=== PATIENT | female | born 1950 | race Caucasian/White ===

== ENCOUNTER 2020-07-14 11:18 | Outpatient (CLI) | payer MEDICARE, SELFPAY ==
--- NOTE | 2020-07-14 11:29 | MM_ITS ---
WS: [id number] BILATERAL DIGITAL SCREENING MAMMOGRAPHY WITH CAD CLINICAL INFORMATION: SCREENING HISTORY: Screening mammogram. No current complaints. COMPARISON: TECHNIQUE: Bilateral CC and MLO views. FINDINGS: Scattered fibroglandular densities bilaterally. No suspicious focal mass, asymmetry, calcifications, or architectural distortion. New punctate clustered calcifications involving the upper outer right br east. Recommend further evaluation with spot compression magnification views. Lucent centered and pun ctate calcifications. Vascular calcification. Stable large dystrophic calcification right breast. Left breast is unremarkable and unchanged. MM/[place] [id number] IMPRESSION: BI-RADS: 0-Incomplete: Need additional imaging evaluation FOLLOW UP: Need Additional Imaging RECOMMEND RIGHT DIAGNOSTIC MAMMOGRAPHY WITH SPOT MAGNIFICATION VIEWS OF THE NEW CALCIFICATIONS
== END 2020-07-14 11:19 | disposition home or self-care (01) ==
LOC: RADSHAW 11:24
PROVIDERS: PCP Internal Medicine; Visit Provider Internal Medicine
DX: Z12.31 Encounter for screening mammogram for malignant neoplasm of breast (principal); R92.8 Other abnormal and inconclusive findings on diagnostic imaging of breast
CPT/HCPCS: 77067

== ENCOUNTER 2020-08-11 11:10 | Outpatient (CLI) | payer MEDICARE, SELFPAY ==
--- NOTE | 2020-08-11 11:15 | MM_ITS ---
WS: [id number] RIGHT DIGITAL MAMMOGRAPHY WITH CAD CLINICAL INFORMATION: INCONCLUSIVE MAMMOGRAM COMPARISON: July 14, 2020 TECHNIQUE: 4 views of the right breast were obtained. FINDINGS: Scattered fibroglandular densities of the right breast. Stable clustered dystrophic calcifications. S table lucent centered calcifications. Again seen are the new punctate clustered calcifications involving the upper outer right breast. Spot magnification views demonstrate punctate and relatively uniform calcifications. These are probably b enign and recommend 6 month follow-up to confirm stability. MM/[place] [id number] IMPRESSION: BI-RADS: 3-Probably Benign FOLLOW UP: 6 Month Follow-up SIX-MONTH FOLLOW-UP RIGHT BREAST DIAGNOSTIC MAMMOGRAPHY WITH MAGNIFICATION VIEW S RIGHT BREAST CALCIFICATIONS TO CONFIRM STABILITY
== END 2020-08-11 11:11 | disposition home or self-care (01) ==
LOC: RADSHAW 11:13
PROVIDERS: PCP Internal Medicine; Visit Provider Internal Medicine
DX: R92.2 Inconclusive mammogram (principal)
CPT/HCPCS: 77065

== ENCOUNTER 2021-07-13 12:49 | Outpatient (CLI) | payer MEDICARE, MEDICAID, SELFPAY ==
--- NOTE | 2021-07-13 13:04 | MM_ITS ---
WS: [id number] RIGHT DIGITAL MAMMOGRAPHY WITH CAD CLINICAL INFORMATION: INCONCLSIVE MAMMOGRAM COMPARISON: July 14, 2020 TECHNIQUE: 4 views of the right breast were obtained. FINDINGS: Scattered fibroglandular densities of the right breast. Dystrophic calcifications subareolar right br east. Stable punctate and clustered calcifications are unchanged compared to the prior examination an d probably benign. Lucent centered calcifications. No other significant changes compared to previous. MM/[place] [id number] IMPRESSION: BI-RADS: 3-Probably Benign FOLLOW UP: 6 Month Follow-up RECOMMEND ADDITIONAL SIX-MONTH RIGHT DIAGNOSTIC MAMMOGRAPHY WITH SPOT MAGNIFICA TION VIEWS OF THE CALCIFICATIONS UNTIL 2 YEAR STABILITY.
== END 2021-07-13 12:50 | disposition home or self-care (01) ==
LOC: RADSHAW 12:55
PROVIDERS: PCP Internal Medicine; Visit Provider Physician Assistant
DX: R92.2 Inconclusive mammogram (principal)
CPT/HCPCS: 77065

== ENCOUNTER 2021-08-05 08:45 | Emergency (ER) | payer MEDICARE, MEDICAID, SELFPAY ==
[2021-08-05] VITALS (7 sets, daily range): BP systolic 100–146; BP diastolic 48–76; PULSE 68–96; RESP 16–20; TEMP 38.6; O2SAT 92–96; BMI 41.5
--- NOTE | 2021-08-05 09:13 | XRR_ITS ---
PROCEDURE INFORMATION: Exam: XR Chest Exam date and time: 08/05/2021 9:13 AM Age: 70 years old Clinical indication: Fever; Patient HX: N/v chills not acting right TECHNIQUE: Imaging protocol: XR of the chest. Views: 1 view. COMPARISON: [facility] Chest 2 views 09/18/2016 9:42 AM FINDINGS: Lungs: Unremarkable. No consolidation. Pleural spaces: Unremarkable. No pleural effusion. No pneumothorax. Heart/Mediastinum: Unremarkable. No cardiomegaly. Bones/joints: Sequela of ORIF within the proximal left humerus. The visualized osseous structures are intact. XR/XR chest 1V portable [id number] IMPRESSION: No acute findings.
--- NOTE | 2021-08-05 09:37 | W.ED.COVID ---
Documented by User: ROBI Robbins 08/05/21 15:57 HPI - COVID General: Chief Complaint: COVID symptoms Stated Complaint: N/V CHILLS NOT ACTING RIGHT Time Seen by Provider: 08/05/21 11:44 Triage information: Has fever, cough or shortness of breath. No known COVID + exposure last 14 days History of Present Illness: HPI Narrative: Patient is an unvaccinated individual who presents here today with generalized weakness for the last couple days. Started with a high fever this morning. Daughter was concerned that she was coming out of it for about a minute this morning when they were up walking around. But patient has since then responded very well. No known COVID exposure. Patient denies any new cough but she does have history of chronic cough. Patient denies any sinus drainage. Patient still has gallbladder. Did vomit this morning. Patient is diabetic. Patient is having slight abdominal discomfort upper abdomen. COVID 19 common symptoms: positive nausea and vomiting; negative fever(s), chills, non-productive cough, productive cough, dyspnea, body aches, headache(s), throat pain or nasal congestion COVID 19 other sytmptoms: negative chest pain COVID Results: SARS-CoV-2 (PCR) Not detected (NOT DETECT) 08/05/21 11:20 08/05/21 Coronavirus Type 229E (PCR) Not detected (NOT DETECT) 08/05/21 11:20 08/05/21 Review of Systems Narrative: Daughter said that earlier today she seemed like she is kind of out of it for a few minutes but has returned back to normal. Const: Denies: fever(s), chills or body aches Eyes: Denies: change in vision or blurry vision ENMT: Denies: throat pain or nasal congestion Card: Denies: chest pain or dyspnea on exertion Resp: Denies: dyspnea, productive cough or non-productive cough GI: Reports: abdominal pain, nausea and vomiting Musc: Denies: extremity pain Skin/Breast: Denies: rash Neuro: Denies: headache(s) Psych: Denies: anxiety or depression José/Lymph: Denies: easy bruising Physical Exam Const: COMMON NORMALS: no acute distress and patient oriented x3 GENERAL APPEARANCE: cooperative and comfortable HENMT: COMMON NORMALS: normocephalic HEAD & SCALP: normal to inspection and normocephalic FACE & SINUS: normal facial exam Eye: COMMON NORMALS: conjunctivae normal GENERAL EYE: appearance normal, both eyes and all related structures CONJUNCTIVA: Yes conjunctivae normal Neck/C-Spine: COMMON NORMALS: no JVD Chest: COMMONS NORMALS: normal inspection of the chest Resp: COMMON NORMALS: normal respiratory effort and clear to auscultation bilaterally AUSCULTATION: clear to auscultation bilaterally Cardio: COMMON NORMALS: no JVD, regular rate and regular rhythm RATE: regular rate RHYTHM: regular rhythm GI: AUSCULTATION: Yes normoactive bowel sounds PALPATION: Yes Tenderness to palpation present (GI) (Generalized) Extremity: COMMON NORMALS: normal to inspection and full ROM Neuro: COMMON NORMALS: patient oriented x3 Course Vital Signs: Vital signs: Vital Signs Temperature 101.5 F H 08/05/21 09:06 Pulse Rate 78 08/05/21 19:51 Respiratory Rate 16 08/05/21 19:51 Blood Pressure 134/68 08/05/21 19:51 Pulse Oximetry 95 08/05/21 19:51 MDM - COVID MDM Narrative: Medical decision making narrative: Brief history and physical exam was performed as part of the triage process. Due to current ED wait time patient will be placed in waiting room until a room becomes available. Explained to patient he/she will be seen in order of severity. Patient is currently safe to wait in the waiting room until we can get them placed. Patient informed that if condition worsens at any time to please let the front end application developer know. Discussed work-up and case with Dr. Briggs- we will proceed with ultrasound I spoke with Dr. Briggs shared results of findings and then I spoke with Dr. Montoya and shared ultrasound findings and labs Dr. Yanez recommended we go ahead and do hepatitis profile admit to the medical floor then he will follow and if need be addressed the gallbladder issues tomorrow. Also recommend antibiotic. Hepatitis profile was negative. CT of the abdomen reveals multiple gallstones with pericholecystic edema consistent with acute cholecystitis and then she has stones in her common bile duct with the largest being 3 mm. Patient in need of ERCP. Spoke with Dr. Cabral will consider transfer to [facility] per family members request if beds available. Lab Data: Labs: Lab Results 08/05/21 08/05/21 08/05/21 10:53 10:53 10:53 WBC 25.5 10^3/uL H 10 ^3/uL (4.0-10.0) RBC 4.54 10^6/uL 10^6 /uL (4.1-5.3) Hgb 13.7 g/dL g/dL (11.5-15.3) Hct 41.4 % % (37.0-47.0) MCV 91.2 fl fl (81-99) MCH 30.2 pg pg (28.0-34.0) MCHC 33.1 g/dL g/dL (30.0-36.0) RDW 12.7 % % (12.1-15.1) Plt Count 430 10^3/cmm H 10 ^3/cmm (130-400) MPV 9.5 fL fL (7.4-10.4) Neut % (Auto) 90.7 % % Lymph % (Auto) 2.1 % % Collier % (Auto) 6.2 % % Eos % (Auto) 0.0 % % Baso % (Auto) 0.3 % % Neut # (Auto) 23.13 10^3/uL H 1 0^3/uL (1.8-7.7) Lymph # (Auto) 0.5 10^3/uL L 10^ 3/uL (0.8-4.8) Collier # (Auto) 1.6 10^3/uL H 10^ 3/uL (0.2-0.9) Eos # (Auto) 0.0 10^3/uL 10^3/ uL (0.0-0.8) Baso # (Auto) 0.1 10^3/uL 10^3/ uL (0.0-0.1) Nucleated RBC % (a uto) 0 % % Nucleated RBCs # 0.0 /100WBC /100W BC Sodium 134 mmol/L L mmol /L (136-145) Potassium 3.7 mmol/L mmol/L (3.5-5.1) Chloride 94 mmol/L L mmol/ L (98-107) Carbon Dioxide 26 mmol/L mmol/L (22-29) Anion Gap 17.7 (5-19) BUN 23 mg/dL mg/dL (8-23) Creatinine 1.3 mg/dL H mg/dL (0.5-0.9) GFR Calculation 40.7 mL/min L mL/ min (90-130) Glucose 273 mg/dL H mg/dL (65-115) Calculated Osmolal ity 291 mOsm/kg mOsm/ kg (285-295) Calcium 9.9 mg/dL mg/dL (8.5-10.5) Total Bilirubin 3.5 mg/dL H mg/dL (0.15-1.2) AST 457 U/L H U/L (0-32) ALT 252 U/L H U/L (0-33) Alkaline Phosphata se 488 IU/L H IU/L (35-105) Total Protein 7.4 g/dL g/dL (6.6-8.7) Albumin 3.3 g/dL L g/dL (3.5-5.2) Globulin 4.1 g/dL g/dL (1.3-4.6) Lipase 36 U/L U/L (13-60) Urine Color Urine Appearance Urine pH Ur Specific Gravit y Urine Protein Urine Glucose (UA) Urine Ketones Urine Blood Urine Nitrate Urine Bilirubin Urine Urobilinogen Ur Leukocyte Shelley ase Urine RBC Urine WBC Ur Squamous Epith Cells Amorphous Sediment Urine Bacteria Fine Granular Cast s Urine Mucus Coronavirus 229E ( PCR) Hepatitis A IgM Ab Hep Bs Antigen Hep B Core IgM Ab Hepatitis C Antibo dy Influenza Type A A g Influenza Type B A g SARS-CoV-2 (PCR) 08/05/21 08/05/21 08/05/21 10:53 11:20 11:20 WBC RBC Hgb Hct MCV MCH MCHC RDW Plt Count MPV Neut % (Auto) Lymph % (Auto) Collier % (Auto) Eos % (Auto) Baso % (Auto) Neut # (Auto) Lymph # (Auto) Collier # (Auto) Eos # (Auto) Baso # (Auto) Nucleated RBC % (a uto) Nucleated RBCs # Sodium Potassium Chloride Carbon Dioxide Anion Gap BUN Creatinine GFR Calculation Glucose Calculated Osmolal ity Calcium Total Bilirubin AST ALT Alkaline Phosphata se Total Protein Albumin Globulin Lipase Urine Color Urine Appearance Urine pH Ur Specific Gravit y Urine Protein Urine Glucose (UA) Urine Ketones Urine Blood Urine Nitrate Urine Bilirubin Urine Urobilinogen Ur Leukocyte Shelley ase Urine RBC Urine WBC Ur Squamous Epith Cells Amorphous Sediment Urine Bacteria Fine Granular Cast s Urine Mucus Coronavirus 229E ( PCR) Not detected (NOT DETECT) Hepatitis A IgM Ab Non-reactive (Nonreactive) Hep Bs Antigen Non-reactive (Nonreactive) Hep B Core IgM Ab Non-reactive (Nonreactive) Hepatitis C Antibo dy Non-reactive (Nonreactive) Influenza Type A A g Negative (Negative) Influenza Type B A g Negative (Negative) SARS-CoV-2 (PCR) Not detected (NOT DETECT) 08/05/21 13:35 WBC RBC Hgb Hct MCV MCH MCHC RDW Plt Count MPV Neut % (Auto) Lymph % (Auto) Collier % (Auto) Eos % (Auto) Baso % (Auto) Neut # (Auto) Lymph # (Auto) Collier # (Auto) Eos # (Auto) Baso # (Auto) Nucleated RBC % (a uto) Nucleated RBCs # Sodium Potassium Chloride Carbon Dioxide Anion Gap BUN Creatinine GFR Calculation Glucose Calculated Osmolal ity Calcium Total Bilirubin AST ALT Alkaline Phosphata se Total Protein Albumin Globulin Lipase Urine Color [place] (Yellow) Urine Appearance Clear (CLEAR) Urine pH 6.5 (5-7) Ur Specific Gravit y 1.015 (1.005-1.030) Urine Protein Trace (Negative) Urine Glucose (UA) Trace H (Normal) Urine Ketones Negative (Negative) Urine Blood Neg (Negative) Urine Nitrate Negative (Negative) Urine Bilirubin 1+ H (Negative) Urine Urobilinogen 8 mg/dL H mg/dL (Negative) Ur Leukocyte Shelley ase Negative (Negative) Urine RBC None /hpf /hpf (0-2) Urine WBC 5-10 /hpf H /hpf (0-5) Ur Squamous Epith Cells 0-4 /hpf H /hpf (0-5) Amorphous Sediment Not Reportable Urine Bacteria 1+ /hpf H /hpf (NONE) Fine Granular Cast s 0-4 /lpf H /lpf Urine Mucus Trace /hpf /hpf Coronavirus 229E ( PCR) Hepatitis A IgM Ab Hep Bs Antigen Hep B Core IgM Ab Hepatitis C Antibo dy Influenza Type A A g Influenza Type B A g SARS-CoV-2 (PCR) COVID Results: SARS-CoV-2 (PCR) Not detected (NOT DETECT) 08/05/21 11:20 08/05/21 Coronavirus Type 229E (PCR) Not detected (NOT DETECT) 08/05/21 11:20 08/05/21 Discharge Plan Discharge Patient Disposition: Xfer Short-Term Hosp Clinical Impression: Cholecystitis, acute with cholelithiasis, Choledocholithiasis with acute cholecystitis Condition: Stable Referrals: Lefty Hodge DO [Primary Care Provider] - Coding Level of Care Code ED Workforce Development Vice President for Chg Fwd Exam Comprehensive Documented by User: Clifford Cabral 08/05/21 21:45 HPI - COVID General: Chief Complaint: COVID symptoms Stated Complaint: N/V CHILLS NOT ACTING RIGHT Time Seen by Provider: 08/05/21 11:44 COVID Results: SARS-CoV-2 (PCR) Not detected (NOT DETECT) 08/05/21 11:20 08/05/21 Coronavirus Type 229E (PCR) Not detected (NOT DETECT) 08/05/21 11:20 08/05/21 Course Vital Signs: Vital signs: Vital Signs Temperature 101.5 F H 08/05/21 09:06 Pulse Rate 78 08/05/21 19:51 Respiratory Rate 16 08/05/21 19:51 Blood Pressure 134/68 08/05/21 19:51 Pulse Oximetry 95 08/05/21 19:51 MDM - COVID MDM Narrative: Medical decision making narrative: this patient was signed out to me Dr. Cabral by [facility] at 1710 currently trying to find placement for individual with common bile duct stone and acute cholecystitis. Patient is a white count of 25.5 no obvious sepsis at this time will need ERCP MRCP and GI which we do not have at her current facility patient remains in guarded condition at this time. Notified by staff patient possible bed at [facility] in [facility] patient was continued on antibiotics I spoke with Beverly the on-call nurse practitioner for medicine service which Dr. Bowman has granted acceptance of the patient patient to go by ground transportation. Lab Data: Labs: Lab Results 08/05/21 08/05/21 08/05/21 10:53 10:53 10:53 WBC 25.5 10^3/uL H 10 ^3/uL (4.0-10.0) RBC 4.54 10^6/uL 10^6 /uL (4.1-5.3) Hgb 13.7 g/dL g/dL (11.5-15.3) Hct 41.4 % % (37.0-47.0) MCV 91.2 fl fl (81-99) MCH 30.2 pg pg (28.0-34.0) MCHC 33.1 g/dL g/dL (30.0-36.0) RDW 12.7 % % (12.1-15.1) Plt Count 430 10^3/cmm H 10 ^3/cmm (130-400) MPV 9.5 fL fL (7.4-10.4) Neut % (Auto) 90.7 % % Lymph % (Auto) 2.1 % % Collier % (Auto) 6.2 % % Eos % (Auto) 0.0 % % Baso % (Auto) 0.3 % % Neut # (Auto) 23.13 10^3/uL H 1 0^3/uL (1.8-7.7) Lymph # (Auto) 0.5 10^3/uL L 10^ 3/uL (0.8-4.8) Collier # (Auto) 1.6 10^3/uL H 10^ 3/uL (0.2-0.9) Eos # (Auto) 0.0 10^3/uL 10^3/ uL (0.0-0.8) Baso # (Auto) 0.1 10^3/uL 10^3/ uL (0.0-0.1) Nucleated RBC % (a uto) 0 % % Nucleated RBCs # 0.0 /100WBC /100W BC Sodium 134 mmol/L L mmol /L (136-145) Potassium 3.7 mmol/L mmol/L (3.5-5.1) Chloride 94 mmol/L L mmol/ L (98-107) Carbon Dioxide 26 mmol/L mmol/L (22-29) Anion Gap 17.7 (5-19) BUN 23 mg/dL mg/dL (8-23) Creatinine 1.3 mg/dL H mg/dL (0.5-0.9) GFR Calculation 40.7 mL/min L mL/ min (90-130) Glucose 273 mg/dL H mg/dL (65-115) Calculated Osmolal ity 291 mOsm/kg mOsm/ kg (285-295) Calcium 9.9 mg/dL mg/dL (8.5-10.5) Total Bilirubin 3.5 mg/dL H mg/dL (0.15-1.2) AST 457 U/L H U/L (0-32) ALT 252 U/L H U/L (0-33) Alkaline Phosphata se 488 IU/L H IU/L (35-105) Total Protein 7.4 g/dL g/dL (6.6-8.7) Albumin 3.3 g/dL L g/dL (3.5-5.2) Globulin 4.1 g/dL g/dL (1.3-4.6) Lipase 36 U/L U/L (13-60) Urine Color Urine Appearance Urine pH Ur Specific Gravit y Urine Protein Urine Glucose (UA) Urine Ketones Urine Blood Urine Nitrate Urine Bilirubin Urine Urobilinogen Ur Leukocyte Shelley ase Urine RBC Urine WBC Ur Squamous Epith Cells Amorphous Sediment Urine Bacteria Fine Granular Cast s Urine Mucus Coronavirus 229E ( PCR) Hepatitis A IgM Ab Hep Bs Antigen Hep B Core IgM Ab Hepatitis C Antibo dy Influenza Type A A g Influenza Type B A g SARS-CoV-2 (PCR) 08/05/21 08/05/21 08/05/21 10:53 11:20 11:20 WBC RBC Hgb Hct MCV MCH MCHC RDW Plt Count MPV Neut % (Auto) Lymph % (Auto) Collier % (Auto) Eos % (Auto) Baso % (Auto) Neut # (Auto) Lymph # (Auto) Collier # (Auto) Eos # (Auto) Baso # (Auto) Nucleated RBC % (a uto) Nucleated RBCs # Sodium Potassium Chloride Carbon Dioxide Anion Gap BUN Creatinine GFR Calculation Glucose Calculated Osmolal ity Calcium Total Bilirubin AST ALT Alkaline Phosphata se Total Protein Albumin Globulin Lipase Urine Color Urine Appearance Urine pH Ur Specific Gravit y Urine Protein Urine Glucose (UA) Urine Ketones Urine Blood Urine Nitrate Urine Bilirubin Urine Urobilinogen Ur Leukocyte Shelley ase Urine RBC Urine WBC Ur Squamous Epith Cells Amorphous Sediment Urine Bacteria Fine Granular Cast s Urine Mucus Coronavirus 229E ( PCR) Not detected (NOT DETECT) Hepatitis A IgM Ab Non-reactive (Nonreactive) Hep Bs Antigen Non-reactive (Nonreactive) Hep B Core IgM Ab Non-reactive (Nonreactive) Hepatitis C Antibo dy Non-reactive (Nonreactive) Influenza Type A A g Negative (Negative) Influenza Type B A g Negative (Negative) SARS-CoV-2 (PCR) Not detected (NOT DETECT) 08/05/21 13:35 WBC RBC Hgb Hct MCV MCH MCHC RDW Plt Count MPV Neut % (Auto) Lymph % (Auto) Collier % (Auto) Eos % (Auto) Baso % (Auto) Neut # (Auto) Lymph # (Auto) Collier # (Auto) Eos # (Auto) Baso # (Auto) Nucleated RBC % (a uto) Nucleated RBCs # Sodium Potassium Chloride Carbon Dioxide Anion Gap BUN Creatinine GFR Calculation Glucose Calculated Osmolal ity Calcium Total Bilirubin AST ALT Alkaline Phosphata se Total Protein Albumin Globulin Lipase Urine Color [place] (Yellow) Urine Appearance Clear (CLEAR) Urine pH 6.5 (5-7) Ur Specific Gravit y 1.015 (1.005-1.030) Urine Protein Trace (Negative) Urine Glucose (UA) Trace H (Normal) Urine Ketones Negative (Negative) Urine Blood Neg (Negative) Urine Nitrate Negative (Negative) Urine Bilirubin 1+ H (Negative) Urine Urobilinogen 8 mg/dL H mg/dL (Negative) Ur Leukocyte Shelley ase Negative (Negative) Urine RBC None /hpf /hpf (0-2) Urine WBC 5-10 /hpf H /hpf (0-5) Ur Squamous Epith Cells 0-4 /hpf H /hpf (0-5) Amorphous Sediment Not Reportable Urine Bacteria 1+ /hpf H /hpf (NONE) Fine Granular Cast s 0-4 /lpf H /lpf Urine Mucus Trace /hpf /hpf Coronavirus 229E ( PCR) Hepatitis A IgM Ab Hep Bs Antigen Hep B Core IgM Ab Hepatitis C Antibo dy Influenza Type A A g Influenza Type B A g SARS-CoV-2 (PCR) COVID Results: SARS-CoV-2 (PCR) Not detected (NOT DETECT) 08/05/21 11:20 08/05/21 Coronavirus Type 229E (PCR) Not detected (NOT DETECT) 08/05/21 11:20 08/05/21 Discharge Plan Discharge Patient Disposition: Xfer Short-Term Hosp Clinical Impression: Cholecystitis, acute with cholelithiasis, Choledocholithiasis with acute cholecystitis Condition: Stable Referrals: Lefty Hodge DO [Primary Care Provider] - Coding Level of Care Code ED Workforce Development Vice President for Chg Fwd Exam Comprehensive
[2021-08-05 11:05] LABS: Basophils # 0.1 10^3/uL (0.0-0.1); Basophils % 0.3 %; Hematocrit 41.4 % (37.0-47.0); Hemoglobin 13.7 g/dL (11.5-15.3); Lymphocytes # 0.5 10^3/uL (0.8-4.8); Lymphocytes % 2.1 %; Mean Corpuscular HGB Conc 33.1 g/dL (30.0-36.0); Mean Corpuscular Hemoglobin 30.2 pg (28.0-34.0); Mean Corpuscular Volume 91.2 fl (81-99); Mean Platelet Volume 9.5 fL (7.4-10.4); Monocytes # 1.6 10^3/uL (0.2-0.9); Monocytes % 6.2 %; Neutrophils # 23.13 10^3/uL (1.8-7.7); Neutrophils % 90.7 %; Nucleated Red Blood Cells % 0 %; Platelet Count 430 10^3/cmm (130-400); Red Blood Count 4.54 10^6/uL (4.1-5.3); Red Cell Distribution Width 12.7 % (12.1-15.1); White Blood Count 25.5 10^3/uL (4.0-10.0)
[2021-08-05 11:28] LABS: Alanine Aminotransferase 252 U/L (0-33); Albumin Level 3.3 g/dL (3.5-5.2); Alkaline Phosphatase 488 IU/L (35-105); Anion Gap 17.7 (5-19); Aspartate Amino Transferase 457 U/L (0-32); Blood Urea Nitrogen 23 mg/dL (8-23); Calcium 9.9 mg/dL (8.5-10.5); Carbon Dioxide 26 mmol/L (22-29); Chloride 94 mmol/L (98-107); Globulin 4.1 g/dL (1.3-4.6); Glomerular Filtration Rate 40.7 mL/min (90-130); Glucose 273 mg/dL (65-115); Osmolality Calculated 291 mOsm/kg (285-295); Potassium 3.7 mmol/L (3.5-5.1); Sodium 134 mmol/L (136-145); Total Bilirubin 3.5 mg/dL (0.15-1.2); Total Protein 7.4 g/dL (6.6-8.7)
--- NOTE | 2021-08-05 11:44 | USR_ITS ---
PROCEDURE INFORMATION: Exam: US Abdomen, Limited; Right Upper Quadrant Exam date and time: 08/05/2021 11:44 AM Age: 70 years old Clinical indication: Abdominal pain; Additional info: Pain, increased transaminases TECHNIQUE: Imaging protocol: US abdomen. Real time ultrasound with image documentation. Limited exam focused on the right upper quadrant. COMPARISON: US Renal Kidney Structu* [id number] 03/08/2015 1:04 PM FINDINGS: Liver: The liver is diffusely increased in echogenicity consistent with fatty infiltration. Gallbladder: Gallbladder wall is mildly thickened measuring 3.2 mm. There is a negative sonographic Vann sign. There are stones and sludge in the gallbladder. Common bile duct: Common bile duct is not well seen. Pancreas: Visualized portions of the pancreas are unremarkable. Right kidney: Lower pole the right kidney is obscured by overlying bowel gas. No evidence for hydronephrosis, calculi, or mass in the upper pole. Other findings: Technically difficult study secondary to a large amount of overlying bowel gas in this patient. US/US gall bladder [id number] IMPRESSION: 1. There are stones and sludge in the gallbladder associated with a mildly thickened gallbladder wall which measures 3.2 mm. Findings raise concern for cholecystitis. 2. The liver is diffusely increased in echogenicity consistent with fatty infiltration.
[2021-08-05 12:15] LABS: Influenza A by IFA Negative (Negative); Influenza B by IFA Negative (Negative)
[2021-08-05] MEDS: cefTRIAXone 1,000 MG in sodium chloride 0.9% (plus) 50 ML 100 MG IV (13:43)
[2021-08-05 13:44] LABS: Adenovirus Not Detected (NOT DETECT); Chlamydia Pneumoniae Not Detected (NOT DETECT); Coronavirus 229E,HKU1,NL63,OC4 Not Detected (NOT DETECT); Human Metapneumovirus Not Detected (NOT DETECT); Human Rhinovirus/Enterovirus Not Detected (NOT DETECT); Influenza A Not Detected (NOT DETECT); Influenza A H1 Not Detected (NOT DETECT); Influenza A H1-2009 Not Detected (NOT DETECT); Influenza A H3 Not Detected (NOT DETECT); Influenza B Not Detected (NOT DETECT); Mycoplasma Pneumoniae Not Detected (NOT DETECT); Parainfluenza Virus Type 1 Not Detected (NOT DETECT); Parainfluenza Virus Type 2 Not Detected (NOT DETECT); Parainfluenza Virus Type 3 Not Detected (NOT DETECT); Parainfluenza Virus Type 4 Not Detected (NOT DETECT); Respiratory Syncytial Virus A Not Detected (NOT DETECT); Respiratory Syncytial Virus B Not Detected (NOT DETECT); SARS-COV-2 Not Detected (NOT DETECT)
[2021-08-05] MEDS: sodium chloride 0.9% 1,000 ML 150 ML IV (13:44)
[2021-08-05 14:07] LABS: Add Urine Microscopic? YES; Bacteria Urine 1+ /hpf; Bilirubin Urine 1+ (Negative); Blood Urine Neg (Negative); Glucose Urine UA Trace (Normal); Ketones Urine Negative (Negative); Leukocyte Esterase Urine Negative (Negative); Nitrate Urine Negative (Negative); Protein Urine Trace (Negative); Specific Gravity, Urine 1.015 (1.005-1.030); Squamous Epithelial Cell Urine 0-4 /hpf (0-5); Urine Appearance Clear (CLEAR); Urine Color Orange (Yellow); Urobilinogen Urine 8 mg/dL (Negative); pH Urine 6.5 (5-7)
[2021-08-05 14:08] LABS: Add Urine Culture? No; Fine Granular Casts Urine 0-4 /lpf; Mucus Urine TRACE /hpf
[2021-08-05] MEDS: metroNIDAZOLE IV 500 MG/100 ML PREMIX 100 MG IV (14:25)
--- NOTE | 2021-08-05 14:25 | CTR_ITS ---
PROCEDURE INFORMATION: Exam: CT Abdomen And Pelvis With Contrast Exam date and time: 08/05/2021 2:25 PM Age: 70 years old Clinical indication: Nausea and vomiting; Prior surgery; Surgery date: 6+ months; Surgery type: Hyst; Patient HX: C/O abd pain n/v and chills TECHNIQUE: Imaging protocol: Computed tomography of the abdomen and pelvis with contrast. Radiation optimization: All CT scans at this facility use at least one of these dose optimization techniques: automated exposure control; mA and/or kV adjustment per patient size (includes targeted exams where dose is matched to clinical indication); or iterative reconstruction. Contrast material: VISI 320; Contrast volume: 95 ml; Contrast route: INTRAVENOUS (IV); COMPARISON: US gall bladder [id number] 08/05/2021 12:32 PM RADIATION DOSE METRICS: Total DLP (mGy-cm): 1725.31 FINDINGS: Heart: Cardiomegaly. Liver: Normal. No mass. Gallbladder and bile ducts: There are multiple stones in the gallbladder as well as a small focus of air. Gallbladder wall is thickened measuring up to 7 mm. There is mild pericholecystic edema. Common bile duct measures 8.6 mm at the level of the pancreatic head. There are small stones in the distal common bile duct near the ampulla of Vater the larger of which measures 3 mm. Pancreas: Normal. No ductal dilation. Spleen: Normal. No splenomegaly. Adrenal glands: Normal. No mass. Kidneys and ureters: Normal. No hydronephrosis. Stomach and bowel: Unremarkable. No obstruction. No mucosal thickening. Appendix: No evidence of appendicitis. Intraperitoneal space: Unremarkable. No free air. No significant fluid collection. Vasculature: Calcified plaque is present within multiple vascular structures. Lymph nodes: Unremarkable. No enlarged lymph nodes. Urinary bladder: Unremarkable as visualized. Reproductive: The uterus is not visualized, consistent with hysterectomy. Bones/joints: Unremarkable. No acute fracture. Soft tissues: Unremarkable. CT/CT abdomen pelvis w con* [id number] IMPRESSION: 1. Gallbladder wall is thickened and there is pericholecystic edema, consistent with acute cholecystitis. 2. Cholelithiasis and choledocholithiasis. There are stones in the distal common bile duct the larger of which measures 3 mm.
[2021-08-05 15:10] LABS: Lipase 36 U/L (13-60)
[2021-08-05] MEDS: iodixanol 320 mg/mL 100mL Btl IV (15:17)
[2021-08-05 15:24] LABS: Hepatitis A Antibody IgM Non-Reactive (Nonreactive); Hepatitis B Core IgM Non-Reactive (Nonreactive); Hepatitis B Surface Antigen Non-Reactive (Nonreactive); Hepatitis C Virus Antibody Non-Reactive (Nonreactive)
--- NOTE | 2021-08-05 22:36 | PC.NURSE ---
Pt consent for transfer signed
--- NOTE | 2021-08-05 23:39 | PC.NURSE ---
Pt resting with daughter at bedside. Pt denies any needs at this time.
== END 2021-08-06 01:45 | disposition short-term general hospital (02) ==
PROVIDERS: Nurse Practitioner Family; Emergency Provider Emergency Medicine; PCP Internal Medicine
DX: K80.62 Calculus of gallbladder and bile duct with acute cholecystitis without obstruction (principal); Z20.822 Contact with and (suspected) exposure to COVID-19
CPT/HCPCS: 36415; 71045; 74177; 76705; 80053; 80074; 81001; 83690; 85025; 87635; 87804; 96365; 96367; 99285; J0696; J7030; Q9967; S0030

== ENCOUNTER 2022-02-01 13:21 | Outpatient (CLI) | payer MEDICARE, MEDICAID, SELFPAY ==
--- NOTE | 2022-02-01 13:38 | CT_ITS ---
WS: [id number] CT HEAD TECHNIQUE: Noncontrast and contrast-enhanced CT of the head. CLINICAL INFORMATION: MEMORY IMPAIRMENT COMPARISON: CT 4 25,10 DLP: 2012.[address] scans at [facility] use at least one of these dose optimization techniques: automated e xposure control; mA and/or kV adjustment per patient size (includes targeted exams where dose is matc hed to clinical indication); or iterative reconstruction. FINDINGS: No evidence of intracranial hemorrhage or mass effect. Ventricular system and basal cisterns are macario nt. Advanced small vessel changes. Moderate parenchymal volume loss. Chronic lacunar infarcts in the basal ganglia bilaterally. Intracranial vascular calcification. Chronic infarct with encephalomalacia involving the LEFT parasagittal occipital and superior LEFT temporal lobe. This was present in 2009. No abnormal intracranial enhancement. Normal visualized dural venous sinuses. Mastoid air cells and paranasal sinuses are well aerated. CT/CT head wo/w con [id number] IMPRESSION: 1. No evidence of intracranial hemorrhage or mass effect. 2. Advanced small vessel changes with moderate parenchymal volume loss progres sed since 2009 3. Multiple chronic lacunar infarcts in bilateral basal ganglia some of which are new since 2009. 4. Intracranial vascular calcification. 5. Chronic infarct in the LEFT parasagittal occipital and superior LEFT tempor al lobe were present in 2009. 6. Chronic wedge shaped infarct involving the RIGHT parietal lobe posteriorly unchanged since 2009. 7. No abnormal intracranial enhancement.
[2022-02-01 14:12] LABS: Blood Urea Nitrogen 25 mg/dL (8-23); Glomerular Filtration Rate 37.3 mL/min (90-130)
[2022-02-01] MEDS: iohexol 350 mg/mL 100 mL Btl IV (14:27)
== END 2022-02-01 13:22 | disposition home or self-care (01) ==
PROVIDERS: PCP Internal Medicine; Visit Provider Internal Medicine
DX: I63.9 Cerebral infarction, unspecified (principal); I63.81 Other cerebral infarction due to occlusion or stenosis of small artery
CPT/HCPCS: 70470; 82565; 84520

== ENCOUNTER 2022-12-17 22:23 | Inpatient (IN) | payer MEDICARE, MEDICAID, SELFPAY ==
--- NOTE | 2022-12-17 22:25 | XRR_ITS ---
PROCEDURE INFORMATION: Exam: XR Chest Exam date and time: 12/17/2022 10:44 PM Age: 72 years old Clinical indication: Cough; Prior surgery; Surgery date: 6+ months; Surgery type: Lt arm TECHNIQUE: Imaging protocol: Radiologic exam of the chest. Views: 1 view. COMPARISON: CR XR chest 1V portable [id number] 08/05/2021 11:01 AM FINDINGS: Lungs: The lungs are somewhat hyperinflated with increased interstitial markings, likely representing COPD. No evidence of focal consolidation to suggest pneumonia. Pleural spaces: Unremarkable. No pleural effusion. No pneumothorax. Heart/Mediastinum: Stable cardiomediastinal silhouette. Bones/joints: Left humerus ORIF hardware re-identified. XR/XR chest 1V portable [id number] IMPRESSION: No evidence of focal consolidation. COPD changes.
[2022-12-17 22:32] VITALS: BP 149/67; PULSE 88; RESP 18; TEMP 36.7; O2SAT 91; BMI 37.8
[2022-12-17] MEDS: benzonatate 100 mg Capsule PO (22:46)
--- NOTE | 2022-12-17 22:46 | W.ED.SOB ---
HPI - SOB/Dyspnea General: Chief Complaint: Shortness of Breath/Dyspnea Stated Complaint: Coughing Time Seen by Provider: 12/17/22 22:29 Source: patient Mode of arrival: ambulatory Limitations: no limitations History of Present Illness: HPI Narrative: 72-year-old female states she had a cough over the last 3 days. She has been dry nonproductive but states cough is severe and when she gets coughing fits she been having some shortness of breath. Denies any fevers denies any sick contacts. She denies any worsening improving factors no vomiting no diarrhea. Associated symptoms: Deny abdominal pain, chest pain, fever(s), nausea or vomiting Review of Systems Const: Denies: fever(s) or chills Eyes: Denies: eye discomfort ENMT: Denies: throat pain or dental pain Card: Denies: chest pain Resp: Reports: dyspnea and non-productive cough GI: Denies: abdominal pain, nausea, vomiting or diarrhea Musc: Denies: neck pain or back pain Skin/Breast: Denies: rash Neuro: Denies: headache(s) PFSH ED PFSH: Medical History (Updated 12/18/22 @ 00:25 by Yaz Taylor MD) Hypertension Social History (Updated 12/17/22 @ 22:47 by Yaz Taylor MD) Substance/Drug Use: never Physical Exam Const: COMMON NORMALS: patient oriented x3 GENERAL APPEARANCE: in distress and ill appearing HENMT: COMMON NORMALS: normocephalic and atraumatic HEAD & SCALP: normocephalic and atraumatic Eye: COMMON NORMALS: conjunctivae normal CONJUNCTIVA: Yes conjunctivae normal Neck/C-Spine: COMMON NORMALS: full ROM and supple Chest: COMMONS NORMALS: normal inspection of the chest and normal palpation of entire chest wall Resp: COMMON NORMALS: No retractions and No use of accessory muscles AUSCULTATION: rhonchi and wheezes Cardio: COMMON NORMALS: regular rate, regular rhythm and No murmurs present (Cardio) RATE: regular rate RHYTHM: regular rhythm GI: INSPECTION: Yes normal to inspection Extremity: COMMON NORMALS: normal to inspection and full ROM Neuro: COMMON NORMALS: patient oriented x3, moves all extremities and no focal motor deficits Psych: COMMON NORMALS: mental status grossly normal, Normal thought process present and cooperative THOUGHT PROCESS: Normal thought process present Skin: COMMON NORMALS: no rashes or lesions noted and no wounds GENERAL SKIN EXAM: no rashes or lesions noted Course Vital Signs: Vital signs: Vital Signs Temperature 98.0 F 12/17/22 22:32 Pulse Rate 88 12/17/22 23:00 Respiratory Rate 18 12/17/22 23:00 Blood Pressure 171/73 12/17/22 23:00 Pulse Oximetry 90 12/17/22 23:00 Oxygen Delivery Me thod Room Air 12/17/22 23:00 MDM - SOB/Dyspnea Medical Decision Making Patient presents with cough along with dyspnea. She has been hypoxic here she is 84% on room air I did give her breathing treatment Decadron trialed her off oxygen again and she desaturated to 84% requiring 3 L she does have wheezing and rales on exam no known history of COPD spoke to hospitalist will get blood cultures and antibiotics and admit her due to her proxy. Medical Records I reviewed the patient's medical records. Lab Data I reviewed the patient's lab results. 12/17/22 22:50 12/17/22 22:50 Labs/Radiology: Radiology Impressions Chest X-Ray 12/17/22 22:25 IMPRESSION: No evidence of focal consolidation. COPD changes. Laboratory Results WBC 8.2 10^3/uL (4.0-10.0) 12/17/22 22:50 RBC 4.62 10^6/uL (4.1-5.3) 12/17/22 22:50 Hgb 14.0 g/dL (11.5-15.3) 12/17/22 22:50 Hct 43.0 % (37.0-47.0) 12/17/22 22:50 MCV 93.1 fl (81-99) 12/17/22 22:50 MCH 30.3 pg (28.0-34.0) 12/17/22 22:50 MCHC 32.6 g/dL (30.0-36.0) 12/17/22 22:50 RDW 13.1 % (12.1-15.1) 12/17/22 22:50 Plt Count 228 10^3/cmm (130-400) 12/17/22 22:50 MPV 9.5 fL (7.4-10.4) 12/17/22 22:50 Neut % (Auto) 63.7 % 12/17/22 22:50 Lymph % (Auto) 17.3 % 12/17/22 22:50 Greer % (Auto) 13.7 % 12/17/22 22:50 Eos % (Auto) 4.3 % 12/17/22 22:50 Baso % (Auto) 0.6 % 12/17/22 22:50 Neut # (Auto) 5.25 10^3/uL (1.8-7.7) 12/17/22 22:50 Lymph # (Auto) 1.4 10^3/uL (0.8-4.8) 12/17/22 22:50 Greer # (Auto) 1.1 10^3/uL (0.2-0.9) H 12/17/22 22:50 Eos # (Auto) 0.4 10^3/uL (0.0-0.8) 12/17/22 22:50 Baso # (Auto) 0.1 10^3/uL (0.0-0.1) 12/17/22 22:50 Nucleated RBC % (auto) 0 % 12/17/22 22:50 Nucleated RBCs # 0.0 /100WBC 12/17/22 22:50 Sodium 130 mmol/L (136-145) L 12/17/22 22:50 Potassium 4.1 mmol/L (3.5-5.1) 12/17/22 22:50 Chloride 93 mmol/L (98-107) L 12/17/22 22:50 Carbon Dioxide 25 mmol/L (22-29) 12/17/22 22:50 Anion Gap 16.1 (5-19) 12/17/22 22:50 BUN 22 mg/dL (8-23) 12/17/22 22:50 Creatinine 1.3 mg/dL (0.5-0.9) H 12/17/22 22:50 GFR Calculation 40.5 mL/min (90-130) L 12/17/22 22:50 Glucose 196 mg/dL (65-115) H 12/17/22 22:50 Calculated Osmolality 279 mOsm/kg (285-295) L 12/17/22 22:50 Calcium 9.3 mg/dL (8.5-10.5) 12/17/22 22:50 Total Bilirubin 1.2 mg/dL (0.15-1.2) 12/17/22 22:50 AST 30 U/L (0-32) 12/17/22 22:50 ALT 23 U/L (0-33) 12/17/22 22:50 Alkaline Phosphatase 97 U/L (35-105) 12/17/22 22:50 NT-Pro-B Natriuret Pep 1016 pg/mL (0-125) H 12/17/22 22:50 Total Protein 7.3 g/dL (6.6-8.7) 12/17/22 22:50 Albumin 3.6 g/dL (3.5-5.2) 12/17/22 22:50 Globulin 3.7 g/dL (1.3-4.6) 12/17/22 22:50 SARS-CoV-2 Ag (Rapid) negative (Negative) 12/17/22 22:50 Discharge Plan Discharge Patient Disposition: Admitted As Inpatient Clinical Impression: Community acquired pneumonia, Acute respiratory failure with hypoxia Prescriptions: No Action atorvastatin 20 mg tablet 20 mg PO QPM amlodipine 10 mg tablet 10 mg PO QAM hydrochlorothiazide 25 mg tablet 25 mg PO DAILY fluoxetine 20 mg capsule 20 mg PO QPM Lantus Solostar U-100 Insulin 100 unit/mL (3 mL) insulin pen 25 unit SUBCUT BID Vitamin C 1,000 mg Tablet 1,000 mg PO DAILY vitamin E 100 unit Capsule 100 unit PO DAILY garlic 1,000 mg Capsule 1,000 mg PO DAILY Centrum 0.4-162-18 mg Tablet 1 tab PO BEDTIME Referrals: Lefty Hodge DO [Primary Care Provider] - Coding Level of Care Code ED Electrical Products Sales Engineer for Minerva Ocampo
[2022-12-17] MEDS: albuterol 2.5 mg/3 mL Neb INHALATION (22:51)
[2022-12-17] MEDS: ipratropium 0.5 mg/2.5 mL Neb INHALATION (22:51)
[2022-12-17 22:53] VITALS: PULSE 84; RESP 18; O2SAT 96
[2022-12-17 22:54] LABS: Basophils # 0.1 10^3/uL (0.0-0.1); Basophils % 0.6 %; Eosinophils # 0.4 10^3/uL (0.0-0.8); Eosinophils % 4.3 %; Lymphocytes # 1.4 10^3/uL (0.8-4.8); Lymphocytes % 17.3 %; Mean Corpuscular HGB Conc 32.6 g/dL (30.0-36.0); Mean Corpuscular Hemoglobin 30.3 pg (28.0-34.0); Mean Corpuscular Volume 93.1 fl (81-99); Mean Platelet Volume 9.5 fL (7.4-10.4); Monocytes # 1.1 10^3/uL (0.2-0.9); Monocytes % 13.7 %; Neutrophils # 5.25 10^3/uL (1.8-7.7); Neutrophils % 63.7 %; Nucleated Red Blood Cells % 0 %; Platelet Count 228 10^3/cmm (130-400); Red Blood Count 4.62 10^6/uL (4.1-5.3); Red Cell Distribution Width 13.1 % (12.1-15.1); White Blood Count 8.2 10^3/uL (4.0-10.0)
[2022-12-17 22:56] VITALS: PULSE 88
[2022-12-17 23:00] VITALS: BP 171/73; PULSE 88; RESP 18; O2SAT 90
[2022-12-17 23:10] LABS: SARS Covid-2 Antigen negative (Negative)
[2022-12-17 23:12] LABS: Alanine Aminotransferase 23 U/L (0-33); Albumin Level 3.6 g/dL (3.5-5.2); Alkaline Phosphatase 97 U/L (35-105); Anion Gap 16.1 (5-19); Aspartate Amino Transferase 30 U/L (0-32); Blood Urea Nitrogen 22 mg/dL (8-23); Calcium 9.3 mg/dL (8.5-10.5); Carbon Dioxide 25 mmol/L (22-29); Chloride 93 mmol/L (98-107); Globulin 3.7 g/dL (1.3-4.6); Glomerular Filtration Rate 40.5 mL/min (90-130); Glucose 196 mg/dL (65-115); Osmolality Calculated 279 mOsm/kg (285-295); Potassium 4.1 mmol/L (3.5-5.1); Sodium 130 mmol/L (136-145); Total Bilirubin 1.2 mg/dL (0.15-1.2); Total Protein 7.3 g/dL (6.6-8.7)
[2022-12-17 23:43] LABS: NT Pro B Type Natriuretic Pept 1016 pg/mL (0-125)
[2022-12-17] MEDS: cefTRIAXone 1,000 MG in sodium chloride 0.9% (plus) 50 ML 100 MG IV (23:57)
[2022-12-18] VITALS (17 sets, daily range): BP systolic 137–175; BP diastolic 57–85; PULSE 77–96; RESP 16–26; TEMP 36.7–37; O2SAT 92–97
[2022-12-18] MEDS: dexamethasone 10 mg/mL INJ IVP (00:13)
[2022-12-18] MEDS: azithromycin 500 MG in sodium chloride 0.9% 250 ML 250 MG IV (01:05)
--- NOTE | 2022-12-18 01:10 | PM.HP ---
Providers/Chief Complaint Primary Care Provider: Lefty Hodge DO Chief Complaint: Coughing History of Present Illness Gianna Mora is a 72 year old female With past medical history of hypertension, diabetes, hyperlipidemia presented to the hospital today with complaint of cough that started about 3 days ago. He states her cough is not bringing up any sputum at this time. She also endorses some shortness of breath. Denies recent ill contacts. Denies fever, nausea, vomiting, diarrhea, constipation, chest pain. Her cough is quite severe. There is no dyspnea on exertion. Denies a known history of COPD. Not on any inhalers at home. On arrival to ER blood pressure 121/73, respiratory 18, pulse 88, temperature 98, saturating 90% on room air. However when rechecked she was 84% on room air. She was given a DuoNeb, Decadron. Oxygen was removed however patient desaturated again to 84%. She was placed on 3 L nasal cannula. In the ER patient did have wheezing on exam which did somewhat improve after a DuoNeb. Blood cultures were obtained and patient was given antibiotics and hospitalist was requested to admit the patient.Labs show sodium 130, potassium 4.1, chloride 93, creatinine 1.3, glucose 196, WBC 8.2. BNP 1016. Chest x-ray reviewed negative. Medications/Allergies Home Medications Medication Instructions Recorded Confirmed Last Taken Type amlodipine 10 mg tablet 10 mg PO QAM 08/05/21 08/05/21 08/04/21 History ascorbic acid (vitamin C) 1,000 mg 1,000 mg PO DAILY 08/05/21 08/05/21 08/04/21 History tablet (Vitamin C) atorvastatin 20 mg tablet 20 mg PO QPM 08/05/21 08/05/21 08/04/21 History fluoxetine 20 mg capsule 20 mg PO QPM 08/05/21 08/05/21 08/04/21 History garlic 1,000 mg capsule 1,000 mg PO DAILY 08/05/21 08/05/21 08/04/21 History hydrochlorothiazide 25 mg tablet 25 mg PO DAILY 08/05/21 08/05/21 08/04/21 History insulin glargine 100 unit/mL (3 25 unit SUBCUT BID see pharmacy 08/05/21 08/05/21 08/04/21 History mL) subcutaneous pen (Lantus comment Solostar U-100 Insulin) [id number] 0.4 mg-calcium 162 1 tab PO BEDTIME 08/05/21 08/05/21 08/04/21 History mg-iron 18 ne-nzxwhcf-muttak tablet vitamin E 100 unit capsule 100 unit PO DAILY 08/05/21 08/05/21 08/04/21 History Allergies Allergy/AdvReac Type Severity Reaction Status Date / Time No Known Allergies Allergy Verified 12/17/22 22:32 PFSH Acute PFSH: Medical History (Updated 12/18/22 @ 03:47 by Ligia Tubbs MD) Hypertension Social History (Updated 12/17/22 @ 22:47 by Yaz Taylor MD) Substance/Drug Use: never Vitals/I&O/Wt Last Vital Signs Temp 98.0 F 12/17/22 22:32 Pulse 88 12/18/22 01:06 Resp 22 H 12/18/22 01:06 BP 170/76 12/18/22 01:06 Pulse Ox 95 12/18/22 01:06 O2 Del Method Nasal Cannula 12/18/22 01:06 O2 Flow Rate 3 12/18/22 01:06 Weight last 48 hrs Weight 90.718 kg Physical Exam Narrative: General: Alert oriented x3, patient seen laying in bed. No acute respiratory distress at this time. Saturating 93% on 3 L nasal cannula. HEENT: Normocephalic, atraumatic, EOMI, Cardio: Regular rate rhythm, normal S1-S2, Respiratory:Rales at left lower lobe, right middle lobe, no wheezing at this time appreciated GI: Abdomen soft, nontender, nondistended, bowel sounds + Behavior: Appropriate and cooperative Extremities: Trace bilateral edema Data 12/17/22 22:50 12/17/22 22:50 Micro: Microbiology 12/17/22 23:54 Blood Culture - Preliminary Blood SPECIMEN COLLECTED 12/17/22 23:54 Blood Culture - Preliminary Blood SPECIMEN COLLECTED A&P Assessment and plan (1) Acute respiratory failure with hypoxia: (2) Hypertension: (3) Diabetes: (4) CKD (chronic kidney disease): (5) Hyponatremia: (6) Oxygen dependent: (7) Hyperlipidemia: Plan #Shortness of breath, cough #Positive for parainfluenza virus #Hypertension #Diabetes mellitus #Hyperlipidemia #Depression #CKD #Hyponatremia #New oxygen dependency ? Med rec needs to be completed. ? Moderate dose intensity sliding scale insulin ? BNP 1000. CXR negative. Pt does not appear fluid overloaded ? Dexamethasone already given in ER. Place on inhaled budesonide. Patient does not have a history of COPD. She is not on any inhalers at home. ? Empirically covered with ceftriaxone azithromycin. I will continue empiric coverage for now. De-escalate as clinical improvement. Check procalcitonin ? Continue amlodipine 10 mg daily ? Check hemoglobin A1c, TSH, lipid profile ? Check cardiac echo ? Creatinine 1.3 seems to be at baseline. -Check serum, urine osmolality, urine sodium. ? NS 75 cc/hr ? Tessalon Perles 100 3 times daily as needed for cough Full code SCDs Heparin SQ 3 times daily for DVT prophylaxis Attestations Medical Necessity Statement*: Inpatient admission for cough, shortness of breath, new oxygen requirement Coding Level of Care Code G0426 (50 min) TH Encounter Time (min): 50 Patient seen via Telehealth in the acute care setting (hospital or ED location) by agreement and consent of patient or patient outbound call center representative. Telehealth technology used during the visit includes video and audio. This patient encounter is appropriate and reasonable under the circumstances given the patient?s particular presentation at this time. The patient has been advised of the potential risks and limitations of this mode of treatment (including but not limited to the absence of in-person examination at this time) and has agreed to be treated by an off-site physician for this visit. If deemed clinically necessary from this telehealth visit, or if condition or consent for telehealth visit changes, an in-person visit will be arranged. For this encounter, total time for the origination of telehealth care on this date is as shown. Diagnoses Acute respiratory failure with hypoxia J96.01 Hypertension I10 Diabetes E11.9 CKD (chronic kidney disease) N18.9 Hyponatremia E87.1 Oxygen dependent Z99.81 Hyperlipidemia E78.5
[2022-12-18] MEDS: ondansetron 2 mg/ML SDV 2 mL 4 MG IVP (01:20)
[2022-12-18 03:04] LABS: Adenovirus Not Detected (NOT DETECT); Chlamydia Pneumoniae Not Detected (NOT DETECT); Coronavirus 229E,HKU1,NL63,OC4 Not Detected (NOT DETECT); Human Metapneumovirus Not Detected (NOT DETECT); Human Rhinovirus/Enterovirus Not Detected (NOT DETECT); Influenza A Not Detected (NOT DETECT); Influenza A H1 Not Detected (NOT DETECT); Influenza A H1-2009 Not Detected (NOT DETECT); Influenza A H3 Not Detected (NOT DETECT); Influenza B Not Detected (NOT DETECT); Mycoplasma Pneumoniae Not Detected (NOT DETECT); Parainfluenza Virus Type 1 Not Detected (NOT DETECT); Parainfluenza Virus Type 2 Not Detected (NOT DETECT); Parainfluenza Virus Type 3 Detected (NOT DETECT); Parainfluenza Virus Type 4 Not Detected (NOT DETECT); Respiratory Syncytial Virus A Not Detected (NOT DETECT); Respiratory Syncytial Virus B Not Detected (NOT DETECT); SARS-COV-2 Not Detected (NOT DETECT)
--- NOTE | 2022-12-18 03:50 | USCV_ITS ---
Gianna Mora Age: 72 Gender: F : 1950 Exam Date: 12/18/2022 09:13 Ordering Phys: Ligia Tubbs MD Technologist: Oliver Lewis [place] [facility] [place]ication: chf BP: 174 / 85 HR: 81 Rhythm: Sinus Technical Quality: Adequate MEASUREMENTS (Male / Female) Normal Values 2D ECHO LV Diastolic Diameter PLAX 3.5 cm 4.2 - 5.9 / 3.9 - 5.3 cm LV Systolic Diameter PLAX 1.9 cm IVS Diastolic Thickness 1.3 cm 0.6 - 1.0 / 0.6 - 0.9 cm IVS Systolic Thickness 1.5 cm LVPW Diastolic Thickness 1.4 cm 0.6 - 1.0 / 0.6 - 0.9 cm LVPW Systolic Thickness 1.6 cm LVOT Diameter 2.0 cm LV Ejection Fraction 2D Teich 77.6 % LV Ejection Fraction MOD 2C 41.4 % LV Ejection Fraction 2C AL 40.2 % LA Diameter 4.2 cm M-MODE Aortic Annulus Diameter 3.2 cm LA Ao Ratio MM 1.3 MV E Point Septal Separation 1.5 cm DOPPLER AV Peak Velocity 178.0 cm/s LVOT Peak Velocity 86.0 cm/s AV Area Cont Eq vti 2.5 cm squared AV Area Cont Eq pk 1.6 cm squared MV Area PHT 5.0 cm squared Mitral E to A Ratio 1.1 MV E' Velocity 69.0 cm/s Mitral E to MV E' Ratio 15.5 Mitral E to LV E' Lateral Ratio 13.9 Mitral E to LV E' Septal Ratio 17.9 TR Peak Velocity 176.7 cm/s TR Peak Gradient 12.5 mmHg TV Peak E Velocity 131.0 cm/s Right Atrial Pressure 3.0 mmHg Pulmonary Artery Systolic Pressu 15.5 mmHg RV Acceleration Time 0.1 s FINDINGS Left Ventricle Left ventricle is normal in size. LV systolic function is mildly dilated with EF of 45-50%. Mild global hypokinesis seen. Right Ventricle Normal in size and function Right Atrium Normal in size Left Atrium Normal in size Mitral Valve Structurally normal mitral valve. Trace mitral regurgitation. Aortic Valve Structurally normal aortic valve. No significant stenosis. Mild to moderate aortic regurgitation. Tricuspid Valve Trace tricuspid regurgitation. Insufficient TR jet to calculate RVSP. Pulmonic Valve Not well visualized Pericardium Normal Aorta Normal in size IVC Appears to be normal CONCLUSIONS LV systolic function is mildly reduced with EF of 45 to 50%. Trace mitral regurgitation Mild to moderate aortic regurgitation Trace tricuspid regurgitation No comparison studies are available Ryley Cuellar MD (Electronically Signed) Final Date: 18 December 2022 20:36 S
[2022-12-18] MEDS: heparin 5,000 unit/mL INJ 1 mL 5000 UNIT SUBCUT ×2 (04:23→18:04)
[2022-12-18 04:32] LABS: Estmated Average Glucose 160; Hemoglobin A1C 7.2 % (4.0-6.0)
[2022-12-18 04:37] LABS: Procalcitonin 0.06 ng/mL (0-0.5); Thyroid Stimulating Hormone 2.81 uIU/mL (0.27-4.20)
[2022-12-18 04:48] LABS: Chol HDL Ratio 2.02 mg/dL (0.0-4.40); Cholesterol 109 mg/dL (0-200); HDL Cholesterol 54 mg/dL (60-100); LDL Cholesterol Calculated 36 mg/dL (50-129); LDL HDL Ratio 0.67 RATIO (0.00-3.22); Triglycerides 94 mg/dL (0-150)
[2022-12-18] MEDS: amlodipine 10 mg Tablet PO (05:35)
[2022-12-18] MEDS: budesonide 0.5 mg/2 mL Neb INHALATION ×2 (07:54→20:23)
[2022-12-18] MEDS: ipratropium-albuterol 3 mL Neb INHALATION ×3 (07:54→20:23)
[2022-12-18] MEDS: sodium chloride 0.9% 1,000 ML 50 ML IV (09:47)
--- NOTE | 2022-12-18 10:48 | ECG_ITS ---
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 Measurements Intervals [place] Rate: 79 P: 47 ND: 162 QRS: -8 QRSD: 111 T: 72 QT: 408 QTc: 468 Interpretive Statements SINUS RHYTHM LOW QRS VOLTAGE IN PRECORDIAL LEADS [QRS DEFLECTION < 1.0 mV IN CHEST LEADS] INFERIOR MYOCARDIAL INFARCTION , OF INDETERMINATE AGE [40+ ms Q WAVE AND/OR ST/T ABNORMALITY IN II/aVF] ANTEROLATERAL MYOCARDIAL INFARCTION , PROBABLY RECENT [40+ ms Q WAVE IN I/aVL/V3-V6] ACUTE MO No previous ECG available for comparison Electronically Signed On 12-18-2022 16:50:44 CDT by Karyna Lozano M.D. [id number]
[2022-12-18 11:37] LABS: Glucose Point of Care 380 mg/dL (70-110)
[2022-12-18] MEDS: insulin lispro 100 unit/1 mL SUBCUT ×2 (11:55→18:05)
[2022-12-18 12:12] LABS: Troponin(5th) Baseline 15 ng/L (0-10)
--- NOTE | 2022-12-18 13:06 | ECG_ITS ---
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 Measurements Intervals [place] Rate: 81 P: 53 ME: 156 QRS: 22 QRSD: 117 T: 84 QT: 403 QTc: 470 Interpretive Statements SINUS RHYTHM PROBABLE ANTERIOR MYOCARDIAL INFARCTION , OF INDETERMINATE AGE [35 ms Q WAVE IN V3/V4] INFERIOR MYOCARDIAL INFARCTION , OF INDETERMINATE AGE [40+ ms Q WAVE AND/OR ST/T ABNORMALITY IN II/aVF] Compared to ECG 12/18/2022 11:37:59 No significant changes Electronically Signed On 12-18-2022 16:52:27 CDT by Karyna Lozano M.D. [email or web address]/[id number]
[2022-12-18 13:51] LABS: Troponin 5 2HR 16.24 ng/L (0-10)
[2022-12-18 13:52] LABS: Troponin 5 2HR Delta 1.24 ABS# (0-10)
--- NOTE | 2022-12-18 14:23 | CT_ITS ---
WS: [id number] CTA OF THE CHEST WITH PULMONARY EMBOLISM PROTOCOL TECHNIQUE: High-resolution contrast enhanced CTA of the chest with coronal and sagittal reformatted i mages with pulmonary embolism protocol. MIP images are also reviewed. CLINICAL INFORMATION: sob COMPARISON: None. DLP: 446.[address] scans at [facility] use at least one of these dose optimization techniques: automated e xposure control; mA and/or kV adjustment per patient size (includes targeted exams where dose is matc hed to clinical indication); or iterative reconstruction. FINDINGS: Cardiomegaly. Proximal main pulmonary arteries are normal. Normal segmental and subsegmental pulmonar y arteries. No evidence of pulmonary embolus. No suspicious filling defects. Lungs are well aerated. Slight hazy groundglass opacities in both lungs can be seen with pulmonary edema. Anterior mediastinal and peribronchial lymphadenopathy. Enlarged AP window lymph nodes. Elongated RIG HT subcarinal lymphadenopathy measuring 2.2 x 2.3 x 4.1 cm. Enlarged lymph nodes are nonspecific and recommend interval follow-up with contrast-enhanced chest CT to assess change. Adrenal glands are normal. Small esophageal hiatal hernia. Upper abdominal aorta normal caliber with mild aortic calcification. Mild thoracic kyphosis. CT/CT angio chest PE protcl [id number] IMPRESSION: 1. Proximal main pulmonary arteries are normal. No evidence of pulmonary embol us. 2. Enlarged anterior mediastinal, AP window, peribronchial, and subcarinal lym ph nodes are nonspecific but may be reactive. Recommend interval follow-up with contrast-enhanced chest CT to assess change. 3. Cardiomegaly. 4. Small esophageal hiatal hernia. 5. Slight hazy groundglass infiltrates in both lungs more prominent in the upp er lobes can be seen with pulmonary edema. Also consider infectious or inflamma tory etiologies. 6. Trace RIGHT pleural fluid.
[2022-12-18] MEDS: iohexol 350 mg/mL 500 mL Btl (per mL) IV (15:30)
--- NOTE | 2022-12-18 16:48 | ECG_ITS ---
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 Measurements Intervals [place] Rate: 76 P: 61 GA: 168 QRS: 39 QRSD: 141 T: 85 QT: 399 QTc: 450 Interpretive Statements SINUS RHYTHM INTRAVENTRICULAR CONDUCTION DELAY [130+ ms QRS DURATION] INFERIOR MYOCARDIAL INFARCTION , OF INDETERMINATE AGE [40+ ms Q WAVE AND/OR ST/T ABNORMALITY IN II/aVF] Compared to ECG 12/18/2022 13:06:17 Intraventricular conduction delay now present Myocardial infarct finding still present Electronically Signed On 12-19-2022 6:23:56 CDT by Karyna Lozano M.D. [id number]
[2022-12-18 16:53] LABS: Glucose Point of Care 273 mg/dL (70-110)
[2022-12-18] MEDS: atorvastatin 40 mg Tablet 20 MG PO (18:05)
[2022-12-18] MEDS: fluoxetine 20 mg Capsule PO (18:05)
--- NOTE | 2022-12-18 18:20 | P.PN_ITS ---
Subjective Subjective: Patient was seen this morning, she continues to complain of a productive cough, shortness of breath, wheezing, denies any fevers, no chills, no nausea, no vomiting, no chest pain Vitals/I&O/Wt Last Vital Signs Temp 98.0 F 12/18/22 12:00 Pulse 82 12/18/22 12:00 Resp 17 12/18/22 12:00 BP 150/65 12/18/22 16:00 Pulse Ox 95 12/18/22 12:00 O2 Del Method Nasal Cannula 12/18/22 11:45 O2 Flow Rate 2 12/18/22 11:45 12/18/22 12/18/22 12/18/22 06:59 14:59 22:59 Intake Total 420 / 420 600 / 600 Balance 420 / 420 600 / 600 Weight last 48 hrs Weight 90.718 kg Physical Exam Const: COMMON NORMALS: no acute distress and patient oriented x3 Resp: COMMON NORMALS: normal respiratory effort, No retractions and No use of accessory muscles AUSCULTATION: wheezes Cardio: COMMON NORMALS: regular rate, regular rhythm, S1 normal heart sound present and S2 normal heart sound present RATE: regular rate RHYTHM: regular rhythm HEART SOUNDS: S1 normal heart sound present and S2 normal heart sound present GI: COMMON NORMALS: Normal to inspection, nondistended, normoactive bowel sounds present and non-tender Extremity: COMMON NORMALS: no pedal edema Neuro: COMMON NORMALS: patient oriented x3 Psych: COMMON NORMALS: mental status grossly normal Data 12/17/22 22:50 12/17/22 22:50 Micro: Microbiology 12/17/22 23:54 Blood Culture - Preliminary Blood SPECIMEN COLLECTED 12/17/22 23:54 Blood Culture - Preliminary Blood SPECIMEN COLLECTED A&P Assessment and plan (1) Acute respiratory failure with hypoxia: (2) Hypertension: (3) Diabetes: (4) CKD (chronic kidney disease): (5) Hyponatremia: (6) Oxygen dependent: (7) Hyperlipidemia: (8) Community acquired pneumonia: Plan #Community-acquired pneumonia #Shortness of breath, cough #Positive for parainfluenza virus #Hypertension #Diabetes mellitus #Hyperlipidemia #Depression #CKD #Hyponatremia #New oxygen dependency ? Med rec needs to be completed. ? Moderate dose intensity sliding scale insulin ? BNP 1000. We will monitor ? Dexamethasone already given in ER. Place on inhaled budesonide. Patient does not have a history of COPD. She is not on any inhalers at home. -Start Decadron 6 mg IV push every 24 hours ? Empirically covered with ceftriaxone azithromycin. ? Continue amlodipine 10 mg daily ? A1c is 7.2 ? Check cardiac echo ? Creatinine 1.3 seems to be at baseline. -Check serum, urine osmolality, urine sodium. ? Slowed on IV hydration ? Tessalon Perles 100 3 times daily as needed for cough Full code SCDs Heparin SQ 3 times daily for DVT prophylaxis Plan for today add Decadron, continue antibiotics, add CT angiogram of the chest, continue Tessalon Perles, follow blood cultures, up out of bed, Attestations Medical Necessity Statement*: Patient requires hospitalization for community-acquired pneumonia, positive parainfluenza virus, shortness of breath, Diagnoses Acute respiratory failure with hypoxia J96.01 Hypertension I10 Diabetes E11.9 CKD (chronic kidney disease) N18.9 Hyponatremia E87.1 Oxygen dependent Z99.81 Hyperlipidemia E78.5 Community acquired pneumonia J18.9
[2022-12-18 18:31] LABS: Troponin 5 6HR 16.69 ng/L (0-10)
[2022-12-18 18:33] LABS: Troponin 5 6HR Delta 1.69 ng/L (0-12)
[2022-12-18 21:09] LABS: Glucose Point of Care 199 mg/dL (70-110)
[2022-12-18] MEDS: cefTRIAXone 1,000 MG in sodium chloride 0.9% (plus) 50 ML 100 MG IV (23:56)
[2022-12-19] VITALS (13 sets, daily range): BP systolic 126–152; BP diastolic 58–79; PULSE 3–78; RESP 15–19; TEMP 36.7–36.9; O2SAT 92–96
[2022-12-19] MEDS: azithromycin 500 MG in sodium chloride 0.9% 250 ML 250 MG IV (00:53)
[2022-12-19] MEDS: heparin 5,000 unit/mL INJ 1 mL 5000 UNIT SUBCUT ×2 (05:03→17:47)
[2022-12-19] MEDS: sodium chloride 0.9% 1,000 ML 50 ML IV (05:03)
[2022-12-19] MEDS: dexamethasone 10 mg/mL INJ 6 MG IVP (05:03)
[2022-12-19] MEDS: amlodipine 10 mg Tablet PO (05:03)
[2022-12-19 05:06] LABS: Basophils % 0.2 %; Eosinophils % 0.1 %; Hematocrit 36.8 % (37.0-47.0); Hemoglobin 11.7 g/dL (11.5-15.3); Lymphocytes # 1.7 10^3/uL (0.8-4.8); Lymphocytes % 19.1 %; Mean Corpuscular HGB Conc 31.8 g/dL (30.0-36.0); Mean Corpuscular Volume 94.4 fl (81-99); Monocytes # 1.2 10^3/uL (0.2-0.9); Neutrophils % 67.3 %; Nucleated Red Blood Cells % 0 %; Platelet Count 201 10^3/cmm (130-400); Red Cell Distribution Width 13.2 % (12.1-15.1); White Blood Count 9.1 10^3/uL (4.0-10.0)
[2022-12-19 05:22] LABS: Anion Gap 12.7 (5-19); Blood Urea Nitrogen 29 mg/dL (8-23); Calcium 8.7 mg/dL (8.5-10.5); Carbon Dioxide 25 mmol/L (22-29); Chloride 103 mmol/L (98-107); Glomerular Filtration Rate 40.5 mL/min (90-130); Glucose 288 mg/dL (65-115); Osmolality Calculated 298 mOsm/kg (285-295); Potassium 4.7 mmol/L (3.5-5.1); Sodium 136 mmol/L (136-145)
[2022-12-19 06:45] LABS: Glucose Point of Care 280 mg/dL (70-110)
[2022-12-19] MEDS: ipratropium-albuterol 3 mL Neb INHALATION ×4 (07:37→20:43)
[2022-12-19] MEDS: budesonide 0.5 mg/2 mL Neb INHALATION ×2 (07:37→20:43)
[2022-12-19] MEDS: insulin lispro 100 unit/1 mL SUBCUT ×4 (09:13→22:23)
[2022-12-19] MEDS: aspirin 81 mg EC Tablet PO (09:14)
[2022-12-19 11:36] LABS: Glucose Point of Care 333 mg/dL (70-110)
--- NOTE | 2022-12-19 14:50 | P.PN_ITS ---
Subjective Subjective: Patient was seen she is ambulating a bit more she tells me, her shortness of breath has improved Vitals/I&O/Wt Last Vital Signs Temp 98.0 F 12/19/22 07:44 Pulse 3 L 12/19/22 12:50 Resp 16 12/19/22 11:24 BP 126/58 12/19/22 12:50 Pulse Ox 93 12/19/22 12:50 O2 Del Method Nasal Cannula 12/19/22 11:24 O2 Flow Rate 1 12/19/22 11:24 12/18/22 12/19/22 12/19/22 22:59 06:59 14:59 Intake Total 1263.333 / 1863.333 240 / 240 Balance 1263.333 / 1863.333 240 / 240 Weight last 48 hrs Weight 90.718 kg Physical Exam Const: COMMON NORMALS: no acute distress and patient oriented x3 Resp: COMMON NORMALS: normal respiratory effort, No retractions and No use of accessory muscles OTHER: Wheezing in all lung lizarraga Cardio: COMMON NORMALS: regular rate, regular rhythm, S1 normal heart sound present and S2 normal heart sound present RATE: regular rate RHYTHM: regular rhythm HEART SOUNDS: S1 normal heart sound present and S2 normal heart sound present GI: COMMON NORMALS: Normal to inspection, nondistended, normoactive bowel sounds present and non-tender Extremity: COMMON NORMALS: no pedal edema Neuro: COMMON NORMALS: patient oriented x3 Psych: COMMON NORMALS: mental status grossly normal Data 12/19/22 04:45 12/19/22 04:45 Micro: Microbiology 12/17/22 23:54 Blood Culture - Preliminary Blood NEGATIVE TO DATE 12/17/22 23:54 Blood Culture - Preliminary Blood NEGATIVE TO DATE A&P Assessment and plan (1) Acute respiratory failure with hypoxia: (2) Hypertension: (3) Diabetes: (4) CKD (chronic kidney disease): (5) Hyponatremia: (6) Oxygen dependent: (7) Hyperlipidemia: (8) Community acquired pneumonia: Plan #Community-acquired pneumonia #Shortness of breath, cough #Positive for parainfluenza virus #Hypertension #Diabetes mellitus #Hyperlipidemia #Depression #CKD #Hyponatremia #New oxygen dependency 1.? Proximal main pulmonary arteries are normal. No evidence of pulmonary embolus. 2.? Enlarged anterior mediastinal, AP window, peribronchial, and subcarinal lymph nodes are nonspecific but may be reactive. Recommend interval follow-up with contrast-enhanced chest CT to assess change. 3.? Cardiomegaly. 4.? Small esophageal hiatal hernia. 5.? Slight hazy groundglass infiltrates in both lungs more prominent in the upper lobes can be seen with pulmonary edema. Also consider infectious or inflammatory etiologies. 6.? Trace RIGHT pleural fluid. ? Moderate dose intensity sliding scale insulin ? BNP 1000. We will monitor Decadron 6 mg IV push every 24 hours ? Empirically covered with ceftriaxone azithromycin. ? Continue amlodipine 10 mg daily ? A1c is 7.2 ? Check cardiac echo LV systolic function is mildly reduced with EF of 45 to 50%. ?Trace mitral regurgitation ?Mild to moderate aortic regurgitation ?Trace tricuspid regurgitation ?No comparison studies are available -We will need to follow-up with cardiology as outpatient ? Creatinine 1.3 seems to be at baseline. -Check serum, urine osmolality, urine sodium. ? Tessalon Perles 100 3 times daily as needed for cough Full code SCDs Heparin SQ 3 times daily for DVT prophylaxis Plan for today add Decadron, continue antibiotics, up out of bed plan on discharging in the next 24 hours Attestations Medical Necessity Statement*: Patient requires hospitalization for community-acquired pneumonia Diagnoses Acute respiratory failure with hypoxia J96.01 Hypertension I10 Diabetes E11.9 CKD (chronic kidney disease) N18.9 Hyponatremia E87.1 Oxygen dependent Z99.81 Hyperlipidemia E78.5 Community acquired pneumonia J18.9
[2022-12-19 16:46] LABS: Glucose Point of Care 359 mg/dL (70-110)
[2022-12-19] MEDS: atorvastatin 40 mg Tablet 20 MG PO (17:47)
[2022-12-19] MEDS: fluoxetine 20 mg Capsule PO (17:47)
--- NOTE | 2022-12-19 21:12 | PC.NURSE ---
Addendum entered by Katja Schilling RN 12/19/22 23:42: Bed time sliding scale ordered. Original Note: Dr. Tubbs notified of blood sugar of 418. Patient does not have a bedtime sliding scale.
[2022-12-19 21:13] LABS: Glucose Point of Care 418 mg/dL (70-110)
--- NOTE | 2022-12-19 23:14 | PC.NURSE ---
Addendum entered by Katja Schilling RN 12/19/22 23:42: Gianna x1 ordered. Original Note: Patient asking for something to help her sleep. Patient states that she does not take anything at home to help her sleep, but that she would like to have a good night sleep. Dr. Tubbs notified.
[2022-12-19] MEDS: cefTRIAXone 1,000 MG in sodium chloride 0.9% (plus) 50 ML 100 MG IV (23:47)
[2022-12-19] MEDS: zolpidem 5 mg Tablet 2.5 MG PO (23:47)
[2022-12-20] VITALS (8 sets, daily range): BP systolic 121–131; BP diastolic 68–79; PULSE 72–83; RESP 16–21; TEMP 36.3–37; O2SAT 93–100
[2022-12-20] MEDS: azithromycin 500 MG in sodium chloride 0.9% 250 ML 250 MG IV (01:16)
[2022-12-20] MEDS: sodium chloride 0.9% 1,000 ML 50 ML IV (01:16)
[2022-12-20 05:15] LABS: Basophils % 0.2 %; Hematocrit 36.1 % (37.0-47.0); Hemoglobin 11.3 g/dL (11.5-15.3); Lymphocytes # 1.9 10^3/uL (0.8-4.8); Lymphocytes % 16.7 %; Mean Corpuscular HGB Conc 31.3 g/dL (30.0-36.0); Mean Corpuscular Hemoglobin 29.9 pg (28.0-34.0); Mean Corpuscular Volume 95.5 fl (81-99); Mean Platelet Volume 10.8 fL (7.4-10.4); Monocytes # 1.2 10^3/uL (0.2-0.9); Monocytes % 10.2 %; Neutrophils # 8.35 10^3/uL (1.8-7.7); Neutrophils % 72.4 %; Nucleated Red Blood Cells % 0 %; Platelet Count 224 10^3/cmm (130-400); Red Blood Count 3.78 10^6/uL (4.1-5.3); Red Cell Distribution Width 13.5 % (12.1-15.1); White Blood Count 11.5 10^3/uL (4.0-10.0)
[2022-12-20 05:31] LABS: Anion Gap 14.5 (5-19); Blood Urea Nitrogen 31 mg/dL (8-23); Calcium 8.8 mg/dL (8.5-10.5); Carbon Dioxide 23 mmol/L (22-29); Chloride 107 mmol/L (98-107); Glomerular Filtration Rate 49.1 mL/min (90-130); Glucose 117 mg/dL (65-115); Magnesium 2.2 mg/dL (1.7-2.3); Osmolality Calculated 298 mOsm/kg (285-295); Phosphorus 2.5 mg/dL (2.5-4.5); Potassium 4.5 mmol/L (3.5-5.1); Sodium 140 mmol/L (136-145)
[2022-12-20] MEDS: dexamethasone 10 mg/mL INJ 6 MG IVP (05:53)
[2022-12-20] MEDS: amlodipine 10 mg Tablet PO (05:53)
[2022-12-20] MEDS: heparin 5,000 unit/mL INJ 1 mL 5000 UNIT SUBCUT (05:54)
[2022-12-20 06:38] LABS: Glucose Point of Care 170 mg/dL (70-110)
[2022-12-20 06:39] LABS: Slide Review Slide Review Perform
[2022-12-20] MEDS: ipratropium-albuterol 3 mL Neb INHALATION ×2 (07:39→11:05)
[2022-12-20] MEDS: budesonide 0.5 mg/2 mL Neb INHALATION (07:39)
[2022-12-20] MEDS: aspirin 81 mg EC Tablet PO (08:56)
[2022-12-20] MEDS: insulin lispro 100 unit/1 mL SUBCUT ×2 (08:56→11:25)
--- NOTE | 2022-12-20 10:30 | P.DS_ITS ---
Discharge Providers Date of Admission: 12/18/22 00:22 Date of Discharge: December 20, 2022 Attending Provider at Admission: Ligia Tubbs MD Attending Provider at Discharge: Dennis Oglesby MD Primary Care Provider: Lefty Hodge DO Diagnoses at Discharge Discharge Diagnosis (1) Acute respiratory failure with hypoxia: Status: Acute (2) Hypertension: Status: Acute (3) Diabetes: Status: Acute (4) CKD (chronic kidney disease): Status: Acute (5) Hyponatremia: Status: Acute (6) Oxygen dependent: Status: Acute (7) Hyperlipidemia: Status: Acute (8) Community acquired pneumonia: Status: Acute Reason for Visit Reason for Visit: Coughing Hospital Course Hospital Course Gianna Mora is a 72 year old female With past medical history of hypertension, diabetes, hyperlipidemia presented to the hospital today with complaint of cough that started about 3 days ago.? He states her cough is not bringing up any sputum at this time.? She also endorses some shortness of breath.? Denies recent ill contacts.? Denies fever, nausea, vomiting, diarrhea, constipation, chest pain.? Her cough is quite severe.? There is no dyspnea on exertion.? Denies a known history of COPD.? Not on any inhalers at home.? On arrival to ER blood pressure 121/73, respiratory 18, pulse 88, temperature 98, saturating 90% on room air.? However when rechecked she was 84% on room air.? She was given a DuoNeb, Decadron.? Oxygen was removed however patient desaturated again to 84%.? She was placed on 3 L nasal cannula.? In the ER patient did have wheezing on exam which did somewhat improve after a DuoNeb.? Blood cultures were obtained and patient was given antibiotics and hospitalist was requested to admit the patient.Labs show sodium 130, potassium 4.1, chloride 93, creatinine 1.3, glucose 196, WBC 8.2.? BNP 1016.? Chest x-ray reviewed negative. Patient was admitted to [facility] for pneumonia, received broad- spectrum antibiotic therapy, steroid therapy, overall clinically improved, discharged on Augmentin, prednisone burst, follow-up with primary care provider as outpatient For type 2 diabetes mellitus, discharged on Lantus 10 units twice daily, with a insulin sliding scale, follow-up with primary care provider as outpatient Echocardiogram did show a mildly reduced ejection fraction 45 to 50%, aspirin, statin, no chest pain complaints, follow-up with cardiology as outpatient, if any chest pain to go to emergency room Physical Exam Const: COMMON NORMALS: no acute distress and patient oriented x3 Resp: COMMON NORMALS: normal respiratory effort, No retractions, No use of accessory muscles and clear to auscultation bilaterally AUSCULTATION: clear to auscultation bilaterally Cardio: COMMON NORMALS: regular rate, regular rhythm, S1 normal heart sound present and S2 normal heart sound present RATE: regular rate RHYTHM: regular rhythm HEART SOUNDS: S1 normal heart sound present and S2 normal heart sound present GI: COMMON NORMALS: Normal to inspection, nondistended, normoactive bowel sounds present and non-tender Extremity: COMMON NORMALS: no pedal edema Neuro: COMMON NORMALS: patient oriented x3 Psych: COMMON NORMALS: mental status grossly normal Discharge Data Studies Completed and Pending Completed Studies During Hospitalization Category Date Time Status CT angio chest PE protcl 32341 Routine Cat Scan 12/18/22 14:23 Completed CXRP [XR chest 1V portable [id number]] Stat Exams 12/17/22 22:25 Completed US echo complete [CV. echo complete* 19706] Routine Ultrasound 12/18/22 03:50 Completed Pending at discharge Category Date Time Status Basic Metabolic Panel AM LABS Lab 12/21/22 04:00 Ordered Basic Metabolic Panel AM LABS Lab 12/22/22 04:00 Ordered Blood Culture Stat Lab 12/17/22 23:54 Results Complete Blood Count w/Auto AM LABS Lab 12/21/22 04:00 Ordered Complete Blood Count w/Auto AM LABS Lab 12/22/22 04:00 Ordered Magnesium AM LABS Lab 12/21/22 04:00 Ordered Magnesium AM LABS Lab 12/22/22 04:00 Ordered Phosphorus AM LABS Lab 12/21/22 04:00 Ordered Phosphorus AM LABS Lab 12/22/22 04:00 Ordered Sputum Culture and Gram Stain Stat Lab 12/19/22 09:18 Received Radiology Impressions Chest X-Ray 12/17/22 22:25 IMPRESSION: No evidence of focal consolidation. COPD changes. Chest CTA 12/18/22 14:23 IMPRESSION: 1. Proximal main pulmonary arteries are normal. No evidence of pulmonary embolus. 2. Enlarged anterior mediastinal, AP window, peribronchial, and subcarinal lymph nodes are nonspecific but may be reactive. Recommend interval follow-up with contrast-enhanced chest CT to assess change. 3. Cardiomegaly. 4. Small esophageal hiatal hernia. 5. Slight hazy groundglass infiltrates in both lungs more prominent in the upper lobes can be seen with pulmonary edema. Also consider infectious or inflammatory etiologies. 6. Trace RIGHT pleural fluid. Laboratory Results WBC 11.5 10^3/uL (4.0-10.0) H 12/20/22 04:20 RBC 3.78 10^6/uL (4.1-5.3) L 12/20/22 04:20 Hgb 11.3 g/dL (11.5-15.3) L 12/20/22 04:20 Hct 36.1 % (37.0-47.0) L 12/20/22 04:20 MCV 95.5 fl (81-99) 12/20/22 04:20 MCH 29.9 pg (28.0-34.0) 12/20/22 04:20 MCHC 31.3 g/dL (30.0-36.0) 12/20/22 04:20 RDW 13.5 % (12.1-15.1) 12/20/22 04:20 Plt Count 224 10^3/cmm (130-400) 12/20/22 04:20 MPV 10.8 fL (7.4-10.4) H 12/20/22 04:20 Neut % (Auto) 72.4 % 12/20/22 04:20 Lymph % (Auto) 16.7 % 12/20/22 04:20 Hendry % (Auto) 10.2 % 12/20/22 04:20 Eos % (Auto) 0.0 % 12/20/22 04:20 Baso % (Auto) 0.2 % 12/20/22 04:20 Neut # (Auto) 8.35 10^3/uL (1.8-7.7) H 12/20/22 04:20 Lymph # (Auto) 1.9 10^3/uL (0.8-4.8) 12/20/22 04:20 Hendry # (Auto) 1.2 10^3/uL (0.2-0.9) H 12/20/22 04:20 Eos # (Auto) 0.0 10^3/uL (0.0-0.8) 12/20/22 04:20 Baso # (Auto) 0.0 10^3/uL (0.0-0.1) 12/20/22 04:20 Nucleated RBC % (auto) 0 % 12/20/22 04:20 Nucleated RBCs # 0.0 /100WBC 12/20/22 04:20 D-Dimer 0.80 ug/mIFEU (0-0.59) H 12/18/22 11:34 Sodium 140 mmol/L (136-145) 12/20/22 04:20 Potassium 4.5 mmol/L (3.5-5.1) 12/20/22 04:20 Chloride 107 mmol/L (98-107) 12/20/22 04:20 Carbon Dioxide 23 mmol/L (22-29) 12/20/22 04:20 Anion Gap 14.5 (5-19) 12/20/22 04:20 BUN 31 mg/dL (8-23) H 12/20/22 04:20 Creatinine 1.1 mg/dL (0.5-0.9) H 12/20/22 04:20 GFR Calculation 49.1 mL/min (90-130) L 12/20/22 04:20 Glucose 117 mg/dL (65-115) H 12/20/22 04:20 POC Glucose 170 mg/dL (70-110) H 12/20/22 06:31 Estimat Average Glucose 160 12/17/22 22:50 Hemoglobin A1c 7.2 % (4.0-6.0) H 12/17/22 22:50 Calculated Osmolality 298 mOsm/kg (285-295) H 12/20/22 04:20 Calcium 8.8 mg/dL (8.5-10.5) 12/20/22 04:20 Phosphorus 2.5 mg/dL (2.5-4.5) 12/20/22 04:20 Magnesium 2.2 mg/dL (1.7-2.3) 12/20/22 04:20 Total Bilirubin 1.2 mg/dL (0.15-1.2) 12/17/22 22:50 AST 30 U/L (0-32) 12/17/22 22:50 ALT 23 U/L (0-33) 12/17/22 22:50 Alkaline Phosphatase 97 U/L (35-105) 12/17/22 22:50 Troponin T Baseline 15 ng/L (0-10) H 12/18/22 11:34 Troponin T 120 Minute 16.24 ng/L (0-10) H 12/18/22 13:27 Delta Troponin T 1.24 ABS# (0-10) 12/18/22 13:27 Troponin T Hi Sens 6Hr 16.69 ng/L (0-10) H 12/18/22 17:52 Troponin T Hi Sens 6Hr Delta 1.69 ng/L (0-12) 12/18/22 17:52 NT-Pro-B Natriuret Pep 1016 pg/mL (0-125) H 12/17/22 22:50 Total Protein 7.3 g/dL (6.6-8.7) 12/17/22 22:50 Albumin 3.6 g/dL (3.5-5.2) 12/17/22 22:50 Globulin 3.7 g/dL (1.3-4.6) 12/17/22 22:50 Triglycerides 94 mg/dL (0-150) 12/17/22 22:50 Cholesterol 109 mg/dL (0-200) 12/17/22 22:50 LDL Cholesterol, Calc 36 mg/dL (50-129) L 12/17/22 22:50 HDL Cholesterol 54 mg/dL (60-100) L 12/17/22 22:50 LDL/HDL Ratio 0.67 RATIO (0.00-3.22) 12/17/22 22:50 Cholesterol/HDL Ratio 2.02 mg/dL (0.0-4.40) 12/17/22 22:50 Procalcitonin 0.06 ng/mL (0-0.5) 12/17/22 22:50 TSH 2.81 uIU/mL (0.27-4.20) 12/17/22 22:50 Nasal Influ A H1 2008 PCR Not detected (NOT DETECT) 12/18/22 01:20 Adenovirus (PCR) Not detected (NOT DETECT) 12/18/22 01:20 C. pneumoniae DNA (PCR) Not detected (NOT DETECT) 12/18/22 01:20 Coronavirus 229E (PCR) Not detected (NOT DETECT) 12/18/22 01:20 Human Metapneumovir PCR Not detected (NOT DETECT) 12/18/22 01:20 Influenza A (H1) PCR Not detected (NOT DETECT) 12/18/22 01:20 Influenza A (H3) PCR Not detected (NOT DETECT) 12/18/22 01:20 Influenza Type A (PCR) Not detected (NOT DETECT) 12/18/22 01:20 Influenza Type B (PCR) Not detected (NOT DETECT) 12/18/22 01:20 M. pneumoniae (PCR) Not detected (NOT DETECT) 12/18/22 01:20 Parainfluenza 1 (PCR) Not detected (NOT DETECT) 12/18/22 01:20 Parainfluenza 2 (PCR) Not detected (NOT DETECT) 12/18/22 01:20 Parainfluenza 3 (PCR) Detected (NOT DETECT) A 12/18/22 01:20 Parainfluenza 4 (PCR) Not detected (NOT DETECT) 12/18/22 01:20 RSV Type A (PCR) Not detected (NOT DETECT) 12/18/22 01:20 RSV Type B (PCR) Not detected (NOT DETECT) 12/18/22 01:20 Entero/Rhino (PCR) Not detected (NOT DETECT) 12/18/22 01:20 SARS-CoV-2 (PCR) Not detected (NOT DETECT) 12/18/22 01:20 SARS-CoV-2 Ag (Rapid) negative (Negative) 12/17/22 22:50 Vitals Last Vital Signs Temp 97.7 F 12/20/22 07:33 Pulse 74 12/20/22 07:41 Resp 16 12/20/22 07:41 BP 129/79 12/20/22 07:33 Pulse Ox 93 12/20/22 07:41 O2 Del Method Room Air 12/20/22 07:41 O2 Flow Rate 1 12/19/22 11:24 Discharge Plan Discharge Patient Disposition: Home Condition: Stable Prescriptions: New amoxicillin-pot clavulanate 875-125 mg tablet 1 tab PO BID 5 Days Qty: 10 0RF prednisone 20 mg tablet 20 mg PO BID 5 Days Qty: 10 0RF insulin aspart U-100 [Novolog FlexPen U-100 Insulin] 100 unit/mL (3 mL) insulin pen See Rx Instructions .ROUTE .COMPLEX Qty: 15 0RF Rx Instructions: Inject, subcut, 3 times daily, after meals, based on sliding scale provided aspirin 81 mg Tablet,Delayed Release (Dr/Ec) 81 mg PO DAILY 30 Days Qty: 30 0RF albuterol sulfate 90 mcg/actuation HFA aerosol inhaler 1 inh inhalation Q6H PRN (Reason: shortness of breath or wheezing) Qty: 8.5 0RF Continued atorvastatin 20 mg tablet 20 mg PO QPM amlodipine 10 mg tablet 10 mg PO QAM hydrochlorothiazide 25 mg tablet 25 mg PO DAILY fluoxetine 20 mg capsule 20 mg PO QPM ascorbic acid (vitamin C) [Vitamin C] 1,000 mg Tablet 1,000 mg PO DAILY vitamin E 100 unit Capsule 100 unit PO DAILY garlic 1,000 mg Capsule 1,000 mg PO DAILY Centrum 0.4-162-18 mg Tablet 1 tab PO BEDTIME Changed insulin glargine [Lantus Solostar U-100 Insulin] 100 unit/mL (3 mL) insulin pen 10 unit SUBCUT BID 30 Days Qty: 6 0RF Discharge Orders: Discharge Order (Routine); Ordered 12/20/22 Ordered By: Dennis Oglesby Referrals: Lefty Hodge DO [Primary Care Provider] - Ryley Cuellar M.D [Physician] - 4-7 days Discharge Diet: Cardiac Discharge Activity: Resume usual activity Patient Instructions: Opioid Safety Activity Restrictions/Additional Instructions: -Please monitor your blood sugars closely -Monitor your blood sugars 3 times daily as after meals -Please record your blood sugars, and a blood sugar log -For your NovoLog -Please inject blood sugar after meals based on sliding scale provided -Do not inject insulin if you do not eat as hypoglycemia kills -This is a NovoLog sliding scale -Insulin sliding ?fingerstick? Insulin ?141-180?0 units/sq 181-220?2 units/sq ?221-260?4 units/sq ?261-300 6 units/sq ?301-350?8 units/sq ?351-400 10 units/sq ?401-450?12 units/sq >450? 14units/sq -If your blood sugar is greater than 500 go to the emergency room -If your blood sugar is less than 60 or at anytime you feel lightheaded or dizzy or diaphoretic or have chest palpitations check your blood sugar, and eat a hard candy or drink orange juice and go immediately to the emergency room -Remember hypoglycemia kills, so if his blood sugar is less than 60 we have to increase it by taking in a sugary meal such as a hard candy or orange juice and go to the emergency room -If you have any questions please call us where here to help -Inject Lantus 10 units twice daily -Monitor blood sugars closely -If any chest pain go to emergency room Discharge Attestations Time Spent in Discharge Care*: greater than 30 min Quality Metrics Clinical Quality Measures [ No reported AMI, CVA or VTE this stay] Coding Level of Care Code 30159 Total time (in minutes) for Discharge: 45 Diagnoses Acute respiratory failure with hypoxia J96.01 Hypertension I10 Diabetes E11.9 CKD (chronic kidney disease) N18.9 Hyponatremia E87.1 Oxygen dependent Z99.81 Hyperlipidemia E78.5 Community acquired pneumonia J18.9
[2022-12-20 11:06] LABS: Glucose Point of Care 491 mg/dL (70-110)
--- NOTE | 2022-12-20 11:13 | PC.CHAP ---
Pastoral Care Encounter/Spiritual Assessment Type of Contact [] Declined pigskin trimmer visit [] Patient/Family/Request visit [] Outpatient visit [] Follow-up visit [] Physician referral [] Code/Alert [x] Routine visit [] Staff referral [] Actively dying [] Patient sleeping [] Family support [] [] Out of room [] Palliative care [] [x] Receiving care in room [] Pre-surgical visit [] Trauma [] Long length of stay [] ICU visit [] Other: Relational/Emotional Strength [] Patient feels connected with others/family/visitors/staff [] Distress [] Loneliness/isolation [] Abandonment Spirituality of Patient [] Person of Haley [] Attends Religious of their Haley [] Believes in Prayer [] Reads Bible or Pentecostalism materials [] There are Spiritual issues to be addressed Manager Flight Operations Interventions [] Prayer [] Active listening [] Non-anxious presence [] Spiritual/emotional support [] Crisis/trauma care [] Spiritual counseling [] Bereavement support [] Provided bereavement packet [] Provided Bible/devotional materials [] Provided toy/stuffed animal, coloring book to patient or family member [] Provided Communion [] Anointing/[place] [] Salvation [] Completed spiritual assessment [] Other: Impact on Illness or Injury [] Angry [] Fearful [] Anxious [] Often cries [] Exhaustion [] Unable to work [] Unable to attend taoist [] Unable to walk/stand [] Unable to read [] Unable to drive [] Unable to eat/drink [] Unable to sleep [] Unable to be with family [] Patient intubated [] Other: Summary waiting doctors report not sure about hela at this point Time spent with patient 10 mins
== END 2022-12-20 12:50 | disposition home or self-care (01) | DRG 193 ==
LOC: ER 12-18 00:25 → MEDSURG 12-18 03:40
PROVIDERS: Admitting Provider Internal Medicine; Emergency Provider Emergency Medicine; PCP Internal Medicine; Visit Provider Family Medicine
DX: J18.9 Pneumonia, unspecified organism (principal); J96.01 Acute respiratory failure with hypoxia; E87.1 Hypo-osmolality and hyponatremia; Z99.81 Dependence on supplemental oxygen; B34.8 Other viral infections of unspecified site; F32.A Depression, unspecified; E78.5 Hyperlipidemia, unspecified; E11.22 Type 2 diabetes mellitus with diabetic chronic kidney disease; N18.9 Chronic kidney disease, unspecified; Z79.4 Long term (current) use of insulin; I12.9 Hypertensive chronic kidney disease with stage 1 through stage 4 chronic kidney disease, or unspecified chronic kidney disease
CPT/HCPCS: 36415; 36416; 71045; 71275; 80048; 80053; 80061; 82962; 83036; 83735; 83880; 84100; 84145; 84443; 84484; 85025; 85378; 87040; 87070; 87205; 87426; 87486; 87581; 87633; 93005; 93306; 94640; 94664; 96365; 96367; 96372; 96375; 99285; J0456; J0696; J1100; J1644; J1815; J2405; J7030; J7050; J7613; J7626; J7644; Q9967

== ENCOUNTER → 2023-04-25 10:38 | Outpatient (BNVA) | payer MEDICARE, MEDICAID, SELFPAY | PROVIDERS: PCP Internal Medicine; Visit Provider Anesthesiology Pain Medicine | DX: M16.12 Unilateral primary osteoarthritis, left hip | CPT/HCPCS: 99204 ==

== ENCOUNTER 2023-06-15 18:26 | Observation (INO) | payer MEDICARE, MEDICAID, SELFPAY ==
[2023-06-15 19:02] VITALS: BP 151/65; PULSE 85; RESP 16; TEMP 36.7; O2SAT 96; BMI 39.6
--- NOTE | 2023-06-15 20:01 | ECG_ITS ---
Test Date: 2023-06-15 Pat Name: Gianna Mora Department: Room: Gender: Female Heating Technician: : 1950 Requested By: William Pérez Order Number: [id number] Cesario MD: Karyna Lozano M.D. Measurements Intervals [place] Rate: 83 P: 42 TX: 161 QRS: 33 QRSD: 114 T: 62 QT: 394 QTc: 464 Interpretive Statements SINUS RHYTHM ANTERIOR MYOCARDIAL INFARCTION , OF INDETERMINATE AGE [40+ ms Q WAVE AND/OR ST/T ABNORMALITY IN V3/V4] INFERIOR MYOCARDIAL INFARCTION , PROBABLY OLD [40+ ms Q WAVE AND/OR ST/T ABNORMALITY IN II/aVF] Compared to ECG 12/18/2022 17:01:31 Intraventricular conduction delay no longer present Myocardial infarct finding still present Electronically Signed On 06-16-2023 21:29:11 CONTROL PANEL BUILDER by Karyna Lozano M.D. [email or web address]
[2023-06-15 20:44] LABS: Basophils # 0.1 10^3/uL (0.0-0.1); Basophils % 0.5 %; Eosinophils % 0.3 %; Hematocrit 46.8 % (36-47); Lymphocytes # 1.5 10^3/uL (0.8-4.8); Lymphocytes % 12.7 %; Mean Corpuscular HGB Conc 32.1 g/dL (30-55); Mean Corpuscular Hemoglobin 30.2 pg (27-33); Mean Corpuscular Volume 94.2 fl (85-98); Monocytes % 8.8 %; Neutrophils # 9.15 10^3/uL (1.8-7.7); Neutrophils % 77.3 %; Nucleated Red Blood Cells % 0 %; Platelet Count 290 10^3/cmm (157-399); Red Blood Count 4.97 10^6/uL (3.85-5.65); Red Cell Distribution Width 13.5 % (12.1-15.1); White Blood Count 11.83 10^3/uL (3.29-11.43)
[2023-06-15 21:08] LABS: Alanine Aminotransferase 17 U/L (0-33); Albumin Level 4.1 g/dL (3.5-5.2); Alkaline Phosphatase 80 U/L (35-105); Anion Gap 15.8 (5-19); Aspartate Amino Transferase 16 U/L (0-32); Blood Urea Nitrogen 25 mg/dL (8-23); Calcium 10.2 mg/dL (8.5-10.5); Carbon Dioxide 27 mmol/L (22-29); Chloride 104 mmol/L (98-107); Globulin 3.7 g/dL (1.3-4.6); Glomerular Filtration Rate 44.4 mL/min (90-130); Glucose 175 mg/dL (65-115); Osmolality Calculated 305 mOsm/kg (285-295); Potassium 3.8 mmol/L (3.5-5.1); Sodium 143 mmol/L (136-145); Total Bilirubin 1.2 mg/dL (0.15-1.2); Total Protein 7.8 g/dL (6.6-8.7)
[2023-06-15 21:09] VITALS: BP 196/74; PULSE 74; RESP 18; O2SAT 91
--- NOTE | 2023-06-15 21:17 | CTR_ITS ---
PROCEDURE INFORMATION: Exam: CT Head Without Contrast Exam date and time: 06/15/2023 9:36 PM Age: 72 years old Clinical indication: Patient HX: C/O dizziness. History of multiple chronic infarcts. TECHNIQUE: Imaging protocol: Computed tomography of the head without contrast. Radiation optimization: All CT scans at this facility use at least one of these dose optimization techniques: automated exposure control; mA and/or kV adjustment per patient size (includes targeted exams where dose is matched to clinical indication); or iterative reconstruction. REPORTING DATA: Count of CT and Cardiac NM exams in prior 12 months: This patient has received [address] and 0 known cardiac nuclear medicine studies in the 12 months prior to the current study. COMPARISON: CT head wo/w con [id number] 02/01/2022 2:15 PM RADIATION DOSE METRICS: Total DLP (mGy-cm): 1078.93 FINDINGS: Brain: Redemonstrated multifocal encephalomalacia/gliosis, including within the right parietal, left occipital, and left temporal lobes, related to remote infarcts as well multiple remote bilateral basal ganglia lacunar infarcts, unchanged from 02/01/2022. New areas of hypoattenuation/haywood-white dedifferentiation in the left posteroinferior cerebellum. No acute intracranial hemorrhage. No extra-axial collection. No mass effect or midline shift. Moderate generalized parenchymal volume loss. Mild burden of nonspecific white matter hypoattenuation, most likely chronic microvascular ischemic change. Cerebral ventricles: No acute hyrocephalus. Paranasal sinuses: Visualized sinuses are well-aearted. No fluid levels. Mastoid air cells: Visualized mastoid air cells are well aerated. Orbital cavities: No acute orbital abnormality. Bones/joints: No acute calvarial fracture. Soft tissues: No acute abnormality. CT/CT head wo con* [id number] IMPRESSION: 1. New areas of hypoattenuation/haywood-white dedifferentiation in the left posteroinferior cerebellum, concerning for recent ischemia, could be acute or subacute. Recommend MRI. 2. Stable chronic findings, as above. THIS REPORT CONTAINS FINDINGS THAT MAY BE CRITICAL TO PATIENT CARE. The findings were verbally communicated via telephone conference with KAROL MARCOS at 10:00 PM CHAIRMAN AND CHIEF EXECUTIVE OFFICER on 06/15/2023. The findings were acknowledged and understood.
--- NOTE | 2023-06-15 21:17 | XRR_ITS ---
PROCEDURE INFORMATION: Exam: XR Chest Exam date and time: 06/15/2023 9:41 PM Age: 72 years old Clinical indication: Prior surgery; Surgery date: 6+ months; Surgery type: Left humeral fixation; Patient HX: C/O dizziness TECHNIQUE: Imaging protocol: Radiologic exam of the chest. Views: 1 view. COMPARISON: CT angio chest PE protcl [id number] 12/18/2022 3:24 PM FINDINGS: Lungs: No consolidation. Pleural spaces: No large pleural effusion. No pneumothorax. Heart/Mediastinum: Unremarkable cardiomediastinal silhouette. Bones/joints: No acute osseous abnormality. Plate and screw fixation of the left humerus. Hardware appears intact. XR/XR chest 1V portable [id number] IMPRESSION: No acute findings.
[2023-06-15 21:52] VITALS: BP 144/58; BP 169/61; BP 177/68; PULSE 70; PULSE 73; PULSE 74
--- NOTE | 2023-06-15 22:14 | W.ED.GENADLT ---
HPI - General Adult General: Chief complaint: General Medical Stated complaint: dizzy Time Seen by Provider: 06/15/23 20:45 History of Present Illness: 72-year-old female with a history of prior stroke, hypertension. She presents with dizziness which started yesterday sometime during the day. She notes that the dizziness is bad enough, that she has gotten very nauseated, and vomited with it. She has blurry vision, but that symptom is not new. She states if she lies down, the dizziness seems to improve quite a bit. Dizziness is much worse with being up and walking. It does not appear to worsen by turning the head. No fever. No headache. No other weakness, language problems, etc. Associated symptoms: Deny chest pain, confusion, dyspnea, headache(s), nausea, rash, palpitations or vomiting Review of Systems Const: Denies: fever(s), chills or body aches Eyes: Denies: change in vision Card: Denies: chest pain or palpitations Resp: Denies: dyspnea, productive cough, non-productive cough or wheezing GI: Denies: abdominal pain, nausea, vomiting, diarrhea or hematochezia : Denies: difficulty voiding Skin/Breast: Denies: rash Neuro: Denies: headache(s), weakness in extremities or confusion PFSH ED PFSH: Medical History (Updated 06/15/23 @ 22:33 by Benedicto Marcos DO) Osteoarthritis of left hip CKD (chronic kidney disease) Diabetes Hypertension Social History Substance/Drug Use: never Physical Exam Const: COMMON NORMALS: no acute distress GENERAL APPEARANCE: cooperative; not ill appearing and not frail appearing HENMT: COMMON NORMALS: normocephalic, atraumatic and Normal external nose present HEAD & SCALP: normocephalic and atraumatic FACE & SINUS: normal facial exam and face symmetric NOSE: Normal external nose present Eye: COMMON NORMALS: Equal, round and reactive pupils present and EOMs intact bilaterally PUPIL: Yes Equal, round and reactive pupils present Neck/C-Spine: GENERAL: Yes trachea midline Chest: CHEST: Yes Symmetrical chest wall rise Resp: COMMON NORMALS: normal respiratory effort, No retractions, No use of accessory muscles and clear to auscultation bilaterally AUSCULTATION: clear to auscultation bilaterally Cardio: COMMON NORMALS: regular rate and regular rhythm RATE: regular rate RHYTHM: regular rhythm GI: COMMON NORMALS: Normal to inspection, nondistended, normoactive bowel sounds present Extremity: COMMON NORMALS: no pedal edema Neuro: FRANCISCO COMA SCALE: document GCS findings [place] coma scale eye opening: Spontaneous [place] coma scale verbal response: Orientated [place] coma scale motor response: Obey commands [place] coma scale total score: 15 SENSORY EXAM: Yes extremities (intact) Psych: COMMON NORMALS: speech normal SPEECH: Yes normal speech Skin: COMMON NORMALS: no rashes or lesions noted GENERAL SKIN EXAM: no rashes or lesions noted Course Vital Signs: Vital signs: Vital Signs Temperature 98.0 F 06/15/23 19:02 Pulse Rate 74 06/15/23 21:52 Respiratory Rate 16 06/15/23 19:02 Blood Pressure 177/68 06/15/23 21:52 Pulse Oximetry 96 06/15/23 19:02 Oxygen Delivery Me thod Room Air 06/15/23 19:02 [facility] - General Adult Medical Decision Making NIH scale is essentially 0 at this point. She does get quite dizzy upon standing. Orthostatics were not positive. Blood pressure was initially 196 systolic, now in the 140s without treatment. Laboratory shows a white blood cell count of 11.8 with a creatinine of 1.2. Other labs were not remarkable. Chest x-ray is nonacute. EKG shows Q waves in the inferior leads without acute ST wave elevation. Head CT shows new areas of hypoattenuation in the left posterior inferior cerebellum concerning for recent ischemia, likely greater than 48 hours old. Spoke with neurology. Suggest close blood pressure control, CTA, and potentially MRI. Spoke with hospitalist who will see the patient in the ER. Lab Data 06/15/23 20:29 06/15/23 20:29 Radiology Impressions Chest X-Ray 06/15/23 21:17 IMPRESSION: No acute findings. Head CT 06/15/23 21:17 IMPRESSION: 1. New areas of hypoattenuation/haywood-white dedifferentiation in the left posteroinferior cerebellum, concerning for recent ischemia, could be acute or subacute. Recommend MRI. 2. Stable chronic findings, as above. THIS REPORT CONTAINS FINDINGS THAT MAY BE CRITICAL TO PATIENT CARE. The findings were verbally communicated via telephone conference with BENEDICTO MARCOS at 10:00 PM ASSISTANT LIBRARIAN on 06/15/2023. The findings were acknowledged and understood. Laboratory Results WBC 11.83 10^3/uL (3.29-11.43) H 06/15/23: RBC 4.97 10^6/uL (3.85-5.65) 06/15/23 20: Hgb 15.00 g/dL (11.27-16.99) 06/15/23: Hct 46.8 % (36-47) 06/15/23: MCV 94.2 fl (85-98) 06/15/23: MCH 30.2 pg (27-33) 06/15/23: MCHC 32.1 g/dL (30-55) 06/15/23: RDW 13.5 % (12.1-15.1) 06/15/23: Plt Count 290 10^3/cmm (157-399) 06/15/23: MPV 10.0 fL (7.4-10.4) 06/15/23: Neut % (Auto) 77.3 % 06/15/23: Lymph % (Auto) 12.7 % 06/15/23: [place] % (Auto) 8.8 % 06/15/23: Eos % (Auto) 0.3 % 06/15/23: Baso % (Auto) 0.5 % 06/15/23: Neut # (Auto) 9.15 10^3/uL (1.8-7.7) H 06/15/23: Lymph # (Auto) 1.5 10^3/uL (0.8-4.8) 06/15/23: [place] # (Auto) 1.0 10^3/uL (0.2-0.9) H 06/15/23: Eos # (Auto) 0.0 10^3/uL (0.0-0.8) 06/15/23: Baso # (Auto) 0.1 10^3/uL (0.0-0.1) 06/15/23: Nucleated RBC % (auto) 0 % 06/15/23:29 Nucleated RBCs # 0.0 /100WBC 06/15/23 20:29 Sodium 143 mmol/L (136-145) 06/15/23 20:29 Potassium 3.8 mmol/L (3.5-5.1) 06/15/23 20:29 Chloride 104 mmol/L (98-107) 06/15/23 20:29 Carbon Dioxide 27 mmol/L (22-29) 06/15/23 20:29 Anion Gap 15.8 (5-19) 06/15/23 20:29 BUN 25 mg/dL (8-23) H 06/15/23 20:29 Creatinine 1.2 mg/dL (0.5-0.9) H 06/15/23 20:29 GFR Calculation 44.4 mL/min (90-130) L 06/15/23 20: Glucose 175 mg/dL (65-115) H 06/15/23 20:29 Calculated Osmolality 305 mOsm/kg (285-295) H 06/15/23 20:29 Calcium 10.2 mg/dL (8.5-10.5) 06/15/23 20:29 Total Bilirubin 1.2 mg/dL (0.15-1.2) 06/15/23 20:29 AST 16 U/L (0-32) 06/15/23 20:29 ALT 17 U/L (0-33) 06/15/23 20:29 Alkaline Phosphatase 80 U/L (35-105) 06/15/23 20:29 Total Protein 7.8 g/dL (6.6-8.7) 06/15/23 20:29 Albumin 4.1 g/dL (3.5-5.2) 06/15/23 20:29 Globulin 3.7 g/dL (1.3-4.6) 06/15/23 20:29 All radiology interpretation(s) finalized by discharge Discharge Plan Discharge Patient Disposition: Admitted As Inpatient Clinical Impression: Cerebellar stroke Condition: Stable Prescriptions: No Action atorvastatin 20 mg tablet 20 mg PO QPM amlodipine 10 mg tablet 10 mg PO QAM hydrochlorothiazide 25 mg tablet 25 mg PO DAILY fluoxetine 20 mg capsule 20 mg PO QPM ascorbic acid (vitamin C) [Vitamin C] 1,000 mg Tablet 1,000 mg PO DAILY vitamin E 100 unit Capsule 100 unit PO DAILY garlic 1,000 mg Capsule 1,000 mg PO DAILY xf-ccn-TJ-Is-Qq-wiwxqpv-lutein 0.4-162-18 mg Tablet 1 tab PO BEDTIME albuterol sulfate 90 mcg/actuation HFA aerosol inhaler 1 inh inhalation Q6H PRN (Reason: shortness of breath or wheezing) Qty: 8.5 0RF Lantus Solostar U-100 Insulin 100 unit/mL (3 mL) insulin pen 10 unit SUBCUT BID 30 Days Qty: 6 0RF Novolog FlexPen U-100 Insulin 100 unit/mL (3 mL) insulin pen See Rx Instructions .ROUTE .COMPLEX Qty: 15 0RF Rx Instructions: Inject, subcut, 3 times daily, after meals, based on sliding scale provided Referrals: Lefty Hodge DO [Primary Care Provider] - Coding Level of Care Code ED French Tutor for Yadielg Terrence NIH stroke score NIHSS Level Of Consciousness - 1a: 0 Level Of Consciousness Questions - 1b: Both Correct Level Of Consciousness Commands - 1c: Both Correct Best Gaze - 2: Normal Visual Baker - 3: No Visual Loss Facial Palsy - 4: Normal Motor Arm Right - 5: No Drift Motor Arm Left - 5: No Drift Motor Leg Right - 6: No Drift Motor Leg Left - 6: No Drift Limb Ataxia - 7: Absent Sensory - 8: Normal Best Language - 9: No Aphasia Dysarthia - 10: Normal Extinction And Inattention - 11: 0 Score Total Score: 0
--- NOTE | 2023-06-15 22:16 | P.HP_ITS ---
Providers/Chief Complaint 2 Primary Care Provider: Lefty Hodge DO Chief Complaint: dizzy History of Present Illness Gianna Mora is a 72 year old female with history of diabetes, hypertension, recurrent stroke, dementia, presented with chief complaint of dizziness and recurrent vomiting. Patient's symptoms started yesterday, time of onset is unknown. Today she was experiencing dizziness, falls and vomiting that prompted her visit to the ER, NIH score is 0 Not a tPA candidate Patient will need MRI CTA head and neck and echo She is hypertensive, systolic blood pressure 177 mmHg at the time of my evaluation She has not received her medications today Patient is full code Discussed with the daughter who is at the bedside Patient lives with her daughter, as per the daughter mother is leading a sedentary lifestyle Review of Systems 2 Const: Denies: fever(s) Eyes: Denies: change in vision ENMT: Denies: throat pain Card: Denies: chest pain Resp: Reports: dyspnea GI: Reports: nausea and vomiting : Denies: flank pain Musc: Denies: neck pain Skin/Breast: Denies: rash Medications/Allergies Home Medications Medication Instructions Recorded Confirmed Last Taken Type amlodipine 10 mg tablet 10 mg PO QAM 08/05/21 04/25/23 08/04/21 History ascorbic acid (vitamin C) 1,000 mg 1,000 mg PO DAILY 08/05/21 04/25/23 08/04/21 History tablet (Vitamin C) atorvastatin 20 mg tablet 20 mg PO QPM 08/05/21 04/25/23 08/04/21 History fluoxetine 20 mg capsule 20 mg PO QPM 08/05/21 04/25/23 08/04/21 History garlic 1,000 mg capsule 1,000 mg PO DAILY 08/05/21 04/25/23 08/04/21 History hydrochlorothiazide 25 mg tablet 25 mg PO DAILY 08/05/21 04/25/23 08/04/21 History cycxhzxn-qyz-FO 0.4 mg-calcium 162 1 tab PO BEDTIME 08/05/21 04/25/23 08/04/21 History mg-iron 18 ch-geheijo-npnywg tablet vitamin E 100 unit capsule 100 unit PO DAILY 08/05/21 04/25/23 08/04/21 History albuterol sulfate 90 mcg/actuation 1 inh inhalation Q6H PRN shortness 12/20/22 04/25/23 Unknown Rx aerosol inhaler of breath or wheezing #8.5 grams insulin aspart U-100 100 unit/mL See Rx Instructions .Route 12/20/22 04/25/23 Unknown Rx (3 mL) subcutaneous pen (Novolog .COMPLEX #15 mL FlexPen U-100 Insulin aspart) insulin glargine 100 unit/mL (3 10 unit (0.1 mL) SUBCUT BID see 12/20/22 04/25/23 08/04/21 Rx mL) subcutaneous pen (Lantus pharmacy comment 30 days #6 mL Solostar U-100 Insulin) Allergies Allergy/AdvReac Type Severity Reaction Status Date / Time No Known Allergies Allergy Verified 06/15/23 19:05 PFSH Acute 2 PFSH: Medical History Osteoarthritis of left hip CKD (chronic kidney disease) Diabetes Hypertension Social History Substance/Drug Use: never Vitals/I&O/Wt Last Vital Signs Temp 98.0 F 06/15/23 19:02 Pulse 74 06/15/23 21:52 Resp 18 06/15/23 21:09 BP 177/68 06/15/23 21:52 Pulse Ox 91 06/15/23 21:09 O2 Del Method Room Air 06/15/23 21:09 Weight last 48 hrs Weight 95.254 kg Physical Exam 2 Narrative: Awake and alert NIH 0 Pleasant cooperative Sinus rhythm Heart rate in 70s Nonfocal neuro exam Gait was not tested No apparent distress No active chest pain S1, S2 Currently on room air Abdomen soft distended nontender Morbidly obese Dysdiadochokinesia absent Cerebellar signs not recognized on physical exam Patient has diminished vision on the right eye which is old Data 06/15/23 20:29 06/15/23 20:29 A&P Assessment and plan (1) Hypertension: (2) Dizzy: (3) CVA (cerebral vascular accident): (4) Cerebellar stroke: Plan Subacute cerebellar stroke PT OT ST Consistent carb diet Sliding scale with insulin Check A1c level, echo with bubble study, 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 We will put patient on telemetry As per the daughter she has a recurrent stroke Etiology was atherosclerotic disease due to hypertension and diabetes Patient is suffering from cognitive impairment as well She seems to have dementia Permissive hypertension however due to systolic blood pressure hovering around 180s I will resume her home medication amlodipine Discontinue hydrochlorothiazide considering history of chronic kidney disease I will add low-dose metoprolol Patient is full code Disposition depending on PT evaluation We will need head MRI likely on Saturday Attestations 2 Medical Necessity Statement*: Less than 2 midnights anticipated for management evaluation of stroke Diagnoses Hypertension I10 Dizzy R42 CVA (cerebral vascular accident) I63.9 Cerebellar stroke I63.9
[2023-06-15 22:52] VITALS: BP 169/74; RESP 18; O2SAT 91
[2023-06-15 23:46] LABS: Thyroid Stimulating Hormone 1.23 uIU/mL (0.27-4.20)
[2023-06-15 23:48] LABS: Estmated Average Glucose 171; Hemoglobin A1C 7.6 % (4.0-6.0)
[2023-06-16] VITALS (7 sets, daily range): BP systolic 152–163; BP diastolic 77–82; PULSE 59–76; RESP 15–17; TEMP 36.4–36.9; O2SAT 92–98
[2023-06-16 02:27] LABS: Basophils # 0.1 10^3/uL (0.0-0.1); Basophils % 0.5 %; Eosinophils % 0.4 %; Hematocrit 44.2 % (36-47); Lymphocytes # 1.8 10^3/uL (0.8-4.8); Lymphocytes % 15.9 %; Mean Corpuscular HGB Conc 32.8 g/dL (30-55); Mean Corpuscular Hemoglobin 30.9 pg (27-33); Mean Platelet Volume 10.3 fL (7.4-10.4); Monocytes # 1.1 10^3/uL (0.2-0.9); Monocytes % 9.9 %; Neutrophils # 7.99 10^3/uL (1.8-7.7); Neutrophils % 72.8 %; Nucleated Red Blood Cells % 0 %; Platelet Count 275 10^3/cmm (157-399); Red Cell Distribution Width 13.4 % (12.1-15.1); White Blood Count 10.98 10^3/uL (3.29-11.43)
[2023-06-16 02:43] LABS: Anion Gap 11.7 (5-19); Blood Urea Nitrogen 26 mg/dL (8-23); Carbon Dioxide 29 mmol/L (22-29); Chloride 106 mmol/L (98-107); Glomerular Filtration Rate 44.4 mL/min (90-130); Glucose 132 mg/dL (65-115); Magnesium 2.1 mg/dL (1.7-2.3); Osmolality Calculated 303 mOsm/kg (285-295); Phosphorus 2.8 mg/dL (2.5-4.5); Potassium 3.7 mmol/L (3.5-5.1); Sodium 143 mmol/L (136-145)
[2023-06-16] MEDS: metoprolol tartrate 25 mg Tablet 12.5 MG PO (03:10)
[2023-06-16 05:13] LABS: Vitamin B12 968 pg/mL (232-1245)
[2023-06-16 06:08] LABS: Add Urine Microscopic? YES; Bilirubin Urine Neg (Negative); Blood Urine Neg (Negative); Glucose Urine UA Norm (Normal); Ketones Urine Negative (Negative); Leukocyte Esterase Urine Negative (Negative); Nitrate Urine Negative (Negative); Protein Urine Trace (Negative); Specific Gravity, Urine 1.015 (1.005-1.030); Urine Appearance Clear (CLEAR); Urine Color Yellow (Yellow); Urobilinogen Urine Neg (Negative); pH Urine 6 (5-7)
[2023-06-16 06:09] LABS: Add Urine Culture? No; RBC Urine 0-4 /hpf (0-2); Squamous Epithelial Cell Urine RARE /hpf (0-5); WBC Urine 0-4 /hpf (0-5)
--- NOTE | 2023-06-16 07:00 | CTR_ITS ---
PROCEDURE INFORMATION: Exam: CTA Head With Contrast, Arteriography Exam date and time: 06/16/2023 8:26 AM Age: 72 years old Clinical indication: Cognitive deficit; Altered mental status; Additional info: CVA TECHNIQUE: Imaging protocol: Computed tomographic angiography of the head with contrast. Exam focused on the arteries. 3D rendering (Not supervised by radiologist): MIP and/or 3D reconstructed images were created by the technologist. Radiation optimization: All CT scans at this facility use at least one of these dose optimization techniques: automated exposure control; mA and/or kV adjustment per patient size (includes targeted exams where dose is matched to clinical indication); or iterative reconstruction. Contrast material: OMNI 350; Contrast volume: 100 ml; Contrast route: INTRAVENOUS (IV); REPORTING DATA: Count of CT and Cardiac NM exams in prior 12 months: This patient has received 2 known CTs and 0 known cardiac nuclear medicine studies in the 12 months prior to the current study. COMPARISON: CT head wo con* [id number] 06/15/2023 9:36 PM RADIATION DOSE METRICS: Total DLP (mGy-cm): 1051.68 FINDINGS: ANTERIOR CIRCULATION: Right internal carotid artery: The clinoid and terminal segments of the right internal carotid artery are diminutive. Right middle cerebral artery: There is absent enhancement of the right middle cerebral artery, a chronic finding which was present on the prior contrast CT of the head. Right anterior cerebral artery: No occlusion or significant stenosis. No aneurysm. Left internal carotid artery: There is focal narrowing of the clinoid segment of the left internal carotid artery. Left middle cerebral artery: There is significant focal stenosis at the origin of the left middle cerebral artery. Left anterior cerebral artery: No occlusion or significant stenosis. No aneurysm. POSTERIOR CIRCULATION: Right vertebral artery: No occlusion or significant stenosis. No aneurysm. Left vertebral artery: No occlusion or significant stenosis. No aneurysm. Basilar artery: No occlusion or significant stenosis. No aneurysm. Right posterior cerebral artery: No occlusion or significant stenosis. No aneurysm. Left posterior cerebral artery: There is relatively poor enhancement of the left posterior cerebral artery beyond the P1 segment, absent enhancement beyond the P2 segment. Brain: Chronic infarct is noted in the left occipital and medial posterior temporal lobe and right posterior temporal lobe as well as chronic lacunar infarcts in the basal ganglia. An 8 x 6 mm calcified extra-axial nodule likely represents a meningioma unchanged from the prior study. There is a new acute infarct in the inferior left cerebellar hemisphere. The left posteroinferior cerebellar artery is patent at its origin however appears to be occluded proximally 3 cm beyond. Cerebral ventricles: No ventriculomegaly. Orbital cavities: The patient is post bilateral cataract surgery. Bones/joints: Unremarkable. No acute fracture. Soft tissues: Unremarkable. Dr. Edwards at 9:26 AM MEMBER OF CONGRESS on 06/16/2023. The findings were acknowledged and understood. PROCEDURE INFORMATION: Exam: CTA Neck With Contrast Exam date and time: 06/16/2023 8:26 AM Age: 72 years old Clinical indication: Cognitive deficit; Altered mental status; Additional info: CVA TECHNIQUE: Imaging protocol: Computed tomographic angiography of the neck with contrast. Exam focused on the cervical segments of the vasculature. 3D rendering (Not supervised by radiologist): MIP and/or 3D reconstructed images were created by the technologist. Radiation optimization: All CT scans at this facility use at least one of these dose optimization techniques: automated exposure control; mA and/or kV adjustment per patient size (includes targeted exams where dose is matched to clinical indication); or iterative reconstruction. Contrast material: OMNI 350; Contrast volume: 100 ml; Contrast route: INTRAVENOUS (IV); REPORTING DATA: Count of CT and Cardiac NM exams in prior 12 months: This patient has received 2 known CTs and 0 known cardiac nuclear medicine studies in the 12 months prior to the current study. COMPARISON: CT angio chest PE protcl [id number] 12/18/2022 3:24 PM RADIATION DOSE METRICS: Total DLP (mGy-cm): 1051.68 FINDINGS: Right common carotid artery: No stenosis. No dissection or occlusion. Right internal carotid artery: No stenosis of the extracranial segment. No dissection or occlusion. Right external carotid artery: No occlusion or stenosis of the origin. Left common carotid artery: No stenosis. No dissection or occlusion. Left internal carotid artery: There is mild to moderate calcific atheromatous plaque noted at the carotid bulbs extending into the internal carotid arteries, left greater than right causing less than 40% stenosis. Left external carotid artery: No occlusion or stenosis of the origin. Right vertebral artery: No stenosis. No dissection or occlusion. Left vertebral artery: No stenosis. No dissection or occlusion. Soft tissues: Normal. No significant soft tissue swelling. Bones/joints: No acute fracture. CT/CT angio headneck* [id number] IMPRESSION: Chronic supratentorial infarcts and stenoses/occlusions involving the right middle cerebral artery, left middle and posterior cerebral arteries. Acute infarct in the left posteroinferior cerebellar artery distribution due to occlusion of its supplying vessel proximally 3 cm beyond its origin. THIS REPORT CONTAINS FINDINGS THAT MAY BE CRITICAL TO PATIENT CARE. The findings were verbally communicated via telephone conference with IMPRESSION: Mild atheromatous plaque without significant stenosis at the carotid bulbs. REFERENCES: NASCET CRITERIA. The degree of stenosis in the cervical segment of the internal carotid artery is based on NASCET criteria. Normal is no stenosis. Mild is less than 50% stenosis. Moderate is 50-69% stenosis. Severe is 70% to 99% stenosis. Total occlusion is no detectable patent lumen.
[2023-06-16 07:48] LABS: Glucose Point of Care 104 mg/dL (70-110)
[2023-06-16] MEDS: clopidogrel 75 mg Tablet PO (08:12)
[2023-06-16] MEDS: aspirin 81 mg EC Tablet PO (08:12)
[2023-06-16] MEDS: metoprolol tartrate 25 mg Tablet PO (08:12)
[2023-06-16] MEDS: insulin glargine 100 units/1 mL 10 UNIT SUBCUT (08:12)
[2023-06-16] MEDS: iohexol 350 mg/mL 500 mL Btl (per mL) IV (08:33)
--- NOTE | 2023-06-16 09:33 | P.CONIM_ITS ---
Providers/Reason For Consult 2 Consulting Physician/Specialty*: Geronimo May MD neurology and epilepsy Reason for Consult*: Acute versus subacute posterior circulation stroke Noncontrast head CT scan performed on 06/15/2023 revealed new areas of hypoattenuation/haywood-white dedifferentiation in the left posteroinferior cerebellum, concerning for recent ischemia, could be acute or subacute. Recommend MRI. Attending Physician: Jacinto Edwards MD Primary Care Provider: Lefty Hodge DO History of Present Illness History of Present Illness Gianna Mora is a 72 year old female who is legally blind for 5 or more years and history of previous strokes in the past. Patient presented to the [facility] emergency room after experiencing continual dizziness with ambulation for 2 days prior to a presenting to the [facility] emergency room. Noncontrast head CT scan was obtained and revealed acute versus subacute left posterior inferior cerebellar stroke. Therefore patient was admitted to [facility] unit room 252 bed #2 and neurology consult was obtained. This morning the patient stated she is doing okay but still complaining of dizziness with ambulation. Patient denied swallowing difficulty or focal weakness. The patient has been scheduled for a head MRI to further assess the findings reported on the noncontrast head CT scan. 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 Acute infarct in the left posteroinferior cerebellar artery distribution due to occlusion of its supplying vessel proximally 3 cm beyond its origin. Past medical history: Legally blind for 5 or more years History of previous strokes Type 2 diabetes mellitus Hypertension Drug allergies: None Current medications: Plavix 75 mg p.o. daily Aspirin 81 mg p.o. daily Metoprolol 25 mg p.o. twice daily Lipitor 20 mg p.o. q. evening Norvasc 10 mg p.o. every morning Albuterol multidose inhaler 1 inhalation every 6 hours as needed Prozac 20 mg p.o. q. evening Hydrochlorothiazide 25 mg p.o. daily Garlic 1000 mg p.o. daily NovoLog insulin Lantus insulin 10 units subcutaneously twice a day Losartan 25 mg p.o. daily Vitamin E 100 units p.o. daily Review of Systems 2 General: Reports: 10 or more systems reviewed and unremarkable except in HPI and below Medications/Allergies Home Medications Medication Instructions Recorded Confirmed Last Taken Type amlodipine 10 mg tablet 10 mg PO QAM 08/05/21 06/15/23 06/14/23 09:30 History ascorbic acid (vitamin C) 1,000 mg 1,000 mg PO DAILY 08/05/21 06/15/23 06/14/23 09:30 History tablet (Vitamin C) atorvastatin 20 mg tablet 20 mg PO QPM 08/05/21 06/15/23 06/14/23 21:30 History fluoxetine 20 mg capsule 20 mg PO QPM 08/05/21 06/15/23 06/14/23 21:30 History garlic 1,000 mg capsule 1,000 mg PO DAILY 08/05/21 06/15/23 06/14/23 21:30 History hydrochlorothiazide 25 mg tablet 25 mg PO DAILY 08/05/21 06/15/23 06/14/23 09:30 History [id number] 0.4 mg-calcium 162 1 tab PO BEDTIME 08/05/21 06/15/23 06/14/23 21:30 History mg-iron 18 bt-[id number]-[id number] tablet vitamin E 100 unit capsule 100 unit PO DAILY 08/05/21 06/15/23 06/14/23 21:30 History albuterol sulfate 90 mcg/actuation 1 inh inhalation Q6H PRN shortness 12/20/22 06/15/23 Unknown Rx aerosol inhaler of breath or wheezing #8.5 grams insulin aspart U-100 100 unit/mL See Rx Instructions .Route 12/20/22 06/15/23 06/15/23 18:00 Rx (3 mL) subcutaneous pen (Novolog .COMPLEX #15 mL FlexPen U-100 Insulin aspart) insulin glargine 100 unit/mL (3 10 unit (0.1 mL) SUBCUT BID see 12/20/22 06/15/23 06/15/23 09:30 Rx mL) subcutaneous pen (Lantus pharmacy comment 30 days #6 mL Solostar U-100 Insulin) aspirin 81 mg capsule 81 mg PO DAILY 06/15/23 06/15/23 06/14/23 09:30 History losartan 25 mg tablet 25 mg PO DAILY 06/15/23 06/15/23 06/14/23 09:30 History Allergies Allergy/AdvReac Type Severity Reaction Status Date / Time No Known Allergies Allergy Verified 06/15/23 19:05 Current Medications Generic Name Dose Route Start Last Admin Trade Name Jourdan PRNeeraj Reason Stop Dose Admin Aspirin 81 mg 06/16/23 09:00 06/16/23 08:12 Aspirin 81 Mg Ec Tablet PO 81 mg DAILY LORENA Administration Clopidogrel Bisulfate 75 mg 06/16/23 09:00 06/16/23 08:12 Clopidogrel 75 Mg Tablet PO 75 mg DAILY LORENA Administration Insulin Glargine 10 unit 06/16/23 09:00 06/16/23 08:12 Insulin Glargine 100 Units/1 Ml SUBCUT 10 unit BID LORENA Administration Insulin Human Lispro 0 unit 06/16/23 08:00 06/16/23 07:32 Insulin Lispro 100 Unit/1 Ml SUBCUT Not Given TIDWM LORENA Protocol Metoprolol Tartrate 25 mg 06/16/23 09:00 06/16/23 08:12 Metoprolol Tartrate 25 Mg Tablet PO 25 mg BID@0900,2100 LORENA Administration PFSH Acute 2 PFSH: Medical History Osteoarthritis of left hip CKD (chronic kidney disease) Diabetes Hypertension Social History Substance/Drug Use: never Vitals/I&O/Wt Last Vital Signs Temp 98.3 F 06/16/23 04:00 Pulse 72 06/16/23 07:49 Resp 15 06/16/23 07:49 BP 158/80 06/16/23 07:49 Pulse Ox 94 06/16/23 07:49 O2 Del Method Nasal Cannula 06/16/23 07:49 O2 Flow Rate 2 06/16/23 04:00 06/15/23 06/16/23 06/16/23 22:59 06:59 14:59 Intake Total 240 / 240 Output Total 250 / 250 Balance -250 / -250 240 / 240 Weight last 48 hrs Weight 210 lb Physical Exam 2 Narrative: The patient is alert and oriented x 3. Speech fluent. Head normocephalic. Neck supple. Cranial nerves II through XII revealed patient legally blind and which is a chronic issue. Pupils 4 mm. Extraocular movements grossly intact motor testing grossly nonfocal throat clear. Lungs clear. Sensory examination intact to touch. Plantar responses flexor bilaterally. Heart regular rhythm and rate extremities were negative for cyanosis Data 06/16/23 02:01 06/16/23 02:01 A&P Assessment and plan (1) Cerebellar stroke: Impression: 1. Left cerebellar stroke acute versus subacute note: Since the patient presented to the [facility] emergency room 1 to 2 days after onset of her symptoms, the patient was not a candidate for thrombolytics and no thrombolytics were administered 2. 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 Acute infarct in the left posteroinferior cerebellar artery distribution due to occlusion of its supplying vessel proximally 3 cm beyond its origin on CT angiogram of the head and neck performed on 06/15/2023 4. Dizziness, most likely secondary to #1 5. Chronic blindness for 5 or more years (patient reported to be legally blind) 6. Hypertension 7. Type 2 diabetes mellitus Plan: 1. Agree with head MRI as scheduled to further assess the posterior circulation region/cerebellar region and abnormality reported on noncontrast head CT performed on 06/15/2023 2. Recommend physical therapy for dizziness/gait training 3. Recommend occupational therapy since patient has history of legal blindness to assess patient ability to perform activities of daily living prior to discharge 4. Continue cholesterol lowering agent, and antiplatelets per NIH stroke protocol and consider increasing Lipitor to 40 mg p.o. daily if no contraindications Consult Attestations 2 Medical Necessity Statement: The patient was evaluated by neurology for acute versus subacute posterior circulation stroke Coding Level of Care Code 40169 Diagnoses Cerebellar stroke I63.9
[2023-06-16 11:55] LABS: Glucose Point of Care 237 mg/dL (70-110)
[2023-06-16] MEDS: insulin lispro 100 unit/1 mL SUBCUT (12:05)
[2023-06-16] MEDS: flu vacc pf 2023-24 (6 mos+) 60 MCG IM (12:06)
--- NOTE | 2023-06-16 12:18 | P.DS_ITS ---
Discharge Providers Date of Admission: 06/15/23 22:34 Date of Discharge: June 16, 2023 Attending Provider at Admission: Damaris Franklin MD Attending Provider at Discharge: Jacinto Edwards MD Consults: Neurology: Dr. May Primary Care Provider: Lefty Hodge DO Diagnoses at Discharge Discharge Diagnosis (1) Cerebellar stroke: Status: Acute Reason for Visit Reason for Visit: dizzy Hospital Course Hospital Course Gianna Mora is a 72 year old female who is legally blind for 5 or more years and history of previous strokes in the past. Patient presented to the [facility] emergency room after experiencing continual dizziness with ambulation for 2 days prior to a presenting to the [facility] emergency room. Noncontrast head CT scan was obtained and revealed acute versus subacute left posterior inferior cerebellar stroke. Neurology was consulted. Patient was found to be not a candidate for thrombolytics. Patient worked well with PT/OT and speech therapy. Diet was advanced as per speech evaluation. Patient is to ambulate going forward with a walker as per PT evaluation. She has been discharged in hemodynamically stable condition on aspirin, Plavix and statin. She is not to take her hydrochlorothiazide anymore and hold off on losartan for next 1 week. She is to check her blood pressures daily at home maintain a blood pressure diary and follow-up with a primary care provider for further adjustment of antihypertensives. She is to follow-up with neurology in 2 weeks. Physical Exam Narrative: General: No acute distress, AO x3 HEENT: PERRLA, pupils bilaterally equal and reactive Chest: Normal vesicular breath sounds, no added sounds, equal good air entry bilaterally CVS: S1-S2 regular, no murmurs, no tachycardia, no gallops, no rubs Abdomen: Soft, nontender, no organomegaly, bowel sounds present Neuro: No focal deficits, no facial deformity, AO x3, power 5/5 in all limbs Discharge Data Studies Completed and Pending Completed Studies During Hospitalization Category Date Time Status CT head wo con* [id number] Stat Cat Scan 06/15/23 21:17 Completed CTA head neck [CT angio headneck* [id number]] Routine Cat Scan 06/16/23 07:00 Completed XR chest 1V portable [id number] Stat Exams 06/15/23 21:17 Completed CV. echo w/w bubble cont [id number] Routine Ultrasound 06/16/23 23:17 Completed Pending at discharge Category Date Time Status INGA Screen w/ Reflex Routine Lab 06/15/23 20:29 Received PROTEIN C, ACTIVITY Routine Lab 06/15/23 20:29 Received PROTEIN S, ACTIVITY Routine Lab 06/15/23 20:29 Received MR head wo con* [id number] Routine MRI 06/17/23 07:00 Ordered Radiology Impressions Chest X-Ray 06/15/23 21:17 IMPRESSION: No acute findings. Head CT 06/15/23 21:17 IMPRESSION: 1. New areas of hypoattenuation/haywood-white dedifferentiation in the left posteroinferior cerebellum, concerning for recent ischemia, could be acute or subacute. Recommend MRI. 2. Stable chronic findings, as above. THIS REPORT CONTAINS FINDINGS THAT MAY BE CRITICAL TO PATIENT CARE. The findings were verbally communicated via telephone conference with KAROL MARCOS at 10:00 PM ORGAN PIPE FINISHER on 06/15/2023. The findings were acknowledged and understood. 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 Acute infarct in the left posteroinferior cerebellar artery distribution due to occlusion of its supplying vessel proximally 3 cm beyond its origin. THIS REPORT CONTAINS FINDINGS THAT MAY BE CRITICAL TO PATIENT CARE. The findings were verbally communicated via telephone conference with IMPRESSION: Mild atheromatous plaque without significant stenosis at the carotid bulbs. REFERENCES: NASCET CRITERIA. The degree of stenosis in the cervical segment of the internal carotid artery is based on NASCET criteria. Normal is no stenosis. Mild is less than 50% stenosis. Moderate is 50-69% stenosis. Severe is 70% to 99% stenosis. Total occlusion is no detectable patent lumen. Echocardiogram: FINDINGS Left Ventricle Study was technically difficult with suboptimal apical views. Overall ejection fraction seems to be preserved with estimated ejection fraction about 55%. Mild LVH seen Right Ventricle The right ventricle is normal in size and function. Right Atrium The right atrium is normal in size. Left Atrium The left atrium is mildly dilated in size. Mitral Valve Structurally normal mitral valve without significant stenosis or prolapse. There is mild mitral regurgitation. Aortic Valve Structurally normal aortic valve without significant sclerosis or stenosis. There is mild aortic regurgitation. Tricuspid Valve Structurally normal tricuspid valve without significant stenosis. There is mild regurgitation. Pulmonary artery systolic pressure is normal. Pulmonic Valve Not well visual. There is mild pulmonic regurgitation. Pericardium Normal pericardium without effusion. Aorta Normal ascending aorta dimension. IVC The inferior vena cava appears normal. CONCLUSIONS Chalino Summers MD (Electronically Signed) Final Date: 16 June 2023 Laboratory Results WBC 10.98 10^3/uL (3.29-11.43) 06/16/23 02:01 RBC 4.70 10^6/uL (3.85-5.65) 06/16/23 02:01 Hgb 14.50 g/dL (11.27-16.99) 06/16/23 02:01 Hct 44.2 % (36-47) 06/16/23 02:01 MCV 94.0 fl (85-98) 06/16/23 02:01 MCH 30.9 pg (27-33) 06/16/23 02:01 MCHC 32.8 g/dL (30-55) 06/16/23 02:01 RDW 13.4 % (12.1-15.1) 06/16/23 02:01 Plt Count 275 10^3/cmm (157-399) 06/16/23 02:01 MPV 10.3 fL (7.4-10.4) 06/16/23 02:01 Neut % (Auto) 72.8 % 06/16/23 02:01 Lymph % (Auto) 15.9 % 06/16/23 02:01 Latimer % (Auto) 9.9 % 06/16/23 02:01 Eos % (Auto) 0.4 % 06/16/23 02:01 Baso % (Auto) 0.5 % 06/16/23 02:01 Neut # (Auto) 7.99 10^3/uL (1.8-7.7) H 06/16/23 02:01 Lymph # (Auto) 1.8 10^3/uL (0.8-4.8) 06/16/23 02:01 Latimer # (Auto) 1.1 10^3/uL (0.2-0.9) H 06/16/23 02:01 Eos # (Auto) 0.0 10^3/uL (0.0-0.8) 06/16/23 02:01 Baso # (Auto) 0.1 10^3/uL (0.0-0.1) 06/16/23 02:01 Nucleated RBC % (auto) 0 % 06/16/23 02:01 Nucleated RBCs # 0.0 /100WBC 06/16/23 02:01 Sodium 143 mmol/L (136-145) 06/16/23 02:01 Potassium 3.7 mmol/L (3.5-5.1) 06/16/23 02:01 Chloride 106 mmol/L (98-107) 06/16/23 02:01 Carbon Dioxide 29 mmol/L (22-29) 06/16/23 02:01 Anion Gap 11.7 (5-19) 06/16/23 02:01 BUN 26 mg/dL (8-23) H 06/16/23 02:01 Creatinine 1.2 mg/dL (0.5-0.9) H 06/16/23 02:01 GFR Calculation 44.4 mL/min (90-130) L 06/16/23 02:01 Glucose 132 mg/dL (65-115) H 06/16/23 02:01 POC Glucose 237 mg/dL (70-110) H 06/16/23 11:33 Estimat Average Glucose 171 06/15/23 20:29 Hemoglobin A1c 7.6 % (4.0-6.0) H 06/15/23 20:29 Calculated Osmolality 303 mOsm/kg (285-295) H 06/16/23 02:01 Calcium 10.0 mg/dL (8.5-10.5) 06/16/23 02:01 Phosphorus 2.8 mg/dL (2.5-4.5) 06/16/23 02:01 Magnesium 2.1 mg/dL (1.7-2.3) 06/16/23 02:01 Total Bilirubin 1.2 mg/dL (0.15-1.2) 06/15/23 20:29 AST 16 U/L (0-32) 06/15/23 20:29 ALT 17 U/L (0-33) 06/15/23 20:29 Alkaline Phosphatase 80 U/L (35-105) 06/15/23 20:29 C-Reactive Protein 3.0 mg/L (0.0-4.9) 06/16/23 02:01 Total Protein 7.8 g/dL (6.6-8.7) 06/15/23 20:29 Albumin 4.1 g/dL (3.5-5.2) 06/15/23 20:29 Globulin 3.7 g/dL (1.3-4.6) 06/15/23 20:29 Vitamin B12 968 pg/mL (232-1245) 06/15/23 20:29 TSH 1.23 uIU/mL (0.27-4.20) 06/15/23 20:29 Urine Color Yellow (Yellow) 06/16/23 05:24 Urine Appearance Clear (CLEAR) 06/16/23 05:24 Urine pH 6 (5-7) 06/16/23 05:24 Ur Specific [place] 1.015 (1.005-1.030) 06/16/23 05:24 Urine Protein Trace (Negative) 06/16/23 05:24 Urine Glucose (UA) Norm (Normal) 06/16/23 05:24 Urine Ketones Negative (Negative) 06/16/23 05:24 Urine Blood Neg (Negative) 06/16/23 05:24 Urine Nitrate Negative (Negative) 06/16/23 05:24 Urine Bilirubin Neg (Negative) 06/16/23 05:24 Urine Urobilinogen Neg mg/dL (Negative) 06/16/23 05:24 Ur Leukocyte Esterase Negative (Negative) 06/16/23 05:24 Urine RBC 0-4 /hpf (0-2) H 06/16/23 05:24 Urine WBC 0-4 /hpf (0-5) H 06/16/23 05:24 Ur Squamous Epith Cells Rare /hpf (0-5) 06/16/23 05:24 Amorphous Sediment Not Reportable 06/16/23 05:24 Urine Bacteria None /hpf (NONE) 06/16/23 05:24 Vitals Last Vital Signs Temp 97.6 F 06/16/23 11:47 Pulse 59 L 06/16/23 11:47 Resp 15 06/16/23 11:47 BP 160/77 06/16/23 11:47 Pulse Ox 92 06/16/23 11:47 O2 Del Method Room Air 06/16/23 11:47 O2 Flow Rate 2 06/16/23 08:00 Discharge Plan Discharge Patient Disposition: Home Condition: Stable Prescriptions: New clopidogrel 75 mg Tablet 75 mg PO DAILY Qty: 14 0RF Continued atorvastatin 20 mg tablet 20 mg PO QPM amlodipine 10 mg tablet 10 mg PO QAM fluoxetine 20 mg capsule 20 mg PO QPM ascorbic acid (vitamin C) [Vitamin C] 1,000 mg Tablet 1,000 mg PO DAILY vitamin E 100 unit Capsule 100 unit PO DAILY garlic 1,000 mg Capsule 1,000 mg PO DAILY ss-mka-IO-Jt-Mj-yngcimw-lutein 0.4-162-18 mg Tablet 1 tab PO BEDTIME albuterol sulfate 90 mcg/actuation HFA aerosol inhaler 1 inh inhalation Q6H PRN (Reason: shortness of breath or wheezing) Qty: 8.5 0RF insulin glargine [Lantus Solostar U-100 Insulin] 100 unit/mL (3 mL) insulin pen 10 unit SUBCUT BID 30 Days Qty: 6 0RF insulin aspart U-100 [Novolog FlexPen U-100 Insulin] 100 unit/mL (3 mL) insulin pen See Rx Instructions .ROUTE .COMPLEX Qty: 15 0RF Rx Instructions: Inject, subcut, 3 times daily, after meals, based on sliding scale provided aspirin 81 mg Capsule 81 mg PO DAILY Held losartan 25 mg Tablet 25 mg PO DAILY Hold Instructions: Resume on 06/23/23. Discontinued hydrochlorothiazide 25 mg tablet 25 mg PO DAILY Discharge Orders: Discharge Order (Routine); Ordered 06/16/23 Ordered By: Jacinto Edwards Other Ambulatory Orders: DME: Bret (Order) Location: None Selected Ordered By: Jacinto Edwards Referrals: Geronimo May MD [Physician] - 2 weeks (We have notified your physician's clinic of the need for a follow-up appointment to be scheduled. If you have not heard from them within the next 2 business days, please call them directly. ) Lefty Hodge DO [Primary Care Provider] - 4-7 days (Please call Saturday to schedule an appointment with Dr. Hodge.) Discharge Diet: As Directed, Cardiac and Diabetic Discharge Activity: Resume usual activity and Increase activity as tolerated Patient Instructions: Clopidogrel (By mouth), Ischemic Stroke (DC), Self Care Measures After a Stroke (DC), Opioid Safety, Stroke Stoplight Activity Restrictions/Additional Instructions: Please check your blood pressures daily at home. Do not take losartan for next 1 week. Please follow-up with a primary care provider within next 1 week for further adjustment of antihypertensives. Do not take hydrochlorothiazide anymore. Continue taking amlodipine as before. Plavix has been added to your medication list. Please follow-up with a neurologist within next 2 weeks Discharge Attestations Time Spent in Discharge Care*: greater than 30 min Specific Discharge Activities: educating patient, discussing with pcp/other providers, discussing with manager of case management/social workers/dc planners, documenting/other paperwork and evaluating patient/reviewing data Quality Metrics Clinical Quality Measures [ Cerebrovascular Accident { Contraindication to Antithrombotic: None; antithrombotic prescribed; Contraindication to Anticoagulation: Overlap treatment not indicated; Contraindication to Statin: None; Statin prescribed; Contraindication to tPA: Treatment not indicated;}] Coding Level of Care Code 70317 Total time (in minutes) for Discharge: 50 Diagnoses Cerebellar stroke I63.9
--- NOTE | 2023-06-16 12:24 | PC.NURSE ---
Discharge pending transportation home. This nurse called patients daughter for her, but was unable to reach her. Message left.
[2023-06-16 13:07] LABS: Chol HDL Ratio 1.78 mg/dL (0.0-4.40); Cholesterol 116 mg/dL (0-200); HDL Cholesterol 65 mg/dL (60-100); LDL Cholesterol Calculated 41 mg/dL (50-129); Triglycerides 51 mg/dL (0-150); VLDL Cholestrol Calculation 10 mg/dL (0-30)
--- NOTE | 2023-06-16 23:17 | USCV_ITS ---
Gianna Mora Age: 72 Gender: F : 1950 Exam Date: 06/16/2023 07:11 Ordering Phys: Damaris Franklin MD Technologist: John Kelly [place] [facility] [facility] [place]: cva BP: 152 / 82 HR: 63 Rhythm: Sinus Technical Quality: Adequate MEASUREMENTS (Male / Female) Normal Values 2D ECHO LVOT Diameter 2.0 cm LV Ejection Fraction MOD 2C 52.2 % LV Ejection Fraction 2C AL 51.1 % LA Diameter 3.8 cm LA Width 2.8 cm LA Height 4.8 cm RA Width 3.4 cm RA Height 4.8 cm Aorta at Sinotubular Diameter 2.3 cm M-MODE Aortic Annulus Diameter 1.9 cm LA Ao Ratio MM 1.9 MV E Point Septal Separation 1.1 cm DOPPLER AV Peak Velocity 125.3 cm/s LVOT Peak Velocity 70.0 cm/s AV Area Cont Eq vti 1.6 cm squared AV Area Cont Eq pk 1.8 cm squared MV Peak Velocity 132.0 cm/s MV Area PHT 3.6 cm squared Mitral E to A Ratio 1.3 MV E' Velocity 51.5 cm/s Mitral E to MV E' Ratio 20.7 Mitral E to LV E' Lateral Ratio 24.2 Mitral E to LV E' Septal Ratio 18.4 TR Peak Velocity 252.5 cm/s TR Peak Gradient 25.5 mmHg TR Mean Velocity 206.0 cm/s TR Mean Gradient 17.9 mmHg TR Velocity Time Integral 77.0 cm Right Atrial Pressure 8.0 mmHg Pulmonary Artery Systolic Pressu 33.5 mmHg PV Peak Velocity 108.0 cm/s RV Acceleration Time 0.1 s RV Ejection Time 0.4 s RV AcT/ET 0.4 FINDINGS Left Ventricle Study was technically difficult with suboptimal apical views. Overall ejection fraction seems to be preserved with estimated ejection fraction about 55%. Mild LVH seen Right Ventricle The right ventricle is normal in size and function. Right Atrium The right atrium is normal in size. Left Atrium The left atrium is mildly dilated in size. Mitral Valve Structurally normal mitral valve without significant stenosis or prolapse. There is mild mitral regurgitation. Aortic Valve Structurally normal aortic valve without significant sclerosis or stenosis. There is mild aortic regurgitation. Tricuspid Valve Structurally normal tricuspid valve without significant stenosis. There is mild regurgitation. Pulmonary artery systolic pressure is normal. Pulmonic Valve Not well visual. There is mild pulmonic regurgitation. Pericardium Normal pericardium without effusion. Aorta Normal ascending aorta dimension. IVC The inferior vena cava appears normal. CONCLUSIONS Normal LVF. MILD valvular regurgitation Chalino Summers MD (Electronically Signed) Final Date: 16 June 2023 10:54 Amended: 01 July 2023 22:26 C
[2023-06-18 10:14] LABS: Anti-Nuclear Antibody Pattern Nuclear, Speckled; Anti-Nuclear Antibody Screen POSITIVE (NEGATIVE); Anti-Nuclear Antibody Titer 1:40 titer
[2023-06-20 20:25] LABS: PROTEIN C, ACTIVITY 152 % normal (70-180)
[2023-06-21 22:25] LABS: PROTEIN S, ACTIVITY 39 % normal (60-140)
== END 2023-06-16 13:30 | disposition home or self-care (01) ==
LOC: ER 22:33 → MEDSURG 22:35
PROVIDERS: Nurse Practitioner Family; Admitting Provider Internal Medicine; Emergency Provider Emergency Medicine; PCP Internal Medicine; Visit Provider Student in an Organized Health Care Education/Training Program
DX: I63.9 Cerebral infarction, unspecified (principal); R29.700 NIHSS score 0; H54.7 Unspecified visual loss; Z86.73 Personal history of transient ischemic attack (TIA), and cerebral infarction without residual deficits; Z79.02 Long term (current) use of antithrombotics/antiplatelets; Z79.82 Long term (current) use of aspirin; Z79.4 Long term (current) use of insulin; E11.22 Type 2 diabetes mellitus with diabetic chronic kidney disease; I12.9 Hypertensive chronic kidney disease with stage 1 through stage 4 chronic kidney disease, or unspecified chronic kidney disease; N18.9 Chronic kidney disease, unspecified
CPT/HCPCS: 36415; 36416; 70450; 70496; 70498; 71045; 80048; 80053; 80061; 81001; 82607; 82962; 83036; 83735; 84100; 84443; 85025; 85303; 85306; 86038; 86140; 90471; 90686; 92523; 92610; 93005; 96372; 97116; 97162; 99285; C8924; C8929; G0378; J1815; Q9967

== ENCOUNTER → 2023-07-04 07:24 | Outpatient (BNVA) | payer MEDICARE, MEDICAID, SELFPAY | PROVIDERS: PCP Internal Medicine; Visit Provider Psychiatry & Neurology Neurology | DX: I63.9 Cerebral infarction, unspecified (principal); I67.2 Cerebral atherosclerosis; R42 Dizziness and giddiness; H54.8 Legal blindness, as defined in USA | CPT/HCPCS: 99212 ==

== ENCOUNTER 2023-08-10 09:11 | Observation (INO) | payer MEDICARE, MEDICAID, SELFPAY ==
[2023-08-10] VITALS (10 sets, daily range): BP systolic 160–172; BP diastolic 53–83; PULSE 75–84; RESP 16–22; TEMP 36.8–37.6; O2SAT 91–95; BMI 38.9; BMI 39.7
--- NOTE | 2023-08-10 09:44 | XRR_ITS ---
PROCEDURE INFORMATION: Exam: XR Chest Exam date and time: 08/10/2023 9:55 AM Age: 72 years old Clinical indication: Dyspnea TECHNIQUE: Imaging protocol: Radiologic exam of the chest. Views: 1 view. COMPARISON: CR XR chest 1V portable [id number] 06/15/2023 9:41 PM FINDINGS: Lungs: There is mild ground-glass and fine reticular opacity in the lower lungs bilaterally. There is interlobular septal thickening in the lower lung periphery bilaterally, more apparent on the left (Mary B-lines). Pleural spaces: There is no visible pleural effusion or pneumothorax. Heart/Mediastinum: There is mild enlargement of the cardiac silhouette. Bones/joints: Internal fixation of the left proximal humerus is partially imaged. No acute osseous findings. XR/XR chest 1V portable [id number] IMPRESSION: Pulmonary interstitial edema.
[2023-08-10 10:19] LABS: Basophils # 0.1 10^3/uL (0.0-0.1); Eosinophils # 0.4 10^3/uL (0.0-0.8); Eosinophils % 3.7 %; Lymphocytes # 1.1 10^3/uL (0.8-4.8); Lymphocytes % 11.6 %; Mean Corpuscular HGB Conc 31.2 g/dL (30-55); Mean Corpuscular Hemoglobin 30.3 pg (27-33); Mean Platelet Volume 9.4 fL (7.4-10.4); Monocytes % 10.2 %; Neutrophils % 72.8 %; Nucleated Red Blood Cells % 0 %; Platelet Count 225 10^3/cmm (157-399); Red Blood Count 4.33 10^6/uL (3.85-5.65); Red Cell Distribution Width 13.2 % (12.1-15.1); White Blood Count 9.76 10^3/uL (3.29-11.43)
--- NOTE | 2023-08-10 10:26 | ECG_ITS ---
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 Measurements Intervals [place] Rate: 79 P: 45 WA: 139 QRS: 27 QRSD: 113 T: 40 QT: 397 QTc: 457 Interpretive Statements SINUS RHYTHM INFERIOR MYOCARDIAL INFARCTION , OF INDETERMINATE AGE [40+ ms Q WAVE AND/OR ST/T ABNORMALITY IN II/aVF] POSSIBLE ANTEROSEPTAL MYOCARDIAL INFARCTION , OF INDETERMINATE AGE [30 ms Q WAVE IN V1-V4] Compared to ECG 06/15/2023 20:48:42 No significant changes Electronically Signed On 08-10-2023 21:56:13 HEALTH CARE LIAISON by Keith Mckeon M.D. [email or web address]
[2023-08-10 10:33] LABS: Troponin(5th) Baseline 18 ng/L (0-10)
[2023-08-10 10:40] LABS: Alanine Aminotransferase 12 U/L (0-33); Albumin Level 3.8 g/dL (3.5-5.2); Alkaline Phosphatase 74 U/L (35-105); Anion Gap 14.3 (5-19); Aspartate Amino Transferase 15 U/L (0-32); Blood Urea Nitrogen 24 mg/dL (8-23); Calcium 9.6 mg/dL (8.5-10.5); Carbon Dioxide 24 mmol/L (22-29); Chloride 107 mmol/L (98-107); Globulin 2.7 g/dL (1.3-4.6); Glomerular Filtration Rate 54.8 mL/min (90-130); Glucose 83 mg/dL (65-115); NT Pro B Type Natriuretic Pept 1640 pg/mL (0-125); Osmolality Calculated 295 mOsm/kg (285-295); Potassium 4.3 mmol/L (3.5-5.1); Sodium 141 mmol/L (136-145); Total Bilirubin 1.1 mg/dL (0.15-1.2); Total Protein 6.5 g/dL (6.6-8.7)
--- NOTE | 2023-08-10 11:01 | CTR_ITS ---
PROCEDURE INFORMATION: Exam: CTA Chest With Contrast Exam date and time: 08/10/2023 12:25 PM Age: 72 years old Clinical indication: Dyspnea TECHNIQUE: Imaging protocol: Computed tomographic angiography of the chest with contrast. Exam focused on the arteries. 3D rendering (Not supervised by radiologist): MIP and/or 3D reconstructed images were created by the technologist. Radiation optimization: All CT scans at this facility use at least one of these dose optimization techniques: automated exposure control; mA and/or kV adjustment per patient size (includes targeted exams where dose is matched to clinical indication); or iterative reconstruction. Contrast material: OMNI 350; Contrast volume: 100 ml; Contrast route: INTRAVENOUS (IV); COMPARISON: CT angio chest PE protcl [id number] 12/18/2022 3:24 PM RADIATION DOSE METRICS: Total DLP (mGy-cm): 488.8 FINDINGS: Pulmonary arteries: The pulmonary arteries are adequately opacified for evaluation to the subsegmental level. There is no filling defect to suggest embolism. Aorta: There is mild aortic atherosclerotic disease. Lungs: There is decreased AP diameter of the distal trachea and central bronchi consistent with tracheobronchomalacia. There is moderate severity bilateral lung disease characterized by a combination of central lower lung predominant ill-defined ground-glass and mild reticular opacity with dependent subsegmental atelectasis in the lung bases. There is diffuse mosaic perfusion of both lungs, most conspicuous in the upper lungs. Pleural spaces: There are small simple dependent bilateral pleural effusions. Heart: There is moderate cardiac enlargement. There is trace pericardial effusion. Lymph nodes: Diffusely enlarged upper mediastinal lymph nodes. An AP window lymph node measures 24 x 15 mm on axial series 7, image 135 (2.0 x 1.1 cm on 12/18/2022). A right lower paratracheal lymph node measures 3.2 x 2.2 cm on axial series 7, image 145 (2.6 x 1.7 cm on 12/18/2022). No axillary or supraclavicular lymphadenopathy is visible. Diaphragm: There is a small sliding-type hiatal hernia. Bones/joints: Bones are unremarkable. Soft tissues: The extrathoracic soft tissues are unremarkable. CT/CT angio chest PE protcl [id number] IMPRESSION: 1. No pulmonary embolism. 2. Acute on chronic pulmonary process. There is persistent mosaic perfusion of the lung parenchyma which is consistent with air trapping related to chronic small airways disease (constrictive bronchiolitis) or hypersensitivity pneumonitis and is similar in distribution compared to 12/18/2022. There is new extensive ground-glass and reticular opacity in both lungs which suggests superimposed interstitial edema or less likely superimposed acute infection (possibly viral). 3. New small bilateral pleural effusions. 4. Stable cardiac enlargement. Trace pericardial effusion. 5. Tracheobronchomalacia. 6. Progressive upper mediastinal lymphadenopathy since 12/18/2022 may be reactive or neoplastic.
[2023-08-10 11:36] LABS: Influenza A by IFA negative (Negative); Influenza B by IFA negative (Negative); SARS Covid-2 Antigen negative (Negative)
--- NOTE | 2023-08-10 11:44 | ECG_ITS ---
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 Measurements Intervals Weed Rate: 78 P: 42 WY: 150 QRS: 38 QRSD: 112 T: 68 QT: 407 QTc: 466 Interpretive Statements SINUS RHYTHM INFERIOR MYOCARDIAL INFARCTION , OF INDETERMINATE AGE [40+ ms Q WAVE AND/OR ST/T ABNORMALITY IN II/aVF] PROBABLE ANTEROSEPTAL MYOCARDIAL INFARCTION , OF INDETERMINATE AGE [35 ms Q WAVE IN V1-V4] Compared to ECG 08/10/2023 10:26:18 No significant changes Electronically Signed On 08-10-2023 21:59:53 VOICE INTERCEPT TECHNICIAN by Keith Mckeon M.D. [id number]
[2023-08-10] MEDS: iohexol 350 mg/mL 500 mL Btl (per mL) IV (12:31)
[2023-08-10 15:50] LABS: Add Urine Culture? No; Add Urine Microscopic? YES; Bacteria Urine TRACE /hpf; Bilirubin Urine Neg (Negative); Blood Urine Neg (Negative); Glucose Urine UA Norm (Normal); Ketones Urine Negative (Negative); Leukocyte Esterase Urine Negative (Negative); Nitrate Urine Negative (Negative); Protein Urine Trace (Negative); RBC Urine 0-4 /hpf (0-2); Specific Gravity, Urine 1.005 (1.005-1.030); Squamous Epithelial Cell Urine 0-4 /hpf (0-5); Urine Appearance Clear (CLEAR); Urine Color Yellow (Yellow); Urobilinogen Urine Norm (Negative); WBC Urine 0-4 /hpf (0-5); pH Urine 6 (5-7)
[2023-08-10] MEDS: FUROsemide 10 mg/mL SDV 4mL 40 MG IVP (15:55)
[2023-08-10] MEDS: predniSONE 20 mg Tablet 40 MG PO (15:56)
[2023-08-10] MEDS: amlodipine 10 mg Tablet PO (15:56)
[2023-08-10] MEDS: heparin 5,000 unit/mL INJ 1 mL 5000 UNIT SUBCUT (15:57)
[2023-08-10 16:25] LABS: Troponin 5 6HR 17.07 ng/L (0-10); Troponin 5 6HR Delta -0.93 ng/L (0-12)
--- NOTE | 2023-08-10 16:25 | P.HP_ITS ---
Providers/Chief Complaint 2 Admitting Physician: Jacinto Edwards MD Primary Care Provider: Lefty Hodge DO Chief Complaint: sob History of Present Illness Gianna Mora is a 72 year old female with past medical history of diabetes hypertension, recurrent strokes, dementia, legally blind was reportedly brought to the hospital because of difficulty in breathing which has been getting worse since today morning. Patient herself is a poor historian due to memory related issues from old strokes and unfortunately we are not able to get in touch with patient's daughter over the phone. Patient was although denies of any nausea, vomiting, chest pain, cough, fever, diarrhea. On presentation to the ER as per ER physician patient was saturating in high 70s on room air and required up to 2 to 3 L of oxygen supplementation to maintain saturation over 92%. On examination patient was lying comfortably in bed on 4 L of oxygen supplementation and mild the interview it was weaned down to 3 L NC saturating over 92% with heart rate in 79 bpm and blood pressure 160 over 60 mmHg. Review of Systems 2 General: Reports: 10 or more systems reviewed and unremarkable except in HPI and below Const: Denies: fever(s), chills, body aches, change in appetite, change in weight, malaise, night sweats, diaphoresis, change in sleep pattern, daytime sleepiness or snoring Eyes: Denies: change in vision, blurry vision, photophobia, eye discomfort or eye discharge ENMT: Denies: throat pain, enlarged tonsils, hoarseness, mouth pain, oral sores, dry mouth, tinnitus, nasal congestion or post nasal drip Card: Denies: chest pain, palpitations, irregular heart rhythm, edema, swelling of feet/ankles, lightheadedness, syncope, pre-syncope, dyspnea on exertion, orthopnea, leg pain with exertion or acrocyanosis Resp: Denies: dyspnea, productive cough, non-productive cough, wheezing, stridor, pain on inspiration, change in phlegm color, hemoptysis or chest congestion GI: Denies: abdominal pain, nausea, vomiting, hematemesis, coffee ground emesis, dysphagia, heartburn, diarrhea, constipation, bloating, GI cramping, change in bowel habits, pain on defecation, hematochezia or melena : Denies: flank pain, dysuria, urinary frequency, urinary urgency, urinary hesitancy, nocturia or hematuria Musc: Denies: neck pain, back pain, extremity pain, joint pain, joint swelling, joint redness, joint stiffness or limited range of motion Neuro: Denies: headache(s), numbness in extremities, weakness in extremities, sensory changes, lack of coordination, difficulty walking, frequent falls, dizziness, vertigo, confusion, Slurred speech present, difficulty communicating thoughts or seizure-like activity Psych: Denies: anxiety, depression, mood swings, panic attacks, hopelessness or irritability Endo: Denies: polyuria, polydipsia, tired all the time, cold intolerance, excessive sweating, flushing or heat intolerance José/Lymph: Denies: easy bruising or easy bleeding All/Imm: Denies: tongue swelling, facial swelling or acute wheezing Medications/Allergies Home Medications Medication Instructions Recorded Confirmed Last Taken Type amlodipine 10 mg tablet 10 mg PO QAM 08/05/21 08/10/23 08/09/23 History ascorbic acid (vitamin C) 1,000 mg 1,000 mg PO DAILY 08/05/21 08/10/23 08/09/23 History tablet (Vitamin C) atorvastatin 20 mg tablet 20 mg PO QPM 08/05/21 08/10/23 08/09/23 History fluoxetine 20 mg capsule 20 mg PO QPM 08/05/21 08/10/23 08/09/23 History garlic 1,000 mg capsule 1,000 mg PO DAILY 08/05/21 08/10/23 08/09/23 History vitamin E 100 unit capsule 100 unit PO DAILY 08/05/21 08/10/23 08/09/23 History albuterol sulfate 90 mcg/actuation 1 inh inhalation Q6H PRN shortness 12/20/22 08/10/23 Unknown Rx aerosol inhaler of breath or wheezing #8.5 grams insulin aspart U-100 100 unit/mL See Rx Instructions .Route 12/20/22 08/10/23 06/15/23 18:00 Rx (3 mL) subcutaneous pen (Novolog .COMPLEX #15 mL FlexPen U-100 Insulin aspart) insulin glargine 100 unit/mL (3 10 unit (0.1 mL) SUBCUT BID see 12/20/22 08/10/23 08/09/23 Rx mL) subcutaneous pen (Lantus pharmacy comment 30 days #6 mL Solostar U-100 Insulin) losartan 25 mg tablet 25 mg PO DAILY 06/15/23 08/10/23 08/09/23 History clopidogrel 75 mg tablet 75 mg PO DAILY #14 tabs 06/16/23 08/10/23 08/09/23 Rx aspirin 81 mg tablet,delayed 81 mg PO DAILY 08/10/23 08/10/23 08/09/23 History release vitamin E (dl, acetate) 45 mg (100 45 mg PO DAILY 08/10/23 08/10/23 08/09/23 History unit) capsule Allergies Allergy/AdvReac Type Severity Reaction Status Date / Time No Known Allergies Allergy Verified 07/04/23 07:29 PFSH Acute 2 PFSH: Medical History (Updated 08/10/23 @ 16:32 by Jacinto Edwards MD) COPD (chronic obstructive pulmonary disease) Tracheobronchomalacia CT chest 08/07 INGA positive Atherosclerotic cerebrovascular disease Cerebellar stroke CKD (chronic kidney disease) Baseline creatinine 1.2-1.4 Osteoarthritis of left hip Diabetes Hypertension Social History (Updated 07/04/23 @ 07:30 by Kary Stein) Smoking and tobacco/nicotine status: never used tobacco/nicotine Alcohol intake: never Substance/Drug Use: never Vitals/I&O/Wt Last Vital Signs Temp 98.3 F 08/10/23 09:27 Pulse 79 08/10/23 15:30 Resp 19 H 08/10/23 15:30 BP 160/59 08/10/23 15:30 Pulse Ox 95 08/10/23 15:30 O2 Del Method Nasal Cannula 08/10/23 15:22 O2 Flow Rate 4 08/10/23 12:13 Weight last 48 hrs Weight 95.481 kg Weight 93.44 kg Physical Exam 2 Narrative: General: No acute distress, AO x 2-3, pleasant HEENT: PERRLA, pupils bilaterally equal and reactive Chest: Normal vesicular breath sounds, diffuse rhonchi all over lung lizarraga, equal good air entry bilaterally CVS: S1-S2 regular, no murmurs, no tachycardia, no gallops, no rubs Abdomen: Soft, nontender, no organomegaly, bowel sounds present Neuro: No focal deficits, no facial deformity, AO x3, power 5/5 in all limbs Urinary Catheter Management: [place]: Cath Placed During This Visit: yes Urinary Catheter Date of Insertion: 08/10/23 Urinary Catheter Time of Insertion: 15:28 Data 08/10/23 10:07 08/10/23 10:07 A&P Assessment and plan (1) Hypoxia: Most likely in setting of COPD and congestive heart failure along with tracheobronchomalacia seen on CT chest today leading to air trapping. Appreciate CTA done on admission which shows no consolidation, no PE and consistent with air trapping, tracheobronchomalacia, mild congestive heart failure. Groundglass opacities seen in the CT mostly in the bilateral upper lobe which is even present in the old CT from last year. INGA positive. Patient would benefit from outpatient CPAP. Will advise patient to get sleep study. Last echocardiogram done in June 2023 showed mild LVH with a preserved ejection fraction with mild mitral regurgitation. Most likely diastolic heart failure. Oxygen supplementation keeping saturation over 90%. Patient would most likely need oxygen on discharge. DuoNebs every 6 hour, Pulmicort twice daily. Prednisone 40 mg oral daily. Strict input charting, daily weights. IV Lasix 40 mg one-time. Will redose Lasix daily as per fluid status. Infectious source unlikely. No consolidation seen on CT chest. Flu swab and COVID-19 PCR negative on admission. Hold off on antibiotics for now. (2) Tracheobronchomalacia: (3) COPD (chronic obstructive pulmonary disease): (4) Congestive heart failure: (5) Pulmonary air trapping: (6) CKD (chronic kidney disease): Baseline creatinine 1.2-1.4. Currently 1. Most likely in setting of mild hypervolemia. Monitor BMP daily. Medical reconciliation done for nephrotoxic drugs. (7) Hypertension: Goal blood pressure less than 140/90 mmHg. Continue with home dose of amlodipine. Holding off on losartan for now as patient got a contrast study and getting Lasix today. Most likely will need to add higher dose of losartan on discharge given high blood pressures. Otherwise can add Coreg along with continuing home dose of losartan. Plan Type 2 diabetes mellitus: Appreciate A1c. Insulin sliding scale at moderate dose protocol. Continue with home dose of Lantus 10 units twice daily. Full code Cardiac carb consistent diet Protonix for PUD prophylaxis Heparin 5000 every 12 hourly for DVT prophylaxis. Attestations 2 Medical Necessity Statement*: Admission for more than 2 midnights for management of hypoxia in setting of congestive heart failure, COPD and tracheobronchomalacia in a patient with uncontrolled hypertension Diagnoses Hypoxia R09.02 Tracheobronchomalacia J39.8 COPD (chronic obstructive pulmonary disease) J44.9 Congestive heart failure I50.9 Pulmonary air trapping R09.89 CKD (chronic kidney disease) N18.9 Hypertension I10
[2023-08-10 16:32] LABS: Procalcitonin 0.04 ng/mL (0-0.5)
[2023-08-10 16:53] LABS: Glucose Point of Care 97 mg/dL (70-110)
[2023-08-10] MEDS: fluoxetine 20 mg Capsule PO (17:41)
[2023-08-10] MEDS: flu vacc pf 2023-24 (6 mos+) 60 MCG IM (17:41)
[2023-08-10] MEDS: atorvastatin 40 mg Tablet 20 MG PO (17:41)
[2023-08-10] MEDS: insulin glargine 100 units/1 mL 10 UNIT SUBCUT (17:47)
[2023-08-10] MEDS: ipratropium-albuterol 3 mL Neb INHALATION (19:04)
[2023-08-10] MEDS: budesonide 0.5 mg/2 mL Neb INHALATION (19:04)
[2023-08-10 21:19] LABS: Glucose Point of Care 268 mg/dL (70-110)
[2023-08-10] MEDS: insulin lispro 100 unit/1 mL SUBCUT (21:36)
[2023-08-10] MEDS: benzonatate 100 mg Capsule PO (23:56)
[2023-08-11] VITALS (10 sets, daily range): BP systolic 138–166; BP diastolic 52–76; PULSE 69–86; RESP 14–23; TEMP 36.3–36.9; O2SAT 85–97; BMI 39.3
[2023-08-11] MEDS: ipratropium-albuterol 3 mL Neb INHALATION ×2 (01:38→09:44)
[2023-08-11] MEDS: heparin 5,000 unit/mL INJ 1 mL 5000 UNIT SUBCUT (04:02)
[2023-08-11 04:33] LABS: Basophils % 0.4 %; Hematocrit 40.4 % (36-47); Lymphocytes # 0.7 10^3/uL (0.8-4.8); Mean Corpuscular HGB Conc 31.9 g/dL (30-55); Mean Corpuscular Hemoglobin 30.2 pg (27-33); Mean Corpuscular Volume 94.6 fl (85-98); Mean Platelet Volume 10.1 fL (7.4-10.4); Monocytes # 0.4 10^3/uL (0.2-0.9); Monocytes % 4.8 %; Neutrophils % 86.2 %; Nucleated Red Blood Cells % 0 %; Platelet Count 241 10^3/cmm (157-399); Red Blood Count 4.27 10^6/uL (3.85-5.65); White Blood Count 8.93 10^3/uL (3.29-11.43)
[2023-08-11 04:45] LABS: Alanine Aminotransferase 12 U/L (0-33); Albumin Level 3.5 g/dL (3.5-5.2); Alkaline Phosphatase 72 U/L (35-105); Anion Gap 13.1 (5-19); Aspartate Amino Transferase 13 U/L (0-32); Blood Urea Nitrogen 21 mg/dL (8-23); Calcium 9.5 mg/dL (8.5-10.5); Carbon Dioxide 26 mmol/L (22-29); Chloride 102 mmol/L (98-107); Globulin 3.3 g/dL (1.3-4.6); Glomerular Filtration Rate 49.1 mL/min (90-130); Glucose 195 mg/dL (65-115); Magnesium 1.8 mg/dL (1.7-2.3); Osmolality Calculated 292 mOsm/kg (285-295); Phosphorus 3.2 mg/dL (2.5-4.5); Potassium 4.1 mmol/L (3.5-5.1); Sodium 137 mmol/L (136-145); Total Bilirubin 1.4 mg/dL (0.15-1.2); Total Protein 6.8 g/dL (6.6-8.7)
[2023-08-11] MEDS: amlodipine 10 mg Tablet PO (05:43)
[2023-08-11 06:27] LABS: Glucose Point of Care 209 mg/dL (70-110)
[2023-08-11] MEDS: insulin lispro 100 unit/1 mL SUBCUT ×2 (09:35→11:43)
[2023-08-11] MEDS: insulin glargine 100 units/1 mL 10 UNIT SUBCUT (09:35)
[2023-08-11] MEDS: pantoprazole DR 40 mg Tablet PO (09:36)
[2023-08-11] MEDS: predniSONE 20 mg Tablet 40 MG PO (09:36)
[2023-08-11] MEDS: clopidogrel 75 mg Tablet PO (09:36)
[2023-08-11] MEDS: aspirin 81 mg EC Tablet PO (09:37)
[2023-08-11] MEDS: budesonide 0.5 mg/2 mL Neb INHALATION (09:44)
[2023-08-11 11:40] LABS: Glucose Point of Care 306 mg/dL (70-110)
--- NOTE | 2023-08-11 12:23 | PM.DCS ---
Discharge Providers Date of Admission: 08/10/23 13:46 Date of Discharge: August 11, 2023 Attending Provider at Admission: Jacinto Edwards MD Attending Provider at Discharge: Jacinto Edwards MD Primary Care Provider: Lefty Hodge DO Diagnoses at Discharge Discharge Diagnosis (1) Hypoxia: Status: Acute (2) Tracheobronchomalacia: Status: Acute Permanent problem details: CT chest 08/07 (3) COPD (chronic obstructive pulmonary disease): Status: Acute (4) Congestive heart failure: Status: Acute (5) Pulmonary air trapping: Status: Acute (6) CKD (chronic kidney disease): Status: Chronic Permanent problem details: Baseline creatinine 1.2-1.4 (7) Hypertension: Status: Acute Reason for Visit Reason for Visit: sob Hospital Course Hospital Course Gianna Mora is a 72 year old female with past medical history of diabetes hypertension, recurrent strokes, dementia, legally blind was reportedly brought to the hospital because of difficulty in breathing which has been getting worse since today morning. Patient herself is a poor historian due to memory related issues from old strokes and unfortunately we are not able to get in touch with patient's daughter over the phone. Patient was although denies of any nausea, vomiting, chest pain, cough, fever, diarrhea. On presentation to the ER as per ER physician patient was saturating in high 70s on room air and required up to 2 to 3 L of oxygen supplementation to maintain saturation over 92%. On examination patient was lying comfortably in bed on 4 L of oxygen supplementation and mild the interview it was weaned down to 3 L NC saturating over 92% with heart rate in 79 bpm and blood pressure 160 over [address] chest was done which was consistent with air trapping and tracheobronchomalacia. She was started on IV diuretic and steroid along with inhalation treatment. Is believed patient's shortness of breath is most likely in setting of chronic tracheobronchomalacia along with COPD and mild right-sided congestive heart failure. She is been discharged in hemodynamically stable condition with advised to follow-up with pulmonology within next 2 weeks, oral steroids and diuretic treatment. She is also discharged on nebulization medications. Nebulizer order has been sent in. Patient should have sleep study as an outpatient for possible BiPAP going forward. Physical Exam Narrative: General: No acute distress, AO x 2-3, pleasant HEENT: PERRLA, pupils bilaterally equal and reactive Chest: Normal vesicular breath sounds, diffuse rhonchi all over lung [place], equal good air entry bilaterally CVS: S1-S2 regular, no murmurs, no tachycardia, no gallops, no rubs Abdomen: Soft, nontender, no organomegaly, bowel sounds present Neuro: No focal deficits, no facial deformity, AO x3, power 5/5 in all limbs Urinary Catheter Management: [place]: Cath Placed During This Visit: yes Reason for Continuing Indwelling Catheter: Accurate Measurement of Urinary Output in Critically Ill Patients Urinary Catheter Date of Insertion: 08/10/23 Urinary Catheter Time of Insertion: 15:28 Discharge Data Studies Completed and Pending Completed Studies During Hospitalization Category Date Time Status CTA chest [CT angio chest PE protcl [id number]] Stat Cat Scan 08/10/23 11:01 Completed XR chest 1V portable [id number] Stat Exams 08/10/23 09:44 Completed Radiology Impressions Chest X-Ray 08/10/23 09:44 IMPRESSION: Pulmonary interstitial edema. Chest CTA 08/10/23 11:01 IMPRESSION: 1. No pulmonary embolism. 2. Acute on chronic pulmonary process. There is persistent mosaic perfusion of the lung parenchyma which is consistent with air trapping related to chronic small airways disease (constrictive bronchiolitis) or hypersensitivity pneumonitis and is similar in distribution compared to 12/18/2022. There is new extensive ground-glass and reticular opacity in both lungs which suggests superimposed interstitial edema or less likely superimposed acute infection (possibly viral). 3. New small bilateral pleural effusions. 4. Stable cardiac enlargement. Trace pericardial effusion. 5. Tracheobronchomalacia. 6. Progressive upper mediastinal lymphadenopathy since 12/18/2022 may be reactive or neoplastic. Laboratory Results WBC 8.93 10^3/uL (3.29-11.43) 08/11/23 03:50 RBC 4.27 10^6/uL (3.85-5.65) 08/11/23 03:50 Hgb 12.90 g/dL (11.27-16.99) 08/11/23 03:50 Hct 40.4 % (36-47) 08/11/23 03:50 MCV 94.6 fl (85-98) 08/11/23 03:50 MCH 30.2 pg (27-33) 08/11/23 03:50 MCHC 31.9 g/dL (30-55) 08/11/23 03:50 RDW 13.0 % (12.1-15.1) 08/11/23 03:50 Plt Count 241 10^3/cmm (157-399) 08/11/23 03:50 MPV 10.1 fL (7.4-10.4) 08/11/23 03:50 Neut % (Auto) 86.2 % 08/11/23 03:50 Lymph % (Auto) 8.0 % 08/11/23 03:50 [place] % (Auto) 4.8 % 08/11/23 03:50 Eos % (Auto) 0.0 % 08/11/23 03:50 Baso % (Auto) 0.4 % 08/11/23 03:50 Neut # (Auto) 7.70 10^3/uL (1.8-7.7) 08/11/23 03:50 Lymph # (Auto) 0.7 10^3/uL (0.8-4.8) L 08/11/23 03:50 [place] # (Auto) 0.4 10^3/uL (0.2-0.9) 08/11/23 03:50 Eos # (Auto) 0.0 10^3/uL (0.0-0.8) 08/11/23 03:50 Baso # (Auto) 0.0 10^3/uL (0.0-0.1) 08/11/23 03:50 Nucleated RBC % (auto) 0 % 08/11/23 03:50 Nucleated RBCs # 0.0 /100WBC 08/11/23 03:50 Sodium 137 mmol/L (136-145) 08/11/23 03:50 Potassium 4.1 mmol/L (3.5-5.1) 08/11/23 03:50 Chloride 102 mmol/L (98-107) 08/11/23 03:50 Carbon Dioxide 26 mmol/L (22-29) 08/11/23 03:50 Anion Gap 13.1 (5-19) 08/11/23 03:50 BUN 21 mg/dL (8-23) 08/11/23 03:50 Creatinine 1.1 mg/dL (0.5-0.9) H 08/11/23 03:50 GFR Calculation 49.1 mL/min (90-130) L 08/11/23 03:50 Glucose 195 mg/dL (65-115) H 08/11/23 03:50 POC Glucose 306 mg/dL (70-110) H 08/11/23 11:37 Calculated Osmolality 292 mOsm/kg (285-295) 08/11/23 03:50 Calcium 9.5 mg/dL (8.5-10.5) 08/11/23 03:50 Phosphorus 3.2 mg/dL (2.5-4.5) 08/11/23 03:50 Magnesium 1.8 mg/dL (1.7-2.3) 08/11/23 03:50 Total Bilirubin 1.4 mg/dL (0.15-1.2) H 08/11/23 03:50 AST 13 U/L (0-32) 08/11/23 03:50 ALT 12 U/L (0-33) 08/11/23 03:50 Alkaline Phosphatase 72 U/L (35-105) 08/11/23 03:50 Troponin T Baseline 18 ng/L (0-10) H 08/10/23 10:07 Troponin T 120 Minute 16.20 ng/L (0-10) H 08/10/23 12:06 Delta Troponin T -1.80 ABS# (0-10) L 08/10/23 12:06 Troponin T Hi Sens 6Hr 17.07 ng/L (0-10) H 08/10/23 15:47 Troponin T Hi Sens 6Hr Delta -0.93 ng/L (0-12) L 08/10/23 15:47 NT-Pro-B Natriuret Pep 1640 pg/mL (0-125) H 08/10/23 10:07 Total Protein 6.8 g/dL (6.6-8.7) 08/11/23 03:50 Albumin 3.5 g/dL (3.5-5.2) 08/11/23 03:50 Globulin 3.3 g/dL (1.3-4.6) 08/11/23 03:50 Procalcitonin 0.04 ng/mL (0-0.5) 08/10/23 15:47 Urine Color Yellow (Yellow) 08/10/23 15:32 Urine Appearance Clear (CLEAR) 08/10/23 15:32 Urine pH 6 (5-7) 08/10/23 15:32 Ur Specific [place] 1.005 (1.005-1.030) 08/10/23 15:32 Urine Protein Trace (Negative) 08/10/23 15:32 Urine Glucose (UA) Norm (Normal) 08/10/23 15:32 Urine Ketones Negative (Negative) 08/10/23 15:32 Urine Blood Neg (Negative) 08/10/23 15:32 Urine Nitrate Negative (Negative) 08/10/23 15:32 Urine Bilirubin Neg (Negative) 08/10/23 15:32 Urine Urobilinogen Norm mg/dL (Negative) 08/10/23 15:32 Ur Leukocyte Esterase Negative (Negative) 08/10/23 15:32 Urine RBC 0-4 /hpf (0-2) H 08/10/23 15:32 Urine WBC 0-4 /hpf (0-5) H 08/10/23 15:32 Ur Squamous Epith Cells 0-4 /hpf (0-5) H 08/10/23 15:32 Amorphous Sediment Not Reportable 08/10/23 15:32 Urine Bacteria Trace /hpf (NONE) 08/10/23 15:32 Influenza Type A Ag negative (Negative) 08/10/23 10:35 Influenza Type B Ag negative (Negative) 08/10/23 10:35 SARS-CoV-2 Ag (Rapid) negative (Negative) 08/10/23 10:35 Vitals Last Vital Signs Temp 98.4 F 08/11/23 11:35 Pulse 74 08/11/23 11:35 Resp 21 H 08/11/23 11:35 BP 138/52 08/11/23 11:35 Pulse Ox 96 08/11/23 11:35 O2 Del Method Nasal Cannula 08/11/23 11:35 O2 Flow Rate 2 08/11/23 09:44 Discharge Plan Discharge Patient Disposition: Home Condition: Stable Prescriptions: New ipratropium-albuterol 0.5 mg-3 mg(2.5 mg base)/3 mL Solution For Nebulization 3 ml inhalation Q6H.RESP Qty: 180 0RF prednisone 20 mg Tablet 40 mg PO DAILY 7 Days Qty: 14 0RF pantoprazole 40 mg Tablet,Delayed Release (Dr/Ec) 40 mg PO DAILY Qty: 30 0RF budesonide 0.5 mg/2 mL Suspension For Nebulization 0.5 mg inhalation BID.RESPIRATORY Qty: 60 0RF Lasix 20 mg tablet 20 mg PO DAILY Qty: 30 0RF Continued atorvastatin 20 mg tablet 20 mg PO QPM amlodipine 10 mg tablet 10 mg PO QAM fluoxetine 20 mg capsule 20 mg PO QPM ascorbic acid (vitamin C) [Vitamin C] 1,000 mg Tablet 1,000 mg PO DAILY vitamin E 100 unit Capsule 100 unit PO DAILY garlic 1,000 mg Capsule 1,000 mg PO DAILY albuterol sulfate 90 mcg/actuation HFA aerosol inhaler 1 inh inhalation Q6H PRN (Reason: shortness of breath or wheezing) Qty: 8.5 0RF insulin glargine [Lantus Solostar U-100 Insulin] 100 unit/mL (3 mL) insulin pen 10 unit SUBCUT BID 30 Days Qty: 6 0RF insulin aspart U-100 [Novolog FlexPen U-100 Insulin] 100 unit/mL (3 mL) insulin pen See Rx Instructions .ROUTE .COMPLEX Qty: 15 0RF Rx Instructions: Inject, subcut, 3 times daily, after meals, based on sliding scale provided losartan 25 mg Tablet 25 mg PO DAILY Hold Instructions: Resume on 06/23/23. clopidogrel 75 mg Tablet 75 mg PO DAILY Qty: 14 0RF vitamin E (dl, acetate) 45 mg (100 unit) Capsule 45 mg PO DAILY aspirin 81 mg Tablet,Delayed Release (Dr/Ec) 81 mg PO DAILY Discharge Orders: Discharge Order (Routine); Ordered 08/11/23 Ordered By: Jacinto Edwards Other Ambulatory Orders: DME: Nebulizer with Neb Kit (Order) Location: None Selected Ordered By: Jacinto Edwards DME: Oxygen (Order) Timeframe: 1 Year Location: None Selected Ordered By: Jacinto Edwards Referrals: DatarJean Paul MD [Physician] - (We have notified your physician's clinic of the need for a follow-up appointment to be scheduled. If you have not heard from them within the next 2 business days, please call them directly. ) Lefty Hodge, [Primary Care Provider] - (Please call for an follow-up appointment with Dr. Hodge within 4 to 7 days. ) Discharge Diet: Cardiac and Diabetic Discharge Activity: Resume usual activity and Increase activity as tolerated Patient Instructions: Furosemide (By mouth) (Lasix), Prednisone (By mouth) (predniSONE Intensol, Prednicot, Deltasone, Tee), Budesonide (By breathing), Ipratropium/Albuterol (By breathing) (Combivent, Combivent..., Pantoprazole (By mouth) (Protonix), Heart Failure (DC), Hypertension (DC), Hypoxia (GEN), CHF Stoplight, COPD Stoplight, Opioid Safety Activity Restrictions/Additional Instructions: Continue using nebulization treatment as discussed in detail. Use DuoNebs every 6 hour, Pulmicort twice daily. Please follow-up with pulmonology within next 2 weeks. You should have a sleep study with a primary care provider for a possibility of obstructive sleep apnea requiring BiPAP. Going forward please use 20 mg of oral Lasix daily. Discharge Attestations Time Spent in Discharge Care*: greater than 30 min Specific Discharge Activities: educating patient, educating and/or supporting family/caregiver, discussing with pcp/other providers, discussing with residential case manager/social workers/dc planners, documenting/other paperwork and evaluating patient/reviewing data Status at Discharge: Cognitive status at discharge: cognitively intact, Behavioral status at discharge: cooperative, Functional status at discharge: uses cane/walker, Overall status at discharge: patient is back to baseline Quality Metrics Clinical Quality Measures [ No reported AMI, CVA or VTE this stay] Coding Level of Care Code 31932 Total time (in minutes) for Discharge: 60 Diagnoses Hypoxia R09.02 Tracheobronchomalacia J39.8 COPD (chronic obstructive pulmonary disease) J44.9 Congestive heart failure I50.9 Pulmonary air trapping R09.89 CKD (chronic kidney disease) N18.9 Hypertension I10
--- NOTE | 2023-08-11 17:17 | ED_ITS ---
HPI - SOB/Dyspnea 2 General: Chief Complaint: Shortness of Breath/Dyspnea Stated Complaint: sob Time Seen by Provider: 08/10/23 09:19 History of Present Illness: HPI Narrative: 72-year-old female that presents to the emergency department with complaints of increased shortness of breath today. On initial presentation her oxygen saturation levels on room air was in the mid to upper 70s and required supplemental oxygen at 3 L nasal cannula to maintain her saturation levels of 92%. She does appear to have increased work of breathing. She is a poor historian given her previous history of CVAs. She does have a history of diabetes and dementia and is legally blind according to her family member. She does endorse a nonproductive cough. Related Data: Home oxygen amount: none Review of Systems 2 General: Reports: 10 or more systems reviewed and unremarkable except in HPI and below Resp: Reports: dyspnea, non-productive cough and wheezing PFSH ED 2 PFSH: Medical History COPD (chronic obstructive pulmonary disease) Tracheobronchomalacia CT chest 08/07 INGA positive Atherosclerotic cerebrovascular disease Cerebellar stroke CKD (chronic kidney disease) Baseline creatinine 1.2-1.4 Osteoarthritis of left hip Diabetes Hypertension Social History Smoking and tobacco/nicotine status: never used tobacco/nicotine Alcohol intake: never Substance/Drug Use: never Physical Exam 2 Narrative: EXAM NARRATIVE: Constitutional: the patient appears well nourished and of normal development. Vital signs as documented. Moderate respiratory distress on exam. Obvious increased work of breathing. Alert and oriented-to person. Per the patient's family she is at her baseline mental status. Head, eyes, ears, nose, mouth, throat: Normocephalic, atraumatic. Pupils-equal, round, reactive to light. No scleral icterus. Normal-appearing external ears. Normal appearing nasal turbinates, no drainage. No obvious oral lesions, posterior oropharynx without erythema or exudates. Neck: Supple, trachea is midline, no lymphadenopathy, no jugular venous distension, thyromegaly, or carotid bruits. Carotid upstrokes are brisk bilaterally. Lungs: Coarse throughout with prolonged expiratory phase and bilateral wheezing. Symmetrical rise and fall of chest, no obvious signs of increased work of breathing at present. Cardiac: Regular rate and rhythm, positive S1, S2. No murmurs, rubs or gallops that I can appreciate Abdomen: Soft, non-tender to palpation, normal active bowel sounds to all quadrants. No palpable masses, no organomegaly and abdominal bruits. Extremities: 2+ pulses in the upper extremities that are equal bilaterally, 2+ pulses in the lower extremities that are equal bilaterally. Non-edematous. Moves all extremities well, sensation to all extremities are noted. Skin: Warm, dry, intact. Course 2 Vital Signs: Vital signs: Vital Signs Temperature 98.4 F 08/11/23 14:35 Pulse Rate 74 08/11/23 14:35 Respiratory Rate 21 H 08/11/23 14:35 Blood Pressure 138/52 08/11/23 14:35 Pulse Oximetry 96 08/11/23 14:35 Oxygen Delivery Me thod Nasal Cannula 08/11/23 11:35 Oxygen Flow Rate 2 08/11/23 12:52 MDM - SOB/Dyspnea Medical Decision Making Physical exam completed and documented, I will obtain a CBC, CMP, blood cultures, procalcitonin and lactic acid, two-view chest x-ray and a urinalysis. Differential diagnosis includes community-acquired pneumonia, viral illness, acute exacerbation of chronic pulmonary disease. Medical Records I reviewed the patient's medical records. Lab Data I reviewed the patient's lab results. 08/11/23 03:50 08/11/23 03:50 Labs/Radiology: Radiology Impressions Chest X-Ray 08/10/23 09:44 IMPRESSION: Pulmonary interstitial edema. Chest CTA 08/10/23 11:01 IMPRESSION: 1. No pulmonary embolism. 2. Acute on chronic pulmonary process. There is persistent mosaic perfusion of the lung parenchyma which is consistent with air trapping related to chronic small airways disease (constrictive bronchiolitis) or hypersensitivity pneumonitis and is similar in distribution compared to 12/18/2022. There is new extensive ground-glass and reticular opacity in both lungs which suggests superimposed interstitial edema or less likely superimposed acute infection (possibly viral). 3. New small bilateral pleural effusions. 4. Stable cardiac enlargement. Trace pericardial effusion. 5. Tracheobronchomalacia. 6. Progressive upper mediastinal lymphadenopathy since 12/18/2022 may be reactive or neoplastic. Laboratory Results WBC 9.76 10^3/uL (3.29-11.43) 08/10/23 10:07 RBC 4.33 10^6/uL (3.85-5.65) 08/10/23 10:07 Hgb 13.10 g/dL (11.27-16.99) 08/10/23 10:07 Hct 42.0 % (36-47) 08/10/23 10:07 MCV 97.0 fl (85-98) 08/10/23 10:07 MCH 30.3 pg (27-33) 08/10/23 10:07 MCHC 31.2 g/dL (30-55) 08/10/23 10:07 RDW 13.2 % (12.1-15.1) 08/10/23 10:07 Plt Count 225 10^3/cmm (157-399) 08/10/23 10:07 MPV 9.4 fL (7.4-10.4) 08/10/23 10:07 Neut % (Auto) 72.8 % 08/10/23 10:07 Lymph % (Auto) 11.6 % 08/10/23 10:07 [place] % (Auto) 10.2 % 08/10/23 10:07 Eos % (Auto) 3.7 % 08/10/23 10:07 Baso % (Auto) 1.0 % 08/10/23 10:07 Neut # (Auto) 7.10 10^3/uL (1.8-7.7) 08/10/23 10:07 Lymph # (Auto) 1.1 10^3/uL (0.8-4.8) 08/10/23 10:07 [place] # (Auto) 1.0 10^3/uL (0.2-0.9) H 08/10/23 10:07 Eos # (Auto) 0.4 10^3/uL (0.0-0.8) 08/10/23 10:07 Baso # (Auto) 0.1 10^3/uL (0.0-0.1) 08/10/23 10:07 Nucleated RBC % (auto) 0 % 08/10/23 10:07 Nucleated RBCs # 0.0 /100WBC 08/10/23 10:07 Sodium 141 mmol/L (136-145) 08/10/23 10:07 Potassium 4.3 mmol/L (3.5-5.1) 08/10/23 10:07 Chloride 107 mmol/L (98-107) 08/10/23 10:07 Carbon Dioxide 24 mmol/L (22-29) 08/10/23 10:07 Anion Gap 14.3 (5-19) 08/10/23 10:07 BUN 24 mg/dL (8-23) H 08/10/23 10:07 Creatinine 1.0 mg/dL (0.5-0.9) H 08/10/23 10:07 GFR Calculation 54.8 mL/min (90-130) L 08/10/23 10:07 Glucose 83 mg/dL (65-115) 08/10/23 10:07 Calculated Osmolality 295 mOsm/kg (285-295) 08/10/23 10:07 Calcium 9.6 mg/dL (8.5-10.5) 08/10/23 10:07 Total Bilirubin 1.1 mg/dL (0.15-1.2) 08/10/23 10:07 AST 15 U/L (0-32) 08/10/23 10:07 ALT 12 U/L (0-33) 08/10/23 10:07 Alkaline Phosphatase 74 U/L (35-105) 08/10/23 10:07 Troponin T Baseline 18 ng/L (0-10) H 08/10/23 10:07 Troponin T 120 Minute 16.20 ng/L (0-10) H 08/10/23 12:06 Delta Troponin T -1.80 ABS# (0-10) L 08/10/23 12:06 NT-Pro-B Natriuret Pep 1640 pg/mL (0-125) H 08/10/23 10:07 Total Protein 6.5 g/dL (6.6-8.7) L 08/10/23 10:07 Albumin 3.8 g/dL (3.5-5.2) 08/10/23 10:07 Globulin 2.7 g/dL (1.3-4.6) 08/10/23 10:07 Influenza Type A Ag negative (Negative) 08/10/23 10:35 Influenza Type B Ag negative (Negative) 08/10/23 10:35 SARS-CoV-2 Ag (Rapid) negative (Negative) 08/10/23 10:35 All radiology interpretation(s) finalized by discharge Discharge Plan Discharge Patient Disposition: Admitted As Inpatient Admit Provider: Jacinto Edwards Clinical Impression: Hypoxia, COPD (chronic obstructive pulmonary disease) Condition: Stable Discharge Diet: Cardiac and Diabetic Discharge Activity: Resume usual activity and Increase activity as tolerated Coding Level of Care Code 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
== END 2023-08-11 15:28 | disposition home or self-care (01) ==
LOC: ER 10:20 → CSU 19:22
PROVIDERS: Admitting Provider Student in an Organized Health Care Education/Training Program; Emergency Provider Internal Medicine; PCP Internal Medicine; Visit Provider Student in an Organized Health Care Education/Training Program
DX: R09.02 Hypoxemia (principal); J39.8 Other specified diseases of upper respiratory tract; J44.9 Chronic obstructive pulmonary disease, unspecified; I50.9 Heart failure, unspecified; R09.89 Other specified symptoms and signs involving the circulatory and respiratory systems; E11.22 Type 2 diabetes mellitus with diabetic chronic kidney disease; I12.9 Hypertensive chronic kidney disease with stage 1 through stage 4 chronic kidney disease, or unspecified chronic kidney disease; N18.9 Chronic kidney disease, unspecified; Z86.73 Personal history of transient ischemic attack (TIA), and cerebral infarction without residual deficits; F03.90 Unspecified dementia, unspecified severity, without behavioral disturbance, psychotic disturbance, mood disturbance, and anxiety; H54.7 Unspecified visual loss; Z79.4 Long term (current) use of insulin
CPT/HCPCS: 36415; 36416; 51702; 71045; 71275; 80053; 81001; 82962; 83735; 83880; 84100; 84145; 84484; 85025; 87426; 87804; 90471; 90686; 93005; 94640; 94664; 94760; 96372; 96374; 96376; 99285; G0378; J1644; J1815; J1940; J7512; J7626; Q9967

== ENCOUNTER 2023-08-14 10:51 | Observation (INO) | payer MEDICARE, MEDICAID, SELFPAY ==
[2023-08-14] VITALS (8 sets, daily range): BP systolic 137–169; BP diastolic 51–75; PULSE 60–84; RESP 16–18; TEMP 36.6–37; O2SAT 91–97; BMI 45.3; BMI 39.8
[2023-08-14 11:09] LABS: Glucose Point of Care 77 mg/dL (70-110)
[2023-08-14 11:09] LABS: Basophils # 0.1 10^3/uL (0.0-0.1); Basophils % 0.5 %; Eosinophils # 0.2 10^3/uL (0.0-0.8); Eosinophils % 0.8 %; Hematocrit 46.2 % (36-47); Lymphocytes # 5.9 10^3/uL (0.8-4.8); Lymphocytes % 28.5 %; Mean Corpuscular HGB Conc 32.5 g/dL (30-55); Mean Corpuscular Hemoglobin 30.2 pg (27-33); Mean Corpuscular Volume 93.1 fl (85-98); Mean Platelet Volume 10.4 fL (7.4-10.4); Monocytes % 9.4 %; Neutrophils % 59.1 %; Nucleated Red Blood Cells % 0 %; Platelet Count 381 10^3/cmm (157-399); Red Blood Count 4.96 10^6/uL (3.85-5.65); Red Cell Distribution Width 13.1 % (12.1-15.1)
--- NOTE | 2023-08-14 11:13 | ED_ITS ---
HPI - Altered Mental Status 2 General: Chief Complaint: Altered Mental Status Stated Complaint: Ams/ Low BS Time Seen by Provider: 08/14/23 10:52 Source: patient Mode of arrival: EMS History of Present Illness: 72-year-old female presents to the emerg ency room with episode of hypoglycemia. Presents from home via EMS was discharged from the hospital 2 days ago on a steroid taper the daughter says she has stopped it her blood sugars had been running high. EMS reported on the scene blood sugar was 43 increased to 119 after D10 is awake and alert with no complaints on arrival here she does not recall what happened she denies any chest pain or discomfort. No fever sweats or chills no difficulty with her breathing she is chronically on O2 with activity but at rest to maintain normal sats. MD complaint: altered mental status and confusion Review of Systems 2 Const: Denies: fever(s) or chills Card: Denies: chest pain Resp: Denies: dyspnea GI: Denies: abdominal pain : Denies: dysuria, urinary frequency or urinary urgency Musc: Denies: neck pain or back pain Skin/Breast: Denies: rash PFSH ED 2 PFSH: Medical History COPD (chronic obstructive pulmonary disease) Tracheobronchomalacia CT chest 08/07 INGA positive Atherosclerotic cerebrovascular disease Cerebellar stroke CKD (chronic kidney disease) Baseline creatinine 1.2-1.4 Osteoarthritis of left hip Diabetes Hypertension Social History Smoking and tobacco/nicotine status: never used tobacco/nicotine Alcohol intake: never Substance/Drug Use: never Physical Exam 2 Const: COMMON NORMALS: no acute distress GENERAL APPEARANCE: cooperative and comfortable ORIENTATION/CONSCIOUSNESS: Yes awake, Yes oriented to person, Yes oriented to place and Yes oriented to time HENMT: COMMON NORMALS: normocephalic, atraumatic and hearing grossly normal bilaterally HEAD & SCALP: normocephalic and atraumatic Resp: COMMON NORMALS: normal respiratory effort, No retractions, No use of accessory muscles and clear to auscultation bilaterally AUSCULTATION: clear to auscultation bilaterally Cardio: COMMON NORMALS: regular rate, regular rhythm and No murmurs present (Cardio) RATE: regular rate RHYTHM: regular rhythm GI: COMMON NORMALS: Soft to palpation and No hepatosplenomegaly present A USCULTATION: Yes normoactive bowel sounds PALPATION: Yes Soft to palpation, No Tenderness to palpation present (GI), No Guarding due to palpation present (GI) and Yes No hepatosplenomegaly present Extremity: COMMON NORMALS: normal to inspection, capillary refill normal, no clubbing, cyanosis or edema, no calf tenderness and no pedal edema Neuro: SENSORIUM/ORIENTATION: Yes oriented to person, Yes oriented to place and Yes oriented to time Skin: COMMON NORMALS: no rashes or lesions noted GENERAL SKIN EXAM: no rashes or lesions noted Course 2 Vital Signs: Vital signs: Vital Signs Temperature 97.9 F 08/14/23 10:55 Pulse Rate 80 08/14/23 12:00 Respiratory Rate 18 08/14/23 10:55 Blood Pressure 137/65 08/14/23 12:00 Pulse Oximetry 96 08/14/23 12:00 Oxygen Delivery Me thod Room Air 08/14/23 12:00 Oxygen Flow Rate 3 08/14/23 10:55 MDM - Altered Mental Status Medical Decision Making Blood sugar improved and sustaining however patient has significant hypokalemia and some leukocytosis without finding of source. Chest x-ray wrist elbow urine is normal there is no skin breakdown or ulceration no sores that she identified. Will admit to [facility] for monitoring glucose and potassium replacement discussed with hospitalist orders written Medical Records I reviewed the patient's medical records. Lab Data I reviewed the patient's lab results. 08/14/23 10:20 08/14/23 10:20 Radiology Impressions Chest X-Ray 08/14/23 12:15 IMPRESSION: Cardiomegaly with mild pulmonary edema. The pulmonary edema has improved over the past few days. Laboratory Results WBC 20.80 10^3/uL (3.29-11.43) H 08/14/23 10:20 RBC 4.96 10^6/uL (3.85-5.65) 08/14/23 10:20 Hgb 15.00 g/dL (11.27-16.99) 08/14/23 10:20 Hct 46.2 % (36-47) 08/14/23 10:20 MCV 93.1 fl (85-98) 08/14/23 10:20 MCH 30.2 pg (27-33) 08/14/23 10:20 MCHC 32.5 g/dL (30-55) 08/14/23 10:20 RDW 13.1 % (12.1-15.1) 08/14/23 10:20 Plt Count 381 10^3/cmm (157-399) 08/14/23 10:20 MPV 10.4 fL (7.4-10.4) 08/14/23 10:20 Neut % (Auto) 59.1 % 08/14/23 10:20 Lymph % (Auto) 28.5 % 08/14/23 10:20 [place] % (Auto) 9.4 % 08/14/23 10:20 Eos % (Auto) 0.8 % 08/14/23 10:20 Baso % (Auto) 0.5 % 08/14/23 10:20 Neut # (Auto) 12.30 10^3/uL (1.8-7.7) H 08/14/23 10:20 Lymph # (Auto) 5.9 10^3/uL (0.8-4.8) H 08/14/23 10:20 [place] # (Auto) 2.0 10^3/uL (0.2-0.9) H 08/14/23 10:20 Eos # (Auto) 0.2 10^3/uL (0.0-0.8) 08/14/23 10:20 Baso # (Auto) 0.1 10^3/uL (0.0-0.1) 08/14/23 10:20 Nucleated RBC % (auto) 0 % 08/14/23 10:20 Nucleated RBCs # 0.0 /100WBC 08/14/23 10:20 Sodium 142 mmol/L (136-145) 08/14/23 10:20 Potassium 2.6 mmol/L (3.5-5.1) L* 08/14/23 10:20 Chloride 101 mmol/L (98-107) 08/14/23 10:20 Carbon Dioxide 26 mmol/L (22-29) 08/14/23 10:20 Anion Gap 17.6 (5-19) 08/14/23 10:20 BUN 25 mg/dL (8-23) H 08/14/23 10:20 Creatinine 1.3 mg/dL (0.5-0.9) H 08/14/23 10:20 GFR Calculation 40.5 mL/min (90-130) L 08/14/23 10:20 Glucose 22 mg/dL (65-115) L* 08/14/23 10:20 POC Glucose 140 mg/dL (70-110) H 08/14/23 12:18 Estimat Average Glucose 166 08/14/23 10:20 Hemoglobin A1c 7.4 % (4.0-6.0) H 08/14/23 10:20 Calculated Osmolality 294 mOsm/kg (285-295) 08/14/23 10:20 Calcium 10.4 mg/dL (8.5-10.5) 08/14/23 10:20 Total Bilirubin 1.2 mg/dL (0.15-1.2) 08/14/23 10:20 AST 18 U/L (0-32) 08/14/23 10:20 ALT 19 U/L (0-33) 08/14/23 10:20 Alkaline Phosphatase 83 U/L (35-105) 08/14/23 10:20 Total Protein 8.0 g/dL (6.6-8.7) 08/14/23 10:20 Albumin 4.2 g/dL (3.5-5.2) 08/14/23 10:20 Globulin 3.8 g/dL (1.3-4.6) 08/14/23 10:20 Urine Color Yellow (Yellow) 08/14/23 12:00 Urine Appearance Clear (CLEAR) 08/14/23 12:00 Urine pH 5 (5-7) 08/14/23 12:00 Ur Specific [place] 1.010 (1.005-1.030) 08/14/23 12:00 Urine Protein 1+ (Negative) H 08/14/23 12:00 Urine Glucose (UA) Norm (Normal) 08/14/23 12:00 Urine Ketones Negative (Negative) 08/14/23 12:00 Urine Blood Neg (Negative) 08/14/23 12:00 Urine Nitrate Negative (Negative) 08/14/23 12:00 Urine Bilirubin Neg (Negative) 08/14/23 12:00 Urine Urobilinogen Norm mg/dL (Negative) 08/14/23 12:00 Ur Leukocyte Esterase Negative (Negative) 08/14/23 12:00 Urine RBC None /hpf (0-2) 08/14/23 12:00 Urine WBC None /hpf (0-5) 08/14/23 12:00 Ur Squamous Epith Cells 0-4 /hpf (0-5) H 08/14/23 12:00 Amorphous Sediment Not Reportable 08/14/23 12:00 Urine Bacteria None /hpf (NONE) 08/14/23 12:00 Urine Mucus Trace /hpf 08/14/23 12:00 Influenza Type A Ag negative (Negative) 08/14/23 13:00 Influenza Type B Ag negative (Negative) 08/14/23 13:00 All radiology interpretation(s) finalized by discharge Discharge Plan Discharge Patient Disposition: Placed in Observation Clinical Impression: Acute hypokalemia, Tracheobronchomalacia, CKD (chronic kidney disease), Hypoglycemia Condition: Stable Prescriptions: No Action atorvastatin 20 mg tablet 20 mg PO QPM amlodipine 10 mg tablet 10 mg PO QAM fluoxetine 20 mg capsule 20 mg PO QPM ascorbic acid (vitamin C) [Vitamin C] 1,000 mg Tablet 1,000 mg PO DAILY garlic 1,000 mg Capsule 1,000 mg PO DAILY albuterol sulfate 90 mcg/actuation HFA aerosol inhaler 1 inh inhalation Q6H PRN (Reason: shortness of breath or wheezing) Qty: 8.5 0RF insulin aspart U-100 [Novolog FlexPen U-100 Insulin] 100 unit/mL (3 mL) insulin pen See Rx Instructions .ROUTE .COMPLEX Qty: 15 0RF Rx Instructions: Inject, subcut, 3 times daily, after meals, based on sliding scale provided losartan 25 mg Tablet 25 mg PO DAILY Hold Instructions: Resume on 06/23/23. clopidogrel 75 mg Tablet 75 mg PO DAILY Qty: 14 0RF meclizine 25 mg Tablet 25 mg PO BID Vitamin E-400 268 mg (400 unit) Capsule 268 mg PO DAILY Centrum Adult 50 Plus 80 mcg Tablet,Chewable 1 tab PO DAILY budesonide 0.5 mg/2 mL suspension for nebulization 0.5 mg inhalation BID Lantus Solostar U-100 Insulin 100 unit/mL (3 mL) insulin pen See Rx Instructions .ROUTE .COMPLEX Rx Instructions: 30 unit subcutaneously QAM AND 25 UNITS QPM aspirin 81 mg Tablet,Delayed Release (Dr/Ec) 81 mg PO DAILY ipratropium-albuterol 0.5 mg-3 mg(2.5 mg base)/3 mL Solution For Nebulization 3 ml inhalation Q6H.RESP Qty: 180 0RF prednisone 20 mg Tablet 40 mg PO DAILY 7 Days Qty: 14 0RF pantoprazole 40 mg Tablet,Delayed Release (Dr/Ec) 40 mg PO DAILY Qty: 30 0RF furosemide [Lasix] 20 mg tablet 20 mg PO DAILY Qty: 30 0RF Referrals: Lefty Hodge DO [Primary Care Provider] - Patient Instructions: Altered Mental Status (ED) Coding Level of Care Code ED [employer] for Minerva Ocampo
[2023-08-14 11:23] LABS: Alanine Aminotransferase 19 U/L (0-33); Albumin Level 4.2 g/dL (3.5-5.2); Alkaline Phosphatase 83 U/L (35-105); Anion Gap 17.6 (5-19); Aspartate Amino Transferase 18 U/L (0-32); Blood Urea Nitrogen 25 mg/dL (8-23); Calcium 10.4 mg/dL (8.5-10.5); Carbon Dioxide 26 mmol/L (22-29); Chloride 101 mmol/L (98-107); Globulin 3.8 g/dL (1.3-4.6); Glomerular Filtration Rate 40.5 mL/min (90-130); Sodium 142 mmol/L (136-145); Total Bilirubin 1.2 mg/dL (0.15-1.2)
[2023-08-14 11:31] LABS: Glucose 22 mg/dL (65-115); Osmolality Calculated 294 mOsm/kg (285-295); Potassium 2.6 mmol/L (3.5-5.1)
[2023-08-14 11:41] LABS: Glucose Point of Care 88 mg/dL (70-110)
[2023-08-14 12:09] LABS: Slide Review Slide Review Perform
--- NOTE | 2023-08-14 12:15 | XRR_ITS ---
PROCEDURE INFORMATION: Exam: XR Chest Exam date and time: 08/14/2023 12:26 PM Age: 72 years old Clinical indication: Cough and dyspnea; Patient HX: AMS; Additional info: Dyspnea/cough TECHNIQUE: Imaging protocol: Radiologic exam of the chest. Views: 1 view. COMPARISON: CT angio chest PE protcl [id number] 08/10/2023 12:25 PM FINDINGS: Lungs: Both lungs demonstrate mild pulmonary edema. No lung mass . Pleural spaces: Unremarkable. No pleural effusion. No pneumothorax. Heart/Mediastinum: Mild cardiomegaly is noted. Bones/joints: Unremarkable. XR/XR chest 1V portable [id number] IMPRESSION: Cardiomegaly with mild pulmonary edema. The pulmonary edema has improved over the past few days.
[2023-08-14 12:19] LABS: Glucose Point of Care 140 mg/dL (70-110)
[2023-08-14 12:25] LABS: Add Urine Microscopic? YES; Bilirubin Urine Neg (Negative); Blood Urine Neg (Negative); Glucose Urine UA Norm (Normal); Ketones Urine Negative (Negative); Leukocyte Esterase Urine Negative (Negative); Nitrate Urine Negative (Negative); Protein Urine 1+ (Negative); Urine Appearance Clear (CLEAR); Urine Color Yellow (Yellow); Urobilinogen Urine Norm (Negative); pH Urine 5 (5-7)
[2023-08-14 12:31] LABS: Add Urine Culture? No; Mucus Urine TRACE /hpf; Squamous Epithelial Cell Urine 0-4 /hpf (0-5)
[2023-08-14 13:34] LABS: Influenza A by IFA negative (Negative); Influenza B by IFA negative (Negative)
--- NOTE | 2023-08-14 13:53 | P.HP_ITS ---
Providers/Chief Complaint 2 Primary Care Provider: Lefty Hodge DO Chief Complaint: Ams/ Low BS History of Present Illness Gianna Mora is a 72 year old female With history of COPD, tracheobronchomalacia, cerebellar stroke in the past, CKD, osteoarthritis of left hip, diabetes, hypertension, insulin-dependent presented to the ER via EMS with an episode of hypoglycemia. Patient was sent home recently with a steroid taper for total of 7 days. Ever since steroids were stopped her sugar spiked a fairly high. When patient was seen by EMS blood sugar was 43 and was given D10. Sugar went up to 119. She was brought into the hospital and by the time she arrived she was completely asymptomatic denied any chest pain, shortness of breath, fever sweats chills diarrhea nausea vomiting. When seen by auto service writer patient states he does not really remember what happened. She feels fine at this time. She does remember that there was something wrong with her sugar. Other than that she cannot give me any other history. At this time however completely alert oriented x 3 and aware of her surroundings and knowing what is going on. There is no family available at bedside at this time. Patient also noted to be hypokalemic and being given potassium at this time by ER. Medications/Allergies Home Medications Medication Instructions Recorded Confirmed Last Taken Type amlodipine 10 mg tablet 10 mg PO QAM 08/05/21 08/14/23 08/14/23 History ascorbic acid (vitamin C) 1,000 mg 1,000 mg PO DAILY 08/05/21 08/14/23 08/14/23 History tablet (Vitamin C) atorvastatin 20 mg tablet 20 mg PO QPM 08/05/21 08/14/23 08/13/23 History fluoxetine 20 mg capsule 20 mg PO QPM 08/05/21 08/14/23 08/13/23 History garlic 1,000 mg capsule 1,000 mg PO DAILY 08/05/21 08/14/23 08/14/23 History albuterol sulfate 90 mcg/actuation 1 inh inhalation Q6H PRN shortness 12/20/22 08/14/23 Unknown Rx aerosol inhaler of breath or wheezing #8.5 grams insulin aspart U-100 100 unit/mL See Rx Instructions .Route 12/20/22 08/14/23 06/15/23 18:00 Rx (3 mL) subcutaneous pen (Novolog .COMPLEX #15 mL FlexPen U-100 Insulin aspart) losartan 25 mg tablet 25 mg PO DAILY 06/15/23 08/14/23 08/14/23 History clopidogrel 75 mg tablet 75 mg PO DAILY #14 tabs 06/16/23 08/14/23 08/14/23 Rx aspirin 81 mg tablet,delayed 81 mg PO DAILY 08/10/23 08/14/23 08/14/23 History release furosemide 20 mg tablet (Lasix) 20 mg PO DAILY #30 tabs 08/11/23 08/14/23 08/14/23 Rx ipratropium 0.5 mg-albuterol 3 mg 3 ml inhalation Q6H.RESP #180 mL 08/11/23 08/14/23 Unknown Rx (2.5 mg base)/3 mL nebulization soln pantoprazole 40 mg tablet,delayed 40 mg PO DAILY #30 tabs 08/11/23 08/14/23 08/14/23 Rx release prednisone 20 mg tablet 40 mg (2 x 20 mg) PO DAILY 7 days 08/11/23 08/14/23 08/14/23 Rx #14 tabs budesonide 0.5 mg/2 mL suspension 0.5 mg inhalation BID 08/14/23 08/14/23 Unknown History for nebulization insulin glargine 100 unit/mL (3 See Rx Instructions .Route .COMPLEX 08/14/23 08/14/23 08/14/23 History mL) subcutaneous pen (Lantus Solostar U-100 Insulin) meclizine 25 mg tablet 25 mg PO BID 08/14/23 08/14/23 08/14/23 History multivitamin with minerals-folic 1 tab PO DAILY 08/14/23 08/14/23 08/14/23 History acid 80 mcg chewable tablet (Centrum Adult 50 Plus) vitamin E 268 mg (400 unit) capsule 268 mg PO DAILY 08/14/23 08/14/23 08/14/23 History Allergies Allergy/AdvReac Type Severity Reaction Status Date / Time No Known Allergies Allergy Verified 07/04/23 07:29 PFSH Acute 2 PFSH: Medical History COPD (chronic obstructive pulmonary disease) Tracheobronchomalacia CT chest 08/07 INGA positive Atherosclerotic cerebrovascular disease Cerebellar stroke CKD (chronic kidney disease) Baseline creatinine 1.2-1.4 Osteoarthritis of left hip Diabetes Hypertension Social History Smoking and tobacco/nicotine status: never used tobacco/nicotine Alcohol intake: never Substance/Drug Use: never Vitals/I&O/Wt Last Vital Signs Temp 97.9 F 08/14/23 10:55 Pulse 78 08/14/23 10:55 Resp 18 08/14/23 10:55 BP 137/65 08/14/23 10:55 Pulse Ox 97 08/14/23 10:55 O2 Del Method Nasal Cannula 08/14/23 10:55 O2 Flow Rate 3 08/14/23 10:55 Weight last 48 hrs Weight 108.862 kg Physical Exam 2 Narrative: General: Alert oriented x3, patient seen laying in bed appearing comfortable at this time ANO x 3. HEENT: Normocephalic, atraumatic, EOMI, breathing 2 L nasal cannula. Cardio: Regular rate rhythm, normal S1-S2, no gross murmurs. Respiratory: Good bilateral air entry, no wheezes no rhonchi appreciated GI: Abdomen soft, nontender, nondistended, bowel sounds + Behavior: Appropriate and cooperative Extremities: Pulses 2+, no edema, no cyanosis Data 08/15/23 04:29 08/15/23 04:29 A&P Assessment and plan (1) Hypertension: (2) Diabetes: (3) CKD (chronic kidney disease): (4) Oxygen dependent: (5) Hyperlipidemia: (6) Hypokalemia: (7) Hypoglycemia: Plan #Hypoglycemia #Hypokalemia #Insulin-dependent diabetes #Hypertension #Diabetes mellitus #Hyperlipidemia #Depression #CKD #New oxygen dependency ? Hold home insulin at this time ? Accu-Chek every hour ? Check hemoglobin A1c ? Replete potassium ? Recheck BMP in a.m. ? Continue prednisone x 3 days to complete 7-day course as directed at discharge from previous hospitalization. Patient was discharged on August 11. According to discharge summary she still has 3 more days of steroid to take. ? Wean off oxygen as able. ? Observe in the hospital overnight ? Most likely will be holding Lantus at discharge. ? Urinalysis pending at this time. ? Continue DuoNeb every 6 hours as needed ? Continue all other home medications - Placed on normal saline 75 cc/h for now ? Consistent carbohydrate cardiac diabetic diet. Full code SCDs Heparin SQ 2 times daily for DVT prophylaxis Attestations 2 Medical Necessity Statement*: Observation admission for hypoglycemia. Expect discharge prior to 48 hours. Diagnoses Hypertension I10 Diabetes E11.9 CKD (chronic kidney disease) N18.9 Oxygen dependent Z99.81 Hyperlipidemia E78.5 Hypokalemia E87.6 Hypoglycemia E16.2
[2023-08-14 14:26] LABS: Estmated Average Glucose 166; Hemoglobin A1C 7.4 % (4.0-6.0)
[2023-08-14 14:30] LABS: Glucose Point of Care 228 mg/dL (70-110)
[2023-08-14] MEDS: heparin 5,000 unit/mL INJ 1 mL 5000 UNIT SUBCUT (14:42)
[2023-08-14 15:08] LABS: Adenovirus Not Detected (NOT DETECT); Chlamydia Pneumoniae Not Detected (NOT DETECT); Coronavirus 229E,HKU1,NL63,OC4 Not Detected (NOT DETECT); Human Metapneumovirus Not Detected (NOT DETECT); Human Rhinovirus/Enterovirus Not Detected (NOT DETECT); Influenza A Not Detected (NOT DETECT); Influenza A H1 Not Detected (NOT DETECT); Influenza A H1-2009 Not Detected (NOT DETECT); Influenza A H3 Not Detected (NOT DETECT); Influenza B Not Detected (NOT DETECT); Mycoplasma Pneumoniae Not Detected (NOT DETECT); Parainfluenza Virus Type 1 Not Detected (NOT DETECT); Parainfluenza Virus Type 2 Not Detected (NOT DETECT); Parainfluenza Virus Type 3 Not Detected (NOT DETECT); Parainfluenza Virus Type 4 Not Detected (NOT DETECT); Respiratory Syncytial Virus A Not Detected (NOT DETECT); Respiratory Syncytial Virus B Not Detected (NOT DETECT); SARS-COV-2 Not Detected (NOT DETECT)
[2023-08-14] MEDS: fluoxetine 20 mg Capsule PO (17:59)
[2023-08-14] MEDS: atorvastatin 40 mg Tablet 20 MG PO (17:59)
[2023-08-14 19:31] LABS: Anion Gap 15.1 (5-19); Blood Urea Nitrogen 27 mg/dL (8-23); Calcium 9.1 mg/dL (8.5-10.5); Carbon Dioxide 27 mmol/L (22-29); Chloride 98 mmol/L (98-107); Glomerular Filtration Rate 34.3 mL/min (90-130); Glucose 410 mg/dL (65-115); Osmolality Calculated 302 mOsm/kg (285-295); Potassium 5.1 mmol/L (3.5-5.1); Sodium 135 mmol/L (136-145)
[2023-08-14] MEDS: insulin lispro 100 unit/1 mL SUBCUT (21:28)
[2023-08-15] VITALS (10 sets, daily range): BP systolic 147–176; BP diastolic 68–80; PULSE 72–85; RESP 16–18; TEMP 36.6–37.1; O2SAT 90–97
[2023-08-15 01:23] LABS: Glucose Point of Care 378 mg/dL (70-110)
[2023-08-15 01:23] LABS: Glucose Point of Care 106 mg/dL (70-110)
[2023-08-15 01:23] LABS: Glucose Point of Care 405 mg/dL (70-110)
[2023-08-15 01:23] LABS: Glucose Point of Care 252 mg/dL (70-110)
[2023-08-15 01:24] LABS: Glucose Point of Care 283 mg/dL (70-110)
[2023-08-15 01:24] LABS: Glucose Point of Care 146 mg/dL (70-110)
[2023-08-15 02:36] LABS: Glucose Point of Care 89 mg/dL (70-110)
[2023-08-15] MEDS: heparin 5,000 unit/mL INJ 1 mL 5000 UNIT SUBCUT ×2 (03:41→13:35)
[2023-08-15] MEDS: amlodipine 10 mg Tablet PO (05:28)
[2023-08-15 05:33] LABS: Glucose Point of Care 87 mg/dL (70-110)
[2023-08-15 05:33] LABS: Glucose Point of Care 80 mg/dL (70-110)
[2023-08-15 05:35] LABS: Basophils # 0.1 10^3/uL (0.0-0.1); Basophils % 0.4 %; Eosinophils % 0.2 %; Hematocrit 41.4 % (36-47); Lymphocytes # 1.6 10^3/uL (0.8-4.8); Mean Corpuscular HGB Conc 32.6 g/dL (30-55); Mean Corpuscular Hemoglobin 30.3 pg (27-33); Mean Platelet Volume 10.5 fL (7.4-10.4); Monocytes # 1.4 10^3/uL (0.2-0.9); Monocytes % 11.3 %; Neutrophils % 74.4 %; Nucleated Red Blood Cells % 0 %; Platelet Count 296 10^3/cmm (157-399); Red Blood Count 4.45 10^6/uL (3.85-5.65); Red Cell Distribution Width 13.1 % (12.1-15.1); White Blood Count 12.22 10^3/uL (3.29-11.43)
[2023-08-15 06:02] LABS: Alanine Aminotransferase 15 U/L (0-33); Albumin Level 3.6 g/dL (3.5-5.2); Alkaline Phosphatase 74 U/L (35-105); Anion Gap 13.8 (5-19); Aspartate Amino Transferase 14 U/L (0-32); Blood Urea Nitrogen 22 mg/dL (8-23); Calcium 9.3 mg/dL (8.5-10.5); Carbon Dioxide 28 mmol/L (22-29); Chloride 103 mmol/L (98-107); Globulin 3.1 g/dL (1.3-4.6); Glomerular Filtration Rate 44.4 mL/min (90-130); Glucose 83 mg/dL (65-115); Osmolality Calculated 294 mOsm/kg (285-295); Potassium 3.8 mmol/L (3.5-5.1); Sodium 141 mmol/L (136-145); Total Bilirubin 0.9 mg/dL (0.15-1.2); Total Protein 6.7 g/dL (6.6-8.7)
[2023-08-15 06:38] LABS: Glucose Point of Care 78 mg/dL (70-110)
[2023-08-15] MEDS: pantoprazole DR 40 mg Tablet PO (09:21)
[2023-08-15] MEDS: clopidogrel 75 mg Tablet PO (09:21)
[2023-08-15] MEDS: aspirin 81 mg EC Tablet PO (09:21)
[2023-08-15] MEDS: ascorbic acid 500 mg Tablet 1000 MG PO (09:21)
[2023-08-15] MEDS: losartan 50 mg Tablet 25 MG PO (09:22)
--- NOTE | 2023-08-15 10:27 | PC.CHAP ---
Pastoral Care Encounter/Spiritual Assessment Type of Contact [] Declined physician/ophthalmologist visit [] Patient/Family/Request visit [] Outpatient visit [] Follow-up visit [] Physician referral [] Code/Alert [x] Routine visit [] Staff referral [] Actively dying [] Patient sleeping [] Family support [] [] Out of room [] Palliative care [] [x] Receiving care in room [] Pre-surgical visit [] Trauma [] Long length of stay [] ICU visit [] Other: Relational/Emotional Strength [x] Patient feels connected with others/family/visitors/staff [] Distress [] Loneliness/isolation [] Abandonment Spirituality of Patient [x] Person of Haley [] Attends Catholic of their Haley [x] Believes in Prayer [] Reads Bible or Cheondoism materials [] There are Spiritual issues to be addressed F[employer] Driver Interventions [x] Prayer [x] Active listening [x] Non-anxious presence [x] Spiritual/emotional support [] Crisis/trauma care [x] Spiritual counseling [] Bereavement support [] Provided bereavement packet [] Provided Bible/devotional materials [] Provided toy/stuffed animal, coloring book to patient or family member [] Provided Communion [] Anointing/[place] [] Salvation [x] Completed spiritual assessment [] Other: Impact on Illness or Injury [] Angry [] Fearful [] Anxious [] Often cries [] Exhaustion [] Unable to work [] Unable to attend jehovah's witness [] Unable to walk/stand [] Unable to read [] Unable to drive [] Unable to eat/drink [] Unable to sleep [] Unable to be with family [] Patient intubated [] Other: Summary waiting on doctor for results abd when she can go home has a good attitude Time spent with patient 10 mins
[2023-08-15 11:32] LABS: Glucose Point of Care 124 mg/dL (70-110)
[2023-08-15 11:32] LABS: Glucose Point of Care 111 mg/dL (70-110)
[2023-08-15 11:32] LABS: Glucose Point of Care 121 mg/dL (70-110)
--- NOTE | 2023-08-15 13:37 | P.PN_ITS ---
Subjective 2 Subjective: Seen today. Report from nursing staff that patient's daughter had increased patient's Lantus since her blood sugars were running very high at home. Patient's prednisone has been stopped at this time. Blood sugar 410 last night for which she was given 12 units short acting insulin. Hemoglobin A1c 7.4. She is off Lantus right now. Blood glucose 83 this morning and fasting. Vitals/I&O/Wt Last Vital Signs Temp 98.4 F 08/15/23 11:52 Pulse 80 08/15/23 11:52 Resp 16 08/15/23 11:52 BP 147/71 08/15/23 11:52 Pulse Ox 92 08/15/23 11:52 O2 Del Method Room Air 08/15/23 11:52 O2 Flow Rate 1 08/15/23 08:26 08/14/23 08/15/23 08/15/23 22:59 06:59 14:59 Intake Total 240 / 094 322.5983 / 877.0213 360 / 360 Balance 240 / 084 737.1635 / 877.0213 360 / 360 Weight last 48 hrs Weight 95.572 kg Weight 95.572 kg Weight 108.862 kg Physical Exam 2 Narrative: General: Alert oriented x3, patient seen laying in bed appearing comfortable at this time ANO x 3. HEENT: Normocephalic, atraumatic, EOMI, on room air. Cardio: Regular rate rhythm, normal S1-S2, no gross murmurs. Respiratory: Good bilateral air entry, no wheezes no rhonchi appreciated GI: Abdomen soft, nontender, nondistended, bowel sounds + Behavior: Appropriate and cooperative Extremities: Pulses 2+, no edema, no cyanosis Data 08/15/23 04:29 08/15/23 04:29 A&P Assessment and plan (1) Hypertension: (2) Diabetes: (3) CKD (chronic kidney disease): (4) Oxygen dependent: (5) Hyperlipidemia: (6) Hypokalemia: (7) Hypoglycemia: Plan #Hypoglycemia #Hypokalemia - resolved #Insulin-dependent diabetes #Hypertension #Diabetes mellitus #Hyperlipidemia #Depression #CKD ? Hold home insulin at this time ? Accu-Chek ACH S ? Check hemoglobin A1c?7.4 ? Replete potassium ? Recheck BMP in a.m. ? Stop prednisone at this time. ? Patient is off oxygen now. ? Observe in the hospital overnight ? Most likely will be holding Lantus at discharge. ? Urinalysis pending at this time. No indication of UTI at this time. ? Continue DuoNeb every 6 hours as needed ? Continue all other home medications ? Consistent carbohydrate cardiac diabetic diet. -Continue hospitalization today to monitor blood sugars. Plan to send her home tomorrow with no insulin but most likely a sliding scale. She should follow-up with her primary care doctor after discharge. Full code SCDs Heparin SQ 2 times daily for DVT prophylaxis Attestations 2 Medical Necessity Statement*: Continue observation status today. Plan to discharge patient tomorrow. Diagnoses Hypertension I10 Diabetes E11.9 CKD (chronic kidney disease) N18.9 Oxygen dependent Z99.81 Hyperlipidemia E78.5 Hypokalemia E87.6 Hypoglycemia E16.2
[2023-08-15 17:16] LABS: Glucose Point of Care 285 mg/dL (70-110)
[2023-08-15] MEDS: atorvastatin 40 mg Tablet 20 MG PO (17:54)
[2023-08-15] MEDS: fluoxetine 20 mg Capsule PO (17:55)
[2023-08-15] MEDS: insulin lispro 100 unit/1 mL SUBCUT (17:55)
[2023-08-15 22:12] LABS: Glucose Point of Care 62 mg/dL (70-110)
[2023-08-16] VITALS (7 sets, daily range): BP systolic 152–169; BP diastolic 68–84; PULSE 77–89; RESP 16–19; TEMP 36.6–36.9; O2SAT 90–96
[2023-08-16] MEDS: heparin 5,000 unit/mL INJ 1 mL 5000 UNIT SUBCUT (02:56)
[2023-08-16] MEDS: amlodipine 10 mg Tablet PO (05:26)
[2023-08-16 05:40] LABS: Anion Gap 12.6 (5-19); Blood Urea Nitrogen 24 mg/dL (8-23); Calcium 9.2 mg/dL (8.5-10.5); Carbon Dioxide 26 mmol/L (22-29); Chloride 102 mmol/L (98-107); Glomerular Filtration Rate 49.1 mL/min (90-130); Glucose 178 mg/dL (65-115); Osmolality Calculated 290 mOsm/kg (285-295); Potassium 4.6 mmol/L (3.5-5.1); Sodium 136 mmol/L (136-145)
[2023-08-16 06:43] LABS: Glucose Point of Care 167 mg/dL (70-110)
[2023-08-16 06:49] LABS: Glucose Point of Care 111 mg/dL (70-110)
[2023-08-16] MEDS: insulin lispro 100 unit/1 mL SUBCUT ×2 (08:38→12:05)
[2023-08-16] MEDS: aspirin 81 mg EC Tablet PO (08:39)
[2023-08-16] MEDS: clopidogrel 75 mg Tablet PO (08:39)
[2023-08-16] MEDS: ascorbic acid 500 mg Tablet 1000 MG PO (08:39)
[2023-08-16] MEDS: losartan 50 mg Tablet 25 MG PO (08:40)
[2023-08-16] MEDS: pantoprazole DR 40 mg Tablet PO (08:41)
--- NOTE | 2023-08-16 11:25 | P.DS_ITS ---
Discharge Providers Date of Admission: 08/14/23 15:21 Date of Discharge: August 16, 2023 Attending Provider at Admission: Ligia Tubbs MD Attending Provider at Discharge: Ligia Tubbs MD Primary Care Provider: Lefty Hodge DO Diagnoses at Discharge Discharge Diagnosis (1) Hypertension: Status: Inactive (2) Diabetes: Status: Inactive (3) CKD (chronic kidney disease): Status: Chronic Permanent problem details: Baseline creatinine 1.2-1.4 (4) Oxygen dependent: Status: Resolved (5) Hyperlipidemia: Status: Resolved (6) Hypokalemia: Status: Acute (7) Hypoglycemia: Status: Acute Reason for Visit Reason for Visit: Ams/ Low BS Brief History: Gianna Mora is a 72 year old female With history of COPD, tracheobronchomalacia, cerebellar stroke in the past, CKD, osteoarthritis of left hip, diabetes, hypertension, insulin-dependent presented to the ER via EMS with an episode of hypoglycemia. Patient was sent home recently with a steroid taper for total of 7 days. Ever since steroids were stopped her sugar spiked a fairly high. When patient was seen by EMS blood sugar was 43 and was given D10. Sugar went up to 119. She was brought into the hospital and by the time she arrived she was completely asymptomatic denied any chest pain, shortness of breath, fever sweats chills diarrhea nausea vomiting. When seen by justowriter operator patient states he does not really remember what happened. She feels fine at this time. She does remember that there was something wrong with her sugar. Other than that she cannot give me any other history. At this time however completely alert oriented x 3 and aware of her surroundings and knowing what is going on. There is no family available at bedside at this time. Patient also noted to be hypokalemic and being given potassium at this time by ER. Hospital Course Hospital Course Patient presented to the hospital with hypoglycemia. She was on prednisone at home. Lantus 10 twice daily and sliding scale. Her blood sugar was found to be 22 when EMS arrived at her house. During hospital stay prednisone remained held and Lantus was also stopped. She was observed for 48 hours. She only required 8 units of insulin and 12 units of insulin at a time around dinner otherwise blood sugars have been okay. I have advised to stop Lantus at discharge. Hemoglobin A1c is 7.4. I will send patient home on low-dose intensity sliding scale insulin at this time. Discussed this with the patient and she is on board with the plan at this time. Recommend patient see endocrinology and primary care doctor for further follow-up. She is recommended to keep a check on her blood sugars and to take 2 her next appointment for further medication adjustments. Physical Exam Narrative: General: Alert oriented x3, patient seen laying in bed appearing comfortable at this time ANO x 3. HEENT: Normocephalic, atraumatic, EOMI, on room air. Cardio: Regular rate rhythm, normal S1-S2, no gross murmurs. Respiratory: Good bilateral air entry, no wheezes no rhonchi appreciated GI: Abdomen soft, nontender, nondistended, bowel sounds + Behavior: Appropriate and cooperative Extremities: Pulses 2+, no edema, no cyanosis Discharge Data Studies Completed and Pending Completed Studies During Hospitalization Category Date Time Status XR chest 1V portable [id number] Stat Exams 08/14/23 12:15 Completed Radiology Impressions Chest X-Ray 08/14/23 12:15 IMPRESSION: Cardiomegaly with mild pulmonary edema. The pulmonary edema has improved over the past few days. Laboratory Results WBC 12.22 10^3/uL (3.29-11.43) H 08/15/23 04:29 RBC 4.45 10^6/uL (3.85-5.65) 08/15/23 04:29 Hgb 13.50 g/dL (11.27-16.99) 08/15/23 04:29 Hct 41.4 % (36-47) 08/15/23 04:29 MCV 93.0 fl (85-98) 08/15/23 04:29 MCH 30.3 pg (27-33) 08/15/23 04:29 MCHC 32.6 g/dL (30-55) 08/15/23 04:29 RDW 13.1 % (12.1-15.1) 08/15/23 04:29 Plt Count 296 10^3/cmm (157-399) 08/15/23 04:29 MPV 10.5 fL (7.4-10.4) H 08/15/23 04:29 Neut % (Auto) 74.4 % 08/15/23 04:29 Lymph % (Auto) 13.0 % 08/15/23 04:29 [place] % (Auto) 11.3 % 08/15/23 04:29 Eos % (Auto) 0.2 % 08/15/23 04:29 Baso % (Auto) 0.4 % 08/15/23 04:29 Neut # (Auto) 9.10 10^3/uL (1.8-7.7) H 08/15/23 04:29 Lymph # (Auto) 1.6 10^3/uL (0.8-4.8) 08/15/23 04:29 [place] # (Auto) 1.4 10^3/uL (0.2-0.9) H 08/15/23 04:29 Eos # (Auto) 0.0 10^3/uL (0.0-0.8) 08/15/23 04:29 Baso # (Auto) 0.1 10^3/uL (0.0-0.1) 08/15/23 04:29 Nucleated RBC % (auto) 0 % 08/15/23 04:29 Nucleated RBCs # 0.0 /100WBC 08/15/23 04:29 Sodium 136 mmol/L (136-145) 08/16/23 04:11 Potassium 4.6 mmol/L (3.5-5.1) 08/16/23 04:11 Chloride 102 mmol/L (98-107) 08/16/23 04:11 Carbon Dioxide 26 mmol/L (22-29) 08/16/23 04:11 Anion Gap 12.6 (5-19) 08/16/23 04:11 BUN 24 mg/dL (8-23) H 08/16/23 04:11 Creatinine 1.1 mg/dL (0.5-0.9) H 08/16/23 04:11 GFR Calculation 49.1 mL/min (90-130) L 08/16/23 04:11 Glucose 178 mg/dL (65-115) H 08/16/23 04:11 POC Glucose 167 mg/dL (70-110) H 08/16/23 06:33 Estimat Average Glucose 166 08/14/23 10:20 Hemoglobin A1c 7.4 % (4.0-6.0) H 08/14/23 10:20 Calculated Osmolality 290 mOsm/kg (285-295) 08/16/23 04:11 Calcium 9.2 mg/dL (8.5-10.5) 08/16/23 04:11 Magnesium 2.0 mg/dL (1.7-2.3) 08/16/23 04:11 Total Bilirubin 0.9 mg/dL (0.15-1.2) 08/15/23 04:29 AST 14 U/L (0-32) 08/15/23 04:29 ALT 15 U/L (0-33) 08/15/23 04:29 Alkaline Phosphatase 74 U/L (35-105) 08/15/23 04:29 Total Protein 6.7 g/dL (6.6-8.7) 08/15/23 04:29 Albumin 3.6 g/dL (3.5-5.2) 08/15/23 04:29 Globulin 3.1 g/dL (1.3-4.6) 08/15/23 04:29 Urine Color Yellow (Yellow) 08/14/23 12:00 Urine Appearance Clear (CLEAR) 08/14/23 12:00 Urine pH 5 (5-7) 08/14/23 12:00 Ur Specific [place] 1.010 (1.005-1.030) 08/14/23 12:00 Urine Protein 1+ (Negative) H 08/14/23 12:00 Urine Glucose (UA) Norm (Normal) 08/14/23 12:00 Urine Ketones Negative (Negative) 08/14/23 12:00 Urine Blood Neg (Negative) 08/14/23 12:00 Urine Nitrate Negative (Negative) 08/14/23 12:00 Urine Bilirubin Neg (Negative) 08/14/23 12:00 Urine Urobilinogen Norm mg/dL (Negative) 08/14/23 12:00 Ur Leukocyte Esterase Negative (Negative) 08/14/23 12:00 Urine RBC None /hpf (0-2) 08/14/23 12:00 Urine WBC None /hpf (0-5) 08/14/23 12:00 Ur Squamous Epith Cells 0-4 /hpf (0-5) H 08/14/23 12:00 Amorphous Sediment Not Reportable 08/14/23 12:00 Urine Bacteria None /hpf (NONE) 08/14/23 12:00 Urine Mucus Trace /hpf 08/14/23 12:00 Coronavirus 229E (PCR) Not detected (NOT DETECT) 08/14/23 12:57 Influenza Type A Ag negative (Negative) 08/14/23 13:00 Influenza Type B Ag negative (Negative) 08/14/23 13:00 SARS-CoV-2 (PCR) Not detected (NOT DETECT) 08/14/23 12:57 Vitals Last Vital Signs Temp 97.8 F 08/16/23 08:00 Pulse 89 08/16/23 09:58 Resp 18 08/16/23 09:58 BP 169/84 08/16/23 08:40 Pulse Ox 91 08/16/23 09:58 O2 Del Method Room Air 08/16/23 09:58 O2 Flow Rate 1 08/15/23 08:26 Discharge Plan Discharge Patient Disposition: Home Condition: Stable Prescriptions: Continued atorvastatin 20 mg tablet 20 mg PO QPM amlodipine 10 mg tablet 10 mg PO QAM fluoxetine 20 mg capsule 20 mg PO QPM ascorbic acid (vitamin C) [Vitamin C] 1,000 mg Tablet 1,000 mg PO DAILY garlic 1,000 mg Capsule 1,000 mg PO DAILY albuterol sulfate 90 mcg/actuation HFA aerosol inhaler 1 inh inhalation Q6H PRN (Reason: shortness of breath or wheezing) Qty: 8.5 0RF losartan 25 mg Tablet 25 mg PO DAILY Hold Instructions: Resume on 06/23/23. clopidogrel 75 mg Tablet 75 mg PO DAILY Qty: 14 0RF meclizine 25 mg Tablet 25 mg PO BID vitamin E 268 mg (400 unit) Capsule 268 mg PO DAILY Centrum Adult 50 Plus 80 mcg Tablet,Chewable 1 tab PO DAILY budesonide 0.5 mg/2 mL suspension for nebulization 0.5 mg inhalation BID aspirin 81 mg Tablet,Delayed Release (Dr/Ec) 81 mg PO DAILY ipratropium-albuterol 0.5 mg-3 mg(2.5 mg base)/3 mL Solution For Nebulization 3 ml inhalation Q6H.RESP Qty: 180 0RF prednisone 20 mg Tablet 40 mg PO DAILY 7 Days Qty: 14 0RF pantoprazole 40 mg Tablet,Delayed Release (Dr/Ec) 40 mg PO DAILY Qty: 30 0RF furosemide [Lasix] 20 mg tablet 20 mg PO DAILY Qty: 30 0RF Changed Novolog FlexPen U-100 Insulin 100 unit/mL (3 mL) insulin pen See Rx Instructions .ROUTE .COMPLEX Qty: 15 0RF Rx Instructions: 141-180 2u,181-220 4u, 221-260 6u, 261-300 8u, 301-350 10u, 351-400 12u, >400 14u Discontinued insulin glargine [Lantus Solostar U-100 Insulin] 100 unit/mL (3 mL) insulin pen See Rx Instructions .ROUTE .COMPLEX Rx Instructions: 30 unit subcutaneously QAM AND 25 UNITS QPM Discharge Orders: Discharge Order (Routine); Ordered 08/16/23 Ordered By: Ligia Tubbs Referrals: Kg Singleton MD [Physician] - 4-7 days (We have notified your physician's clinic of the need for a follow-up appointment to be scheduled. If you have not heard from them within the next 2 business days, please call them directly. ) Lefty Hodge DO [Primary Care Provider] - 09/04/23 8:40 am Discharge Diet: Cardiac and Diabetic Discharge Activity: Resume usual activity Patient Instructions: Hypokalemia (GEN), Hypoglycemia in a Person with Diabetes (GEN), Altered Mental Status (ED), Opioid Safety Activity Restrictions/Additional Instructions: Please keep an eye on your blood glucose. Do not take lantus. Stay on low dose sliding scale as instructed Discharge Attestations Time Spent in Discharge Care*: greater than 30 min Status at Discharge: Cognitive status at discharge: cognitively intact , Behavioral status at discharge: cooperative , Quality Metrics Clinical Quality Measures [ No reported AMI, CVA or VTE this stay] Coding Level of Care Code Acute Code for Chg Fwd Diagnoses Hypertension I10 Diabetes E11.9 CKD (chronic kidney disease) N18.9 Oxygen dependent Z99.81 Hyperlipidemia E78.5 Hypokalemia E87.6 Hypoglycemia E16.2
[2023-08-16 11:34] LABS: Glucose Point of Care 195 mg/dL (70-110)
--- NOTE | 2023-08-16 15:52 | PC.NURSE ---
1415 I went to patient room to give discharge instructions to patient and daughter (who is patient caregiver). When I was reading the instructions about stopping patient Lantus and to start sliding scale insulin. Daughter firmly loudly states she cant do that and is shaking her head. When I tried to explain to daughter that the insulin would help to control patient blood sugar. Daughter would not listen and cut off the education and instructions I was trying to give. Loudly she said that pt had been admitted and kept in hospital because of her low potassium. I explained to her that we kept patient to make sure blood sugar was controlled and safe to go home. Daughter asked why potassium was low and had several questions that I felt only Dr Tubbs could answer, I told daughter that I would ask DR if she could come to room to answer questions. Daughter stated sarcastically that it would probably several hours. I called Dr Tubbs in regarding that daughter not wanting to go by Dr instructions and that she had questions about the low potassium. Dr Tubbs stated she was in ER with a patient that she would try to get up to pt room in about 20-30 Mins. to answer questions. I told the daughter what doctor said. I then left room. When I went back in 30min to let them know that doctor was still busy, daughter was shoving patient belongings in bags and stomping around. I reviewed discharge instructions to patient and daughter. Daughter ignored the instructions and wanted to leave. I got the wheelchair and took patient and daughter to main entrance. Patient hugged me and apologized about her daughters rude behavior..pt stated her daughter is always like that with everyone and her. Patient stated that her daughter didn't mean to give her too much medicine. Daughter had confessed to Hetal JOHN nightshift that she gave double dose of Lantus to patient prior to hospital on day of admit. Patient was admitted due to hypoglycemia. Daughter did not tell ER doctor or hospitalist this. She had stated that pt was taking predinsone which was causing high blood sugar which was why she gave double of lantus. While waiting for daughter to pulled car around, I explained to patient the importance of complying with dr orders so that her blood sugars are controlled.
== END 2023-08-16 14:40 | disposition home or self-care (01) ==
LOC: ER 14:30 → MEDSURG 15:21
PROVIDERS: Admitting Provider Internal Medicine; Emergency Provider Family Medicine; PCP Internal Medicine; Visit Provider Internal Medicine
DX: E11.22 Type 2 diabetes mellitus with diabetic chronic kidney disease (principal); I12.9 Hypertensive chronic kidney disease with stage 1 through stage 4 chronic kidney disease, or unspecified chronic kidney disease; N18.9 Chronic kidney disease, unspecified; Z99.81 Dependence on supplemental oxygen; E78.5 Hyperlipidemia, unspecified; E87.6 Hypokalemia; E16.2 Hypoglycemia, unspecified; Z79.4 Long term (current) use of insulin; I51.7 Cardiomegaly; Z86.73 Personal history of transient ischemic attack (TIA), and cerebral infarction without residual deficits
CPT/HCPCS: 36415; 36416; 71045; 80048; 80053; 81001; 82962; 83036; 83735; 85025; 87635; 87804; 94664; 96365; 96372; 99285; G0378; J1644; J1815; J7040

== ENCOUNTER 2023-10-04 10:09 | Outpatient (CLI) | payer MEDICARE, MEDICAID, SELFPAY | END 2023-10-04 10:10 | disposition home or self-care (01) | LOC: RT 12-19 11:45 | PROVIDERS: PCP Internal Medicine; Visit Provider Internal Medicine Pulmonary Disease | DX: Z09 Encounter for follow-up examination after completed treatment for conditions other than malignant neoplasm (principal); R06.02 Shortness of breath; I50.9 Heart failure, unspecified; R06.83 Snoring; R76.8 Other specified abnormal immunological findings in serum; J44.9 Chronic obstructive pulmonary disease, unspecified; R09.02 Hypoxemia; I50.23 Acute on chronic systolic (congestive) heart failure; J39.8 Other specified diseases of upper respiratory tract | CPT/HCPCS: 99204 ==

== ENCOUNTER → 2023-11-21 11:54 | Outpatient (BNVA) | payer MEDICARE, MEDICAID, SELFPAY | PROVIDERS: PCP Internal Medicine; Visit Provider Psychiatry & Neurology Neurology | DX: Z86.73 Personal history of transient ischemic attack (TIA), and cerebral infarction without residual deficits (principal); R42 Dizziness and giddiness; I67.2 Cerebral atherosclerosis; H54.8 Legal blindness, as defined in USA; I12.9 Hypertensive chronic kidney disease with stage 1 through stage 4 chronic kidney disease, or unspecified chronic kidney disease; N18.9 Chronic kidney disease, unspecified | CPT/HCPCS: 99212 ==

== ENCOUNTER → 2023-12-05 13:18 | Outpatient (BNVA) | payer MEDICARE, MEDICAID, SELFPAY | PROVIDERS: PCP Internal Medicine; Visit Provider Internal Medicine Pulmonary Disease | DX: J39.8 Other specified diseases of upper respiratory tract (principal); R09.02 Hypoxemia; R76.8 Other specified abnormal immunological findings in serum; I13.0 Hypertensive heart and chronic kidney disease with heart failure and stage 1 through stage 4 chronic kidney disease, or unspecified chronic kidney disease; N18.9 Chronic kidney disease, unspecified; I50.23 Acute on chronic systolic (congestive) heart failure; R06.83 Snoring | CPT/HCPCS: 99214 ==

== ENCOUNTER 2023-12-10 14:30 | Outpatient (CLI) | payer MEDICARE, MEDICAID, SELFPAY | END 2023-12-10 14:31 | disposition home or self-care (01) | LOC: SLEEP 12-16 10:47 | PROVIDERS: PCP Internal Medicine; Visit Provider Internal Medicine Pulmonary Disease | DX: G47.33 Obstructive sleep apnea (adult) (pediatric) (principal) | CPT/HCPCS: G0399 ==

== ENCOUNTER → 2024-02-06 11:16 | Outpatient (BNVA) | payer MEDICARE, MEDICAID, SELFPAY | PROVIDERS: PCP Internal Medicine; Visit Provider Internal Medicine | DX: E16.0 Drug-induced hypoglycemia without coma; T38.3X5A Adverse effect of insulin and oral hypoglycemic [antidiabetic] drugs, initial encounter; E78.2 Mixed hyperlipidemia; E11.649 Type 2 diabetes mellitus with hypoglycemia without coma; X58.XXXA Exposure to other specified factors, initial encounter | CPT/HCPCS: 99204 ==

== ENCOUNTER 2024-04-09 08:23 | Inpatient (IN) | payer MEDICARE, MEDICAID, SELFPAY ==
[2024-04-09] VITALS (15 sets, daily range): BP systolic 116–157; BP diastolic 57–79; PULSE 90–101; RESP 20–24; TEMP 36.4–37.2; O2SAT 88–94; BMI 37.8; BMI 37.0
--- NOTE | 2024-04-09 08:35 | XR_ITS ---
WS: [id number] Portable AP upright chest, 04/09/2024 Clinical Data: dyspnea/cough Comparison: Portable chest, 08/14/2023 Findings: There are patchy bilateral opacities in both lungs which may represent pulmonary vascular c ongestion, atelectasis and/or pneumonia. There are small bilateral pleural effusions. The heart is en larged. There are no nodules or masses. No pneumothorax is present. There is a lateral plate fixed wi th multiple screws reducing an old left humeral fracture. There are monitor leads on the chest wall. XR/XR chest 1V portable [id number] Impression: 1. Cardiomegaly. 2. Bilateral patchy opacities which may represent pulmonary vascular congestion . 3. Small bilateral pleural effusions.
[2024-04-09 08:44] LABS: Basophils # 0.1 10^3/uL (0.0-0.1); Basophils % 0.7 %; Eosinophils # 0.1 10^3/uL (0.0-0.8); Eosinophils % 0.4 %; Hematocrit 44.2 % (36-47); Lymphocytes # 1.3 10^3/uL (0.8-4.8); Lymphocytes % 10.4 %; Mean Corpuscular HGB Conc 32.1 g/dL (30-55); Mean Corpuscular Volume 93.2 fl (85-98); Mean Platelet Volume 10.7 fL (7.4-10.4); Monocytes # 0.7 10^3/uL (0.2-0.9); Monocytes % 5.9 %; Neutrophils # 9.91 10^3/uL (1.8-7.7); Neutrophils % 82.1 %; Nucleated Red Blood Cells % 0 %; Platelet Count 323 10^3/cmm (157-399); Red Blood Count 4.74 10^6/uL (3.85-5.65); Red Cell Distribution Width 14.6 % (12.1-15.1); White Blood Count 12.06 10^3/uL (3.29-11.43)
--- NOTE | 2024-04-09 08:47 | W.ED.SOB ---
HPI - SOB/Dyspnea General: Chief Complaint: Shortness of Breath/Dyspnea Stated Complaint: SOB; COPD Time Seen by Provider: 04/09/24 08:31 History of Present Illness: HPI Narrative: 73-year-old female presents emergency room with complaint of shortness of breath began around 2 AM increasingly short of breath nonproductive cough she has a history of COPD and CHF. She did have some improvement with nebulizers and steroids that she was given and route. She still is tachypneic on arrival here she normally is on 2 L she is requiring 4. She denies any hemoptysis no history of any DVT or PE no chest pain. Associated symptoms: Reports lightheadedness and orthopnea; Deny abdominal pain, chest pain or fever(s) Related Data Home Medications Medication Instructions Recorded Confirmed amlodipine 10 mg tablet 10 mg PO QAM 08/05/21 04/09/24 ascorbic acid (vitamin C) 1,000 mg 1,000 mg PO DAILY 08/05/21 04/09/24 tablet (Vitamin C) atorvastatin 20 mg tablet 20 mg PO QPM 08/05/21 04/09/24 fluoxetine 20 mg capsule 20 mg PO QPM 08/05/21 04/09/24 garlic 1,000 mg capsule 1,000 mg PO DAILY 08/05/21 04/09/24 losartan 25 mg tablet 25 mg PO DAILY 06/15/23 04/09/24 aspirin 81 mg tablet,delayed 81 mg PO DAILY 08/10/23 04/09/24 release meclizine 25 mg tablet 25 mg PO BID 08/14/23 04/09/24 multivitamin with minerals-folic 1 tab PO DAILY 08/14/23 04/09/24 acid 80 mcg chewable tablet (Centrum Adult 50 Plus) vitamin E 268 mg (400 unit) capsule 268 mg PO DAILY 08/14/23 04/09/24 Previous Rx's Medication Instructions Recorded insulin aspart U-100 100 unit/mL See Rx Instructions .Route 08/16/23 (3 mL) subcutaneous pen (Novolog .COMPLEX #15 mL FlexPen U-100 Insulin aspart) clopidogrel 75 mg tablet 75 mg PO DAILY #14 tabs 11/21/23 acarbose 25 mg tablet 25 mg PO TID #270 tabs 02/06/24 Allergies Allergy/AdvReac Type Severity Reaction Status Date / Time adhesive tape Allergy ALGY-Bliste Verified 02/06/24 07:35 r Review of Systems Const: Denies: fever(s) or chills Card: Reports: swelling of feet/ankles, lightheadedness, dyspnea on exertion and orthopnea; Denies: chest pain Resp: Reports: dyspnea, non-productive cough and wheezing GI: Denies: abdominal pain : Denies: dysuria, urinary frequency or urinary urgency Musc: Denies: neck pain or back pain Skin/Breast: Denies: rash PFSH ED PFSH: Medical History Diabetes COPD (chronic obstructive pulmonary disease) Tracheobronchomalacia CT chest 08/07 INGA positive Atherosclerotic cerebrovascular disease Cerebellar stroke CKD (chronic kidney disease) Baseline creatinine 1.2-1.4 Osteoarthritis of left hip Hypertension Surgical History History of cholecystectomy H/O: hysterectomy Family History Other Acute respiratory failure with hypoxia Social History Smoking and tobacco/nicotine status: never used tobacco/nicotine Alcohol intake: never Substance/Drug Use: never Physical Exam Const: GENERAL APPEARANCE: cooperative ORIENTATION/CONSCIOUSNESS: Yes awake, Yes oriented to person, Yes oriented to place and Yes oriented to time HENMT: COMMON NORMALS: normocephalic, atraumatic and hearing grossly normal bilaterally HEAD & SCALP: normocephalic and atraumatic Resp: COMMON NORMALS: normal respiratory effort, No retractions and No use of accessory muscles EFFORT & INSPECTION: Yes tachypneic AUSCULTATION: crackles and wheezes Cardio: COMMON NORMALS: regular rate, regular rhythm and No murmurs present (Cardio) RATE: regular rate RHYTHM: regular rhythm GI: COMMON NORMALS: Soft to palpation and No hepatosplenomegaly present AUSCULTATION: Yes normoactive bowel sounds PALPATION: Yes Soft to palpation, No Tenderness to palpation present (GI), No Guarding due to palpation present (GI) and Yes No hepatosplenomegaly present Extremity: COMMON NORMALS: normal to inspection, capillary refill normal and no calf tenderness GENERAL: Yes edema (Mild edema lower extremities) Neuro: SENSORIUM/ORIENTATION: Yes oriented to person, Yes oriented to place and Yes oriented to time Skin: COMMON NORMALS: no rashes or lesions noted GENERAL SKIN EXAM: no rashes or lesions noted Course Vital Signs: Vital signs: Vital Signs Temperature 97.6 F 04/09/24 08:26 Pulse Rate 92 04/09/24 14:04 Respiratory Rate 22 H 04/09/24 14:03 Blood Pressure 132/59 04/09/24 14:04 Pulse Oximetry 92 04/09/24 14:04 Oxygen Delivery Me thod Nasal Cannula 04/09/24 14:04 Oxygen Flow Rate 5 04/09/24 14:04 MDM - SOB/Dyspnea Medical Decision Making Patient presents emergency room with mild respiratory distress improved with nebulizers steroids and supplemental oxygen. Presentation and exam suggestive of CHF. She does have some wheezing that improved with a nebulizer some mild exacerbation of COPD with combination of poor Kalir with IV antibiotics and she has mild elevation of her white count she was initially given IV fluids but after further evaluation and her chest x-ray was completed feel she has Pridemore fluid overloaded and she was given IV diuretic. Discussed with hospitalist will admit Medical Records I reviewed the patient's medical records. Lab Data I reviewed the patient's lab results. 04/09/24 08:32 04/09/24 08:32 Labs/Radiology: Radiology Impressions Chest X-Ray 04/09/24 08:35 Impression: 1. Cardiomegaly. 2. Bilateral patchy opacities which may represent pulmonary vascular congestion. 3. Small bilateral pleural effusions. Laboratory Results WBC 12.06 10^3/uL (3.29-11.43) H 04/09/24 08:32 RBC 4.74 10^6/uL (3.85-5.65) 04/09/24 08:32 Hgb 14.20 g/dL (11.27-16.99) 04/09/24 08:32 Hct 44.2 % (36-47) 04/09/24 08:32 MCV 93.2 fl (85-98) 04/09/24 08:32 MCH 30.0 pg (27-33) 04/09/24 08:32 MCHC 32.1 g/dL (30-55) 04/09/24 08:32 RDW 14.6 % (12.1-15.1) 04/09/24 08:32 Plt Count 323 10^3/cmm (157-399) 04/09/24 08:32 MPV 10.7 fL (7.4-10.4) H 04/09/24 08:32 Neut % (Auto) 82.1 % 04/09/24 08:32 Lymph % (Auto) 10.4 % 04/09/24 08:32 [place] % (Auto) 5.9 % 04/09/24 08:32 Eos % (Auto) 0.4 % 04/09/24 08:32 Baso % (Auto) 0.7 % 04/09/24 08:32 Neut # (Auto) 9.91 10^3/uL (1.8-7.7) H 04/09/24 08:32 Lymph # (Auto) 1.3 10^3/uL (0.8-4.8) 04/09/24 08:32 [place] # (Auto) 0.7 10^3/uL (0.2-0.9) 04/09/24 08:32 Eos # (Auto) 0.1 10^3/uL (0.0-0.8) 04/09/24 08:32 Baso # (Auto) 0.1 10^3/uL (0.0-0.1) 04/09/24 08:32 Nucleated RBC % (auto) 0 % 04/09/24 08:32 Nucleated RBCs # 0.0 /100WBC 04/09/24 08:32 Specimen Type Arterial 04/09/24 08:58 Sample Site Brachial, left 04/09/24 08:58 ABG pH 7.36 (7.35-7.45) 04/09/24 08:58 ABG pCO2 39.3 mmHg (35-45) 04/09/24 08:58 ABG pO2 51.2 mmHg (80.0-100.0) L 04/09/24 08:58 ABG PO2/FiO2 Ratio 142 04/09/24 08:58 ABG HCO3 22.4 mmol/L (22-26) 04/09/24 08:58 ABG O2 Saturation 83.6 04/09/24 08:58 ABG Base Excess -2.7 mmol/L (-2.0-2.0) L 04/09/24 08:58 Will Test N/a 04/09/24 08:58 A-a O2 Gradient 20.3 mmHg (5-10) H 04/09/24 08:58 Hematocrit 41.2 % (37-47) 04/09/24 08:58 Hgb O2 Saturation 81.3 % (95-100) L 04/09/24 08:58 Carboxyhemoglobin 1.9 %THgb (0.4-20.1) 04/09/24 08:58 Methemoglobin 0.8 % (0.4-1.5) 04/09/24 08:58 Total Hemoglobin 13.4 g/dL (12-16) 04/09/24 08:58 Sodium 140.0 mmol/L (131-143) 04/09/24 08:58 Potassium 4.2 mmol/L (3.5-5.0) 04/09/24 08:58 Glucose 257.0 mg/dL (70-115) H 04/09/24 08:58 Ionized Calcium 1.2 mmol/L (1.1-1.4) 04/09/24 08:58 O2 Delivery Device Nc 04/09/24 08:58 O2 Liters/Min 4.0 % 04/09/24 08:58 FiO2 36.0 % 04/09/24 08:58 Electric Locomotive Crane Operator ID [email or web address] 04/09/24 08:58 Sodium 138 mmol/L (136-145) 04/09/24 08:32 Potassium 4.6 mmol/L (3.5-5.1) 04/09/24 08:32 Chloride 100 mmol/L (98-107) 04/09/24 08:32 Carbon Dioxide 23 mmol/L (22-29) 04/09/24 08:32 Anion Gap 19.6 (5-19) H 04/09/24 08:32 BUN 20 mg/dL (8-23) 04/09/24 08:32 Creatinine 1.0 mg/dL (0.5-0.9) H 04/09/24 08:32 GFR Calculation Not Reportable 04/09/24 08:32 Glucose 246 mg/dL (65-115) H 04/09/24 08:32 Estimat Average Glucose 151 04/09/24 08:32 Hemoglobin A1c 6.9 % (4.0-6.0) H 04/09/24 08:32 Calculated Osmolality 297 mOsm/kg (285-295) H 04/09/24 08:32 Lactic Acid 2.5 mmol/L (0.5-2.2) H 04/09/24 08:32 Calcium 9.8 mg/dL (8.5-10.5) 04/09/24 08:32 Total Bilirubin 2.1 mg/dL (0.15-1.2) H 04/09/24 08:32 AST 20 U/L (0-32) 04/09/24 08:32 ALT 14 U/L (0-33) 04/09/24 08:32 Alkaline Phosphatase 97 U/L (35-105) 04/09/24 08:32 NT-Pro-B Natriuret Pep 55560 pg/mL (0-125) H 04/09/24 08:32 Total Protein 8.1 g/dL (6.6-8.7) 04/09/24 08:32 Albumin 4.0 g/dL (3.5-5.2) 04/09/24 08:32 Globulin 4.1 g/dL (1.3-4.6) 04/09/24 08:32 Coronavirus (PCR) Negative (Negative) 04/09/24 09:16 Influenza A (PCR) Negative (Negative) 04/09/24 09:16 Influenza Type B (PCR) Negative (Negative) 04/09/24 09:16 RSV (PCR) Negative (Negative) 04/09/24 09:16 All radiology interpretation(s) finalized by discharge Discharge Plan Discharge Patient Disposition: Admitted As Inpatient Admit Provider: iRch Benedict Clinical Impression: Acute respiratory failure with hypoxia, Congestive heart failure, CKD (chronic kidney disease), Community acquired pneumonia, Acute exacerbation of chronic obstructive airways disease Condition: Stable Coding Level of Care Code ED 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
[2024-04-09] MEDS: ondansetron 2 mg/ML SDV 2 mL 4 MG IVP (08:59)
[2024-04-09] MEDS: sodium chloride 0.9% 1,000 ML 999 ML IV (08:59)
[2024-04-09 09:08] LABS: Lactic Sepsis W/Reflex 2.5 mmol/L (0.5-2.2)
[2024-04-09 09:10] LABS: ABG PCO2 39.3 mmHg (35-45); ABG PH Result 7.36 (7.35-7.45); Alveolar-Arterial Oxygen Gradi 20.3 mmHg (5-10); Arterial Blood Gas Hematocrit 41.2 % (37-47); Base Excess ABG -2.7 mmol/L (-2.0-2.0); Blood Gas Operator Identificat AMH; Blood Gas Sample Site Brachial, left; Blood Gas Sample Type Arterial; Carboxyhemoglobin 1.9 %THgb (0.4-20.1); HCO3 ABG 22.4 mmol/L (22-26); HGB O2 Sat 81.3 % (95-100); Ionized Calcium Level - ABG 1.2 mmol/L (1.1-1.4); Methemoglobin 0.8 % (0.4-1.5); Oxygen Device NC; Oxygen Saturation ABG 83.6; PO2 ABG 51.2 mmHg (80.0-100.0); PO2 FiO2 Ratio Arterial Blood 142; Potassium Level - ABG 4.2 mmol/L (3.5-5.0); Total Hemoglobin 13.4 g/dL (12-16)
[2024-04-09 09:12] LABS: Alkaline Phosphatase 97 U/L (35-105); Anion Gap 19.6 (5-19); Aspartate Amino Transferase 20 U/L (0-32); Blood Urea Nitrogen 20 mg/dL (8-23); Calcium 9.8 mg/dL (8.5-10.5); Carbon Dioxide 23 mmol/L (22-29); Chloride 100 mmol/L (98-107); Creatinine Clr Calc Pharmacy 52.9212; Globulin 4.1 g/dL (1.3-4.6); Glucose 246 mg/dL (65-115); NT Pro B Type Natriuretic Pept 10018 pg/mL (0-125); Osmolality Calculated 297 mOsm/kg (285-295); Potassium 4.6 mmol/L (3.5-5.1); Sodium 138 mmol/L (136-145); Total Bilirubin 2.1 mg/dL (0.15-1.2); Total Protein 8.1 g/dL (6.6-8.7)
[2024-04-09] MEDS: ipratropium-albuterol 3 mL Neb INHALATION ×3 (09:18→20:17)
[2024-04-09 09:31] LABS: Alanine Aminotransferase 14 U/L (0-33)
[2024-04-09 10:16] LABS: Covid PCR NEGATIVE (Negative); Influenza A NEGATIVE (Negative); Influenza B NEGATIVE (Negative); Respiratory Syncytial Virus Ce NEGATIVE (Negative)
[2024-04-09 10:27] LABS: Reflex Lactate Order REFLEX LACTIC ORDERD
--- NOTE | 2024-04-09 11:01 | ECG_ITS ---
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 Measurements Intervals [place] Rate: 98 P: 47 CA: 144 QRS: 43 QRSD: 119 T: 77 QT: 361 QTc: 461 Interpretive Statements SINUS RHYTHM WITH OCCASIONAL VENTRICULAR PREMATURE COMPLEXES LOW QRS VOLTAGE IN PRECORDIAL LEADS [QRS DEFLECTION < 1.0 mV IN CHEST LEADS] POSSIBLE INFERIOR MYOCARDIAL INFARCTION , OF INDETERMINATE AGE [30 ms Q WAVE IN II/aVF] Compared to ECG 08/10/2023 12:11:05 Ventricular premature complex(es) now present Low QRS voltage now present Myocardial infarct finding still present Electronically Signed On 04-09-2024 16:35:40 CDT by Ryley Cuellar M.D. [email or web address] ([email or web address] by [employer] in 2014)[id number]
--- NOTE | 2024-04-09 11:33 | P.HP_ITS ---
Documented by User: Rich Benedict MD 04/09/24 13:13 Providers/Chief Complaint 2 Admitting Physician: Rich Benedict MD Primary Care Provider: Lefty Hodge DO Chief Complaint: SOB; COPD History of Present Illness Gianna Mora is a 73 year old female with past history of tracheobronchial malacia, CVA, CHF, untreated sleep apnea reporting she has had increased shortness of breath and cough since last night. She has had increased swelling over the last week. No chest discomfort, or fever. She did have 1 period of posttussive emesis this morning. No diarrhea, or ill contacts. No blood in stool or black or tarry stool. Has been taking her medication as prescribed. Review of Systems 2 General: Reports: 10 or more systems reviewed and unremarkable except in HPI and below Card: Denies: chest pain Resp: Reports: dyspnea and non-productive cough GI: Reports: vomiting; Denies: abdominal pain, nausea, hematochezia or melena Medications/Allergies Home Medications Medication Instructions Recorded Confirmed Last Taken Type amlodipine 10 mg tablet 10 mg PO QAM 08/05/21 04/09/24 04/08/24 History ascorbic acid (vitamin C) 1,000 mg 1,000 mg PO DAILY 08/05/21 04/09/24 04/09/24 History tablet (Vitamin C) atorvastatin 20 mg tablet 20 mg PO QPM 08/05/21 04/09/24 04/09/24 History fluoxetine 20 mg capsule 20 mg PO QPM 08/05/21 04/09/24 04/08/24 History garlic 1,000 mg capsule 1,000 mg PO DAILY 08/05/21 04/09/24 04/08/24 History losartan 25 mg tablet 25 mg PO DAILY 06/15/23 04/09/24 04/08/24 History aspirin 81 mg tablet,delayed 81 mg PO DAILY 08/10/23 04/09/24 04/09/24 History release meclizine 25 mg tablet 25 mg PO BID 08/14/23 04/09/24 04/08/24 History multivitamin with minerals-folic 1 tab PO DAILY 08/14/23 04/09/24 04/08/24 History acid 80 mcg chewable tablet (Centrum Adult 50 Plus) vitamin E 268 mg (400 unit) capsule 268 mg PO DAILY 08/14/23 04/09/24 04/08/24 History insulin aspart U-100 100 unit/mL See Rx Instructions .Route 08/16/23 04/09/24 04/08/24 Rx (3 mL) subcutaneous pen (Novolog .COMPLEX #15 mL FlexPen U-100 Insulin aspart) clopidogrel 75 mg tablet 75 mg PO DAILY #14 tabs 11/21/23 04/09/24 04/08/24 Rx acarbose 25 mg tablet 25 mg PO TID #270 tabs 02/06/24 04/09/24 Unknown Rx Allergies Allergy/AdvReac Type Severity Reaction Status Date / Time adhesive tape Allergy ALGY-Bliste Verified 02/06/24 07:35 r PFSH Acute 2 PFSH: Medical History (Updated 04/09/24 @ 13:06 by Rich Benedict MD) Diabetes COPD (chronic obstructive pulmonary disease) Tracheobronchomalacia CT chest 08/07 INGA positive Atherosclerotic cerebrovascular disease Cerebellar stroke CKD (chronic kidney disease) Baseline creatinine 1.2-1.4 Osteoarthritis of left hip Hypertension Surgical History (Updated 04/09/24 @ 11:35 by Rich Benedict MD) History of cholecystectomy H/O: hysterectomy Family History (Updated 04/09/24 @ 13:06 by Rich Benedict MD) Other Acute respiratory failure with hypoxia Social History Smoking and tobacco/nicotine status: never used tobacco/nicotine Alcohol intake: never Substance/Drug Use: never Vitals/I&O/Wt Last Vital Signs Temp 97.6 F 04/09/24 08:26 Pulse 94 04/09/24 11:12 Resp 22 H 04/09/24 09:20 BP 116/61 04/09/24 11:12 Pulse Ox 90 04/09/24 11:12 O2 Del Method Nasal Cannula 04/09/24 11:12 O2 Flow Rate 6 04/09/24 11:12 Weight last 48 hrs Weight 90.718 kg Physical Exam 2 Narrative: General Exam is white female, somewhat nervous appearing, with tachypnea and moderate retractions with a respiratory rate over 20 on 6 L. Her baseline oxygen requirement is 2 L. HEENT: Atraumatic normocephalic. Oropharynx is a dentulous, clear Neck is supple no lymphadenopathy or thyromegaly Cardiovascular borderline tachycardic, no murmur, regular Lungs diminished breath sounds bilaterally. Slightly coarse. No wheezing Abdomen is soft, positive bowel sounds. No obvious organomegaly exam is deferred Extremities show 2+ edema bilaterally right greater than left Skin no rash Neuro no obvious focal deficits. Data 04/09/24 08:32 04/09/24 08:32 Other Labs: ABG demonstrates a pH 7.36, pCO2 39, pO2 51 on 4 L Total bilirubin 2.1 Lactic acid 2.5 Calcium and albumin are normal BNP 10,000 COVID PCR negative Chest CTA in July demonstrated some interstitial changes, upper mediastinal lymphadenopathy, no PE Blood cultures were drawn Echocardiogram June 2023 demonstrated an EF about 55%, mild LVH EKG demonstrates sinus rhythm, normal axis, 1 PVC, equivocal Q waves noted inferiorly, nonspecific ST-T wave changes Micro: Microbiology 04/09/24 09:14 Blood Culture - Preliminary Blood SPECIMEN COLLECTED 04/09/24 09:10 Blood Culture - Preliminary Blood SPECIMEN COLLECTED A&P Assessment and plan (1) Congestive heart failure: Consistent with acute diastolic heart failure. CXR showed cardiomegaly, small bilateral pleural effusions, and bilateral patchy opacities Based on imaging and symptomatology, Patient likely has fluid overload Patient received Rocephin and Azithromycin in ED Start Lasix 40mg IVP q12hrs Continue home aspirin, statin, Plavix Continue losartan 25mg QD PO Continue Rocephin and Azithromycin Order Echo Do significant bilateral leg swelling, ordered venous duplex Obtained blood cultures CMP and CMP tomorrow Qualifiers: Heart failure chronicity: acute on chronic Heart failure type: systolic Qualified Code(s): I50.23 - Acute on chronic systolic (congestive) heart failure (2) Tracheobronchomalacia: Patient is currently on 4L of O2 via Nasal Cannula, which is increased from home O2 OF 2L Patient received nebulizer treatment by the paramedics which helped patient's breathing Order Josué PRN Patient's daughter expressed concern over using steroids because in the past prednisolone increased her mother's sugars, at this time we will hold off on using Budesonide Concerned she may also have pneumonia associated with this condition. Will initiate Rocephin and azithromycin. Infiltrate is noted on x-ray and difficult to clarify whether this is pneumonia or heart failure. Sputum culture will be obtained. Coronavirus testing negative. (3) Diabetes: Start on insulin sliding scale with glucagon Glucose was 257, Ordered HBA1c Monitor glucose and potassium levels, get CMP tomorrow Consistent carb diet (4) CKD (chronic kidney disease): (5) Acute respiratory failure with hypoxia: Patient with evidence of acute hypoxic respiratory failure requiring 6 L of oxygen. Typically she is on just 2 L. This is likely secondary to acute diastolic heart failure, but cannot completely exclude pneumonia. Plan Multiple other medical problems as outlined by past medical history. Full code Lovenox for DVT PPX Attestations 2 Medical Necessity Statement*: Will need greater than 2 midnight stay for evaluation and treatment of acute CHF with need for IV diuresis and significant hypoxia. Diagnoses Acute on chronic systolic congestive heart failure I50.23 Heart failure chronicity: acute on chronic Heart failure type: systolic Tracheobronchomalacia J39.8 Diabetes E11.9 CKD (chronic kidney disease) N18.9 Acute respiratory failure with hypoxia J96.01 Time Spent (min) 56 Documented by User: KALYANI Benavides 04/09/24 13:12 Providers/Chief Complaint 2 Chief Complaint: SOB; COPD Medications/Allergies Home Medications Medication Instructions Recorded Confirmed Last Taken Type amlodipine 10 mg tablet 10 mg PO QAM 08/05/21 04/09/24 04/08/24 History ascorbic acid (vitamin C) 1,000 mg 1,000 mg PO DAILY 08/05/21 04/09/24 04/09/24 History tablet (Vitamin C) atorvastatin 20 mg tablet 20 mg PO QPM 08/05/21 04/09/24 04/09/24 History fluoxetine 20 mg capsule 20 mg PO QPM 08/05/21 04/09/24 04/08/24 History garlic 1,000 mg capsule 1,000 mg PO DAILY 08/05/21 04/09/24 04/08/24 History losartan 25 mg tablet 25 mg PO DAILY 06/15/23 04/09/24 04/08/24 History aspirin 81 mg tablet,delayed 81 mg PO DAILY 08/10/23 04/09/24 04/09/24 History release meclizine 25 mg tablet 25 mg PO BID 08/14/23 04/09/24 04/08/24 History multivitamin with minerals-folic 1 tab PO DAILY 08/14/23 04/09/24 04/08/24 History acid 80 mcg chewable tablet (Centrum Adult 50 Plus) vitamin E 268 mg (400 unit) capsule 268 mg PO DAILY 08/14/23 04/09/24 04/08/24 History insulin aspart U-100 100 unit/mL See Rx Instructions .Route 08/16/23 04/09/24 04/08/24 Rx (3 mL) subcutaneous pen (Novolog .COMPLEX #15 mL FlexPen U-100 Insulin aspart) clopidogrel 75 mg tablet 75 mg PO DAILY #14 tabs 11/21/23 04/09/24 04/08/24 Rx acarbose 25 mg tablet 25 mg PO TID #270 tabs 02/06/24 04/09/24 Unknown Rx Allergies Allergy/AdvReac Type Severity Reaction Status Date / Time adhesive tape Allergy ALGY-Bliste Verified 02/06/24 07:35 r PFSH Acute 2 PFSH: Medical History (Updated 04/09/24 @ 13:06 by Rich Benedict MD) Diabetes COPD (chronic obstructive pulmonary disease) Tracheobronchomalacia CT chest 08/07 INGA positive Atherosclerotic cerebrovascular disease Cerebellar stroke CKD (chronic kidney disease) Baseline creatinine 1.2-1.4 Osteoarthritis of left hip Hypertension Surgical History (Updated 04/09/24 @ 11:35 by Rich Benedict MD) History of cholecystectomy H/O: hysterectomy Family History (Updated 04/09/24 @ 13:06 by Rich Benedict MD) Other Acute respiratory failure with hypoxia Social History Smoking and tobacco/nicotine status: never used tobacco/nicotine Alcohol intake: never Substance/Drug Use: never Data 04/09/24 08:32 04/09/24 08:32 A&P Assessment and plan (1) Congestive heart failure: CXR showed cardiomegaly, small bilateral pleural effusions, and bilateral patchy opacities Based on imaging and symptomatology, Patient likely has fluid overload Patient received Rocephin and Azithromycin in ED Start Lasix 40mg IVP q12hrs Continue home aspirin, statin, Plavix Continue losartan 25mg QD PO Continue Rocephin and Azithromycin Order Echo Do significant bilateral leg swelling, ordered venous duplex Obtained blood cultures CMP and CMP tomorrow Qualifiers: Heart failure chronicity: acute on chronic Heart failure type: systolic Qualified Code(s): I50.23 - Acute on chronic systolic (congestive) heart failure (2) Tracheobronchomalacia: Patient is currently on 4L of O2 via Nasal Cannula, which is increased from home O2 OF 2L Patient received nebulizer treatment by the paramedics which helped patient's breathing Order Josué DELUCA Patient's daughter expressed concern over using steroids because in the past prednisolone increased her mother's sugars, at this time we will hold off on using Budesonide (3) Diabetes: Start on insulin sliding scale with glucagon Glucose was 257, Ordered HBA1c Monitor glucose and potassium levels, get CMP tomorrow (4) CKD (chronic kidney disease): BUN 20 and CR 1.0 Starting patient on Lasix 40mg, get CMP tomorrow (5) Acute respiratory failure with hypoxia: Plan Full code Lovenox for DVT PPX Continue fluoxetine 20mg QPM PO to prevent withdrawal Coding Level of Care Code 98678 Diagnoses Acute on chronic systolic congestive heart failure I50.23 Heart failure chronicity: acute on chronic Heart failure type: systolic Tracheobronchomalacia J39.8 Diabetes E11.9 CKD (chronic kidney disease) N18.9 Acute respiratory failure with hypoxia J96.01 Time Spent (min) 56
[2024-04-09] MEDS: FUROsemide 10 mg/mL SDV 4mL 40 MG IVP ×2 (11:37→20:54)
[2024-04-09] MEDS: cefTRIAXone 1,000 mg SDV 1000 MG IVP (11:40)
[2024-04-09] MEDS: azithromycin 500 MG in sodium chloride 0.9% 250 ML 250 MG IV (11:40)
--- NOTE | 2024-04-09 12:03 | USCV_ITS ---
Gianna Mora Age: 73 Gender: F : 1950 Exam Date: 04/09/2024 16:13 Ordering Phys: Rich Benedict MD Technologist: [place] [facility] [place]: chf BP: 132 / 59 HR: 94 Rhythm: Sinus Technical Quality: Adequate MEASUREMENTS (Male / Female) Normal Values 2D ECHO LV Diastolic Diameter PLAX 5.0 cm 4.2 - 5.9 / 3.9 - 5.3 cm IVS Diastolic Thickness 1.3 cm 0.6 - 1.0 / 0.6 - 0.9 cm IVS Systolic Thickness 2.0 cm LVPW Diastolic Thickness 1.1 cm 0.6 - 1.0 / 0.6 - 0.9 cm LVPW Systolic Thickness 1.6 cm LV Ejection Fraction 2D Teich 56.3 % LV Ejection Fraction MOD 4C 39.9 % LV Ejection Fraction MOD 2C 42.8 % LV Ejection Fraction 2C AL 47.3 % LA Diameter 2.1 cm RA Systolic Volume 4C AL 60.0 ml RA Systolic Volume 4C MOD 55.5 ml IVC Diameter 1.7 cm M-MODE LA Ao Ratio MM 1.4 AV Cusp Separation MM 2.1 cm DOPPLER AV Peak Velocity 157.0 cm/s LVOT Peak Velocity 93.0 cm/s MV Peak Velocity 159.0 cm/s MV Area PHT 4.3 cm squared Mitral E to A Ratio 1.3 TV Peak Velocity 287.0 cm/s TR Peak Velocity 359.0 cm/s TR Peak Gradient 51.6 mmHg TV Peak E Velocity 152.0 cm/s Right Atrial Pressure 3.0 mmHg Pulmonary Artery Systolic Pressu 54.6 mmHg PV Peak Velocity 134.3 cm/s FINDINGS Left Ventricle Mild diffuse hypokinesis of the left ventricular ejection fraction of around 45%. Mild concentric left trickle hypertrophy.Grade III/IV diastolic dysfunction (restrictive filling pattern), severely elevated filling pressures. Right Ventricle The right ventricle is normal in size and function. Right Atrium Mildly increased right atrial size. Left Atrium Mildly increased left atrial size. Mitral Valve Trace to mild mitral valve regurgitation. Aortic Valve Mild aortic valve regurgitation. Tricuspid Valve Trace tricuspid valve regurgitation. Pulmonic Valve Mild pulmonary valve regurgitation. Pericardium No pericardial effusion. Aorta Normal ascending aorta dimension. IVC Normal inferior vena cava. CONCLUSIONS Mild diffuse hypokinesis of the left ventricular ejection fraction of around 45%. Mild concentric left trickle hypertrophy.Grade III/IV diastolic dysfunction (restrictive filling pattern), severely elevated filling pressures. Mild biatrial enlargementTrace to mild mitral valve regurgitation. Mild aortic valve regurgitation. Trace tricuspid valve regurgitation. Estimated pulmonary artery peak systolic pressure of 55 mmHg There is no pericardial effusion. There are no intracardiac masses. Compared to the study from 12/18/2022 there may not be a significant change. But compared to the study report from 06/16/2023, the ejection fraction has decreased from 53 to 45% Dr Keith Mckeon MD [facility] (Electronically Signed) Final Date: 09 April 2024 17:11 S
--- NOTE | 2024-04-09 12:03 | USR_ITS ---
PROCEDURE INFORMATION: Exam: US Duplex Lower Extremity Veins, Bilateral Exam date and time: 04/09/2024 5:58 PM Age: 73 years old Clinical indication: Edema, localized; Lower extremity, bilateral TECHNIQUE: Imaging protocol: Real-time duplex ultrasound of the bilateral extremities with 2-D haywood scale, color Doppler flow and spectral waveform analysis including responses to compression and other maneuvers (when performed) with image documentation. Complete exam focused on the lower extremity veins. COMPARISON: US ROR venous duplex LE RT 08/23/2021 9:14 AM FINDINGS: Right deep veins: Unremarkable. The common femoral, femoral, proximal profunda femoral, popliteal, posterior tibial and peroneal veins are patent without thrombus. Normal Doppler waveforms. Normal compressibility and/or augmentation response. Left deep veins: Unremarkable. The common femoral, femoral, proximal profunda femoral, popliteal, posterior tibial and peroneal veins are patent without thrombus. Normal Doppler waveforms. Normal compressibility and/or augmentation response. Superficial veins: Greater saphenous veins at the saphenofemoral junctions are patent bilaterally without thrombus. Soft tissues: Unremarkable. US/CV venous duplex [facility] [id number] IMPRESSION: No sonographic evidence of deep venous thrombosis.
[2024-04-09 12:10] LABS: Lactic Acid level (Lactate) 3.9 mmol/L (0.5-2.2)
[2024-04-09 12:26] LABS: Estmated Average Glucose 151; Hemoglobin A1C 6.9 % (4.0-6.0)
[2024-04-09 13:00] LABS: Glucose Point of Care 321 mg/dL (70-110)
[2024-04-09] MEDS: enoxaparin 40 mg/0.4 mL Syringe SUBCUT (13:37)
[2024-04-09] MEDS: insulin lispro 100 unit/1 mL SUBCUT ×3 (13:38→20:54)
--- NOTE | 2024-04-09 15:57 | PC.NURSE ---
received from ER Around 1230 pm. Pt is on 4 L per nasal cannula satting at 88%. Dgtr at bedside. Pt looked pale,cyanotic on lips,awake,alert,orientedx2. pt denies any pain pt has a flores catheter but noticed not draining. 12 vietnamese size flores catheter removed due to no urine output in the catheter bag post IV lasix in ER. Inserted new 16 Algerian size flores catheter. urine now flowing better. call light provided to pt.
[2024-04-09 16:07] LABS: Bilirubin Urine 1+ (Negative); Blood Urine Negative (Negative); Glucose Urine UA Negative (Normal); Ketones Urine Trace (Negative); Leukocyte Esterase Urine Negative (Negative); Nitrate Urine Negative (Negative); Protein Urine 3+ (Negative); Specific Gravity, Urine 1.019 (1.005-1.030); Urine Appearance Clear (CLEAR); Urine Color Dark Yellow (Yellow)
[2024-04-09 16:13] LABS: Add Urine Microscopic? YES; Bacteria Urine None Seen /hpf; Hyaline Casts Urine 21.48 /lpf; RBC Urine 0-2 /hpf (0-2); Squamous Epithelial Cell Urine 0-5 /hpf (0-5); WBC Urine 0-5 /hpf (0-5)
[2024-04-09 16:25] LABS: Glucose Point of Care 265 mg/dL (70-110)
[2024-04-09 17:06] LABS: Add Urine Culture? No
[2024-04-09] MEDS: atorvastatin 40 mg Tablet 20 MG PO (18:02)
[2024-04-09] MEDS: fluoxetine 20 mg Capsule PO (18:02)
[2024-04-09] MEDS: budesonide 0.5 mg/2 mL Neb INHALATION (20:17)
[2024-04-09 20:52] LABS: Glucose Point of Care 238 mg/dL (70-110)
[2024-04-09] MEDS: zolpidem 5 mg Tablet PO (21:34)
[2024-04-10] VITALS (15 sets, daily range): BP systolic 125–142; BP diastolic 58–70; PULSE 86–101; RESP 16–25; TEMP 36.5–37.3; O2SAT 91–97
[2024-04-10] MEDS: ipratropium-albuterol 3 mL Neb INHALATION ×4 (02:24→21:25)
[2024-04-10 04:10] LABS: Basophils % 0.2 %; Hematocrit 37.1 % (36-47); Lymphocytes # 0.9 10^3/uL (0.8-4.8); Lymphocytes % 6.6 %; Mean Corpuscular HGB Conc 31.8 g/dL (30-55); Mean Corpuscular Hemoglobin 29.6 pg (27-33); Mean Platelet Volume 10.3 fL (7.4-10.4); Monocytes # 1.4 10^3/uL (0.2-0.9); Monocytes % 10.9 %; Neutrophils # 10.55 10^3/uL (1.8-7.7); Neutrophils % 81.7 %; Nucleated Red Blood Cells % 0 %; Platelet Count 271 10^3/cmm (157-399); Red Blood Count 3.99 10^6/uL (3.85-5.65); Red Cell Distribution Width 14.8 % (12.1-15.1); White Blood Count 12.91 10^3/uL (3.29-11.43)
[2024-04-10 04:27] LABS: Alanine Aminotransferase 11 U/L (0-33); Albumin Level 3.4 g/dL (3.5-5.2); Alkaline Phosphatase 78 U/L (35-105); Aspartate Amino Transferase 18 U/L (0-32); Blood Urea Nitrogen 24 mg/dL (8-23); Calcium 8.6 mg/dL (8.5-10.5); Carbon Dioxide 25 mmol/L (22-29); Chloride 103 mmol/L (98-107); Creatinine Clr Calc Pharmacy 43.2001; Globulin 3.3 g/dL (1.3-4.6); Glucose 173 mg/dL (65-115); Magnesium 1.7 mg/dL (1.7-2.3); Osmolality Calculated 292 mOsm/kg (285-295); Sodium 137 mmol/L (136-145); Total Protein 6.7 g/dL (6.6-8.7)
[2024-04-10 06:25] LABS: Glucose Point of Care 161 mg/dL (70-110)
[2024-04-10] MEDS: amlodipine 10 mg Tablet PO (06:25)
[2024-04-10] MEDS: budesonide 0.5 mg/2 mL Neb INHALATION ×2 (07:38→21:25)
[2024-04-10] MEDS: FUROsemide 10 mg/mL SDV 4mL 40 MG IVP ×2 (08:04→20:00)
[2024-04-10] MEDS: aspirin 81 mg EC Tablet PO (08:04)
[2024-04-10] MEDS: clopidogrel 75 mg Tablet PO (08:04)
[2024-04-10] MEDS: losartan 50 mg Tablet 25 MG PO (08:05)
--- NOTE | 2024-04-10 08:38 | P.PN_ITS ---
Documented by User: KALYANI Benavides STDRISHI 04/10/24 09:36 Subjective 2 Subjective: Patient is doing better today, her breathing has improved with less effort of breathing. Patient has been decreased to 5L of O2. Patient received 5mg Ambien last night to help with sleep. Patient endorses leg cramping likely secondary to diuresis. Patient denies chest pain, headache, fever, chills, abdominal pain, n/v. Vitals/I&O/Wt Last Vital Signs Temp 98.6 F 04/10/24 08:00 Pulse 87 04/10/24 08:00 Resp 16 04/10/24 08:00 BP 129/64 04/10/24 08:05 Pulse Ox 95 04/10/24 08:00 O2 Del Method Nasal Cannula 04/10/24 08:00 O2 Flow Rate 5 04/10/24 08:00 04/09/24 04/10/24 04/10/24 22:59 06:59 14:59 Intake Total 240 / 1490 480 / 1970 Output Total 250 / 250 1000 / 1250 Balance -10 / 1240 -520 / 720 Weight last 48 hrs Weight 192 lb 10.944 oz Weight 195 lb 12.328 oz Weight 200 lb Physical Exam 2 Neck/C-Spine: OTHER: Supple Resp: OTHER: Bilateral breath sounds, clear to auscultation, some use of abdominal muscles for breathing Cardio: OTHER: Normal rate and rhythm without murmurs, gallops, or rubs GI: OTHER: Soft, nondistended, nontender with bowel sounds Extremity: OTHER: Bilateral edema that has improved from yesterday, no cyanosis Data 04/10/24 03:49 04/10/24 03:49 Micro: Microbiology 04/09/24 09:14 Blood Culture - Preliminary Blood SPECIMEN COLLECTED 04/09/24 09:10 Blood Culture - Preliminary Blood SPECIMEN COLLECTED A&P Assessment and plan (1) Congestive heart failure: Echo showed EF of 45%, Grade 3/4 Diastolic dysfunction, elevated pulmonary peak pressures Consistent diastolic heart failure with pulmonary HTN. Venous duplex showed no evidence of DVT Cannot r/o PE, D-dimer adjusted for age showed PE unlikely Continue Lasix 40mg IVP q12hrs for fluid overload Continue home aspirin, statin, Plavix Continue losartan 25mg QD PO Continue Rocephin and Azithromycin Blood cultures still pending CMP and CBC tomorrow Qualifiers: Heart failure chronicity: acute on chronic Heart failure type: systolic Qualified Code(s): I50.23 - Acute on chronic systolic (congestive) heart failure (2) Tracheobronchomalacia: Patient is currently on 5L of O2 via Nasal Cannula, which is increased from home O2 OF 2L Continue DuoNebs PRN Still holding off on using Budesonide due to daughters concerns for high sugars Continue Rocephin and Azithromycin for pneumonia concerns due to infiltrates on CXR Sputum culture will be obtained (3) Acute respiratory failure with hypoxia: Patient with evidence of acute hypoxic respiratory failure, currently needing 5 L of oxygen. Typically she is on just 2 L. This is likely secondary to acute diastolic heart failure, but cannot completely exclude pneumonia. Sputum culture was ordered yesterday. Ordered urine Legionella Antigen test do to continued respiratory failure. (4) Diabetes: Continue on insulin sliding scale with glucagon Glucose today was 173, HBA1c 6.9 (5) CKD (chronic kidney disease): BUN 24 and Cr 1.2, these have increased Plan Full code Lovenox for DVT PPX Coding Level of Care Code 88326 Diagnoses Acute on chronic systolic congestive heart failure I50.23 Heart failure chronicity: acute on chronic Heart failure type: systolic Tracheobronchomalacia J39.8 Acute respiratory failure with hypoxia J96.01 Diabetes E11.9 CKD (chronic kidney disease) N18.9 Time Spent (min) 23 Documented by User: Rich Benedict MD 04/10/24 09:46 Subjective 2 Medications: Reviewed: Yes Data 04/10/24 03:49 04/10/24 03:49 A&P Assessment and plan (1) Congestive heart failure: Echo showed EF of 45%, Grade 3/4 Diastolic dysfunction, elevated pulmonary peak pressures Consistent Acute combined systolic and diastolic heart failure with pulmonary HTN. Venous duplex showed no evidence of DVT D-dimer adjusted for age showed PE unlikely Continue Lasix 40mg IVP q12hrs for fluid overload 1200 cc fluid restriction initiated Continue home aspirin, statin, Plavix Continue losartan 25mg QD PO Continue Rocephin and Azithromycin Blood cultures still pending CMP and CBC tomorrow Qualifiers: Heart failure chronicity: acute on chronic Heart failure type: systolic Qualified Code(s): I50.23 - Acute on chronic systolic (congestive) heart failure (2) Tracheobronchomalacia: Patient is currently on 5L of O2 via Nasal Cannula, which is increased from home O2 OF 2L Continue DuoNebs PRN Still holding off on using Budesonide due to daughters concerns for high sugars Continue Rocephin and Azithromycin for pneumonia concerns due to infiltrates on CXR Sputum culture will be obtained Urine Legionella antigen (3) Acute respiratory failure with hypoxia: (4) Diabetes: (5) CKD (chronic kidney disease): BUN 24 and Cr 1.2, these have increased Likely cardiorenal. Recheck tomorrow. Make sure diuresis occurs today. Attestations 2 Medical Necessity Statement*: Needs continued hospitalization for further diuresis secondary to acute combined heart failure of systolic and diastolic. Diagnoses Acute on chronic systolic congestive heart failure I50.23 Heart failure chronicity: acute on chronic Heart failure type: systolic Tracheobronchomalacia J39.8 Acute respiratory failure with hypoxia J96.01 Diabetes E11.9 CKD (chronic kidney disease) N18.9 Time Spent (min) 23
[2024-04-10] MEDS: insulin lispro 100 unit/1 mL SUBCUT ×3 (08:43→21:01)
[2024-04-10 08:50] LABS: D Dimer 0.75 ug/mLFEU (0-0.59)
[2024-04-10] MEDS: azithromycin 500 MG in sodium chloride 0.9% 250 ML 250 MG IV (10:08)
[2024-04-10] MEDS: cefTRIAXone 1,000 mg SDV 1000 MG IVP (10:08)
--- NOTE | 2024-04-10 10:21 | PC.CHAP ---
Pastoral Care Encounter/Spiritual Assessment Type of Contact [] Declined furnace tender visit [] Patient/Family/Request visit [] Outpatient visit [] Follow-up visit [] Physician referral [] Code/Alert [x] Routine visit [] Staff referral [] Actively dying [] Patient sleeping [] Family support [] [] Out of room [] Palliative care [] [] Receiving care in room [] Pre-surgical visit [] Trauma [] Long length of stay [] ICU visit [] Other: Relational/Emotional Strength [] Patient feels connected with others/family/visitors/staff [] Distress [] Loneliness/isolation [] Abandonment Spirituality of Patient [] Person of Haley [] Attends Islam of their Haley [x] Believes in Prayer [] Reads Bible or Buddhism materials [] There are Spiritual issues to be addressed Montessori Teacher Interventions [x] Prayer [x] Active listening [] Non-anxious presence [] Spiritual/emotional support [] Crisis/trauma care [] Spiritual counseling [] Bereavement support [] Provided bereavement packet [] Provided Bible/devotional materials [] Provided toy/stuffed animal, coloring book to patient or family member [] Provided Communion [] Anointing/[place] [] Salvation [] Completed spiritual assessment [] Other: Impact on Illness or Injury [] Angry [] Fearful [] Anxious [] Often cries [] Exhaustion [] Unable to work [] Unable to attend tenriism [] Unable to walk/stand [] Unable to read [] Unable to drive [] Unable to eat/drink [] Unable to sleep [] Unable to be with family [] Patient intubated [] Other: Summary Prayer Time spent with patient 10 min
--- NOTE | 2024-04-10 11:18 | PC.SOCIAL ---
IMM Updated IMM dated and initialed, copy placed in chart and given to patient.
[2024-04-10 11:25] LABS: Glucose Point of Care 246 mg/dL (70-110)
[2024-04-10] MEDS: enoxaparin 40 mg/0.4 mL Syringe SUBCUT (12:16)
[2024-04-10 17:13] LABS: Glucose Point of Care 132 mg/dL (70-110)
[2024-04-10] MEDS: atorvastatin 40 mg Tablet 20 MG PO (17:31)
[2024-04-10] MEDS: fluoxetine 20 mg Capsule PO (17:36)
[2024-04-10 20:27] LABS: Glucose Point of Care 306 mg/dL (70-110)
[2024-04-11] VITALS (14 sets, daily range): BP systolic 128–166; BP diastolic 58–83; PULSE 69–100; RESP 16–31; TEMP 36.9–37.2; O2SAT 80–98
[2024-04-11] MEDS: ipratropium-albuterol 3 mL Neb INHALATION ×4 (02:54→21:23)
[2024-04-11 03:50] LABS: Basophils # 0.1 10^3/uL (0.0-0.1); Basophils % 0.7 %; Eosinophils # 0.4 10^3/uL (0.0-0.8); Eosinophils % 2.6 %; Hematocrit 39.1 % (36-47); Lymphocytes # 1.7 10^3/uL (0.8-4.8); Lymphocytes % 12.7 %; Mean Corpuscular HGB Conc 30.7 g/dL (30-55); Mean Corpuscular Hemoglobin 29.6 pg (27-33); Mean Corpuscular Volume 96.5 fl (85-98); Mean Platelet Volume 10.4 fL (7.4-10.4); Monocytes # 1.4 10^3/uL (0.2-0.9); Monocytes % 10.6 %; Neutrophils # 9.78 10^3/uL (1.8-7.7); Nucleated Red Blood Cells % 0 %; Platelet Count 267 10^3/cmm (157-399); Red Blood Count 4.05 10^6/uL (3.85-5.65); Red Cell Distribution Width 15.2 % (12.1-15.1); White Blood Count 13.43 10^3/uL (3.29-11.43)
[2024-04-11 04:11] LABS: Alanine Aminotransferase 15 U/L (0-33); Albumin Level 3.3 g/dL (3.5-5.2); Alkaline Phosphatase 75 U/L (35-105); Anion Gap 11.7 (5-19); Aspartate Amino Transferase 19 U/L (0-32); Blood Urea Nitrogen 28 mg/dL (8-23); Carbon Dioxide 30 mmol/L (22-29); Chloride 100 mmol/L (98-107); Globulin 3.3 g/dL (1.3-4.6); Glucose 106 mg/dL (65-115); Magnesium 1.7 mg/dL (1.7-2.3); Osmolality Calculated 292 mOsm/kg (285-295); Potassium 3.7 mmol/L (3.5-5.1); Sodium 138 mmol/L (136-145); Total Bilirubin 0.8 mg/dL (0.15-1.2); Total Protein 6.6 g/dL (6.6-8.7)
[2024-04-11] MEDS: amlodipine 10 mg Tablet PO (06:09)
[2024-04-11 06:17] LABS: Glucose Point of Care 131 mg/dL (70-110)
[2024-04-11] MEDS: budesonide 0.5 mg/2 mL Neb INHALATION ×2 (08:09→21:23)
[2024-04-11] MEDS: FUROsemide 10 mg/mL SDV 4mL 40 MG IVP ×2 (08:55→20:21)
[2024-04-11] MEDS: cefTRIAXone 1,000 mg SDV 1000 MG IVP (08:55)
[2024-04-11] MEDS: azithromycin 500 MG in sodium chloride 0.9% 250 ML 250 MG IV (08:56)
[2024-04-11] MEDS: losartan 50 mg Tablet 25 MG PO (08:57)
[2024-04-11] MEDS: clopidogrel 75 mg Tablet PO (08:58)
[2024-04-11] MEDS: aspirin 81 mg EC Tablet PO (08:58)
--- NOTE | 2024-04-11 10:27 | PM.PN ---
Subjective Subjective: Patient reports her breathing continues to improve. She is still not yet back to her home oxygen levels. Discussed ongoing hospitalization for diuresis and she is agreeable. Denies nausea, vomiting, fevers or chills. Medications: Reviewed: Yes Vitals/I&O/Wt Last Vital Signs Temp 98.5 F 04/11/24 08:00 Pulse 100 04/11/24 08:00 Resp 20 H 04/11/24 08:00 BP 166/83 04/11/24 08:57 Pulse Ox 97 04/11/24 08:00 O2 Del Method Nasal Cannula 04/11/24 08:00 O2 Flow Rate 3 04/11/24 08:00 04/10/24 04/11/24 04/11/24 22:59 06:59 14:59 Intake Total 236 / 724 240 / 240 Output Total 1000 / 1000 1400 / 2400 Balance -764 / -276 -1400 / -1676 240 / 240 Weight last 48 hrs Weight 85.4 kg Weight 87.4 kg Weight 88.8 kg Physical Exam Narrative: General: Patient is awake and alert. Sitting on edge of bed. Pleasant. Head: Normocephalic. Atraumatic. EOM intact. Cardiovascular: RRR. No gallops. No murmurs. 1+ pitting edema bilateral lower extremities. Lungs: Breath sounds are slightly diminished bilateral bases. No use of accessory muscles, no crackles or wheezes. On supplemental oxygen support. Skin: No jaundice. No rashes. Abdomen: Normal bowel sounds, abdomen soft and nontender. Genito Urinary: Genital exam not performed since complaints not related. Rectal: Rectal exam not performed since no symptoms indicated blood loss. Extremities: No cyanosis or clubbing. Musculoskeletal: No o swollen or erythematous joints. Neurological: Moves all 4 extremities. No myoclonus. Data 04/11/24 03:23 04/11/24 03:23 Micro: Microbiology 04/10/24 08:30 Legionella Urinary Antigen - Final Urine,Clean Catch 04/09/24 09:14 Blood Culture - Preliminary Blood NEGATIVE TO DATE 04/09/24 09:10 Blood Culture - Preliminary Blood NEGATIVE TO DATE A&P Assessment and plan (1) Congestive heart failure: Acute on chronic heart failure with borderline ejection fraction of 45% with significant diastolic dysfunction Venous duplex showed no evidence of DVT Continue Lasix 40mg IVP q12hrs Continue fluid restriction Continue home aspirin, statin, Plavix, losartan Strict I's and O's Daily weights Qualifiers: Heart failure type: systolic Heart failure chronicity: acute on chronic Qualified Code(s): I50.23 - Acute on chronic systolic (congestive) heart failure (2) Community acquired pneumonia: Follow cultures Continue Rocephin and Azithromycin (3) Tracheobronchomalacia: Continue DuoNebs PRN Sputum culture pending if patient is able to provide Urine Legionella antigen negative (4) Acute respiratory failure with hypoxia: Acute on chronic hypoxic respiratory failure Treat underlying pneumonia and heart failure Wean oxygen requirements as tolerated (5) Diabetes: Recent A1c 6.9 Sliding-scale insulin correction (6) CKD (chronic kidney disease): Monitor renal function Renally dose medications as needed Plan DVT prophylaxis: Lovenox CODE STATUS: Full code Attestations Medical Necessity Statement*: Patient requires ongoing hospitalization for IV antibiotics, IV diuresis, management of electrolytes, telemetry monitoring, and supportive care. Coding Level of Care Code Acute Code for [facility] Fwd Diagnoses Acute on chronic systolic congestive heart failure I50.23 Heart failure type: systolic Heart failure chronicity: acute on chronic Community acquired pneumonia J18.9 Tracheobronchomalacia J39.8 Acute respiratory failure with hypoxia J96.01 Diabetes E11.9 CKD (chronic kidney disease) N18.9
[2024-04-11 11:47] LABS: Glucose Point of Care 252 mg/dL (70-110)
[2024-04-11] MEDS: insulin lispro 100 unit/1 mL SUBCUT ×3 (12:32→20:21)
[2024-04-11] MEDS: enoxaparin 40 mg/0.4 mL Syringe SUBCUT (12:32)
[2024-04-11 17:35] LABS: Glucose Point of Care 222 mg/dL (70-110)
[2024-04-11] MEDS: fluoxetine 20 mg Capsule PO (17:45)
[2024-04-11] MEDS: atorvastatin 40 mg Tablet 20 MG PO (17:45)
[2024-04-11 20:17] LABS: Glucose Point of Care 193 mg/dL (70-110)
[2024-04-12] VITALS (10 sets, daily range): BP systolic 135–162; BP diastolic 65–77; PULSE 85–94; RESP 15–22; TEMP 36.7–37.1; O2SAT 93–97
[2024-04-12] MEDS: ipratropium-albuterol 3 mL Neb INHALATION ×3 (02:57→13:15)
[2024-04-12 03:43] LABS: Basophils # 0.1 10^3/uL (0.0-0.1); Basophils % 0.8 %; Eosinophils # 0.5 10^3/uL (0.0-0.8); Eosinophils % 4.9 %; Hematocrit 39.2 % (36-47); Lymphocytes # 1.5 10^3/uL (0.8-4.8); Lymphocytes % 13.8 %; Mean Corpuscular HGB Conc 31.4 g/dL (30-55); Mean Corpuscular Hemoglobin 29.4 pg (27-33); Mean Corpuscular Volume 93.8 fl (85-98); Monocytes # 1.3 10^3/uL (0.2-0.9); Monocytes % 11.9 %; Neutrophils # 7.16 10^3/uL (1.8-7.7); Neutrophils % 68.2 %; Nucleated Red Blood Cells % 0 %; Platelet Count 273 10^3/cmm (157-399); Red Blood Count 4.18 10^6/uL (3.85-5.65); Red Cell Distribution Width 14.9 % (12.1-15.1); White Blood Count 10.49 10^3/uL (3.29-11.43)
[2024-04-12 04:07] LABS: Albumin Level 3.4 g/dL (3.5-5.2); Anion Gap 11.2 (5-19); Blood Urea Nitrogen 24 mg/dL (8-23); Calcium 8.9 mg/dL (8.5-10.5); Carbon Dioxide 32 mmol/L (22-29); Chloride 98 mmol/L (98-107); Creatinine Clr Calc Pharmacy 46.5349; Glucose 226 mg/dL (65-115); Magnesium 1.7 mg/dL (1.7-2.3); Phosphorus 3.6 mg/dL (2.5-4.5); Potassium 4.2 mmol/L (3.5-5.1); Sodium 137 mmol/L (136-145)
[2024-04-12] MEDS: amlodipine 10 mg Tablet PO ×2 (05:53→07:48)
[2024-04-12 06:35] LABS: Glucose Point of Care 251 mg/dL (70-110)
[2024-04-12] MEDS: losartan 50 mg Tablet 25 MG PO (07:48)
[2024-04-12] MEDS: clopidogrel 75 mg Tablet PO (07:48)
[2024-04-12] MEDS: aspirin 81 mg EC Tablet PO (07:48)
[2024-04-12] MEDS: FUROsemide 10 mg/mL SDV 4mL 40 MG IVP (07:49)
[2024-04-12] MEDS: budesonide 0.5 mg/2 mL Neb INHALATION (08:16)
[2024-04-12] MEDS: insulin lispro 100 unit/1 mL SUBCUT ×2 (08:41→12:59)
[2024-04-12] MEDS: azithromycin 500 MG in sodium chloride 0.9% 250 ML 250 MG IV (09:05)
[2024-04-12] MEDS: cefTRIAXone 1,000 mg SDV 1000 MG IVP (09:05)
[2024-04-12 12:24] LABS: Glucose Point of Care 176 mg/dL (70-110)
--- NOTE | 2024-04-12 12:58 | PM.DCS ---
Discharge Providers Date of Admission: 04/09/24 11:30 Date of Discharge: April 12, 2024 Attending Provider at Admission: Rich Benedict MD Attending Provider at Discharge: Shade Lund MD Primary Care Provider: Lefty Hodge DO Diagnoses at Discharge Discharge Diagnosis (1) Congestive heart failure: Status: Acute Qualifiers: Heart failure chronicity: acute on chronic Heart failure type: systolic Qualified Code(s): I50.23 - Acute on chronic systolic (congestive) heart failure (2) Community acquired pneumonia: Status: Acute (3) Tracheobronchomalacia: Status: Acute Permanent problem details: CT chest 08/07 (4) Acute respiratory failure with hypoxia: Status: Acute (5) Diabetes: Status: Acute (6) CKD (chronic kidney disease): Status: Chronic Permanent problem details: Baseline creatinine 1.2-1.4 Reason for Visit Reason for Visit: SOB; COPD Hospital Course Hospital Course Gianna Mora is a 73-year-old female with past medical history significant for tracheobronchial [place], stroke, congestive heart failure, and untreated sleep apnea who presented with shortness of breath and cough, found to have acute on chronic heart failure with borderline preserved ejection fraction of 45% with significant diastolic dysfunction as well as community-acquired pneumonia. She was treated with IV Lasix, ceftriaxone, and azithromycin. Her symptomatology significantly improved. Upon presentation which she was found to have acute on chronic hypoxic respiratory failure with oxygen requirements returning to baseline by day of discharge. At discharge, patient transition to oral Lasix 20 mg daily as she was not previously on home diuretic. Her antibiotics were switched to cefdinir and azithromycin to complete her course for community-acquired pneumonia. She is to follow-up with her primary provider within 1 week. Recommend labs within 1 month to evaluate for development of hypokalemia in the setting of new Lasix prescription. Physical Exam Narrative: General: Patient is awake and alert. Head: Normocephalic. Atraumatic. EOM intact. Neck: No JVD. Cardiovascular: RRR. No gallops. No murmurs. Lungs: Faint rhonchi, no use of accessory muscles, no crackles or wheezes. On 2L NC. Skin: No jaundice. No rashes. Abdomen: Normal bowel sounds, abdomen soft and nontender. Genito Urinary: Genital exam not performed since complaints not related. Rectal: Rectal exam not performed since no symptoms indicated blood loss. Extremities: No cyanosis or clubbing. Musculoskeletal: 5/5 strength, normal range of motion, no swollen or erythematous joints. Neurological: Moves all 4 extremities. No myoclonus. Discharge Data Studies Completed and Pending Completed Studies During Hospitalization Category Date Time Status XR chest 1V portable [id number] Stat Exams 04/09/24 08:35 [place] [id number] Routine Ultrasound 04/09/24 12:03 Completed CV. echo complete* [id number] Routine Ultrasound 04/09/24 12:03 Completed Pending at discharge Category Date Time Status Blood Culture Stat Lab 04/09/24 09:14 Results Radiology Impressions Chest X-Ray 04/09/24 08:35 Impression: 1. Cardiomegaly. 2. Bilateral patchy opacities which may represent pulmonary vascular congestion. 3. Small bilateral pleural effusions. Venous Duplex 04/09/24 12:03 IMPRESSION: No sonographic evidence of deep venous thrombosis. Laboratory Results WBC 10.49 10^3/uL (3.29-11.43) 04/12/24 03:30 RBC 4.18 10^6/uL (3.85-5.65) 04/12/24 03:30 Hgb 12.30 g/dL (11.27-16.99) 04/12/24 03:30 Hct 39.2 % (36-47) 04/12/24 03:30 MCV 93.8 fl (85-98) 04/12/24 03:30 MCH 29.4 pg (27-33) 04/12/24 03:30 MCHC 31.4 g/dL (30-55) 04/12/24 03:30 RDW 14.9 % (12.1-15.1) 04/12/24 03:30 Plt Count 273 10^3/cmm (157-399) 04/12/24 03:30 MPV 10.0 fL (7.4-10.4) 04/12/24 03:30 Neut % (Auto) 68.2 % 04/12/24 03:30 Lymph % (Auto) 13.8 % 04/12/24 03:30 [place] % (Auto) 11.9 % 04/12/24 03:30 Eos % (Auto) 4.9 % 04/12/24 03:30 Baso % (Auto) 0.8 % 04/12/24 03:30 Neut # (Auto) 7.16 10^3/uL (1.8-7.7) 04/12/24 03:30 Lymph # (Auto) 1.5 10^3/uL (0.8-4.8) 04/12/24 03:30 [place] # (Auto) 1.3 10^3/uL (0.2-0.9) H 04/12/24 03:30 Eos # (Auto) 0.5 10^3/uL (0.0-0.8) 04/12/24 03:30 Baso # (Auto) 0.1 10^3/uL (0.0-0.1) 04/12/24 03:30 Nucleated RBC % (auto) 0 % 04/12/24 03:30 Nucleated RBCs # 0.0 /100WBC 04/12/24 03:30 D-Dimer 0.75 ug/mLFEU (0-0.59) H 04/10/24 08:26 Specimen Type Arterial 04/09/24 08:58 Sample Site Brachial, left 04/09/24 08:58 ABG pH 7.36 (7.35-7.45) 04/09/24 08:58 ABG pCO2 39.3 mmHg (35-45) 04/09/24 08:58 ABG pO2 51.2 mmHg (80.0-100.0) L 04/09/24 08:58 ABG PO2/FiO2 Ratio 142 04/09/24 08:58 ABG HCO3 22.4 mmol/L (22-26) 04/09/24 08:58 ABG O2 Saturation 83.6 04/09/24 08:58 ABG Base Excess -2.7 mmol/L (-2.0-2.0) L 04/09/24 08:58 Will Test N/a 04/09/24 08:58 A-a O2 Gradient 20.3 mmHg (5-10) H 04/09/24 08:58 Hematocrit 41.2 % (37-47) 04/09/24 08:58 Hgb O2 Saturation 81.3 % (95-100) L 04/09/24 08:58 Carboxyhemoglobin 1.9 %THgb (0.4-20.1) 04/09/24 08:58 Methemoglobin 0.8 % (0.4-1.5) 04/09/24 08:58 Total Hemoglobin 13.4 g/dL (12-16) 04/09/24 08:58 Sodium 140.0 mmol/L (131-143) 04/09/24 08:58 Potassium 4.2 mmol/L (3.5-5.0) 04/09/24 08:58 Glucose 257.0 mg/dL (70-115) H 04/09/24 08:58 Ionized Calcium 1.2 mmol/L (1.1-1.4) 04/09/24 08:58 O2 Delivery Device Nc 04/09/24 08:58 O2 Liters/Min 4.0 % 04/09/24 08:58 FiO2 36.0 % 04/09/24 08:58 Shrimping Boat Captain ID Amh 04/09/24 08:58 Sodium 137 mmol/L (136-145) 04/12/24 03:30 Potassium 4.2 mmol/L (3.5-5.1) 04/12/24 03:30 Chloride 98 mmol/L (98-107) 04/12/24 03:30 Carbon Dioxide 32 mmol/L (22-29) H 04/12/24 03:30 Anion Gap 11.2 (5-19) 04/12/24 03:30 BUN 24 mg/dL (8-23) H 04/12/24 03:30 Creatinine 1.1 mg/dL (0.5-0.9) H 04/12/24 03:30 GFR Calculation Not Reportable 04/12/24 03:30 Glucose 226 mg/dL (65-115) H 04/12/24 03:30 POC Glucose 176 mg/dL (70-110) H 04/12/24 12:18 Estimat Average Glucose 151 04/09/24 08:32 Hemoglobin A1c 6.9 % (4.0-6.0) H 04/09/24 08:32 Calculated Osmolality 292 mOsm/kg (285-295) 04/11/24 03:23 Lactic Acid 2.5 mmol/L (0.5-2.2) H 04/09/24 08:32 Lactic Acid (Sepsis) 3.9 mmol/L (0.5-2.2) H 04/09/24 11:47 Calcium 8.9 mg/dL (8.5-10.5) 04/12/24 03:30 Phosphorus 3.6 mg/dL (2.5-4.5) 04/12/24 03:30 Magnesium 1.7 mg/dL (1.7-2.3) 04/12/24 03:30 Total Bilirubin 0.8 mg/dL (0.15-1.2) 04/11/24 03:23 AST 19 U/L (0-32) 04/11/24 03:23 ALT 15 U/L (0-33) 04/11/24 03:23 Alkaline Phosphatase 75 U/L (35-105) 04/11/24 03:23 NT-Pro-B Natriuret Pep 65230 pg/mL (0-125) H 04/09/24 08:32 Total Protein 6.6 g/dL (6.6-8.7) 04/11/24 03:23 Albumin 3.4 g/dL (3.5-5.2) L 04/12/24 03:30 Globulin 3.3 g/dL (1.3-4.6) 04/11/24 03:23 Urine Color Dark yellow (Yellow) A 04/09/24 15:40 Urine Appearance Clear (CLEAR) 04/09/24 15:40 Urine pH 5.0 (5-7) 04/09/24 15:40 Ur Specific [place] 1.019 (1.005-1.030) 04/09/24 15:40 Urine Protein 3+ (Negative) A 04/09/24 15:40 Urine Glucose (UA) Negative (Normal) 04/09/24 15:40 Urine Ketones Trace (Negative) 04/09/24 15:40 Urine Blood Negative (Negative) 04/09/24 15:40 Urine Nitrate Negative (Negative) 04/09/24 15:40 Urine Bilirubin 1+ (Negative) H 04/09/24 15:40 Urine Urobilinogen 1.0 mg/dL (Negative) 04/09/24 15:40 Ur Leukocyte Esterase Negative (Negative) 04/09/24 15:40 Urine RBC 0-2 /hpf (0-2) 04/09/24 15:40 Urine WBC 0-5 /hpf (0-5) 04/09/24 15:40 Ur Squamous Epith Cells 0-5 /hpf (0-5) 04/09/24 15:40 Amorphous Sediment Not Reportable 04/09/24 15:40 Urine Bacteria None seen /hpf (NONE) 04/09/24 15:40 Hyaline Casts 21.48 /lpf 04/09/24 15:40 Coronavirus (PCR) Negative (Negative) 04/09/24 09:16 Influenza A (PCR) Negative (Negative) 04/09/24 09:16 Influenza Type B (PCR) Negative (Negative) 04/09/24 09:16 RSV (PCR) Negative (Negative) 04/09/24 09:16 Vitals Last Vital Signs Temp 98.3 F 04/12/24 12:18 Pulse 91 04/12/24 12:18 Resp 22 H 04/12/24 12:18 BP 135/76 04/12/24 12:18 Pulse Ox 93 04/12/24 12:18 O2 Del Method Nasal Cannula 04/12/24 12:18 O2 Flow Rate 2 04/12/24 12:18 Discharge Plan Discharge Patient Disposition: Home Condition: Stable Prescriptions: New cefdinir 300 mg capsule 300 mg PO BID 7 Days Qty: 14 0RF Zithromax Z-Jarod 250 mg tablet 250 mg PO DAILY 4 Days Qty: 4 0RF Lasix 20 mg tablet 20 mg PO DAILY Qty: 30 0RF Continued clopidogrel 75 mg tablet 75 mg PO DAILY Qty: 14 0RF acarbose 25 mg tablet 25 mg PO TID Qty: 270 1RF Rx Instructions: take before meals atorvastatin 20 mg tablet 20 mg PO QPM amlodipine 10 mg tablet 10 mg PO QAM fluoxetine 20 mg capsule 20 mg PO QPM ascorbic acid (vitamin C) [Vitamin C] 1,000 mg Tablet 1,000 mg PO DAILY garlic 1,000 mg Capsule 1,000 mg PO DAILY losartan 25 mg Tablet 25 mg PO DAILY Hold Instructions: Resume on 06/23/23. meclizine 25 mg Tablet 25 mg PO BID vitamin E 268 mg (400 unit) Capsule 268 mg PO DAILY Centrum Adult 50 Plus 80 mcg Tablet,Chewable 1 tab PO DAILY insulin aspart U-100 [Novolog FlexPen U-100 Insulin] 100 unit/mL (3 mL) insulin pen See Rx Instructions .ROUTE .COMPLEX Qty: 15 0RF Rx Instructions: 141-180 2u,181-220 4u, 221-260 6u, 261-300 8u, 301-350 10u, 351-400 12u, >400 14u aspirin 81 mg Tablet,Delayed Release (Dr/Ec) 81 mg PO DAILY Discharge Orders: Discharge Order (Routine); Ordered 04/12/24 Ordered By: Shade Lund Referrals: Lefty Hodge, [Primary Care Provider] - 4-7 days (Please call for an follow-up appointment within 4 to 7 days. Thank you! ) Discharge Diet: Advance as tolerated and Usual diet Discharge Activity: Resume usual activity and Increase activity as tolerated Patient Instructions: Furosemide (By mouth) (Lasix), Azithromycin (By mouth) (Zithromax, Zithromax Tri-Jarod, Zithromax..., Cefdinir (By mouth) (Omnicef), Heart Failure (DC), COPD (Chronic Obstructive Pulmonary Disease) (DC), Community Acquired Pneumonia (DC), CHF Stoplight, COPD Stoplight, Opioid Safety, Pneumonia Stoplight Activity Restrictions/Additional Instructions: 1. Take medications as described. 2. Recommend limiting sodium intake to 2 g daily and fluid intake to 2 L daily. 3. Follow-up with primary care provider within 1 week. Recommend consideration of labs within the next month to evaluate for underlying hypokalemia in the setting of initiation of Lasix. 4. Increase activity as tolerated. Discharge Attestations Time Spent in Discharge Care*: greater than 30 min Status at Discharge: Cognitive status at discharge: cognitively intact, Behavioral status at discharge: cooperative, Quality Metrics Clinical Quality Measures [ No reported AMI, CVA or VTE this stay] Coding Level of Care Code Acute Code for [facility] Fwd Diagnoses Acute on chronic systolic congestive heart failure I50.23 Heart failure chronicity: acute on chronic Heart failure type: systolic Community acquired pneumonia J18.9 Tracheobronchomalacia J39.8 Acute respiratory failure with hypoxia J96.01 Diabetes E11.9 CKD (chronic kidney disease) N18.9
[2024-04-12] MEDS: enoxaparin 40 mg/0.4 mL Syringe SUBCUT (12:59)
--- NOTE | 2024-04-12 14:10 | PC.NURSE ---
discharge instructions given and explained.pt verb understanding of instructions.discharged via w/c to exit at this time.daughter to drive pt home
== END 2024-04-12 14:11 | disposition home health service (06) | DRG 193 ==
LOC: ER 08:47 → CSU 11:31
PROVIDERS: Admitting Provider Internal Medicine; Emergency Provider Family Medicine; PCP Internal Medicine; Visit Provider Internal Medicine
DX: J18.9 Pneumonia, unspecified organism (principal); I50.43 Acute on chronic combined systolic (congestive) and diastolic (congestive) heart failure; J96.21 Acute and chronic respiratory failure with hypoxia; I13.0 Hypertensive heart and chronic kidney disease with heart failure and stage 1 through stage 4 chronic kidney disease, or unspecified chronic kidney disease; J44.0 Chronic obstructive pulmonary disease with (acute) lower respiratory infection; N18.9 Chronic kidney disease, unspecified; E11.22 Type 2 diabetes mellitus with diabetic chronic kidney disease; G47.30 Sleep apnea, unspecified; J39.8 Other specified diseases of upper respiratory tract; M16.12 Unilateral primary osteoarthritis, left hip; I27.20 Pulmonary hypertension, unspecified; Z79.82 Long term (current) use of aspirin; Z79.02 Long term (current) use of antithrombotics/antiplatelets; Z79.4 Long term (current) use of insulin; Z99.81 Dependence on supplemental oxygen; Z86.73 Personal history of transient ischemic attack (TIA), and cerebral infarction without residual deficits; Z11.52 Encounter for screening for COVID-19
CPT/HCPCS: 0241U; 36415; 36416; 36600; 71045; 80051; 80053; 80069; 81001; 82330; 82805; 82962; 83036; 83605; 83735; 83880; 85025; 85378; 87040; 87449; 93005; 93306; 93970; 94640; 96365; 96372; 96375; 96376; 99285; J0456; J0696; J1650; J1815; J1940; J2405; J7030; J7050; J7626

== ENCOUNTER → 2024-04-23 11:00 | Outpatient (BNVA) | payer MEDICARE, MEDICAID, SELFPAY | PROVIDERS: PCP Internal Medicine; Visit Provider Internal Medicine | DX: E16.0 Drug-induced hypoglycemia without coma (principal); T38.3X5A Adverse effect of insulin and oral hypoglycemic [antidiabetic] drugs, initial encounter; E78.2 Mixed hyperlipidemia; I63.9 Cerebral infarction, unspecified; E11.649 Type 2 diabetes mellitus with hypoglycemia without coma; X58.XXXA Exposure to other specified factors, initial encounter; Z79.4 Long term (current) use of insulin | CPT/HCPCS: 99214 ==

== ENCOUNTER 2024-05-05 01:11 | Emergency (ER) | payer MEDICARE, MEDICAID, SELFPAY ==
[2024-05-05 01:16] VITALS: BP 151/59; PULSE 90; RESP 18; TEMP 36.1; O2SAT 90; BMI 34.0
--- NOTE | 2024-05-05 01:37 | W.ED.EPISTAX ---
HPI - Epistaxis General: Chief complaint: Epistaxis Stated complaint: Nose Will not stop Bleeding Time Seen by Provider: 05/05/24 01:31 History of Present Illness: Patient notes to the ER with complaints of left-sided epistaxis started about 1 hour ago. Patient had 1 other episode today but got it controlled. Patient does take anticoagulants. Patient said this started randomly with no trauma. Patient's family did start humidifying her O2 and this helped. By the time patient got here to get it stopped. Will watch patient for 30 minutes. And then discharge as needed. Related Data Home Medications Medication Instructions Recorded Confirmed amlodipine 10 mg tablet 10 mg PO QAM 08/05/21 04/23/24 ascorbic acid (vitamin C) 1,000 mg 1,000 mg PO DAILY 08/05/21 04/23/24 tablet (Vitamin C) atorvastatin 20 mg tablet 20 mg PO QPM 08/05/21 04/23/24 fluoxetine 20 mg capsule 20 mg PO QPM 08/05/21 04/23/24 garlic 1,000 mg capsule 1,000 mg PO DAILY 08/05/21 04/23/24 losartan 25 mg tablet 25 mg PO DAILY 06/15/23 04/23/24 aspirin 81 mg tablet,delayed 81 mg PO DAILY 08/10/23 04/23/24 release meclizine 25 mg tablet 25 mg PO BID 08/14/23 04/23/24 multivitamin with minerals-folic 1 tab PO DAILY 08/14/23 04/23/24 acid 80 mcg chewable tablet (Centrum Adult 50 Plus) vitamin E 268 mg (400 unit) capsule 268 mg PO DAILY 08/14/23 04/23/24 Previous Rx's Medication Instructions Recorded insulin aspart U-100 100 unit/mL See Rx Instructions .Route 08/16/23 (3 mL) subcutaneous pen (Novolog .COMPLEX #15 mL FlexPen U-100 Insulin aspart) clopidogrel 75 mg tablet 75 mg PO DAILY #14 tabs 11/21/23 furosemide 20 mg tablet (Lasix) 20 mg PO DAILY #30 tabs 04/12/24 Allergies Allergy/AdvReac Type Severity Reaction Status Date / Time adhesive tape Allergy ALGY-Bliste Verified 04/23/24 08:04 r Review of Systems General: Reports: 10 or more systems reviewed and unremarkable except in HPI and below PFSH ED PFSH: Medical History Acute exacerbation of chronic obstructive airways disease Community acquired pneumonia Acute respiratory failure with hypoxia Diabetes COPD (chronic obstructive pulmonary disease) Tracheobronchomalacia CT chest 08/07 INGA positive Atherosclerotic cerebrovascular disease Cerebellar stroke CKD (chronic kidney disease) Baseline creatinine 1.2-1.4 Osteoarthritis of left hip Hypertension Surgical History History of cholecystectomy H/O: hysterectomy Family History Other Acute respiratory failure with hypoxia Social History Smoking and tobacco/nicotine status: never used tobacco/nicotine Alcohol intake: never Substance/Drug Use: never Physical Exam Const: COMMON NORMALS: no acute distress, average body habitus, patient oriented x3, no limitations, healthy appearing, alert and well nourished HENMT: COMMON NORMALS: normocephalic, hearing grossly normal bilaterally, external ears normal, Normal external nose present, moist oral mucous membranes and oropharynx normal; nasal mucous membranes&turbinates abnorm (Fresh blood clot noted in left naris) HEAD & SCALP: normocephalic NOSE: Normal external nose present; nasal mucous membranes&turbinates abnorm (Fresh blood clot noted in left naris) EXTERNAL EAR: Yes external ears normal Neck/C-Spine: COMMON NORMALS: full ROM, no lymphadenopathy, supple, no meningeal signs, no JVD and Thyroid normal THYROID: Thyroid normal Chest: COMMONS NORMALS: normal inspection of the chest and normal palpation of entire chest wall Resp: COMMON NORMALS: normal respiratory effort, No retractions, No use of accessory muscles and clear to auscultation bilaterally AUSCULTATION: clear to auscultation bilaterally Cardio: COMMON NORMALS: no JVD, regular rate, regular rhythm, S1 normal heart sound present, S2 normal heart sound present, No gallops present (Cardio), No clicks present (Cardio), No murmurs present (Cardio) and No rub (Cardio) RATE: regular rate RHYTHM: regular rhythm HEART SOUNDS: S1 normal heart sound present and S2 normal heart sound present GI: COMMON NORMALS: Normal to inspection, nondistended, normoactive bowel sounds present, Soft to palpation, non-tender, No hepatosplenomegaly present and no masses PALPATION: Yes Soft to palpation and Yes No hepatosplenomegaly present Neuro: COMMON NORMALS: patient oriented x3 SENSORIUM/ORIENTATION: Yes alert MENINGEAL SIGNS: Yes no meningeal signs Course Vital Signs: Vital signs: Vital Signs Temperature 97.0 F L 05/05/24 01:16 Pulse Rate 90 05/05/24 01:16 Respiratory Rate 18 05/05/24 01:16 Blood Pressure 151/59 05/05/24 01:16 Pulse Oximetry 90 05/05/24 01:16 Oxygen Delivery Me thod Room Air 05/05/24 01:16 MDM - Epistaxis Medical Decision Making Patient presented with left-sided nosebleed by the time she got back to room nosebleeding and stopped. We watched her for 30 minutes and did not restart so we discharged her home. Differential Diagnosis Likely anterior epistaxis Medical Records I reviewed the patient's medical records. Lab Data I reviewed the patient's lab results. No radiology studies performed this visit Discharge Plan Discharge Patient Disposition: Home Clinical Impression: Acute anterior epistaxis Condition: Stable Prescriptions: No Action clopidogrel 75 mg tablet 75 mg PO DAILY Qty: 14 0RF atorvastatin 20 mg tablet 20 mg PO QPM amlodipine 10 mg tablet 10 mg PO QAM fluoxetine 20 mg capsule 20 mg PO QPM ascorbic acid (vitamin C) [Vitamin C] 1,000 mg Tablet 1,000 mg PO DAILY garlic 1,000 mg Capsule 1,000 mg PO DAILY losartan 25 mg Tablet 25 mg PO DAILY Hold Instructions: Resume on 06/23/23. meclizine 25 mg Tablet 25 mg PO BID vitamin E 268 mg (400 unit) Capsule 268 mg PO DAILY Centrum Adult 50 Plus 80 mcg Tablet,Chewable 1 tab PO DAILY insulin aspart U-100 [Novolog FlexPen U-100 Insulin] 100 unit/mL (3 mL) insulin pen See Rx Instructions .ROUTE .COMPLEX Qty: 15 0RF Rx Instructions: 141-180 2u,181-220 4u, 221-260 6u, 261-300 8u, 301-350 10u, 351-400 12u, >400 14u aspirin 81 mg Tablet,Delayed Release (Dr/Ec) 81 mg PO DAILY Lasix 20 mg tablet 20 mg PO DAILY Qty: 30 0RF Discharge Orders: Discharge ED (Routine); Ordered 05/05/24 Ordered By: Vimal Reis Referrals: Lefty Hodge DO [Primary Care Provider] - 1 week Patient Instructions: Epistaxis - Adult Activity Restrictions/Additional Instructions: Please continue to humidify your oxygen as this will help with future nosebleeds, if your nose starts rebleeding again please use Afrin 2 squirts in the affected nostril and then squeeze for 5 minutes. If this does not control the bleeding please feel free to return to the ER. Coding Level of Care Code ED Field Technical Support Consultant for Minerva Ocampo
[2024-05-05 02:30] VITALS: BP 159/83; PULSE 79; RESP 16; O2SAT 92
[2024-05-05 02:33] VITALS: BP 159/83; PULSE 78; RESP 18; O2SAT 92
== END 2024-05-05 02:42 | disposition home or self-care (01) ==
PROVIDERS: Emergency Provider Emergency Medicine; PCP Internal Medicine
DX: R04.0 Epistaxis (principal)
CPT/HCPCS: 99281

== ENCOUNTER → 2024-05-18 12:57 | Outpatient (BNVA) | payer MEDICARE, MEDICAID, SELFPAY | PROVIDERS: PCP Internal Medicine; Visit Provider Psychiatry & Neurology Neurology | DX: I63.9 Cerebral infarction, unspecified (principal); I67.2 Cerebral atherosclerosis; Z79.01 Long term (current) use of anticoagulants; Z79.02 Long term (current) use of antithrombotics/antiplatelets; H54.8 Legal blindness, as defined in USA; R04.0 Epistaxis | CPT/HCPCS: 99212; 99213 ==

== ENCOUNTER 2024-05-20 07:33 | Observation (INO) | payer MEDICARE, MEDICAID, SELFPAY ==
[2024-05-20] VITALS (31 sets, daily range): BP systolic 155–171; BP diastolic 46–72; PULSE 74–101; RESP 14–27; TEMP 36.8–36.9; O2SAT 80–99; BMI 34.2
--- NOTE | 2024-05-20 07:44 | ECG_ITS ---
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 Measurements Intervals Webb Rate: 82 P: 35 AL: 136 QRS: -1 QRSD: 116 T: 56 QT: 394 QTc: 461 Interpretive Statements SINUS RHYTHM PROBABLE SEPTAL MYOCARDIAL INFARCTION , PROBABLY OLD [35 ms Q WAVE IN V1/V2] POSSIBLE INFERIOR MYOCARDIAL INFARCTION , OF INDETERMINATE AGE [30 ms Q WAVE IN II/aVF] Compared to ECG 04/09/2024 11:01:57 Ventricular premature complex(es) no longer present Myocardial infarct finding still present Electronically Signed On 05-21-2024 21:32:16 MANAGER DISCOVERY by Keith Mckeon M.D. [email or web address]
--- NOTE | 2024-05-20 07:45 | ED_ITS ---
HPI - SOB/Dyspnea 2 General: Chief Complaint: Shortness of Breath/Dyspnea Stated Complaint: diffcult breathing Time Seen by Provider: 05/20/24 07:35 Source: patient Mode of arrival: ambulatory Limitations: no limitations History of Present Illness: HPI Narrative: 73-year-old female history of congestive heart failure wears 2 L of oxygen all the time at home states she woke up this morning having increasing shortness of breath patient was in the 70s here on her 2 L had increase her oxygen here states she has had a cough as well she had history of pneumonia the past she denies any chest pain denies any vomiting or diarrhea. Associated symptoms: Deny abdominal pain, chest pain, fever(s), nausea or vomiting Related Data Home Medications Medication Instructions Recorded Confirmed amlodipine 10 mg tablet 10 mg PO QAM 08/05/21 05/20/24 ascorbic acid (vitamin C) 1,000 mg 1,000 mg PO DAILY 08/05/21 05/20/24 tablet (Vitamin C) atorvastatin 20 mg tablet 20 mg PO QPM 08/05/21 05/20/24 fluoxetine 20 mg capsule 20 mg PO QPM 08/05/21 05/20/24 aspirin 81 mg tablet,delayed 81 mg PO DAILY 08/10/23 05/20/24 release multivitamin with minerals-folic 1 tab PO DAILY 08/14/23 05/20/24 acid 80 mcg chewable tablet (Centrum Adult 50 Plus) vitamin E 268 mg (400 unit) capsule 268 mg PO DAILY 08/14/23 05/20/24 insulin glargine 100 unit/mL (3 30 unit SUBCUT QAM 05/20/24 05/20/24 mL) subcutaneous pen (Lantus Solostar U-100 Insulin) Previous Rx's Medication Instructions Recorded insulin aspart U-100 100 unit/mL See Rx Instructions .Route 08/16/23 (3 mL) subcutaneous pen (Novolog .COMPLEX #15 mL FlexPen U-100 Insulin aspart) clopidogrel 75 mg tablet 75 mg PO DAILY #30 tabs 05/18/24 Allergies Allergy/AdvReac Type Severity Reaction Status Date / Time adhesive tape Allergy ALGY-Bliste Verified 05/18/24 15:03 r Review of Systems 2 Const: Denies: fever(s), chills, body aches or change in appetite ENMT: Denies: throat pain or dental pain Card: Denies: chest pain Resp: Reports: dyspnea GI: Denies: abdominal pain, nausea, vomiting or diarrhea Musc: Denies: neck pain or back pain Skin/Breast: Denies: rash Neuro: Denies: headache(s) PFSH ED 2 PFSH: Medical History (Updated 05/18/24 @ 15:28 by Geronimo May MD) RNOAL (obstructive sleep apnea) Atherosclerotic cerebrovascular disease Acute exacerbation of chronic obstructive airways disease Community acquired pneumonia Acute respiratory failure with hypoxia Diabetes COPD (chronic obstructive pulmonary disease) Tracheobronchomalacia CT chest 08/07 INGA positive Cerebellar stroke CKD (chronic kidney disease) Baseline creatinine 1.2-1.4 Osteoarthritis of left hip Hypertension Surgical History History of cholecystectomy H/O: hysterectomy Family History Other Acute respiratory failure with hypoxia Social History Smoking and tobacco/nicotine status: never used tobacco/nicotine Alcohol intake: never Substance/Drug Use: never Physical Exam 2 Const: COMMON NORMALS: patient oriented x3 HENMT: COMMON NORMALS: normocephalic and atraumatic HEAD & SCALP: n ormocephalic and atraumatic Eye: COMMON NORMALS: conjunctivae normal CONJUNCTIVA: Yes conjunctivae normal Neck/C-Spine: COMMON NORMALS: full ROM and supple Chest: COMMONS NORMALS: normal inspection of the chest Resp: COMMON NORMALS: No retractions and No use of accessory muscles EFFORT & INSPECTION: Yes respiratory distress Cardio: COMMON NORMALS: regular rate, regular rhythm and No murmurs present (Cardio) RATE: regular rate RHYTHM: regular rhythm GI: COMMON NORMALS: Normal to inspection, nondistended, normoactive bowel sounds present, Soft to palpation, non-tender and no masses PALPATION: Yes Soft to palpation Extremity: COMMON NORMALS: normal to inspection and full ROM Neuro: COMMON NORMALS: patient oriented x3, moves all extremities and no focal motor deficits Psych: COMMON NORMALS: mental status grossly normal, Normal thought process present and cooperative THOUGHT PROCESS: Normal thought process present Skin: COMMON NORMALS: no rashes or lesions noted and no wounds GENERAL SKIN EXAM: no rashes or lesions noted Course 2 Vital Signs: Vital signs: Vital Signs Temperature 98.2 F 05/20/24 07:42 Pulse Rate 85 05/20/24 09:45 Respiratory Rate 22 H 05/20/24 08:07 Blood Pressure 171/46 05/20/24 09:45 Pulse Oximetry 99 05/20/24 09:45 Oxygen Delivery Me thod BiPAP 05/20/24 09:45 Oxygen Flow Rate 4 05/20/24 09:01 Fraction of Inspir ed Oxygen 30 05/20/24 09:04 MDM - SOB/Dyspnea Medical Decision Making Patient presents here with shortness of breath she has been hypoxic here she is currently on BiPAP tolerating BiPAP well CT shows CHF exacerbation with effusions no signs of pneumonia or PE I spoke to hospitalist will admit to the cardiac stepdown unit. Medical Records I reviewed the patient's medical records. Lab Data I reviewed the patient's lab results. 05/20/24 08:00 05/20/24 08:00 Labs/Radiology: Radiology Impressions Chest X-Ray 05/20/24 07:45 IMPRESSION: Findings of congestive heart failure. These abnormalities have developed since previous examination of 04/09/2024. Chest CTA 05/20/24 09:20 IMPRESSION: 1. No evidence of pulmonary embolus. 2. Small RIGHT greater than LEFT pleural effusions with bibasilar atelectasis. 3. Mosaic perfusion to both lungs compatible with air trapping likely due to small airways disease. This is similar to the prior examinations. 4. Superimposed groundglass opacities unchanged since 08/10/2023 which can be seen with pulmonary edema or viral etiologies Laboratory Results WBC 9.61 10^3/uL (3.29-11.43) 05/20/24 08:00 RBC 4.02 10^6/uL (3.85-5.65) 05/20/24 08:00 Hgb 11.90 g/dL (11.27-16.99) 05/20/24 08:00 Hct 38.2 % (36-47) 05/20/24 08:00 MCV 95.0 fl (85-98) 05/20/24 08:00 MCH 29.6 pg (27-33) 05/20/24 08:00 MCHC 31.2 g/dL (30-55) 05/20/24 08:00 RDW 14.6 % (12.1-15.1) 05/20/24 08:00 Plt Count 256 10^3/cmm (157-399) 05/20/24 08:00 MPV 10.7 fL (7.4-10.4) H 05/20/24 08:00 Neut % (Auto) 76.7 % 05/20/24 08:00 Lymph % (Auto) 11.7 % 05/20/24 08:00 Isabela % (Auto) 8.3 % 05/20/24 08:00 Eos % (Auto) 2.2 % 05/20/24 08:00 Baso % (Auto) 0.6 % 05/20/24 08:00 Neut # (Auto) 7.37 10^3/uL (1.8-7.7) 05/20/24 08:00 Lymph # (Auto) 1.1 10^3/uL (0.8-4.8) 05/20/24 08:00 Isabela # (Auto) 0.8 10^3/uL (0.2-0.9) 05/20/24 08:00 Eos # (Auto) 0.2 10^3/uL (0.0-0.8) 05/20/24 08:00 Baso # (Auto) 0.1 10^3/uL (0.0-0.1) 05/20/24 08:00 Nucleated RBC % (auto) 0 % 05/20/24 08:00 Nucleated RBCs # 0.0 /100WBC 05/20/24 08:00 D-Dimer 0.81 ug/mLFEU (0-0.59) H 05/20/24 08:00 Specimen Type Arterial 05/20/24 08:06 Sample Site Brachial, left 05/20/24 08:06 ABG pH 7.41 (7.35-7.45) 05/20/24 08:06 ABG pCO2 37.8 mmHg (35-45) 05/20/24 08:06 ABG pO2 50.1 mmHg (80.0-100.0) L 05/20/24 08:06 ABG PO2/FiO2 Ratio 139 05/20/24 08:06 ABG HCO3 24.0 mmol/L (22-26) 05/20/24 08:06 ABG Base Excess -0.5 mmol/L (-2.0-2.0) 05/20/24 08:06 Will Test Pos 05/20/24 08:06 Hematocrit 36.8 % (37-47) L 05/20/24 08:06 Hgb O2 Saturation 84.3 % (95-100) L 05/20/24 08:06 Carboxyhemoglobin 1.6 %THgb (0.4-20.1) 05/20/24 08:06 Methemoglobin 0.4 % (0.4-1.5) 05/20/24 08:06 Total Hemoglobin 12.0 g/dL (12-16) 05/20/24 08:06 O2 Delivery Device Nc 05/20/24 08:06 O2 Liters/Min 4.0 % 05/20/24 08:06 FiO2 36.0 % 05/20/24 08:06 Patternmaker Helper ID Cak 05/20/24 08:06 Sodium 137 mmol/L (136-145) 05/20/24 08:00 Potassium 4.0 mmol/L (3.5-5.1) 05/20/24 08:00 Chloride 101 mmol/L (98-107) 05/20/24 08:00 Carbon Dioxide 25 mmol/L (22-29) 05/20/24 08:00 Anion Gap 15.0 (5-19) 05/20/24 08:00 BUN 17 mg/dL (8-23) 05/20/24 08:00 Creatinine 1.1 mg/dL (0.5-0.9) H 05/20/24 08:00 GFR Calculation Not Reportable 05/20/24 08:00 Glucose 225 mg/dL (65-115) H 05/20/24 08:00 Calculated Osmolality 293 mOsm/kg (285-295) 05/20/24 08:00 Calcium 9.3 mg/dL (8.5-10.5) 05/20/24 08:00 Total Bilirubin 1.5 mg/dL (0.15-1.2) H 05/20/24 08:00 AST 16 U/L (0-32) 05/20/24 08:00 ALT 14 U/L (0-33) 05/20/24 08:00 Alkaline Phosphatase 88 U/L (35-105) 05/20/24 08:00 NT-Pro-B Natriuret Pep 4318 pg/mL (0-125) H 05/20/24 08:00 Total Protein 6.6 g/dL (6.6-8.7) 05/20/24 08:00 Albumin 3.8 g/dL (3.5-5.2) 05/20/24 08:00 Globulin 2.8 g/dL (1.3-4.6) 05/20/24 08:00 Coronavirus (PCR) Negative (Negative) 05/20/24 07:54 Influenza A (PCR) Negative (Negative) 05/20/24 07:54 Influenza Type B (PCR) Negative (Negative) 05/20/24 07:54 RSV (PCR) Negative (Negative) 05/20/24 07:54 All radiology interpretation(s) finalized by discharge EKG Data EKG 1: I personally reviewed and interpreted this EKG as follows: EKG Interpretation Date: 05/20/24 EKG interpretation time: 08:03 Interpretation: ns rh [address] elevation qrs 116 qtc 432 Discharge Plan Discharge Admit Provider: Rich Benedict Condition: Stable Prescriptions: No Action clopidogrel 75 mg tablet 75 mg PO DAILY Qty: 30 5RF atorvastatin 20 mg tablet 20 mg PO QPM amlodipine 10 mg tablet 10 mg PO QAM fluoxetine 20 mg capsule 20 mg PO QPM ascorbic acid (vitamin C) [Vitamin C] 1,000 mg Tablet 1,000 mg PO DAILY vitamin E 268 mg (400 unit) Capsule 268 mg PO DAILY Centrum Adult 50 Plus 80 mcg Tablet,Chewable 1 tab PO DAILY insulin aspart U-100 [Novolog FlexPen U-100 Insulin] 100 unit/mL (3 mL) insulin pen See Rx Instructions .ROUTE .COMPLEX Qty: 15 0RF Rx Instructions: Take per sliding scale as needed. BS 141-180 2u,181-220 4u, 221-260 6u, 261- 300 8u, 301-350 10u, 351-400 12u, >400 14u insulin glargine [Lantus Solostar U-100 Insulin] 100 unit/mL (3 mL) insulin pen 30 unit SUBCUT QAM aspirin 81 mg Tablet,Delayed Release (Dr/Ec) 81 mg PO DAILY Hold Instructions: Doctor's Order Coding Level of Care Code ED Liquor Department Manager for [facility]
--- NOTE | 2024-05-20 07:45 | XR_ITS ---
WS: [id number] XR chest 1V portable [id number] REASON FOR EXAM: sob FINDINGS: Moderate tortuosity of the thoracic aorta. Mild cardiomegaly. Central pulmonary vascular congestion. Reticular and linear interstitial lung opacities including CAMI B lines. Opacification of the left lower hemithorax which may be lung consolidation and or pleural effusion. XR/XR chest 1V portable [id number] IMPRESSION: Findings of congestive heart failure. These abnormalities have developed since previous examination of 04/09/2024.
[2024-05-20] MEDS: ipratropium-albuterol 3 mL Neb INHALATION (08:02)
[2024-05-20 08:17] LABS: ABG PCO2 37.8 mmHg (35-45); ABG PH Result 7.41 (7.35-7.45); Arterial Blood Gas Hematocrit 36.8 % (37-47); Base Excess ABG -0.5 mmol/L (-2.0-2.0); Blood Gas Allen Test Pos; Blood Gas Operator Identificat CAK; Blood Gas Sample Site Brachial, left; Blood Gas Sample Type Arterial; Carboxyhemoglobin 1.6 %THgb (0.4-20.1); HGB O2 Sat 84.3 % (95-100); Methemoglobin 0.4 % (0.4-1.5); Oxygen Device NC; PO2 ABG 50.1 mmHg (80.0-100.0); PO2 FiO2 Ratio Arterial Blood 139
[2024-05-20] MEDS: FUROsemide 10 mg/mL SDV 10mL 60 MG IVP (08:23)
[2024-05-20 08:35] LABS: Basophils # 0.1 10^3/uL (0.0-0.1); Basophils % 0.6 %; Eosinophils # 0.2 10^3/uL (0.0-0.8); Eosinophils % 2.2 %; Hematocrit 38.2 % (36-47); Lymphocytes # 1.1 10^3/uL (0.8-4.8); Lymphocytes % 11.7 %; Mean Corpuscular HGB Conc 31.2 g/dL (30-55); Mean Corpuscular Hemoglobin 29.6 pg (27-33); Mean Platelet Volume 10.7 fL (7.4-10.4); Monocytes # 0.8 10^3/uL (0.2-0.9); Monocytes % 8.3 %; Neutrophils # 7.37 10^3/uL (1.8-7.7); Neutrophils % 76.7 %; Nucleated Red Blood Cells % 0 %; Platelet Count 256 10^3/cmm (157-399); Red Blood Count 4.02 10^6/uL (3.85-5.65); Red Cell Distribution Width 14.6 % (12.1-15.1); White Blood Count 9.61 10^3/uL (3.29-11.43)
[2024-05-20 09:06] LABS: Alanine Aminotransferase 14 U/L (0-33); Albumin Level 3.8 g/dL (3.5-5.2); Alkaline Phosphatase 88 U/L (35-105); Aspartate Amino Transferase 16 U/L (0-32); Blood Urea Nitrogen 17 mg/dL (8-23); Calcium 9.3 mg/dL (8.5-10.5); Carbon Dioxide 25 mmol/L (22-29); Chloride 101 mmol/L (98-107); Creatinine Clr Calc Pharmacy 50.7974; Globulin 2.8 g/dL (1.3-4.6); Glucose 225 mg/dL (65-115); NT Pro B Type Natriuretic Pept 4318 pg/mL (0-125); Osmolality Calculated 293 mOsm/kg (285-295); Sodium 137 mmol/L (136-145); Total Bilirubin 1.5 mg/dL (0.15-1.2); Total Protein 6.6 g/dL (6.6-8.7)
[2024-05-20 09:18] LABS: D Dimer 0.81 ug/mLFEU (0-0.59)
--- NOTE | 2024-05-20 09:20 | CT_ITS ---
WS: [id number] CTA OF THE CHEST WITH PULMONARY EMBOLISM PROTOCOL TECHNIQUE: High-resolution contrast enhanced CTA of the chest with coronal and sagittal reformatted i mages with pulmonary embolism protocol. MIP images are also reviewed. CLINICAL INFORMATION: sob COMPARISON: 08/10/2023 DLP: 382.[address] scans at [facility] use at least one of these dose optimization techniques: automated e xposure control; mA and/or kV adjustment per patient size (includes targeted exams where dose is matc hed to clinical indication); or iterative reconstruction. FINDINGS: Proximal main pulmonary arteries are normal. No evidence of pulmonary embolus. Cardiomegaly. Enlarged anterior mediastinal lymph nodes are unchanged likely reactive. Normal caliber thoracic aorta. Aorti c calcification. Coronary calcification. No axillary lymphadenopathy. Air trapping in the lung parenchyma likely due to small airways disease unchanged from the prior stud ies. Superimposed groundglass opacities are unchanged since 08/10/2023 Tiny esophageal hiatal hernia. Small amount of pneumobilia unchanged. Small pericardial effusion. CT/CT angio chest PE protcl [id number] IMPRESSION: 1. No evidence of pulmonary embolus. 2. Small RIGHT greater than LEFT pleural effusions with bibasilar atelectasis. 3. Mosaic perfusion to both lungs compatible with air trapping likely due to s mall airways disease. This is similar to the prior examinations. 4. Superimposed groundglass opacities unchanged since 08/10/2023 which can be s een with pulmonary edema or viral etiologies
[2024-05-20 09:23] LABS: Covid PCR NEGATIVE (Negative); Influenza A NEGATIVE (Negative); Influenza B NEGATIVE (Negative); Respiratory Syncytial Virus Ce NEGATIVE (Negative)
[2024-05-20] MEDS: iohexol 350 mg/mL 500 mL Btl (per mL) IV (10:21)
[2024-05-20] MEDS: enoxaparin 40 mg/0.4 mL Syringe SUBCUT (12:00)
--- NOTE | 2024-05-20 12:06 | P.HP_ITS ---
Documented by User: Camacho Yanez 05/20/24 12:54 Providers/Chief Complaint 2 Admitting Physician: Rich Benedict MD Primary Care Provider: Lefty Hodge DO Chief Complaint: diffcult breathing History of Present Illness Gianna Mora is a 73 year old female who presented to the ED with shortness of breath. Relevant PMHx includes CHF, COPD, RONAL, tracheobronchomalacia, and CKD. History was obtained from patient and her daughter. Patient began having some mild SOB last night but became much more severe this morning. Patient is prescribed Lasix but ran out about a week ago. Denies chest pain, fever, and vomiting. Review of Systems 2 Const: Denies: fever(s) Card: Reports: other (Swelling of Right lower extremity); Denies: chest pain Resp: Reports: dyspnea and wheezing GI: Denies: abdominal pain or vomiting Musc: Reports: extremity swelling (Right lower extremity swollen and tender) Medications/Allergies Home Medications Medication Instructions Recorded Confirmed Last Taken Type amlodipine 10 mg tablet 10 mg PO QAM 08/05/21 05/20/24 05/19/24 History ascorbic acid (vitamin C) 1,000 mg 1,000 mg PO DAILY 08/05/21 05/20/24 05/19/24 History tablet (Vitamin C) atorvastatin 20 mg tablet 20 mg PO QPM 08/05/21 05/20/24 05/19/24 History fluoxetine 20 mg capsule 20 mg PO QPM 08/05/21 05/20/24 05/19/24 History aspirin 81 mg tablet,delayed 81 mg PO DAILY 08/10/23 05/20/24 05/19/24 History release multivitamin with minerals-folic 1 tab PO DAILY 08/14/23 05/20/24 05/19/24 History acid 80 mcg chewable tablet (Centrum Adult 50 Plus) vitamin E 268 mg (400 unit) capsule 268 mg PO DAILY 08/14/23 05/20/24 05/19/24 History insulin aspart U-100 100 unit/mL See Rx Instructions .Route 08/16/23 05/20/24 04/08/24 Rx (3 mL) subcutaneous pen (Novolog .COMPLEX #15 mL FlexPen U-100 Insulin aspart) clopidogrel 75 mg tablet 75 mg PO DAILY #30 tabs 05/18/24 05/20/24 05/19/24 Rx insulin glargine 100 unit/mL (3 30 unit SUBCUT QAM 05/20/24 05/20/24 05/19/24 History mL) subcutaneous pen (Lantus Solostar U-100 Insulin) Allergies Allergy/AdvReac Type Severity Reaction Status Date / Time adhesive tape Allergy Wallace Verified 05/18/24 15:03 r PFSH Acute 2 PFSH: Medical History (Updated 05/20/24 @ 13:02 by Rich Benedict MD) Congestive heart failure Mixed diastolic and systolic RONAL (obstructive sleep apnea) Atherosclerotic cerebrovascular disease Acute exacerbation of chronic obstructive airways disease Community acquired pneumonia Acute respiratory failure with hypoxia Diabetes COPD (chronic obstructive pulmonary disease) Tracheobronchomalacia CT chest 08/07 INGA positive Cerebellar stroke CKD (chronic kidney disease) Baseline creatinine 1.2-1.4 Osteoarthritis of left hip Hypertension Surgical History History of cholecystectomy H/O: hysterectomy Family History Other Acute respiratory failure with hypoxia Social History Smoking and tobacco/nicotine status: never used tobacco/nicotine Alcohol intake: never Substance/Drug Use: never Vitals/I&O/Wt Last Vital Signs Temp 98.2 F 05/20/24 07:42 Pulse 85 05/20/24 09:45 Resp 22 H 05/20/24 08:07 BP 171/46 05/20/24 09:45 Pulse Ox 99 05/20/24 09:45 O2 Del Method BiPAP 05/20/24 09:45 O2 Flow Rate 4 05/20/24 09:01 FiO2 30 05/20/24 09:04 Weight last 48 hrs Weight 220 lb Physical Exam 2 Const: COMMON NORMALS: alert GENERAL APPEARANCE: cooperative and in distress (Increased work of breathing) HENMT: COMMON NORMALS: normocephalic, atraumatic and hearing grossly normal bilaterally Resp: EFFORT & INSPECTION: Yes tachypneic and Yes respiratory distress A USCULTATION: crackles and wheezes Cardio: COMMON NORMALS: regular rate and regular rhythm GI: COMMON NORMALS: Normal to inspection, nondistended, normoactive bowel sounds present and non-tender Extremity: RIGHT LOWER EXTREMITY: Yes lower leg (Swelling and tenderness) Psych: COMMON NORMALS: mental status grossly normal APPEARANCE: Yes grossly normal Data 05/20/24 08:00 05/20/24 08:00 CXR: My impression: Cardiomegaly. Pulmonary vascular congestion. Possible pleural effusion. Hardware in left humerus, likely from previous ORIF. Radiologist's impression: FINDINGS: Moderate tortuosity of the thoracic aorta. Mild cardiomegaly. Central pulmonary vascular congestion. Reticular and linear interstitial lung opacities including CAMI B lines. Opacification of the left lower hemithorax which may be lung consolidation and or pleural effusion. IMPRESSION: Findings of congestive heart failure. These abnormalities have developed since previous examination of 04/09/2024. CT Chest: My impression: Cardiomegaly. Aortic calcifications. Bilateral pleural effusions. Diffuse bilateral opacities consistent with pulmonary edema. Radiologist's impression: FINDINGS: Proximal main pulmonary arteries are normal. No evidence of pulmonary embolus. Cardiomegaly. Enlarged anterior mediastinal lymph nodes are unchanged likely reactive. Normal caliber thoracic aorta. Aortic calcification. Coronary calcification. No axillary lymphadenopathy. Air trapping in the lung parenchyma likely due to small airways disease unchanged from the prior studies. Superimposed groundglass opacities are unchanged since 08/10/2023 Tiny esophageal hiatal hernia. Small amount of pneumobilia unchanged. Small pericardial effusion. IMPRESSION: 1. No evidence of pulmonary embolus. 2. Small RIGHT greater than LEFT pleural effusions with bibasilar atelectasis. 3. Mosaic perfusion to both lungs compatible with air trapping likely due to small airways disease. This is similar to the prior examinations. 4. Superimposed groundglass opacities unchanged since 08/10/2023 which can be seen with pulmonary edema or viral etiologies A&P Assessment and plan (1) Congestive heart failure: Qualifiers: Heart failure chronicity: acute on chronic Heart failure type: systolic Qualified Code(s): I50.23 - Acute on chronic systolic (congestive) heart failure (2) Elevated d-dimer: (3) CKD (chronic kidney disease): (4) CVA (cerebral vascular accident): (5) Diabetes: Plan - Shortness of breath, likely secondary to CHF - Patient has been off her regular Lasix for past week. Has remained afebrile. Denies chest pain. - CXR suggests pulmonary vascular congestion, pleural effusion, and pulmonary edema. No evidence of pneumothorax. - CT chest findings also consistent. No evidence of pulmonary embolism. - CBC shows normal Hgb and Hct, and no leukocytosis. Coding Level of Care Code 95640 Diagnoses Acute on chronic systolic congestive heart failure I50.23 Heart failure chronicity: acute on chronic Heart failure type: systolic Elevated d-dimer R79.89 CKD (chronic kidney disease) N18.9 CVA (cerebral vascular accident) I63.9 Diabetes E11.9 Time Spent (min) 54 Documented by User: Rich Benedict MD 05/20/24 13:10 Providers/Chief Complaint 2 Chief Complaint: diffcult breathing History of Present Illness Gianna Mora is a 73 year old female who presented to the ED with shortness of breath. Relevant PMHx includes CHF, COPD, RONAL, tracheobronchomalacia, and CKD. History was obtained from patient and her daughter. Patient began having some mild SOB last night but became much more severe this morning. Patient is prescribed Lasix but ran out about a week ago. Denies chest pain, fever, and vomiting. Does feel like her right leg, is more swollen than usual. Feels like the left leg is about the same. Does have some pain in the right leg as well. No significant cough. When arrived to the emergency department was on a nonrebreather. Was switched over to BiPAP, given IV Lasix, and given a breathing treatment with some improvement. Medications/Allergies Home Medications Medication Instructions Recorded Confirmed Last Taken Type amlodipine 10 mg tablet 10 mg PO QAM 08/05/21 05/20/24 05/19/24 History ascorbic acid (vitamin C) 1,000 mg 1,000 mg PO DAILY 08/05/21 05/20/24 05/19/24 History tablet (Vitamin C) atorvastatin 20 mg tablet 20 mg PO QPM 08/05/21 05/20/24 05/19/24 History fluoxetine 20 mg capsule 20 mg PO QPM 08/05/21 05/20/24 05/19/24 History aspirin 81 mg tablet,delayed 81 mg PO DAILY 08/10/23 05/20/24 05/19/24 History release multivitamin with minerals-folic 1 tab PO DAILY 08/14/23 05/20/24 05/19/24 History acid 80 mcg chewable tablet (Centrum Adult 50 Plus) vitamin E 268 mg (400 unit) capsule 268 mg PO DAILY 08/14/23 05/20/24 05/19/24 History insulin aspart U-100 100 unit/mL See Rx Instructions .Route 08/16/23 05/20/24 04/08/24 Rx (3 mL) subcutaneous pen (Novolog .COMPLEX #15 mL FlexPen U-100 Insulin aspart) clopidogrel 75 mg tablet 75 mg PO DAILY #30 tabs 05/18/24 05/20/24 05/19/24 Rx insulin glargine 100 unit/mL (3 30 unit SUBCUT QAM 05/20/24 05/20/24 05/19/24 History mL) subcutaneous pen (Lantus Solostar U-100 Insulin) Allergies Allergy/AdvReac Type Severity Reaction Status Date / Time adhesive tape Allergy ALGY-Bliste Verified 05/18/24 15:03 r PFSH Acute 2 PFSH: Medical History (Updated 05/20/24 @ 13:02 by Rich Benedict MD) Congestive heart failure Mixed diastolic and systolic RONAL (obstructive sleep apnea) Atherosclerotic cerebrovascular disease Acute exacerbation of chronic obstructive airways disease Community acquired pneumonia Acute respiratory failure with hypoxia Diabetes COPD (chronic obstructive pulmonary disease) Tracheobronchomalacia CT chest 08/07 INGA positive Cerebellar stroke CKD (chronic kidney disease) Baseline creatinine 1.2-1.4 Osteoarthritis of left hip Hypertension Surgical History History of cholecystectomy H/O: hysterectomy Family History Other Acute respiratory failure with hypoxia Social History Smoking and tobacco/nicotine status: never used tobacco/nicotine Alcohol intake: never Substance/Drug Use: never Physical Exam 2 Narrative: Some respiratory distress as noted below. On BiPAP, FiO2 30% Data 05/20/24 08:00 05/20/24 08:00 Other Labs: D-dimer 0.81 ABG demonstrates pH 7.4, pCO2 38, pO2 50 on 4 L per nasal cannula LFTs are normal with exception of total bilirubin of 1.5. Calcium and albumin are normal. BNP is 4318 COVID, RSV, influenza all negative Last echocardiogram March 2024 demonstrated an EF of 45%, 3/4 diastolic dysfunction. Mild valvular abnormalities were noted on the pulmonary artery pressure was 55. EKG reviewed by me. Significant baseline artifact. Normal axis, sinus rhythm, nonspecific ST-T wave changes. Small Q waves are noted inferiorly and septally. A&P Assessment and plan (1) Congestive heart failure: Patient presents with acute systolic and diastolic heart failure, superimposed on chronic systolic and diastolic heart failure Recent echocardiogram was done and EF was around 45%. No reason for repeat echocardiogram Likely etiology of patient's representation is the fact that she ran out of Lasix over the last week IV Lasix was given in the emergency department 60 mg. Will continue 40 mg IV every 12 hours Wean oxygen as tolerated Stressed the importance of continued Lasix for treatment of her chronic heart failure No further workup is needed at this time other than treatment with Lasix, and could consider canagliflozin as an adjunct for treatment of her diastolic heart failure Will try to arrange cardiology follow-up on discharge secondary to to recent hospital stays for congestive heart failure. Change Norvasc to losartan, 50 mg daily Monitor creatinine closely. Fluid restriction 1200 cc a day Qualifiers: Heart failure chronicity: acute on chronic Heart failure type: systolic Qualified Code(s): I50.23 - Acute on chronic systolic (congestive) heart failure (2) Elevated d-dimer: Dimer is elevated CTA was done and negative Significance unknown, but secondary to elevation, constellation of right leg pain and edema we will go ahead and get a venous duplex of the right lower extremity. Note that she had bilateral venous duplex several months ago that was negative. (3) CKD (chronic kidney disease): Patient has chronic kidney disease Avoid all anti-inflammatories Monitor renal function closely Add ARB to prevent progression in this diabetic patient Check urinalysis for proteinuria. (4) CVA (cerebral vascular accident): Patient with a past history of CVA Continue Plavix and aspirin Continue statin (5) Diabetes: Patient with history of diabetes Sliding scale insulin for now Consider canagliflozin on discharge Reassess blood sugar tomorrow, possibly adding her long-acting insulin Consistent carb diet Plan Right leg pain and swelling Multiple other medical problems as outlined in past medical history Full code Lovenox will be used for DVT prophylaxis Attestations 2 Medical Necessity Statement*: Will need greater than 2 midnight stay for evaluation and treatment of acute systolic and diastolic congestive heart failure. Diagnoses Acute on chronic systolic congestive heart failure I50.23 Heart failure chronicity: acute on chronic Heart failure type: systolic Elevated d-dimer R79.89 CKD (chronic kidney disease) N18.9 CVA (cerebral vascular accident) I63.9 Diabetes E11.9 Time Spent (min) 54
--- NOTE | 2024-05-20 12:19 | USCV_ITS ---
Gianna Mora Age: 73 Gender: F : 1950 Exam Date: 05/20/2024 13:43 Ordering Phys: Rich Benedict MD Technologist: Exam [place] [facility] [place]: rt leg pain and swelling PROCEDURES: Venous duplex imaging was performed in only the right lower extremity. The following venous structures were evaluated: common femoral vein, profunda vein, proximal portion of the greater saphenous vein, superficial femoral vein, and the popliteal vein. On the right side, the common femoral, superficial femoral, profunda femoral, popliteal, posterior tibial, greater saphenous veins and the peroneal trunk were identified and interrogated in the standard fashion. These veins were found to be easily compressible with spontaneous blood flow. No evidence of insufficiency or thrombus noted. FINDINGS: Normal 2-D Doppler and augmentation and compressibility throughout the lower extremity venous structures. Additional imaging through the proximal calf veins also reveals no thrombus. Limited evaluation of the greater saphenous vein is patent with no thrombus. CONCLUSIONS No evidence of right lower extremity DVT. Shashank Kaba MD (Electronically Signed) Final Date: 20 May 2024 16:12 S
[2024-05-20 15:05] LABS: Bilirubin Urine Negative (Negative); Blood Urine Negative (Negative); Glucose Urine UA Negative (Normal); Ketones Urine Negative (Negative); Leukocyte Esterase Urine Negative (Negative); Nitrate Urine Negative (Negative); Protein Urine 1+ (Negative); Specific Gravity, Urine 1.014 (1.005-1.030); Urine Appearance Clear (CLEAR); Urine Color Yellow (Yellow); Urobilinogen Urine 0.2 mg/dL (Negative)
[2024-05-20 15:07] LABS: Bacteria Urine None Seen /hpf; Hyaline Casts Urine 0-4 /lpf; RBC Urine 0-2 /hpf (0-2); Squamous Epithelial Cell Urine 0-5 /hpf (0-5); WBC Urine 0-5 /hpf (0-5)
[2024-05-20 17:36] LABS: Glucose Point of Care 137 mg/dL (70-110)
[2024-05-20] MEDS: atorvastatin 40 mg Tablet 20 MG PO (17:57)
[2024-05-20] MEDS: fluoxetine 20 mg Capsule PO (17:57)
[2024-05-20 21:07] LABS: Glucose Point of Care 220 mg/dL (70-110)
[2024-05-20] MEDS: FUROsemide 10 mg/mL SDV 4mL 40 MG IVP (22:07)
[2024-05-20] MEDS: insulin lispro 100 unit/1 mL SUBCUT (22:08)
[2024-05-21] VITALS (7 sets, daily range): BP systolic 156–166; BP diastolic 65–86; PULSE 73–88; RESP 16–23; TEMP 36.4–36.7; O2SAT 94–97
[2024-05-21 00:52] LABS: Glucose Point of Care 41 mg/dL (70-110)
[2024-05-21 00:52] LABS: Glucose Point of Care 40 mg/dL (70-110)
--- NOTE | 2024-05-21 01:06 | PC.NURSE ---
Hypoglycemia: Patient was complaining of anxiety and just feeling unwell, patient's dexcom was alarming showing a blood glucose of 40, a fingerstick accu check was performed to confirm blood glucose of 40. Patient was given apple juice and glenn crackers, blood glucose was rechecked roughly 20 minutes later and was 75. Dr. Franklin notified.
[2024-05-21 01:07] LABS: Glucose Point of Care 75 mg/dL (70-110)
[2024-05-21 04:44] LABS: Anion Gap 14.8 (5-19); Blood Urea Nitrogen 14 mg/dL (8-23); Calcium 8.8 mg/dL (8.5-10.5); Carbon Dioxide 29 mmol/L (22-29); Chloride 100 mmol/L (98-107); Glucose 202 mg/dL (65-115); Magnesium 1.7 mg/dL (1.7-2.3); Osmolality Calculated 296 mOsm/kg (285-295); Potassium 3.8 mmol/L (3.5-5.1); Sodium 140 mmol/L (136-145)
[2024-05-21 06:44] LABS: Glucose Point of Care 236 mg/dL (70-110)
[2024-05-21] MEDS: clopidogrel 75 mg Tablet PO (08:16)
[2024-05-21] MEDS: aspirin 81 mg EC Tablet PO (08:16)
[2024-05-21] MEDS: losartan 50 mg Tablet PO (08:16)
[2024-05-21] MEDS: FUROsemide 10 mg/mL SDV 4mL 40 MG IVP (08:17)
[2024-05-21] MEDS: insulin lispro 100 unit/1 mL SUBCUT (08:17)
--- NOTE | 2024-05-21 09:46 | PC.CHAP ---
Pastoral Care Encounter/Spiritual Assessment Type of Contact [] Declined letterset press set up operator visit [] Patient/Family/Request visit [] Outpatient visit [] Follow-up visit [] Physician referral [] Code/Alert [x] Routine visit [] Staff referral [] Actively dying [] Patient sleeping [] Family support [] [] Out of room [] Palliative care [] [] Receiving care in room [] Pre-surgical visit [] Trauma [] Long length of stay [] ICU visit [] Other: Relational/Emotional Strength [x] Patient feels connected with others/family/visitors/staff [] Distress [] Loneliness/isolation [] Abandonment Spirituality of Patient [x] Person of Haley [] Attends Nondenominational of their Haley [x] Believes in Prayer [] Reads Bible or Presybeterian materials [] There are Spiritual issues to be addressed Spooler Operator Automatic Interventions [x] Prayer [x] Active listening [] Non-anxious presence [x] Spiritual/emotional support [] Crisis/trauma care [] Spiritual counseling [] Bereavement support [] Provided bereavement packet [] Provided Bible/devotional materials [] Provided toy/stuffed animal, coloring book to patient or family member [] Provided Communion [] Anointing/[place] [] Salvation [x] Completed spiritual assessment [] Other: Impact on Illness or Injury [] Angry [] Fearful [] Anxious [] Often cries [] Exhaustion [] Unable to work [] Unable to attend pentecostalism [] Unable to walk/stand [] Unable to read [] Unable to drive [] Unable to eat/drink [] Unable to sleep [] Unable to be with family [] Patient intubated [] Other: Summary Time spent with patient 5 min
--- NOTE | 2024-05-21 11:11 | P.DS_ITS ---
Discharge Providers Date of Admission: 05/20/24 11:21 Date of Discharge: May 21, 2024 Attending Provider at Admission: Rich Bendeict MD Attending Provider at Discharge: Rich Benedict MD Primary Care Provider: Lefty Hodge DO Diagnoses at Discharge Discharge Diagnosis (1) Congestive heart failure: Status: Acute Qualifiers: Heart failure type: systolic Heart failure chronicity: acute on chronic Qualified Code(s): I50.23 - Acute on chronic systolic (congestive) heart failure Permanent problem details: Mixed diastolic and systolic (2) Elevated d-dimer: Status: Acute (3) CKD (chronic kidney disease): Status: Chronic Permanent problem details: Baseline creatinine 1.2-1.4 (4) CVA (cerebral vascular accident): Status: Acute (5) Diabetes: Status: Acute Reason for Visit Reason for Visit: diffcult breathing Hospital Course Hospital Course Gianna is a 73-year-old white female who presented to hospital with significant shortness of breath. She had been out of her Lasix for at least 1 week, not realizing that she needed it refilled. She was found to have significant edema, and a chest x-ray consistent with pulmonary edema. CTA demonstrated no pulmonary embolism, did demonstrate pulmonary edema and bilateral effusions consistent with heart failure. Venous duplex demonstrated no evidence of DVT. Recent echo demonstrated EF around 45% in 3/4 diastolic dysfunction. She was given oxygen, requiring more around 4 L on admission to her baseline of 2 L. She initially required BiPAP in the ER but this was titrated off fairly quickly when going to the floor. She received IV Lasix. With this treatment by the next day she improved quicker than expected, and was able to titrate down to her 2 L of oxygen. She was able to lie flat. She did not have any significant peripheral edema. It was thought she could be discharged home on 40 mg of Lasix, with instructions to take this continually and get refills by her primary care provider. Secondary to her diastolic heart failure, Farxiga was added to her regimen. Low-dose ARB was also added. Secondary to her lower EF, low-dose beta-cheri could be considered in the future. Will also schedule her for cardiology follow-up. She should have a BMP next week. I discussed plans with patient, as well as her daughter, who agreed with the plan. Physical Exam Narrative: General Exam no distress Neck is supple Cardiovascular regular rate and rhythm Lungs clear but with diminished breath sounds at the bases Abdomen is soft nontender Extremities no cyanosis clubbing or edema Discharge Data Studies Completed and Pending Completed Studies During Hospitalization Category Date Time Status CTA chest [CT angio chest PE protcl [id number]] Stat Cat Scan 05/20/24 09:20 Completed XR chest 1V portable [id number] Stat Exams 05/20/24 07:45 [place] [id number] Routine Ultrasound 05/20/24 12:19 Completed Radiology Impressions Chest X-Ray 05/20/24 07:45 IMPRESSION: Findings of congestive heart failure. These abnormalities have developed since previous examination of 04/09/2024. Chest CTA 05/20/24 09:20 IMPRESSION: 1. No evidence of pulmonary embolus. 2. Small RIGHT greater than LEFT pleural effusions with bibasilar atelectasis. 3. Mosaic perfusion to both lungs compatible with air trapping likely due to small airways disease. This is similar to the prior examinations. 4. Superimposed groundglass opacities unchanged since 08/10/2023 which can be seen with pulmonary edema or viral etiologies Laboratory Results WBC 9.61 10^3/uL (3.29-11.43) 05/20/24 08:00 RBC 4.02 10^6/uL (3.85-5.65) 05/20/24 08:00 Hgb 11.90 g/dL (11.27-16.99) 05/20/24 08:00 Hct 38.2 % (36-47) 05/20/24 08:00 MCV 95.0 fl (85-98) 05/20/24 08:00 MCH 29.6 pg (27-33) 05/20/24 08:00 MCHC 31.2 g/dL (30-55) 05/20/24 08:00 RDW 14.6 % (12.1-15.1) 05/20/24 08:00 Plt Count 256 10^3/cmm (157-399) 05/20/24 08:00 MPV 10.7 fL (7.4-10.4) H 05/20/24 08:00 Neut % (Auto) 76.7 % 05/20/24 08:00 Lymph % (Auto) 11.7 % 05/20/24 08:00 [place] % (Auto) 8.3 % 11/06/24 08:00 Eos % (Auto) 2.2 % 05/20/24 08:00 Baso % (Auto) 0.6 % 05/20/24 08:00 Neut # (Auto) 7.37 10^3/uL (1.8-7.7) 05/20/24 08:00 Lymph # (Auto) 1.1 10^3/uL (0.8-4.8) 05/20/24 08:00 [place] # (Auto) 0.8 10^3/uL (0.2-0.9) 05/20/24 08:00 Eos # (Auto) 0.2 10^3/uL (0.0-0.8) 05/20/24 08:00 Baso # (Auto) 0.1 10^3/uL (0.0-0.1) 05/20/24 08:00 Nucleated RBC % (auto) 0 % 05/20/24 08:00 Nucleated RBCs # 0.0 /100WBC 05/20/24 08:00 D-Dimer 0.81 ug/mLFEU (0-0.59) H 05/20/24 08:00 Specimen Type Arterial 05/20/24 08:06 Sample Site Brachial, left 05/20/24 08:06 ABG pH 7.41 (7.35-7.45) 05/20/24 08:06 ABG pCO2 37.8 mmHg (35-45) 05/20/24 08:06 ABG pO2 50.1 mmHg (80.0-100.0) L 05/20/24 08:06 ABG PO2/FiO2 Ratio 139 05/20/24 08:06 ABG HCO3 24.0 mmol/L (22-26) 05/20/24 08:06 ABG Base Excess -0.5 mmol/L (-2.0-2.0) 05/20/24 08:06 Will Test Pos 05/20/24 08:06 Hematocrit 36.8 % (37-47) L 05/20/24 08:06 Hgb O2 Saturation 84.3 % (95-100) L 05/20/24 08:06 Carboxyhemoglobin 1.6 %THgb (0.4-20.1) 05/20/24 08:06 Methemoglobin 0.4 % (0.4-1.5) 05/20/24 08:06 Total Hemoglobin 12.0 g/dL (12-16) 05/20/24 08:06 O2 Delivery Device Nc 05/20/24 08:06 O2 Liters/Min 4.0 % 05/20/24 08:06 FiO2 36.0 % 05/20/24 08:06 Material Expeditor ID Cak 05/20/24 08:06 Sodium 140 mmol/L (136-145) 05/21/24 03:37 Potassium 3.8 mmol/L (3.5-5.1) 05/21/24 03:37 Chloride 100 mmol/L (98-107) 05/21/24 03:37 Carbon Dioxide 29 mmol/L (22-29) 05/21/24 03:37 Anion Gap 14.8 (5-19) 05/21/24 03:37 BUN 14 mg/dL (8-23) 05/21/24 03:37 Creatinine 1.1 mg/dL (0.5-0.9) H 05/21/24 03:37 GFR Calculation Not Reportable 05/21/24 03:37 Glucose 202 mg/dL (65-115) H 05/21/24 03:37 POC Glucose 236 mg/dL (70-110) H 05/21/24 06:34 Calculated Osmolality 296 mOsm/kg (285-295) H 05/21/24 03:37 Calcium 8.8 mg/dL (8.5-10.5) 05/21/24 03:37 Magnesium 1.7 mg/dL (1.7-2.3) 05/21/24 03:37 Total Bilirubin 1.5 mg/dL (0.15-1.2) H 05/20/24 08:00 AST 16 U/L (0-32) 05/20/24 08:00 ALT 14 U/L (0-33) 05/20/24 08:00 Alkaline Phosphatase 88 U/L (35-105) 05/20/24 08:00 NT-Pro-B Natriuret Pep 4318 pg/mL (0-125) H 05/20/24 08:00 Total Protein 6.6 g/dL (6.6-8.7) 05/20/24 08:00 Albumin 3.8 g/dL (3.5-5.2) 05/20/24 08:00 Globulin 2.8 g/dL (1.3-4.6) 05/20/24 08:00 Urine Color Yellow (Yellow) 05/20/24 14:47 Urine Appearance Clear (CLEAR) 05/20/24 14:47 Urine pH 7.0 (5-7) 05/20/24 14:47 Ur Specific [place] 1.014 (1.005-1.030) 05/20/24 14:47 Urine Protein 1+ (Negative) A 05/20/24 14:47 Urine Glucose (UA) Negative (Normal) 05/20/24 14:47 Urine Ketones Negative (Negative) 05/20/24 14:47 Urine Blood Negative (Negative) 05/20/24 14:47 Urine Nitrate Negative (Negative) 05/20/24 14:47 Urine Bilirubin Negative (Negative) 05/20/24 14:47 Urine Urobilinogen 0.2 mg/dL (Negative) 05/20/24 14:47 Ur Leukocyte Esterase Negative (Negative) 05/20/24 14:47 Urine RBC 0-2 /hpf (0-2) 05/20/24 14:47 Urine WBC 0-5 /hpf (0-5) 05/20/24 14:47 Ur Squamous Epith Cells 0-5 /hpf (0-5) 05/20/24 14:47 Amorphous Sediment Not Reportable 05/20/24 14:47 Urine Bacteria None seen /hpf (NONE) 05/20/24 14:47 Hyaline Casts 0-4 /lpf H 05/20/24 14:47 Coronavirus (PCR) Negative (Negative) 05/20/24 07:54 Influenza A (PCR) Negative (Negative) 05/20/24 07:54 Influenza Type B (PCR) Negative (Negative) 05/20/24 07:54 RSV (PCR) Negative (Negative) 05/20/24 07:54 Vitals Last Vital Signs Temp 98.0 F 05/21/24 08:00 Pulse 80 05/21/24 08:42 Resp 16 05/21/24 08:42 BP 158/65 05/21/24 08:16 Pulse Ox 96 05/21/24 08:42 O2 Del Method Nasal Cannula 05/21/24 08:42 O2 Flow Rate 2 05/21/24 08:42 FiO2 30 05/20/24 09:04 Discharge Plan Discharge Patient Disposition: Home Condition: Stable Prescriptions: New dapagliflozin propanediol [Farxiga] 10 mg tablet 10 mg PO QAM Qty: 30 0RF losartan 50 mg Tablet 50 mg PO DAILY Qty: 30 0RF furosemide [Lasix] 40 mg tablet 40 mg PO DAILY Qty: 30 0RF Continued clopidogrel 75 mg tablet 75 mg PO DAILY Qty: 30 5RF atorvastatin 20 mg tablet 20 mg PO QPM fluoxetine 20 mg capsule 20 mg PO QPM ascorbic acid (vitamin C) [Vitamin C] 1,000 mg Tablet 1,000 mg PO DAILY vitamin E 268 mg (400 unit) Capsule 268 mg PO DAILY Centrum Adult 50 Plus 80 mcg Tablet,Chewable 1 tab PO DAILY insulin aspart U-100 [Novolog FlexPen U-100 Insulin] 100 unit/mL (3 mL) insulin pen See Rx Instructions .ROUTE .COMPLEX Qty: 15 0RF Rx Instructions: Take per sliding scale as needed. BS 141-180 2u,181-220 4u, 221-260 6u, 261- 300 8u, 301-350 10u, 351-400 12u, >400 14u insulin glargine [Lantus Solostar U-100 Insulin] 100 unit/mL (3 mL) insulin pen 30 unit SUBCUT QAM aspirin 81 mg Tablet,Delayed Release (Dr/Ec) 81 mg PO DAILY Hold Instructions: Doctor's Order Discontinued amlodipine 10 mg tablet 10 mg PO QAM Discharge Orders: Discharge Order (Routine); Ordered 05/21/24 Ordered By: Rich Benedict Referrals: Lefty Hodge DO [Primary Care Provider] - 05/26/24 10:00 am (BMP on follo wup) Discharge Diet: Cardiac and Diabetic Discharge Activity: Increase activity as tolerated Patient Instructions: Furosemide (By mouth), Losartan (By mouth), Dapagliflozin (By mouth), Heart Failure (DC), Chronic Kidney Disease (DC), Opioid Safety Activity Restrictions/Additional Instructions: Please arrange for cardiology referral, 2 weeks Follow-up with primary care provider 3 to 5 days, BMP on follow-up Take all medicine as prescribed. Return for any concerns Continue 2 L of oxygen at discharge. Discharge Attestations Time Spent in Discharge Care*: greater than 30 min Status at Discharge: Cognitive status at discharge: cognitively intact , Behavioral status at discharge: cooperative , Quality Metrics Clinical Quality Measures [ No reported AMI, CVA or VTE this stay] Coding Level of Care Code 70832 Total time (in minutes) for Discharge: 46 Diagnoses Acute on chronic systolic congestive heart failure I50.23 Heart failure type: systolic Heart failure chronicity: acute on chronic Elevated d-dimer R79.89 CKD (chronic kidney disease) N18.9 CVA (cerebral vascular accident) I63.9 Diabetes E11.9
[2024-05-21 12:10] LABS: Glucose Point of Care 88 mg/dL (70-110)
--- NOTE | 2024-05-21 12:38 | PC.NURSE ---
Patient discharged to home. Instruction provided regarding follow up information, new medications, CHF with stoplight and COPD. Patient and daughter both verbalized complete understanding. New Rx transmitted to [facility]. IV and telemetry removed. Patient denies SOB or other discomforts. Patient taken by wheelchair to private vehicle with daughter by side.
== END 2024-05-21 12:44 | disposition home or self-care (01) ==
LOC: ER 07:49 → ER IP 13:53 → CSU 15:44 → ER IP 05-22 12:59
PROVIDERS: Admitting Provider Internal Medicine; Emergency Provider Emergency Medicine; PCP Internal Medicine; Visit Provider Internal Medicine
DX: I50.23 Acute on chronic systolic (congestive) heart failure (principal); R79.89 Other specified abnormal findings of blood chemistry; E11.22 Type 2 diabetes mellitus with diabetic chronic kidney disease; I13.0 Hypertensive heart and chronic kidney disease with heart failure and stage 1 through stage 4 chronic kidney disease, or unspecified chronic kidney disease; N18.9 Chronic kidney disease, unspecified; I63.9 Cerebral infarction, unspecified; M79.604 Pain in right leg; M79.89 Other specified soft tissue disorders; G47.33 Obstructive sleep apnea (adult) (pediatric); Z79.82 Long term (current) use of aspirin; Z79.4 Long term (current) use of insulin
CPT/HCPCS: 0241U; 36415; 36416; 36600; 71045; 71275; 80048; 80053; 81001; 82805; 82962; 83735; 83880; 85025; 85378; 93005; 93971; 94640; 94660; 96372; 96374; 96376; 99213; 99291; A9270; G0378; J1650; J1815; J1940

== ENCOUNTER 2024-06-06 15:03 | Emergency (ER) | payer MEDICARE, MEDICAID, SELFPAY ==
[2024-06-06 15:27] VITALS: BP 115/72; PULSE 84; RESP 16; TEMP 36.5; O2SAT 96; BMI 37.8
--- NOTE | 2024-06-06 15:42 | XRR_ITS ---
PROCEDURE INFORMATION: Exam: XR Left Femur Exam date and time: 06/06/2024 4:14 PM Age: 73 years old Clinical indication: Hip and thigh; Left; Patient HX: Lt hip/thigh pain post fall; Lt 4th &5th digit pain after fall TECHNIQUE: Imaging protocol: Radiologic exam of the left femur. Views: 2 views. COMPARISON: CR XR pelvis 1-2V* [id number] 06/06/2024 4:12 PM FINDINGS: Bones/joints: No acute fracture. Soft tissues: Unremarkable. XR/XR femur LT min 2V* [id number] IMPRESSION: No acute findings.
--- NOTE | 2024-06-06 15:42 | XRR_ITS ---
PROCEDURE INFORMATION: Exam: XR Left Hand Exam date and time: 06/06/2024 4:21 PM Age: 73 years old Clinical indication: Pain; Hand; Left; Additional info: Lt 4th &5th digit pain after fall TECHNIQUE: Imaging protocol: Radiologic exam of the left hand. Views: 3 or more views. COMPARISON: No relevant prior studies available. FINDINGS: Bones/joints: Generalized osseous demineralization. Minimally displaced transverse fracture through the base of the 5th proximal phalanx. Soft tissues: Soft tissue swelling around the fracture. XR/XR hand LT min 3V* [id number] IMPRESSION: Minimally displaced fracture through the base of the 5th proximal phalanx.
--- NOTE | 2024-06-06 16:04 | ED_ITS ---
HPI - Fall General: Chief Complaint: Fall Stated Complaint: fall left hip/hand and arm pain Time Seen by Provider: 06/06/24 15:23 History of Present Illness: 73-year-old female [facility]. She had a mechanical ground-level fall when she had difficulty with her wheeled walker getting ahead of her. She fell and is complaining of pain to her left thigh and on her left hand particular the left fifth finger. She is on clopidogrel. She has significant bruising on her left fourth and fifth fingers. No bruising on the left thigh she was with assistance able to stand and bear weight after the fall. She did not strike her head not lose consciousness she denies any other injuries Associated symptoms-after fall: Denies abdominal pain, chest pain or neck pain Related Data Home Medications Medication Instructions Recorded Confirmed ascorbic acid (vitamin C) 1,000 mg 1,000 mg PO DAILY 08/05/21 05/20/24 tablet (Vitamin C) atorvastatin 20 mg tablet 20 mg PO QPM 08/05/21 05/20/24 fluoxetine 20 mg capsule 20 mg PO QPM 08/05/21 05/20/24 aspirin 81 mg tablet,delayed 81 mg PO DAILY 08/10/23 05/20/24 release multivitamin with minerals-folic 1 tab PO DAILY 08/14/23 05/20/24 acid 80 mcg chewable tablet (Centrum Adult 50 Plus) vitamin E 268 mg (400 unit) capsule 268 mg PO DAILY 08/14/23 05/20/24 insulin glargine 100 unit/mL (3 30 unit SUBCUT QAM 05/20/24 05/20/24 mL) subcutaneous pen (Lantus Solostar U-100 Insulin) Previous Rx's Medication Instructions Recorded insulin aspart U-100 100 unit/mL See Rx Instructions .Route 08/16/23 (3 mL) subcutaneous pen (Novolog .COMPLEX #15 mL FlexPen U-100 Insulin aspart) clopidogrel 75 mg tablet 75 mg PO DAILY #30 tabs 05/18/24 dapagliflozin propanediol 10 mg 10 mg PO QAM #30 tabs 05/21/24 tablet (Farxiga) furosemide 40 mg tablet (Lasix) 40 mg PO DAILY #30 tabs 05/21/24 losartan 50 mg tablet 50 mg PO DAILY #30 tabs 05/21/24 hydrocodone 5 mg-acetaminophen 325 1 tab PO Q6H PRN pain #10 tabs 06/06/24 mg tablet Allergies Allergy/AdvReac Type Severity Reaction Status Date / Time adhesive tape Allergy UGO-Rashida Verified 06/06/24 15:35 r Review of Systems Const: Denies: fever(s) or chills Card: Denies: chest pain Resp: Denies: dyspnea GI: Denies: abdominal pain : Denies: dysuria, urinary frequency or urinary urgency Musc: Reports: extremity pain (Left upper leg, left hand); Denies: neck pain or back pain Skin/Breast: Denies: rash PFSH ED PFSH: Medical History Congestive heart failure Mixed diastolic and systolic RONAL (obstructive sleep apnea) Atherosclerotic cerebrovascular disease Acute exacerbation of chronic obstructive airways disease Community acquired pneumonia Acute respiratory failure with hypoxia Diabetes COPD (chronic obstructive pulmonary disease) Tracheobronchomalacia CT chest 08/07 INGA positive Cerebellar stroke CKD (chronic kidney disease) Baseline creatinine 1.2-1.4 Osteoarthritis of left hip Hypertension Surgical History History of cholecystectomy H/O: hysterectomy Family History Other Acute respiratory failure with hypoxia Social History Smoking and tobacco/nicotine status: never used tobacco/nicotine Alcohol intake: never Substance/Drug Use: never Physical Exam Const: COMMON NORMALS: no acute distress GENERAL APPEARANCE: cooperative and comfortable ORIENTATION/CONSCIOUSNESS: Yes awake, Yes oriented to person, Yes oriented to place and Yes oriented to time HENMT: COMMON NORMALS: normocephalic, atraumatic and hearing grossly normal bilaterally HEAD & SCALP: normocephalic and atraumatic Resp: COMMON NORMALS: normal respiratory effort, No retractions, No use of accessory muscles and clear to auscultation bilaterally AUSCULTATION: clear to auscultation bilaterally Cardio: COMMON NORMALS: regular rate, regular rhythm and No murmurs present (Cardio) RATE: regular rate RHYTHM: regular rhythm GI: COMMON NORMALS: Soft to palpation and No hepatosplenomegaly present AUSCULTATION: Yes normoactive bowel sounds PALPATION: Yes Soft to palpation, No Tenderness to palpation present (GI), No Guarding due to palpation present (GI) and Yes No hepatosplenomegaly present Extremity: OTHER: Ecchymosis to the left fourth and fifth finger little bit on the third finger. Other fourth finger there is a small abrasion not actively bleeding not full- thickness. Examination left leg patient is able to flex at the ankle and the knee flexed at the hip and internally externally rotate without significant pain she does so both with active range of motion with passive. Examination of the thigh there is no evidence of ecchymosis at this time. Neuro: SENSORIUM/ORIENTATION: Yes oriented to person, Yes oriented to place and Yes oriented to time Skin: COMMON NORMALS: no rashes or lesions noted GENERAL SKIN EXAM: no rashes or lesions noted Course Vital Signs: Vital signs: Vital Signs Temperature 97.7 F 06/06/24 15:27 Pulse Rate 84 06/06/24 17:36 Respiratory Rate 16 06/06/24 15:27 Blood Pressure 180/91 06/06/24 17:36 Pulse Oximetry 98 06/06/24 17:36 Oxygen Delivery Me thod Nasal Cannula 06/06/24 15:27 Oxygen Flow Rate 2 06/06/24 15:27 MDM - Fall Medical Decision Making Imaging all negative. Patient able to ambulate without difficulty. Will discharge patient home. Follow-up with PCP Medical Records I reviewed the patient's medical records. Lab Data I reviewed the patient's lab results. Radiology Impressions Femur X-Ray 06/06/24 15:42 IMPRESSION: No acute findings. Hand X-Ray 06/06/24 15:42 IMPRESSION: Minimally displaced fracture through the base of the 5th proximal phalanx. Pelvis X-Ray 06/06/24 16:04 IMPRESSION: No acute findings. All radiology interpretation(s) finalized by discharge Discharge Plan Discharge Patient Disposition: Home Clinical Impression: Finger fracture, left, Fall Condition: Stable Prescriptions: New hydrocodone-acetaminophen 5-325 mg tablet 1 tab PO Q6H PRN (Reason: pain) Qty: 10 0RF No Action clopidogrel 75 mg tablet 75 mg PO DAILY Qty: 30 5RF atorvastatin 20 mg tablet 20 mg PO QPM fluoxetine 20 mg capsule 20 mg PO QPM ascorbic acid (vitamin C) [Vitamin C] 1,000 mg Tablet 1,000 mg PO DAILY vitamin E 268 mg (400 unit) Capsule 268 mg PO DAILY Centrum Adult 50 Plus 80 mcg Tablet,Chewable 1 tab PO DAILY insulin aspart U-100 [Novolog FlexPen U-100 Insulin] 100 unit/mL (3 mL) insuli n pen See Rx Instructions .ROUTE .COMPLEX Qty: 15 0RF Rx Instructions: Take per sliding scale as needed. BS 141-180 2u,181-220 4u, 221-260 6u, 261- 300 8u, 301-350 10u, 351-400 12u, >400 14u insulin glargine [Lantus Solostar U-100 Insulin] 100 unit/mL (3 mL) insulin pen 30 unit SUBCUT QAM losartan 50 mg Tablet 50 mg PO DAILY Qty: 30 0RF furosemide [Lasix] 40 mg tablet 40 mg PO DAILY Qty: 30 0RF dapagliflozin propanediol [Farxiga] 10 mg tablet 10 mg PO QAM Qty: 30 0RF aspirin 81 mg Tablet,Delayed Release (Dr/Ec) 81 mg PO DAILY Hold Instructions: Doctor's Order Discharge Orders: Discharge ED (Routine); Ordered 06/06/24 Ordered By: Chandan Alvarado Referrals: Lefty Hodge DO [Primary Care Provider] - Discharge Diet: Usual diet Discharge Activity: Limit activity as instructed Patient Instructions: Opioid Safety, Pain Management Activity Restrictions/Additional Instructions: Thank you for choosing [facility] for your healthcare needs today. It is very important that you follow up as instructed or that you return to the Emergency Department should you have concerns or if your condition changes or worsens in any way. You were seen in the emergency room after a fall. X-ray your hip pelvis and left leg were all normal no acute fractures. You did have a fracture of the left fifth finger. You are placed in a splint for this numeric arrangements for you to follow-up with the orthopedist. Recommend you elevate this whenever possible to limit swelling. You can use pain medications prescribed as needed for pain Coding Level of Care Code ED Shipping Weigher for Minerva Ocampo
--- NOTE | 2024-06-06 16:04 | XRR_ITS ---
PROCEDURE INFORMATION: Exam: XR Pelvis Exam date and time: 06/06/2024 4:12 PM Age: 73 years old Clinical indication: Hip pain; Left hip; Patient HX: Lt hip/thigh pain post fall; Lt 4th &5th digit pain after fall TECHNIQUE: Imaging protocol: Radiologic exam of the pelvis. Views: 1 or 2 view. COMPARISON: CR XR hip LT 2-3V wo/w pel* [id number] 12/26/2022 9:33 AM FINDINGS: Bones/joints: No acute fracture. Soft tissues: Unremarkable. XR/XR pelvis 1-2V* [id number] IMPRESSION: No acute findings.
[2024-06-06 17:36] VITALS: BP 180/91; PULSE 84; O2SAT 98
--- NOTE | 2024-06-08 08:47 | DCPLANNER ---
messaged ortho for er f/u
== END 2024-06-06 17:38 | disposition home or self-care (01) ==
PROVIDERS: Emergency Provider Family Medicine; PCP Internal Medicine
DX: S62.617A Displaced fracture of proximal phalanx of left little finger, initial encounter for closed fracture (principal); W19.XXXA Unspecified fall, initial encounter; I13.0 Hypertensive heart and chronic kidney disease with heart failure and stage 1 through stage 4 chronic kidney disease, or unspecified chronic kidney disease; N18.9 Chronic kidney disease, unspecified; I50.40 Unspecified combined systolic (congestive) and diastolic (congestive) heart failure; J44.9 Chronic obstructive pulmonary disease, unspecified
CPT/HCPCS: 29515; 72170; 73130; 73552; 99284

== ENCOUNTER 2024-06-18 06:00 | Outpatient (CLI) | payer MEDICARE, MEDICAID, SELFPAY | END 2024-06-18 06:01 | LOC: SOT 06-23 10:31 | PROVIDERS: Visit Provider Physician Assistant | DX: Z46.89 Encounter for fitting and adjustment of other specified devices (principal); S62.609A Fracture of unspecified phalanx of unspecified finger, initial encounter for closed fracture; X58.XXXA Exposure to other specified factors, initial encounter | CPT/HCPCS: 26725; 99203; L3982 ==

== ENCOUNTER → 2024-06-18 14:19 | Outpatient (BNVA) | payer MEDICARE, MEDICAID, SELFPAY | PROVIDERS: PCP Internal Medicine; Visit Provider Physician Assistant | DX: S62.617A Displaced fracture of proximal phalanx of left little finger, initial encounter for closed fracture; W19.XXXA Unspecified fall, initial encounter | CPT/HCPCS: 73130 ==

== ENCOUNTER 2024-06-20 23:54 | Emergency (ER) | payer MEDICARE, MEDICAID, SELFPAY ==
--- NOTE | 2024-06-20 23:56 | CTR_ITS ---
PROCEDURE INFORMATION: Exam: CT Head Without Contrast Exam date and time: 06/20/2024 11:57 PM Age: 73 years old Clinical indication: Stroke-like symptoms; Speech disturbance; Left facial droop; Additional info: Symptoms of acute stroke TECHNIQUE: Imaging protocol: Computed tomography of the head without contrast. Radiation optimization: All CT scans at this facility use at least one of these dose optimization techniques: automated exposure control; mA and/or kV adjustment per patient size (includes targeted exams where dose is matched to clinical indication); or iterative reconstruction. Other technique: STROKE PROTOCOL was implemented. COMPARISON: CT angio headneck* [id number] 06/16/2023 8:26 AM RADIATION DOSE METRICS: Total DLP (mGy-cm): 1017.18 FINDINGS: Brain: There is marked cerebral atrophy. There is marked diffuse heterogeneity of the white matter attenuation, consistent with severe chronic white matter ischemic changes. Multiple areas of encephalomalacia in both cerebral hemispheres and also the left posteroinferior cerebellum. Negative for acute intracranial hemorrhage. Negative for mass effect on the brain. Negative for midline shift of the brain. No space-occupying intracranial mass. Cerebral ventricles: Ex vacuo dilation changes in both lateral ventricles. Paranasal sinuses: Visualized sinuses are unremarkable. No fluid levels. Mastoid air cells: Visualized mastoid air cells are well aerated. Bones: Unremarkable. No acute fracture. Soft tissues: Unremarkable. CT/CT head thrombolytic [id number] IMPRESSION: 1. No visible acute intracranial pathology. 2. Multifocal chronic ischemic brain changes redemonstrated. ASSESSMENT: ASPECTS ([place] Stroke Program Early CT Score) is 10.
--- NOTE | 2024-06-20 23:56 | XRR_ITS ---
PROCEDURE INFORMATION: Exam: XR Chest Exam date and time: 06/21/2024 12:22 AM Age: 73 years old Clinical indication: Prior surgery; Surgery date: 6+ months; Surgery type: Left shoulder; Patient HX: EMS arrival for possible CVA. ; Additional info: Weakness TECHNIQUE: Imaging protocol: Radiologic exam of the chest. Views: 1 view. COMPARISON: CT angio chest PE protcl [id number] 05/20/2024 10:12 AM FINDINGS: Lungs: Nonspecific prominence of the interstitium bilaterally. No consolidation. Pleural spaces: Unremarkable. No pleural effusion. No pneumothorax. Heart/Mediastinum: Mild cardiomegaly. Bones/joints: Demineralized bones. Surgical hardware fixates the proximal left humerus. No acute thoracic fracture. XR/XR chest 1V portable [id number] IMPRESSION: 1. No pulmonary consolidation. 2. Nonspecific prominent interstitium. Interstitial edema is not excluded.
--- NOTE | 2024-06-20 23:56 | ECG_ITS ---
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
--- NOTE | 2024-06-20 23:56 | CTR_ITS ---
PROCEDURE INFORMATION: Exam: CTA Head With Contrast, Arteriography Exam date and time: 06/21/2024 12:03 AM Age: 73 years old Clinical indication: Stroke-like symptoms; Speech disturbance; Left facial droop; Additional info: Left facial droop dysarthria TECHNIQUE: Imaging protocol: Computed tomographic angiography of the head with contrast. Exam focused on the arteries. 3D rendering (Not supervised by radiologist): MIP and/or 3D reconstructed images were created by the technologist. Radiation optimization: All CT scans at this facility use at least one of these dose optimization techniques: automated exposure control; mA and/or kV adjustment per patient size (includes targeted exams where dose is matched to clinical indication); or iterative reconstruction. Contrast material: OMNI 350; Contrast volume: 100 ml; Contrast route: INTRAVENOUS (IV); COMPARISON: CT angio headneck* [id number] 06/16/2023 8:26 AM RADIATION DOSE METRICS: Total DLP (mGy-cm): 478.48 FINDINGS: ANTERIOR CIRCULATION: Right internal carotid artery: Large calcified plaque volume in the right internal carotid artery cavernous segment. There is relatively severe stenosis in the proximal aspect of the cavernous segment without significant change from comparison. Severe stenosis focally in the supraclinoid segment without interval change. 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 Right anterior cerebral artery: No occlusion or significant stenosis. No aneurysm. Left internal carotid artery: Large calcified plaque lines throughout the left internal carotid artery cavernous segment. Mild stenosis proximally with moderate severity stenosis in the supraclinoid segment without interval change. Left middle cerebral artery: No occlusion or significant stenosis. No aneurysm. Left anterior cerebral artery: No occlusion or significant stenosis. No aneurysm. POSTERIOR CIRCULATION: Right vertebral artery: Circumferential calcified plaques in the right vertebral artery V4 segment with moderate severity stenosis similar to comparison. Left vertebral artery: Calcified plaques in the left vertebral artery V4 segment with mild stenosis similar to comparison. Basilar artery: No occlusion or significant stenosis. No aneurysm. Right posterior cerebral artery: No occlusion or significant stenosis. No aneurysm. Left posterior cerebral artery: Atretic appearance of the left posterior cerebral artery which likely has several short-segment occlusions unchanged from the comparison. Brain: Multiple chronic ischemic infarcts redemonstrated. Cerebral ventricles: No ventriculomegaly. Bones/joints: Unremarkable. No acute fracture. Soft tissues: Unremarkable. PROCEDURE INFORMATION: Exam: CTA Neck With Contrast Exam date and time: 06/21/2024 12:03 AM Age: 73 years old Clinical indication: Stroke-like symptoms; Speech disturbance; Left facial droop; Additional info: Left facial droop dysarthria TECHNIQUE: Imaging protocol: Computed tomographic angiography of the neck with contrast. Exam focused on the cervical segments of the vasculature. 3D rendering (Not supervised by radiologist): MIP and/or 3D reconstructed images were created by the technologist. Radiation optimization: All CT scans at this facility use at least one of these dose optimization techniques: automated exposure control; mA and/or kV adjustment per patient size (includes targeted exams where dose is matched to clinical indication); or iterative reconstruction. Contrast material: OMNI 350; Contrast volume: 100 ml; Contrast route: INTRAVENOUS (IV); COMPARISON: CT angio headne* [id number] 06/16/2023 8:26 AM RADIATION DOSE METRICS: Total DLP (mGy-cm): 478.48 FINDINGS: Right common carotid artery: No stenosis. No dissection or occlusion. Right internal carotid artery: Moderate volume mixed plaque proximal right ICA. Mild stenosis. Negative for dissection. Right external carotid artery: No occlusion or stenosis of the origin. Left common carotid artery: No stenosis. No dissection or occlusion. Left internal carotid artery: Large focal calcified plaque left ICA origin. Mild stenosis. Negative for dissection. Left external carotid artery: No occlusion or stenosis of the origin. Right vertebral artery: No stenosis. No dissection or occlusion. Left vertebral artery: No stenosis. No dissection or occlusion. Soft tissues: Normal. No significant soft tissue swelling. Bones/joints: No acute fracture. CT/CT angio headne* [id number] IMPRESSION: 1. No acute intracranial large arterial vessel occlusion identified. 2. Pre-existing intracranial arterial abnormalities without interval change from comparison. IMPRESSION: 1. Mild severity bilateral internal carotid artery stenosis estimated less than 50%. 2. No significant interval changes from comparison. REFERENCES: NASCET CRITERIA. The degree of stenosis in the cervical segment of the internal carotid artery is based on NASCET criteria. Normal is no stenosis. Mild is less than 50% stenosis. Moderate is 50-69% stenosis. Severe is 70% to 99% stenosis. Total occlusion is no detectable patent lumen.
[2024-06-21] MEDS: iohexol 350 mg/mL 500 mL Btl (per mL) IV (00:05)
[2024-06-21 00:12] VITALS: BP 164/90; PULSE 72; RESP 12; TEMP 36.7; O2SAT 95; BMI 32.6
[2024-06-21 00:23] LABS: Glucose Point of Care 136 mg/dL (70-110)
--- NOTE | 2024-06-21 01:18 | ED_ITS ---
HPI - Neuro Symptoms/Deficit 2 General: Chief Complaint: Neuro Symptoms/Deficit Stated Complaint: stroke symptoms Time Seen by Provider: 06/20/24 23:56 History of Present Illness: 73-year-old female with a history of ana or stroke. Around 830 this evening, she began to have significant facial droop, with dysarthria. Her daughter was with her and noticed the symptoms. She had complained of a headache as well. No significant weakness to extremities or at least change in them. She did complain of some dizziness. Daughter called 911. By EMS arrival, most of the dysarthria was improved, but the patient was left with a left facial droop remaining. The patient came in as a stroke alert due to the symptoms. Related Data Home Medications Medication Instructions Recorded Confirmed ascorbic acid (vitamin C) 1,000 mg 1,000 mg PO DAILY 08/05/21 06/18/24 tablet (Vitamin C) fluoxetine 20 mg capsule 20 mg PO QPM 08/05/21 06/18/24 aspirin 81 mg tablet,delayed 81 mg PO DAILY 08/10/23 06/18/24 release multivitamin with minerals-folic 1 tab PO DAILY 08/14/23 06/18/24 acid 80 mcg chewable tablet (Centrum Adult 50 Plus) vitamin E 268 mg (400 unit) capsule 268 mg PO DAILY 08/14/23 06/18/24 insulin glargine 100 unit/mL (3 30 unit SUBCUT QAM 05/20/24 06/18/24 mL) subcutaneous pen (Lantus Solostar U-100 Insulin) Previous Rx's Medication Instructions Recorded insulin aspart U-100 100 unit/mL See Rx Instructions .Route 08/16/23 (3 mL) subcutaneous pen (Novolog .COMPLEX #15 mL FlexPen U-100 Insulin aspart) clopidogrel 75 mg tablet 75 mg PO DAILY #30 tabs 05/18/24 dapagliflozin propanediol 10 mg 10 mg PO QAM #30 tabs 05/21/24 tablet (Farxiga) furosemide 40 mg tablet (Lasix) 40 mg PO DAILY #30 tabs 05/21/24 losartan 50 mg tablet 50 mg PO DAILY #30 tabs 05/21/24 hydrocodone 5 mg-acetaminophen 325 1 tab PO Q6H PRN pain #10 tabs 06/06/24 mg tablet Left unlar gutter FAST FORM #1 ea 06/18/24 atorvastatin 80 mg tablet 80 mg PO DAILY #30 tabs 06/21/24 Allergies Allergy/AdvReac Type Severity Reaction Status Date / Time adhesive tape Allergy Wallace Verified 06/18/24 14:25 r PFSH ED 2 PFSH: Medical History Congestive heart failure Mixed diastolic and systolic RONAL (obstructive sleep apnea) Atherosclerotic cerebrovascular disease Acute exacerbation of chronic obstructive airways disease Community acquired pneumonia Acute respiratory failure with hypoxia Diabetes COPD (chronic obstructive pulmonary disease) Tracheobronchomalacia CT chest 08/07 INGA positive Cerebellar stroke CKD (chronic kidney disease) Baseline creatinine 1.2-1.4 Osteoarthritis of left hip Hypertension Surgical History History of cholecystectomy H/O: hysterectomy Family History Other Acute respiratory failure with hypoxia Social History Smoking and tobacco/nicotine status: never used tobacco/nicotine Alcohol intake: never Substance/Drug Use: never NIH stroke score 2 NIHSS: Level Of Consciousness - 1a: 0 Level Of Consciousness Questions - 1b: Both Correct Level Of Consciousness Commands - 1c: Both Correct Best Gaze - 2: Normal Visual Baker - 3: No Visual Loss Facial Palsy - 4: Minor Paralysis Motor Arm Right - 5: No Drift Motor Arm Left - 5: No Drift M otor Leg Right - 6: No Drift Motor Leg Left - 6: No Drift Limb Ataxia - 7: Absent Sensory - 8: Normal Best Language - 9: No Aphasia Dysarthia - 10: Normal Extinction And Inattention - 11: 0 Score: Total Score: 1 Physical Exam 2 Const: GENERAL APPEARANCE: cooperative and frail appearing (Mildly) O RIENTATION/CONSCIOUSNESS: Yes awake, Yes oriented to person, Yes oriented to place and Yes oriented to time HENMT: COMMON NORMALS: normocephalic, atraumatic and Normal external nose present HEAD & SCALP: normocephalic and atraumatic FACE & SINUS: normal facial exam and face symmetric NOSE: Normal external nose present Eye: COMMON NORMALS: Equal, round and reactive pupils present and EOMs intact bilaterally PUPIL: Yes Equal, round and reactive pupils present Neck/C-Spine: GENERAL: Yes trachea midline Chest: CHEST: Yes Symmetrical chest wall rise Resp: COMMON NORMALS: normal respiratory effort, No retractions, No use of accessory muscles and clear to auscultation bilaterally AUSCULTATION: clear to auscultation bilaterally Cardio: COMMON NORMALS: regular rate and regular rhythm RATE: regular rate RHYTHM: regular rhythm GI: COMMON NORMALS: Normal to inspection, nondistended, normoactive bowel sounds present Extremity: COMMON NORMALS: no pedal edema Neuro: FRANCISCO COMA SCALE: document GCS findings Francisco coma scale eye opening: Spontaneous Harris coma scale verbal response: Orientated Francisco coma scale motor response: Obey commands Francisco coma scale total score: 15 S ENSORIUM/ORIENTATION: Yes oriented to person, Yes oriented to place and Yes oriented to time SENSORY EXAM: Yes extremities (intact) Psych: COMMON NORMALS: speech normal SPEECH: Yes normal speech Skin: COMMON NORMALS: no rashes or lesions noted GENERAL SKIN EXAM: no rashes or lesions noted Course 2 Vital Signs: Vital signs: Vital Signs Temperature 98.1 F 06/21/24 00:12 Pulse Rate 72 06/21/24 00:12 Respiratory Rate 12 06/21/24 00:12 Blood Pressure 164/90 06/21/24 00:12 Pulse Oximetry 95 06/21/24 00:12 Oxygen Delivery Me thod Nasal Cannula 06/21/24 00:12 Oxygen Flow Rate 2 06/21/24 00:12 MDM - Neuro Symptoms/Deficit Medical Decision Making This patient was seen in CT scan on arrival. Neurology was contacted on the patient's arrival as well. Symptoms have improved significantly since their onset. The patient has a mild facial droop on the left. She has no dysarthria. No weakness. Her NIH scale is a 1. Spoke with neurology. Given her improvement in symptoms, and low NIH, along with aging symptoms in terms of time limits, she will not be given tPA at this point. Recommendations are to increase atorvastatin to 80. She will stay on aspirin and Plavix at his recommendation rather than anticoagulation. The patient's creatinine is 1.8 which is a significant elevation from prior. BUN is elevated as well. Chest x-ray shows a prominent interstitium is otherwise negative. Head CT shows no acute findings. CTA of the neck shows pre-existing intracranial arterial abnormalities without interval change from comparison. There is no critical stenosis. Urinalysis is negative. Had a discussion with the patient and her daughter. They would like to go home if possible, as her symptoms are resolved. She has walked in the room, and done well. She is essentially back to baseline. She had a recent echo. Will allow home with medication changes as above. Return for any return of symptoms. Lab Data 06/21/24 01:23 12 01:23 Radiology Impressions Chest X-Ray 06/20/24 23:56 IMPRESSION: 1. No pulmonary consolidation. 2. Nonspecific prominent interstitium. Interstitial edema is not excluded. Head CT 06/20/24 23:56 IMPRESSION: 1. No visible acute intracranial pathology. 2. Multifocal chronic ischemic brain changes redemonstrated. ASSESSMENT: ASPECTS ([place] Stroke Program Early CT Score) is 10. ADDENDUM: 06/21/245 Findings were discussed with BENEDICTO MARCOS at 06/21/2024 12:33 AM ATHLETIC FIELD CUSTODIAN. Head/Neck CTA 06/20/24 23:56 IMPRESSION: 1. No acute intracranial large arterial vessel occlusion identified. 2. Pre-existing intracranial arterial abnormalities without interval change from comparison. IMPRESSION: 1. Mild severity bilateral internal carotid artery stenosis estimated less than 50%. 2. No significant interval changes from comparison. REFERENCES: NASCET CRITERIA. The degree of stenosis in the cervical segment of the internal carotid artery is based on NASCET criteria. Normal is no stenosis. Mild is less than 50% stenosis. Moderate is 50-69% stenosis. Severe is 70% to 99% stenosis. Total occlusion is no detectable patent lumen. ADDENDUM: 06/21/247 Findings were discussed with BENEDICTO MARCOS at 06/21/2024 12:45 AM ATHLETIC FIELD CUSTODIAN. Laboratory Results WBC 8.20 10^3/uL (3.29-11.43) 06/21/24 01:23 RBC 4.39 10^6/uL (3.85-5.65) 06/21/24 01:23 Hgb 12.90 g/dL (11.27-16.99) 06/21/24 01:23 Hct 40.1 % (36-47) 06/21/24 01:23 MCV 91.3 fl (85-98) 06/21/24 01:23 MCH 29.4 pg (27-33) 06/21/24 01:23 MCHC 32.2 g/dL (30-55) 06/21/24 01:23 RDW 13.6 % (12.1-15.1) 06/21/24 01:23 Plt Count 247 10^3/cmm (157-399) 06/21/24 01:23 MPV 10.3 fL (7.4-10.4) 06/21/24 01:23 Neut % (Auto) 63.7 % 06/21/24 01:23 Lymph % (Auto) 16.2 % 06/21/24 01:23 [place] % (Auto) 15.2 % 06/21/24 01:23 Eos % (Auto) 3.8 % 06/21/24 01:23 Baso % (Auto) 0.6 % 06/21/24 01:23 Neut # (Auto) 5.22 10^3/uL (1.8-7.7) 06/21/24 01:23 Lymph # (Auto) 1.3 10^3/uL (0.8-4.8) 06/21/24 01:23 [place] # (Auto) 1.3 10^3/uL (0.2-0.9) H 06/21/24 01:23 Eos # (Auto) 0.3 10^3/uL (0.0-0.8) 06/21/24 01:23 Baso # (Auto) 0.1 10^3/uL (0.0-0.1) 06/21/24 01:23 Nucleated RBC % (auto) 0 % 06/21/24 01:23 Nucleated RBCs # 0.0 /100WBC 06/21/24 01:23 PT 13.70 SECONDS (12.1-14.9) 06/21/24 01:23 INR 1.02 (0.8-1.2) 06/21/24 01:23 APTT 25.6 SECONDS (23.9-36.7) 06/21/24 01:23 Sodium 137 mmol/L (136-145) 06/21/24 01:23 Potassium 4.0 mmol/L (3.5-5.1) 06/21/24 01:23 Chloride 98 mmol/L (98-107) 06/21/24 01:23 Carbon Dioxide 31 mmol/L (22-29) H 06/21/24 01:23 Anion Gap 12.0 (5-19) 06/21/24 01:23 BUN 37 mg/dL (8-23) H 06/21/24 01:23 Creatinine 1.8 mg/dL (0.5-0.9) H 06/21/24 01:23 GFR Calculation Not Reportable 06/21/24 01:23 Glucose 144 mg/dL (65-115) H 06/21/24 01:23 POC Glucose 136 mg/dL (70-110) H 06/21/24 00:21 Calculated Osmolality 295 mOsm/kg (285-295) 06/21/24 01:23 Calcium 9.9 mg/dL (8.5-10.5) 06/21/24 01:23 Total Bilirubin 0.6 mg/dL (0.15-1.2) 06/21/24 01:23 AST 16 U/L (0-32) 06/21/24 01:23 ALT 14 U/L (0-33) 06/21/24 01:23 Alkaline Phosphatase 79 U/L (35-105) 06/21/24 01:23 Total Protein 6.5 g/dL (6.6-8.7) L 06/21/24 01:23 Albumin 3.5 g/dL (3.5-5.2) 06/21/24 01:23 Globulin 3.0 g/dL (1.3-4.6) 06/21/24 01:23 Urine Color Yellow (Yellow) 06/21/24 02:36 Urine Appearance Clear (CLEAR) 06/21/24 02:36 Urine pH 6.0 (5-7) 06/21/24 02:36 Ur Specific [place] 1.061 (1.005-1.030) H 06/21/24 02:36 Urine Protein 1+ (Negative) A 06/21/24 02:36 Urine Glucose (UA) 3+ (Normal) H 06/21/24 02:36 Urine Ketones Negative (Negative) 06/21/24 02:36 Urine Blood Negative (Negative) 06/21/24 02:36 Urine Nitrate Negative (Negative) 06/21/24 02:36 Urine Bilirubin Negative (Negative) 06/21/24 02:36 Urine Urobilinogen 1.0 mg/dL (Negative) 06/21/24 02:36 Ur Leukocyte Esterase Negative (Negative) 06/21/24 02:36 Amorphous Sediment Not Reportable 06/21/24 02:36 Urine Opiates Screen Negative ng/mL (Negative) 06/21/24 02:36 Ur Barbiturates Screen Negative ng/mL (Negative) 06/21/24 02:36 Ur Phencyclidine Scrn Negative ng/mL (Negative) 06/21/24 02:36 Ur Amphetamines Screen Negative ng/mL (Negative) 06/21/24 02:36 U Benzodiazepines Scrn Negative ng/mL (Negative) 06/21/24 02:36 Urine Cocaine Screen Negative ng/mL (Negative) 06/21/24 02:36 U Marijuana (THC) Screen Negative ng/mL (Negative) 06/21/24 02:36 All radiology interpretation(s) finalized by discharge Discharge Plan Discharge Patient Disposition: Home Clinical Impression: Transient cerebral ischemia Condition: Stable Prescriptions: New atorvastatin 80 mg tablet 80 mg PO DAILY Qty: 30 0RF Discontinued atorvastatin 20 mg tablet 20 mg PO QPM No Action clopidogrel 75 mg tablet 75 mg PO DAILY Qty: 30 5RF (DME) Left unlar gutter FAST FORM See Rx Instructions .Route .MEDSUPPLY Qty: 1 0RF Rx Instructions: As directed fluoxetine 20 mg capsule 20 mg PO QPM ascorbic acid (vitamin C) [Vitamin C] 1,000 mg Tablet 1,000 mg PO DAILY vitamin E 268 mg (400 unit) Capsule 268 mg PO DAILY Centrum Adult 50 Plus 80 mcg Tablet,Chewable 1 tab PO DAILY insulin aspart U-100 [Novolog FlexPen U-100 Insulin] 100 unit/mL (3 mL) insulin pen See Rx Instructions .ROUTE .COMPLEX Qty: 15 0RF Rx Instructions: Take per sliding scale as needed. BS 141-180 2u,181-220 4u, 221-260 6u, 261- 300 8u, 301-350 10u, 351-400 12u, >400 14u insulin glargine [Lantus Solostar U-100 Insulin] 100 unit/mL (3 mL) insulin pen 30 unit SUBCUT QAM losartan 50 mg Tablet 50 mg PO DAILY Qty: 30 0RF furosemide [Lasix] 40 mg tablet 40 mg PO DAILY Qty: 30 0RF dapagliflozin propanediol [Farxiga] 10 mg tablet 10 mg PO QAM Qty: 30 0RF hydrocodone-acetaminophen 5-325 mg tablet 1 tab PO Q6H PRN (Reason: pain) Qty: 10 0RF aspirin 81 mg Tablet,Delayed Release (Dr/Ec) 81 mg PO DAILY Hold Instructions: Doctor's Order Discharge Orders: Discharge ED (Routine); Ordered 06/21/24 Ordered By: Benedicto Marcos Patient Instructions: Transient Ischemic Attack (ED), Opioid Safety, Pain Management Activity Restrictions/Additional Instructions: Return for weakness, language problems, significant dizziness, headache, vision worsening, any other concerning symptoms. See your doctor next week Coding Level of Care Code ED Scientific Process Operator for Minerva Ocampo
[2024-06-21 01:28] LABS: Basophils # 0.1 10^3/uL (0.0-0.1); Basophils % 0.6 %; Eosinophils # 0.3 10^3/uL (0.0-0.8); Eosinophils % 3.8 %; Hematocrit 40.1 % (36-47); Lymphocytes # 1.3 10^3/uL (0.8-4.8); Lymphocytes % 16.2 %; Mean Corpuscular HGB Conc 32.2 g/dL (30-55); Mean Corpuscular Hemoglobin 29.4 pg (27-33); Mean Corpuscular Volume 91.3 fl (85-98); Mean Platelet Volume 10.3 fL (7.4-10.4); Monocytes # 1.3 10^3/uL (0.2-0.9); Monocytes % 15.2 %; Neutrophils # 5.22 10^3/uL (1.8-7.7); Neutrophils % 63.7 %; Nucleated Red Blood Cells % 0 %; Platelet Count 247 10^3/cmm (157-399); Red Blood Count 4.39 10^6/uL (3.85-5.65); Red Cell Distribution Width 13.6 % (12.1-15.1)
[2024-06-21 01:40] LABS: INR 1.02 (0.8-1.2)
[2024-06-21 01:41] LABS: Partial Thromboplastin Time 25.6 SECONDS (23.9-36.7)
[2024-06-21 01:49] LABS: Alanine Aminotransferase 14 U/L (0-33); Albumin Level 3.5 g/dL (3.5-5.2); Alkaline Phosphatase 79 U/L (35-105); Aspartate Amino Transferase 16 U/L (0-32); Blood Urea Nitrogen 37 mg/dL (8-23); Calcium 9.9 mg/dL (8.5-10.5); Carbon Dioxide 31 mmol/L (22-29); Chloride 98 mmol/L (98-107); Creatinine Clr Calc Pharmacy 27.1837; Glucose 144 mg/dL (65-115); Osmolality Calculated 295 mOsm/kg (285-295); Sodium 137 mmol/L (136-145); Total Bilirubin 0.6 mg/dL (0.15-1.2); Total Protein 6.5 g/dL (6.6-8.7)
[2024-06-21 02:43] LABS: Add Urine Microscopic? NO
[2024-06-21 02:46] LABS: Bilirubin Urine Negative (Negative); Blood Urine Negative (Negative); Glucose Urine UA 3+ (Normal); Ketones Urine Negative (Negative); Leukocyte Esterase Urine Negative (Negative); Nitrate Urine Negative (Negative); Protein Urine 1+ (Negative); Urine Appearance Clear (CLEAR); Urine Color Yellow (Yellow)
[2024-06-21 02:52] LABS: Specific Gravity, Urine 1.061 (1.005-1.030)
[2024-06-21 02:55] LABS: Amphetamines Screen Urine Negative (Negative); Barbiturates Screen Urine Negative (Negative); Benzodiazepines Screen Urine Negative (Negative); Cocaine Screen Urine Negative (Negative); Opiate Screen Urine Negative (Negative); PCP Screen Urine Negative (Negative); THC Screen Urine Negative (Negative)
[2024-06-21 03:01] LABS: Charge for UA Resulting for Rev
[2024-06-21 03:31] VITALS: BP 168/69; PULSE 89; O2SAT 96
== END 2024-06-21 03:32 | disposition home or self-care (01) ==
PROVIDERS: Emergency Provider Emergency Medicine
DX: G45.9 Transient cerebral ischemic attack, unspecified (principal); Z79.4 Long term (current) use of insulin; Z79.82 Long term (current) use of aspirin; E11.22 Type 2 diabetes mellitus with diabetic chronic kidney disease; I12.9 Hypertensive chronic kidney disease with stage 1 through stage 4 chronic kidney disease, or unspecified chronic kidney disease; N18.9 Chronic kidney disease, unspecified; J44.9 Chronic obstructive pulmonary disease, unspecified
CPT/HCPCS: 36416; 70450; 70496; 70498; 71045; 80053; 80306; 81003; 82962; 85025; 85610; 85730; 93005; 99285

== ENCOUNTER → 2024-06-25 15:11 | Outpatient (BNVA) | payer MEDICARE, MEDICAID, SELFPAY | PROVIDERS: PCP Internal Medicine; Visit Provider Physician Assistant | DX: S62.617A Displaced fracture of proximal phalanx of left little finger, initial encounter for closed fracture; X58.XXXA Exposure to other specified factors, initial encounter | CPT/HCPCS: 73130; 99213 ==

== ENCOUNTER 2024-07-04 17:04 | Inpatient (IN) | payer MEDICARE, MEDICAID, SELFPAY ==
[2024-07-04 17:12] VITALS: BP 123/68; PULSE 84; RESP 18; TEMP 36.7; O2SAT 94; BMI 34.0
[2024-07-04 17:17] LABS: Glucose Point of Care 230 mg/dL (70-110)
--- NOTE | 2024-07-04 17:21 | ECG_ITS ---
[facility] Test Date: 2024-07-04 Pat Name: Gianna Mora Department: Room: Gender: Female Press Hand: : 1950 Requested By: Chandan Bustos Order Number: [id number] Cesario MD: Ryley Cuellar M.D. Measurements Intervals [place] Rate: 84 P: 69 [place]: 137 QRS: -10 QRSD: 116 T: 63 QT: 417 QTc: 495 Interpretive Statements SINUS RHYTHM MINIMAL VOLTAGE CRITERIA FOR LVH, CONSIDER NORMAL VARIANT [MEETS CRITERIA IN ONE OF: R(aVL), S(V1), R(V5), R(V5/V6)+S(V1)] INFERIOR MYOCARDIAL INFARCTION , OF INDETERMINATE AGE [40+ ms Q WAVE AND/OR ST/T ABNORMALITY IN II/aVF] ANTEROLATERAL MYOCARDIAL INFARCTION , OF INDETERMINATE AGE [40+ ms Q WAVE IN I/aVL/V3-V6] Compared to ECG 06/21/2024 00:22:55 No significant changes Electronically Signed On 07-06-2024 20:18:27 STUDIO COORDINATOR by Ryley Cuellar M.D. [email or web address]
--- NOTE | 2024-07-04 19:07 | XRR_ITS ---
PROCEDURE INFORMATION: Exam: XR Chest Exam date and time: 07/04/2024 7:18 PM Age: 73 years old Clinical indication: Prior infarcts. Lethargy, altered mental status, dizziness, and slurred speech. TECHNIQUE: Imaging protocol: Radiologic exam of the chest. Views: 1 view. Other technique: BEDSIDE AP CHEST COMPARISON: 1. CR (CHEST, ) 06/21/2024 12:[address] angio chest PE protcl [id number] 05/20/2024 10:12 AM 3. CR XR chest 1V portable [id number] 05/20/2024 7:47 AM FINDINGS: Lungs: Lung volumes are mildly low. Lungs are clear. Pleural spaces: No definite pleural effusions or pneumothorax. Heart/Mediastinum: Mediastinum and heart size are stable, with upper limit of normal mildly enlarged heart. Vasculature: Aorta is mild-moderately calcified. Bones/joints: Degenerative facet disease of mid-lower cervical spine and degenerative disc disease of mid-lower thoracic and thoracolumbar spine are present. Deformity of right humeral neck and left proximal humeral shaft suggests old, healed fractures. There are mild osteoarthritis of bilateral glenohumeral and acromioclavicular joints. Plate with interlocking screws spanning left proximal humerus is partially visualized. XR/XR chest 1V portable [id number] IMPRESSION: 1. Clear lungs. 2. Stable, upper limit of normal sized heart. atherosclerosis.
--- NOTE | 2024-07-04 19:07 | CTR_ITS ---
PROCEDURE INFORMATION: Exam: CT Head Without Contrast Exam date and time: 07/04/2024 7:23 PM Age: 73 years old Clinical indication: Prior infarcts. Lethargy, altered mental status, and dizziness. TECHNIQUE: Imaging protocol: Computed tomography of the head without contrast. Total images: 277 submitted. Radiation optimization: All CT scans at this facility use at least one of these dose optimization techniques: automated exposure control; mA and/or kV adjustment per patient size (includes targeted exams where dose is matched to clinical indication); or iterative reconstruction. COMPARISON: 1. CT angio headneck* [id number] 06/21/2024 12:[address] head thrombolytic [id number] 06/20/2024 11:[address] angio headneck* [id number] 06/16/2023 8:26 AM RADIATION DOSE METRICS: Total DLP (mGy-cm): 979.33 FINDINGS: Brain: No midline shift. Cisterns are noneffaced. Moderate and mild, wedge-shaped, low-attenuation lesions spanning [place] and white matter of left posterior temporal and occipital lobes, right posterior parietal or anterior superior occipital lobe, and left posterior inferior cerebellum are unchanged, suggesting chronic infarcts. A few, < 2.3 cm, low attenuation lesions with similar density as CSF at right > left lentiform nuclei and anterior limbs of internal capsules and right ridley radiata are unchanged, suggesting chronic, lacunar infarcts. Moderate, ill-defined, low attenuation areas at bilateral periventricular white matter suggest microvascular ischemic changes. No abnormal high attenuation lesions within brain parenchyma. No intracranial hemorrhage. No definite evidence of acute infarcts. However, diffusion MRI is more sensitive. No extra-axial fluid collections. < 8 mm, dural calcification overlying left frontal convexity is unchanged. Cerebral ventricles: Ventricles along with sulci are mild-moderately enlarged, reflecting volume loss. Callosal angle at level of posterior commissure measures 119 degrees. Moderate, asymmetric dilatation of temporal and occipital horns and atrium of left lateral ventricle suggest ex vacuo dilatation. Paranasal sinuses: Visualized sinuses are clear. Mastoid air cells: Visualized mastoid air cells are well aerated. Orbital cavities: There are bilateral intraocular lens implants. Bones: Unremarkable. No acute fractures. Soft tissues: Grossly unremarkable. Vasculature: Right petrous carotid artery is mildly calcified. Bilateral cavernous and ophthalmic carotid arteries are moderate-severely calcified. Bilateral vertebral arteries are moderate-severely calcified. CT/CT head wo con* [id number] IMPRESSION: 1. Mild-moderate cerebral volume loss. Unchanged, moderate and mild, chronic infarcts at left posterior temporal and occipital lobes, right posterior parietal or anterior superior occipital lobe, and left posterior inferior cerebellum. Unchanged, chronic, lacunar infarcts at right > left lentiform nuclei and anterior limbs of internal capsules and right ridley radiata. Moderate hypodensities at bilateral periventricular white matter, suggesting microvascular ischemic changes. No definite acute infarcts. 2. Atherosclerosis.
[2024-07-04 20:01] LABS: Basophils # 0.1 10^3/uL (0.0-0.1); Basophils % 0.7 %; Eosinophils # 0.3 10^3/uL (0.0-0.8); Eosinophils % 4.1 %; Hematocrit 46.7 % (36-47); Lymphocytes # 1.2 10^3/uL (0.8-4.8); Lymphocytes % 14.8 %; Mean Corpuscular HGB Conc 32.1 g/dL (30-55); Mean Corpuscular Hemoglobin 29.2 pg (27-33); Mean Platelet Volume 11.2 fL (7.4-10.4); Monocytes # 0.7 10^3/uL (0.2-0.9); Monocytes % 8.3 %; Neutrophils # 5.82 10^3/uL (1.8-7.7); Neutrophils % 71.9 %; Nucleated Red Blood Cells % 0 %; Platelet Count 234 10^3/cmm (157-399); Red Blood Count 5.13 10^6/uL (3.85-5.65); Red Cell Distribution Width 13.2 % (12.1-15.1)
[2024-07-04 20:19] LABS: INR 1.02 (0.8-1.2)
[2024-07-04 20:21] LABS: Partial Thromboplastin Time 24.2 SECONDS (23.9-36.7)
[2024-07-04 20:22] LABS: Alanine Aminotransferase 24 U/L (0-33); Albumin Level 3.8 g/dL (3.5-5.2); Alkaline Phosphatase 90 U/L (35-105); Anion Gap 12.1 (5-19); Aspartate Amino Transferase 26 U/L (0-32); Blood Urea Nitrogen 24 mg/dL (8-23); Calcium 10.1 mg/dL (8.5-10.5); Carbon Dioxide 37 mmol/L (22-29); Chloride 97 mmol/L (98-107); Creatine Phosphokinase 44 U/L (26-192); Globulin 3.2 g/dL (1.3-4.6); Glucose 230 mg/dL (65-115); Lactic Sepsis W/Reflex 1.3 mmol/L (0.5-2.2); Osmolality Calculated 305 mOsm/kg (285-295); Potassium 4.1 mmol/L (3.5-5.1); Sodium 142 mmol/L (136-145); Total Bilirubin 1.3 mg/dL (0.15-1.2)
[2024-07-04 20:42] VITALS: BP 141/83; PULSE 78; RESP 18; O2SAT 99
--- NOTE | 2024-07-04 21:21 | W.ED.NEUROSD ---
HPI - Neuro Symptoms/Deficit General: Chief Complaint: Neuro Symptoms/Deficit Stated Complaint: dizzy weakness slurring words Time Seen by Provider: 07/04/24 19:07 History of Present Illness: 73-year-old female presents with episodes of significant dizziness, slurred speech, and some ongoing right sided greater than left-sided weakness. She was seen 2 weeks ago with similar symptoms. CT and CTA of the head were performed at that time, showing no acute infarcts. She does have old stroke findings. She continues to have trouble with ambulation, becomes short of breath, and gets quite dizzy. She has fallen twice this week. Her daughter is worried about her falling at home, as she cannot be with her all the time. Related Data Home Medications Medication Instructions Recorded Confirmed ascorbic acid (vitamin C) 1,000 mg 1,000 mg PO DAILY 08/05/21 06/25/24 tablet (Vitamin C) fluoxetine 20 mg capsule 20 mg PO QPM 08/05/21 06/25/24 aspirin 81 mg tablet,delayed 81 mg PO DAILY 08/10/23 06/25/24 release multivitamin with minerals-folic 1 tab PO DAILY 08/14/23 06/25/24 acid 80 mcg chewable tablet (Centrum Adult 50 Plus) vitamin E 268 mg (400 unit) capsule 268 mg PO DAILY 08/14/23 06/25/24 insulin glargine 100 unit/mL (3 30 unit SUBCUT QAM 05/20/24 06/25/24 mL) subcutaneous pen (Lantus Solostar U-100 Insulin) Previous Rx's Medication Instructions Recorded insulin aspart U-100 100 unit/mL See Rx Instructions .Route 08/16/23 (3 mL) subcutaneous pen (Novolog .COMPLEX #15 mL FlexPen U-100 Insulin aspart) clopidogrel 75 mg tablet 75 mg PO DAILY #30 tabs 05/18/24 dapagliflozin propanediol 10 mg 10 mg PO QAM #30 tabs 05/21/24 tablet (Farxiga) furosemide 40 mg tablet (Lasix) 40 mg PO DAILY #30 tabs 05/21/24 losartan 50 mg tablet 50 mg PO DAILY #30 tabs 05/21/24 hydrocodone 5 mg-acetaminophen 325 1 tab PO Q6H PRN pain #10 tabs 06/06/24 mg tablet Left unlar gutter FAST FORM #1 ea 06/18/24 atorvastatin 80 mg tablet 80 mg PO DAILY #30 tabs 06/21/24 Allergies Allergy/AdvReac Type Severity Reaction Status Date / Time adhesive tape Allergy Wallace Verified 06/25/24 15:24 r PFSH ED PFSH: Medical History Congestive heart failure Mixed diastolic and systolic RONAL (obstructive sleep apnea) Atherosclerotic cerebrovascular disease Acute exacerbation of chronic obstructive airways disease Community acquired pneumonia Acute respiratory failure with hypoxia Diabetes COPD (chronic obstructive pulmonary disease) Tracheobronchomalacia CT chest 08/07 INGA positive Cerebellar stroke CKD (chronic kidney disease) Baseline creatinine 1.2-1.4 Osteoarthritis of left hip Hypertension Surgical History History of cholecystectomy H/O: hysterectomy Family History Other Acute respiratory failure with hypoxia Social History Smoking and tobacco/nicotine status: never used tobacco/nicotine Alcohol intake: never Substance/Drug Use: never NIH stroke score NIHSS: Level Of Consciousness - 1a: 0 Level Of Consciousness Questions - 1b: Both Correct Level Of Consciousness Commands - 1c: Both Correct Best Gaze - 2: Normal Visual Baker - 3: No Visual Loss Facial Palsy - 4: Normal (None currently) Motor Arm Right - 5: No Drift Motor Arm Left - 5: No Drift Motor Leg Right - 6: Drift (Minimal) Motor Leg Left - 6: No Drift Limb Ataxia - 7: Present In One Limb Sensory - 8: Normal Best Language - 9: No Aphasia Dysarthia - 10: Normal Extinction And Inattention - 11: 0 Score: Total Score: 2 Physical Exam Const: GENERAL APPEARANCE: cooperative and frail appearing HENMT: COMMON NORMALS: normocephalic, atraumatic and Normal external nose present HEAD & SCALP: normocephalic and atraumatic FACE & SINUS: normal facial exam and face symmetric NOSE: Normal external nose present Eye: COMMON NORMALS: Equal, round and reactive pupils present and EOMs intact bilaterally PUPIL: Yes Equal, round and reactive pupils present Neck/C-Spine: GENERAL: Yes trachea midline Chest: CHEST: Yes Symmetrical chest wall rise Resp: COMMON NORMALS: normal respiratory effort, No retractions, No use of accessory muscles and clear to auscultation bilaterally AUSCULTATION: clear to auscultation bilaterally Cardio: COMMON NORMALS: regular rate and regular rhythm RATE: regular rate RHYTHM: regular rhythm GI: COMMON NORMALS: Normal to inspection, nondistended, normoactive bowel sounds present Extremity: COMMON NORMALS: no pedal edema Neuro: FRANCISCO COMA SCALE: document GCS findings Francisco coma scale eye opening: Spontaneous Francisco coma scale verbal response: Orientated Francisco coma scale motor response: Obey commands Herman coma scale total score: 15 SENSORY EXAM: Yes extremities (intact) Psych: COMMON NORMALS: speech normal SPEECH: Yes normal speech Skin: COMMON NORMALS: no rashes or lesions noted GENERAL SKIN EXAM: no rashes or lesions noted Course Vital Signs: Vital signs: Vital Signs Temperature 98.0 F 07/05/24 00:00 Pulse Rate 69 07/05/24 00:00 Respiratory Rate 16 07/05/24 00:00 Blood Pressure 141/60 07/05/24 00:00 Pulse Oximetry 100 07/05/24 00:00 Oxygen Delivery Me thod Nasal Cannula 07/05/24 00:00 Oxygen Flow Rate 2 07/04/24 17:12 MDM - Neuro Symptoms/Deficit Medical Decision Making This patient has stable vital signs. Saturations have been good on her home 2 L. Her white blood cell count is 8. Chest x-ray is clear. Her creatinine is improved down to 1.2 from 1.8 the last time she was seen. Head CT is stable from prior. CRP is 3. Urinalysis is pending. Urinalysis is negative. This lady is falling at home. She is weak. She is significantly dizzy. She has not had advanced imaging such as MRI of her head since her previous ER visit for similar complaints couple weeks ago. She continues to not do well at home. She will be observed. Hospitalist is aware. Lab Data 07/04/24 19:53 07/04/24 19:53 Radiology Impressions Chest X-Ray 07/04/24 19:07 IMPRESSION: 1. Clear lungs. 2. Stable, upper limit of normal sized heart. atherosclerosis. Head CT 07/04/24 19:07 IMPRESSION: 1. Mild-moderate cerebral volume loss. Unchanged, moderate and mild, chronic infarcts at left posterior temporal and occipital lobes, right posterior parietal or anterior superior occipital lobe, and left posterior inferior cerebellum. Unchanged, chronic, lacunar infarcts at right > left lentiform nuclei and anterior limbs of internal capsules and right ridley radiata. Moderate hypodensities at bilateral periventricular white matter, suggesting microvascular ischemic changes. No definite acute infarcts. 2. Atherosclerosis. Laboratory Results WBC 8.10 10^3/uL (3.29-11.43) 07/04/24 19:53 RBC 5.13 10^6/uL (3.85-5.65) 07/04/24 19:53 Hgb 15.00 g/dL (11.27-16.99) 07/04/24 19:53 Hct 46.7 % (36-47) 07/04/24 19:53 MCV 91.0 fl (85-98) 07/04/24 19:53 MCH 29.2 pg (27-33) 07/04/24 19:53 MCHC 32.1 g/dL (30-55) 07/04/24 19:53 RDW 13.2 % (12.1-15.1) 07/04/24 19:53 Plt Count 234 10^3/cmm (157-399) 07/04/24 19:53 MPV 11.2 fL (7.4-10.4) H 07/04/24 19:53 Neut % (Auto) 71.9 % 07/04/24 19:53 Lymph % (Auto) 14.8 % 07/04/24 19:53 Bowman % (Auto) 8.3 % 07/04/24 19:53 Eos % (Auto) 4.1 % 07/04/24 19:53 Baso % (Auto) 0.7 % 07/04/24 19:53 Neut # (Auto) 5.82 10^3/uL (1.8-7.7) 07/04/24 19:53 Lymph # (Auto) 1.2 10^3/uL (0.8-4.8) 07/04/24 19:53 Bowman # (Auto) 0.7 10^3/uL (0.2-0.9) 07/04/24 19:53 Eos # (Auto) 0.3 10^3/uL (0.0-0.8) 07/04/24 19:53 Baso # (Auto) 0.1 10^3/uL (0.0-0.1) 07/04/24 19:53 Nucleated RBC % (auto) 0 % 07/04/24 19:53 Nucleated RBCs # 0.0 /100WBC 07/04/24 19:53 PT 13.70 SECONDS (12.1-14.9) 07/04/24 19:53 INR 1.02 (0.8-1.2) 07/04/24 19:53 APTT 24.2 SECONDS (23.9-36.7) 07/04/24 19:53 Sodium 142 mmol/L (136-145) 07/04/24 19:53 Potassium 4.1 mmol/L (3.5-5.1) 07/04/24 19:53 Chloride 97 mmol/L (98-107) L 07/04/24 19:53 Carbon Dioxide 37 mmol/L (22-29) H 07/04/24 19:53 Anion Gap 12.1 (5-19) 07/04/24 19:53 BUN 24 mg/dL (8-23) H 07/04/24 19:53 Creatinine 1.2 mg/dL (0.5-0.9) H 07/04/24 19:53 GFR Calculation Not Reportable 07/04/24 19:53 Glucose 230 mg/dL (65-115) H 07/04/24 19:53 POC Glucose 230 mg/dL (70-110) H 07/04/24 17:15 Estimat Average Glucose 183 07/04/24 19:53 Hemoglobin A1c 8.0 % (4.0-6.0) H 07/04/24 19:53 Calculated Osmolality 305 mOsm/kg (285-295) H 07/04/24 19:53 Lactic Acid 1.3 mmol/L (0.5-2.2) 07/04/24 19:53 Calcium 10.1 mg/dL (8.5-10.5) 07/04/24 19:53 Total Bilirubin 1.3 mg/dL (0.15-1.2) H 07/04/24 19:53 AST 26 U/L (0-32) 07/04/24 19:53 ALT 24 U/L (0-33) 07/04/24 19:53 Alkaline Phosphatase 90 U/L (35-105) 07/04/24 19:53 Creatine Kinase 44 U/L (26-192) 07/04/24 19:53 C-Reactive Protein 3.0 mg/L (0.0-4.9) 07/04/24 19:53 Total Protein 7.0 g/dL (6.6-8.7) 07/04/24 19:53 Albumin 3.8 g/dL (3.5-5.2) 07/04/24 19:53 Globulin 3.2 g/dL (1.3-4.6) 07/04/24 19:53 Triglycerides 89 mg/dL (0-150) 07/04/24 19:53 Cholesterol 100 mg/dL (0-200) 07/04/24 19:53 LDL Cholesterol, Calc 26 mg/dL (50-129) L 07/04/24 19:53 HDL Cholesterol 56 mg/dL (60-100) L 07/04/24 19:53 LDL/HDL Ratio 0.46 RATIO (0.00-3.22) 07/04/24 19:53 Cholesterol/HDL Ratio 1.79 mg/dL (0.0-4.40) 07/04/24 19:53 TSH 1.31 uIU/mL (0.27-4.20) 07/04/24 19:53 Urine Color Yellow (Yellow) 07/04/24: Urine Appearance Clear (CLEAR) 07/04/24 21: Urine pH 5.5 (5-7) 07/04/24 21: Ur Specific [place] 1.026 (1.005-1.030) 07/04/24: Urine Protein Trace (Negative) A 07/04/24: Urine Glucose (UA) 3+ (Normal) H 07/04/24 21: Urine Ketones Negative (Negative) 07/04/24 21: Urine Blood Negative (Negative) 07/04/24: Urine Nitrate Negative (Negative) 07/04/24 21: Urine Bilirubin Negative (Negative) 07/04/24 21: Urine Urobilinogen 1.0 mg/dL (Negative) 07/04/24 21: Ur Leukocyte Esterase Negative (Negative) 07/04/24: Urine RBC 0-2 /hpf (0-2) 07/04/24 21:28 Urine WBC 0-5 /hpf (0-5) 07/04/24 21:28 Ur Squamous Epith Cells 0-5 /hpf (0-5) 07/04/24 21:28 Amorphous Sediment Not Reportable 07/04/24 21:28 Urine Bacteria None seen /hpf (NONE) 07/04/24 21:28 Hyaline Casts 0.40 /lpf 07/04/24 21:28 All radiology interpretation(s) finalized by discharge Discharge Plan Discharge Patient Disposition: Admitted As Inpatient Admit Provider: Dennis Oglesby Clinical Impression: Dizzy, Congestive heart failure, Atherosclerotic cerebrovascular disease Condition: Fair Coding Level of Care Code ED Calculation Reviewer for Minerva Ocampo
[2024-07-04 21:37] LABS: Bilirubin Urine Negative (Negative); Blood Urine Negative (Negative); Glucose Urine UA 3+ (Normal); Ketones Urine Negative (Negative); Leukocyte Esterase Urine Negative (Negative); Nitrate Urine Negative (Negative); Protein Urine Trace (Negative); Specific Gravity, Urine 1.026 (1.005-1.030); Urine Appearance Clear (CLEAR); Urine Color Yellow (Yellow); pH Urine 5.5 (5-7)
[2024-07-04 21:41] LABS: Add Urine Microscopic? YES; Bacteria Urine None Seen /hpf; RBC Urine 0-2 /hpf (0-2); Squamous Epithelial Cell Urine 0-5 /hpf (0-5); WBC Urine 0-5 /hpf (0-5)
[2024-07-04 22:01] VITALS: BP 135/92; PULSE 79; RESP 16; O2SAT 99
--- NOTE | 2024-07-04 23:22 | PM.HP ---
Providers/Chief Complaint Admitting Physician: Dennis Oglesby MD Primary Care Provider: Lefty Hodge DO Chief Complaint: dizzy weakness slurring words History of Present Illness Gianna Mora is a 73 year old female with a past medical history of type 2 diabetes mellitus, COPD, history of CVA, who presents to [facility] due to slurring of her words, left facial droop, unsteadiness on her feet, dizziness, word finding difficulty, falls. Currently patient is alert to person, to place, not to time she follows commands with daughter at the bedside who helps in the history taking. About 2 weeks ago patient had an episode of suddenly feeling dizzy, unsteady on her feet, with a left facial droop, slurring of words, word finding difficulty, so she was brought here to [facility] for evaluation, there was concern for stroke, she eventually went home. Since being at home she has had 2 falls continues to have dizziness, unsteadiness on her feet, about 2 weeks ago she was able to ambulate with a walker now she is not able to ambulate due to dizziness and weakness. She can still feed herself, no changes in her mentation, does have slurring her words word finding difficulty. According to daughter over the last 2 weeks she is declining, no other focal weakness reported, no dysuria, hematuria, no cough, no fevers. Currently her NIH stroke scale is 2, she is out of the tPA window, CTA head and neck 06/21 no large vessel occlusion, ct head no acute findings Review of Systems Const: Denies: fever(s) Eyes: Denies: change in vision Card: Denies: chest pain Resp: Denies: dyspnea GI: Denies: abdominal pain Neuro: Reports: difficulty walking, frequent falls, dizziness, Slurred speech present and difficulty communicating thoughts; Denies: headache(s) Medications/Allergies Home Medications Medication Instructions Recorded Confirmed Last Taken Type ascorbic acid (vitamin C) 1,000 mg 1,000 mg PO DAILY 08/05/21 06/25/24 05/19/24 History tablet (Vitamin C) fluoxetine 20 mg capsule 20 mg PO QPM 08/05/21 06/25/24 05/19/24 History aspirin 81 mg tablet,delayed 81 mg PO DAILY 08/10/23 06/25/24 05/19/24 History release multivitamin with minerals-folic 1 tab PO DAILY 08/14/23 06/25/24 05/19/24 History acid 80 mcg chewable tablet (Centrum Adult 50 Plus) vitamin E 268 mg (400 unit) capsule 268 mg PO DAILY 08/14/23 06/25/24 05/19/24 History insulin aspart U-100 100 unit/mL See Rx Instructions .Route 08/16/23 06/25/24 04/08/24 Rx (3 mL) subcutaneous pen (Novolog .COMPLEX #15 mL FlexPen U-100 Insulin aspart) clopidogrel 75 mg tablet 75 mg PO DAILY #30 tabs 05/18/24 06/25/24 05/19/24 Rx insulin glargine 100 unit/mL (3 30 unit SUBCUT QAM 05/20/24 06/25/24 05/19/24 History mL) subcutaneous pen (Lantus Solostar U-100 Insulin) dapagliflozin propanediol 10 mg 10 mg PO QAM #30 tabs 05/21/24 06/25/24 Unknown Rx tablet (Farxiga) furosemide 40 mg tablet (Lasix) 40 mg PO DAILY #30 tabs 05/21/24 06/25/24 Unknown Rx losartan 50 mg tablet 50 mg PO DAILY #30 tabs 05/21/24 06/25/24 Unknown Rx hydrocodone 5 mg-acetaminophen 325 1 tab PO Q6H PRN pain #10 tabs 06/06/24 Unknown Rx mg tablet Left unlar gutter FAST FORM #1 ea 06/18/24 06/25/24 Unknown Rx atorvastatin 80 mg tablet 80 mg PO DAILY #30 tabs 06/21/24 06/25/24 Unknown Rx Allergies Allergy/AdvReac Type Severity Reaction Status Date / Time adhesive tape Allergy ALGY-Bliste Verified 06/25/24 15:24 r PFSH Acute PFSH: Medical History Congestive heart failure Mixed diastolic and systolic RONAL (obstructive sleep apnea) Atherosclerotic cerebrovascular disease Acute exacerbation of chronic obstructive airways disease Community acquired pneumonia Acute respiratory failure with hypoxia Diabetes COPD (chronic obstructive pulmonary disease) Tracheobronchomalacia CT chest 08/07 INGA positive Cerebellar stroke CKD (chronic kidney disease) Baseline creatinine 1.2-1.4 Osteoarthritis of left hip Hypertension Surgical History History of cholecystectomy H/O: hysterectomy Family History Other Acute respiratory failure with hypoxia Social History Smoking and tobacco/nicotine status: never used tobacco/nicotine Alcohol intake: never Substance/Drug Use: never Vitals/I&O/Wt Last Vital Signs Temp 98.0 F 07/04/24 17:12 Pulse 79 07/04/24 22:01 Resp 16 07/04/24 22:01 BP 135/92 07/04/24 22:01 Pulse Ox 99 07/04/24 22:01 O2 Del Method Nasal Cannula 07/04/24 17:12 O2 Flow Rate 2 07/04/24 17:12 Weight last 48 hrs Weight 81.647 kg Physical Exam Const: COMMON NORMALS: no acute distress GENERAL APPEARANCE: cooperative ORIENTATION/CONSCIOUSNESS: Yes awake, Yes oriented to person and Yes oriented to place HENMT: COMMON NORMALS: normocephalic HEAD & SCALP: normocephalic Eye: COMMON NORMALS: Equal, round and reactive pupils present Neck/C-Spine: COMMON NORMALS: no JVD Resp: COMMON NORMALS: normal respiratory effort, No retractions, No use of accessory muscles and clear to auscultation bilaterally AUSCULTATION: clear to auscultation bilaterally Cardio: COMMON NORMALS: regular rate, regular rhythm, S1 normal heart sound present and S2 normal heart sound present RATE: regular rate RHYTHM: regular rhythm HEART SOUNDS: S1 normal heart sound present and S2 normal heart sound present GI: COMMON NORMALS: Normal to inspection, nondistended, normoactive bowel sounds present, Soft to palpation and non-tender Extremity: COMMON NORMALS: capillary refill normal, no calf tenderness and no pedal edema Neuro: COMMON NORMALS: CN's II-XII intact bilaterally, moves all extremities and no focal motor deficits OTHER: No significant slurring of words that I could detect, does have a slight left facial droop, no focal weakness, that I could detect, [id number] is normal bilaterally, does have word finding difficulty at times, ? Left hand is in a binder Psych: COMMON NORMALS: mental status grossly normal Data 07/04/24 19:53 07/04/24 19:53 A&P Assessment and plan (1) CVA (cerebral vascular accident): (2) COPD (chronic obstructive pulmonary disease): (3) Diabetes: (4) Congestive heart failure: Qualifiers: Heart failure chronicity: acute on chronic Heart failure type: systolic Qualified Code(s): I50.23 - Acute on chronic systolic (congestive) heart failure (5) CKD (chronic kidney disease): Plan CVA ? Sounds like posterior circulation stroke ct head CT/CT head wo con* [id number] IMPRESSION: 1. Mild-moderate cerebral volume loss. Unchanged, moderate and mild, chronic infarcts at left posterior temporal and occipital lobes, right posterior parietal or anterior superior occipital lobe, and left posterior inferior cerebellum. Unchanged, chronic, lacunar infarcts at right > left lentiform nuclei and anterior limbs of internal capsules and right ridley radiata. Moderate hypodensities at bilateral periventricular white matter, suggesting microvascular ischemic changes. No definite acute infarcts. 2. Atherosclerosis. CTA head of neck CT/CT angio headneck* [id number] IMPRESSION: 1. No acute intracranial large arterial vessel occlusion identified. 2. Pre-existing intracranial arterial abnormalities without interval change from comparison. IMPRESSION: 1. Mild severity bilateral internal carotid artery stenosis estimated less than 50%. 2. No significant interval changes from comparison. Plan ? Neurochecks ? NIH stroke scale ? PT OT # Continue aspirin, statin, Plavix # Telemetry monitoring ? Monitor blood pressure # Cardiac echo # MRI brain # Full code # Lovenox for DVT prophylaxis Type 2 diabetes mellitus, low-dose sliding scale Attestations Medical Necessity Statement*: Patient requires hospitalization, outpatient observation, for CVA Diagnoses CVA (cerebral vascular accident) I63.9 COPD (chronic obstructive pulmonary disease) J44.9 Diabetes E11.9 Acute on chronic systolic congestive heart failure I50.23 Heart failure chronicity: acute on chronic Heart failure type: systolic CKD (chronic kidney disease) N18.9
[2024-07-04 23:49] VITALS: PULSE 69
[2024-07-04 23:57] VITALS: BMI 31.6
[2024-07-05] VITALS (8 sets, daily range): BP systolic 136–156; BP diastolic 60–75; PULSE 65–81; RESP 14–18; TEMP 36.3–37.1; O2SAT 97–100
[2024-07-05 00:23] LABS: Chol HDL Ratio 1.79 mg/dL (0.0-4.40); Cholesterol 100 mg/dL (0-200); HDL Cholesterol 56 mg/dL (60-100); LDL Cholesterol Calculated 26 mg/dL (50-129); LDL HDL Ratio 0.46 RATIO (0.00-3.22); Thyroid Stimulating Hormone 1.31 uIU/mL (0.27-4.20); Triglycerides 89 mg/dL (0-150)
[2024-07-05 00:29] LABS: Estmated Average Glucose 183
[2024-07-05] MEDS: enoxaparin 40 mg/0.4 mL Syringe SUBCUT ×2 (00:44→23:22)
[2024-07-05] MEDS: pantoprazole 40 mg SDV IVP ×2 (00:45→23:22)
[2024-07-05 05:03] LABS: Albumin Level 3.4 g/dL (3.5-5.2); Alkaline Phosphatase 77 U/L (35-105); Blood Urea Nitrogen 26 mg/dL (8-23); Calcium 9.5 mg/dL (8.5-10.5); Carbon Dioxide 30 mmol/L (22-29); Chloride 103 mmol/L (98-107); Creatinine Clr Calc Pharmacy 43.3675; Globulin 2.6 g/dL (1.3-4.6); Glucose 150 mg/dL (65-115); Osmolality Calculated 300 mOsm/kg (285-295); Sodium 141 mmol/L (136-145); Total Bilirubin 0.9 mg/dL (0.15-1.2)
[2024-07-05 05:05] LABS: Alanine Aminotransferase 23 U/L (0-33); Anion Gap 12.4 (5-19); Aspartate Amino Transferase 30 U/L (0-32); Potassium 4.4 mmol/L (3.5-5.1)
[2024-07-05 06:42] LABS: Glucose Point of Care 124 mg/dL (70-110)
[2024-07-05 07:13] LABS: Basophils # 0.1 10^3/uL (0.0-0.1); Basophils % 0.9 %; Eosinophils # 0.4 10^3/uL (0.0-0.8); Eosinophils % 5.8 %; Hematocrit 45.7 % (36-47); Lymphocytes # 1.5 10^3/uL (0.8-4.8); Lymphocytes % 22.4 %; Mean Corpuscular HGB Conc 30.9 g/dL (30-55); Mean Corpuscular Volume 93.8 fl (85-98); Monocytes # 0.9 10^3/uL (0.2-0.9); Monocytes % 13.2 %; Neutrophils # 3.86 10^3/uL (1.8-7.7); Neutrophils % 57.4 %; Nucleated Red Blood Cells % 0 %; Platelet Count 211 10^3/cmm (157-399); Red Blood Count 4.87 10^6/uL (3.85-5.65); Red Cell Distribution Width 13.3 % (12.1-15.1); White Blood Count 6.73 10^3/uL (3.29-11.43)
--- NOTE | 2024-07-05 09:30 | MRR_ITS ---
PROCEDURE INFORMATION: Exam: MR Head Without Contrast Exam date and time: 07/05/2024 1:16 PM Age: 73 years old Clinical indication: Altered mental status/memory loss; Confusion or disorientation; Additional info: CVA TECHNIQUE: Imaging protocol: Magnetic resonance imaging of the head without contrast. COMPARISON: CT head wo con* [id number] 07/04/2024 7:23 PM FINDINGS: Brain: No acute infarct. No hemorrhage. No edema. Old infarcts noted in the left occipital, temporal, and right parietal lobes as well as the left cerebellar hemisphere. Moderate diffuse cerebral atrophy and FLAIR T2 hyperintense signal abnormality within the periventricular white matter tracts consistent with chronic small vessel ischemic disease. Cerebral ventricles: Normal. No ventriculomegaly. Bones: Unremarkable. Paranasal sinuses: Normal as visualized. No acute sinusitis. Mastoid air cells: Normal as visualized. No mastoid effusion. Orbital cavities: Unremarkable. Soft tissues: Unremarkable. MR/MR head wo con* [id number] IMPRESSION: No acute ischemia.
[2024-07-05] MEDS: losartan 50 mg Tablet PO (09:49)
[2024-07-05] MEDS: FUROsemide 40 mg Tablet PO (09:50)
[2024-07-05] MEDS: clopidogrel 75 mg Tablet PO (09:50)
[2024-07-05] MEDS: aspirin 81 mg EC Tablet PO (09:50)
[2024-07-05] MEDS: atorvastatin 40 mg Tablet 80 MG PO (09:50)
[2024-07-05 10:52] LABS: Glucose Point of Care 180 mg/dL (70-110)
[2024-07-05] MEDS: insulin lispro 100 unit/1 mL SUBCUT ×3 (11:58→20:53)
--- NOTE | 2024-07-05 12:57 | PC.NURSE ---
LEAVES FOR MRI
[2024-07-05 17:49] LABS: Glucose Point of Care 187 mg/dL (70-110)
[2024-07-05] MEDS: fluoxetine 20 mg Capsule PO (17:51)
--- OUTSIDE RECORDS SUMMARY | 2024-07-05 19:40 | XMS_ITS | Patient Health Record ---
Author Name Unknown Organization [facility] Billing Info Address [address] [place] [id number] Support Name Relationship Address Phone October Emergency Contact [address] [place] [address] AD 1938 [place] [id number] Gianna Mora Guarantor Unknown [phone] Reason For Referral No Information Plan Of Treatment No Information Insurance Providers Payer Name Payer Address Payer Phone Subscriber Number Group Number Insured Name Patient Relationship to Insured Coverage Start Date Coverage End Date [employer] PPO MEDICARE [address] [address] [place], [place] [id number] Gianna Mora Self - patient is the insured 1 [place] [address] [place], [place] [id number] [phone] [id number] Gianna Mora Self - patient is the insured 2
--- OUTSIDE RECORDS SUMMARY | 2024-07-05 19:40 | XMS_ITS | Clinical Summary ---
Author Name Unknown Organization [facility] Address [address] [place] [address] Phone Care Team Providers Care Sales Agent Pest Control Service Name Role Phone Unavailable Primary Care Provider Unavailabl e Family History Medical History Relation Name Comments No Known Problems Neg Hx Social History Tobacco Use Types Packs/Day Years Used Date Smoking Tobacco: Never Smokeless Tobacco: Never Sex and Gender Information Value Date Recorded Sex Assigned at Not on file Gender Identity Not on file Sexual Orientation Not on file Last Filed Vital Signs Vital Sign Reading Time Taken Comments Blood Pressure 153/73 01/03/2021 10:36 AM CDT Pulse 73 01/03/2021 10:36 AM CDT Temperature - - Respiratory Rate 16 12/23/2020 11:47 AM CDT Oxygen Saturation - - Inhaled Oxygen Concentration - - Weight 72.6 kg (160 lb) 01/03/2021 10:36 AM CDT Height 154.9 cm (5' 1 ) 01/03/2021 10:36 AM CDT Body Mass Index 30.23 01/03/2021 10:36 AM CDT Plan of Treatment Health Maintenance Due Date Last Done Comments DTAP/TDAP/TD VACCINES (1 - Tdap) 1971 BREAST CANCER SCREENING 1992 COLORECTAL SCREENING 1997 Colorectal Cancer Screening 1997 FIT-DNA Q 3 years 1997 FIT/FOBT Q 1 year 1997 Flex Sig/CT Colonography Q 5 years 1997 ZOSTER VACCINE (1 of 2) 2002 OSTEOPOROSIS SCREENING 2017 PNEUMOCOCCAL VACCINE 65+ YEARS (1 of 1 - PCV) 08/29/19 18 INFLUENZA VACCINE (#1) 2024 RSV VACCINE (60+ or ) (1 - 1-dose 75+ series) 2027
--- OUTSIDE RECORDS SUMMARY | 2024-07-05 19:40 | XMS_ITS | Continuity of Care Document ---
Author Name Unknown Address [address] [place] [address] [address] [facility]. 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 Onset:11-Aug-2021 Comments:Onset Date: 20210806 K80.50(K80.50) Onset:10-Aug-2021 Comments:Onset Date: 20210806 S36.119A(S36.119A) Onset:07-Aug-2021 Comments:Onset Date: 20210807 R79.89 Onset:07-Aug-2021 Comments:Onset Date: 20210807 R10.9(R10.9) Onset:07-Aug-2021 Comments:Onset Date: 20210807 Mental Status Cognitive function finding 06-Aug-2021 Allergies and Adverse Reactions No Known Drug Allergies(Rafael rgy) Onset: 06-Aug-2021 Reaction:UNKNOWN Medications acetaminophen 325 MG / HYDRO codone bitartrate 5 MG Oral Tablet [Adair];1 TABLET PO Q4HR Start:10-Aug-2021 Comments:1 TAB PO Q4HR ciprofloxacin 250 MG Oral Ta blet;250 MILLIGRAM PO BID Start:10-Aug-2021 Comments:250 MG PO BID metroNIDAZOLE 500 MG Oral Ta blet [Flagyl];500 MILLIGRAM PO BID Start:10-Aug-2021 Comments:500 MG PO BID neostigmine methylsulfate 1 MG/ML Injectable Solution Quantity:1 Start:08-Aug-2021 Status:Discontinued glycopyrrolate 0.2 MG/ML Inj ectable Solution Quantity:1 Start:08-Aug-2021 Status:Discontinued rocuronium bromide 10 MG/ML Injectable Solution;Provider Administration Instructions:WHILE IN ICU ON VENTILATOR Quantity:1 Start:08-Aug-2021 Status:Discontinued Comments:Provider Administration Instructions:WHILE IN ICU ON VENTILATOR cefOXitin (as cefOXitin sodi um) 180 MG/ML Injectable Solution Quantity:1 Start:08-Aug-2021 Status:Discontinued ondansetron 2 MG/ML Injectab le Solution [Zofran] Quantity:1 Start:08-Aug-2021 Status:Discontinued Dexamethasone 4 MG/ML Inject able Solution Quantity:1 Start:08-Aug-2021 Status:Discontinued rocuronium bromide 10 MG/ML Injectable Solution;Provider Administration Instructions:WHILE IN ICU ON VENTILATOR Quantity:1 Start:08-Aug-2021 Status:Discontinued Comments:Provider Administration Instructions:WHILE IN ICU ON VENTILATOR 5 ML lidocaine hydrochloride 20 MG/ML Injection [Xylocaine] Quantity:1 Start:08-Aug-2021 propofol 10 MG/ML Injectable Suspension;Provider Administration Instructions:It is recommended that triglyceride levels jared-assessed every two days Quantity:1 Start:08-Aug-2021 Status:Discontinued Comments:Provider Administration Instructions:It is recommended that triglyceride levels jared-assessed every two days fentaNYL 1500 MCG per 30 ML Injectable Solution;Provider Administration Instructions: SOUND ALIKE/LOOK ALIKE DRUG (SAME SUBLIMAZE) Quantity:1 Start:08-Aug-2021 Status:Discontinued Comments:Provider Administration Instructions: SOUND ALIKE/LOOK ALIKE DRUG (SAME SUBLIMAZE) EPINEPHrine 1 MG/ML Injectab le Solution Quantity:1 Start:08-Aug-2021 Status:Discontinued 30 ML bupivacaine hydrochlor ines 5 MG/ML Injection Quantity:1 Start:08-Aug-2021 Esmolol hydrochloride 10 MG/ ML Injectable Solution Quantity:1 Start:07-Aug-2021 glycopyrrolate 0.2 MG/ML Inj ectable Solution Quantity:1 Start:07-Aug-2021 Status:Discontinued neostigmine methylsulfate 1 MG/ML Injectable Solution Quantity:1 Start:07-Aug-2021 Status:Discontinued ondansetron 2 MG/ML Injectab le Solution [Zofran] Quantity:1 Start:07-Aug-2021 Status:Discontinued succinylcholine chloride 20 MG/ML Injectable Solution [Quelicin];Provider Administration Instructions:RN: SCAN FOR EACH 20 MG ADMINISTERED Quantity:1 Start:07-Aug-2021 Status:Discontinued Comments:Provider Administration Instructions:RN: SCAN FOR EACH 20 MG ADMINISTERED dexamethasone phosphate 10 M G/ML Injectable Solution Quantity:1 Start:07-Aug-2021 Status:Discontinued succinylcholine chloride 20 MG/ML Injectable Solution [Quelicin];Provider Administration Instructions:RN: SCAN FOR EACH 20 MG ADMINISTERED Quantity:1 Start:07-Aug-2021 Comments:Provider Administration Instructions:RN: SCAN FOR EACH 20 MG ADMINISTERED 5 ML lidocaine hydrochloride 20 MG/ML Injection [Xylocaine] Quantity:1 Start:07-Aug-2021 Status:Discontinued propofol 10 MG/ML Injectable Suspension;Provider Administration Instructions:It is recommended that triglyceride levels jared-assessed every two days Quantity:1 Start:07-Aug-2021 Status:Discontinued Comments:Provider Administration Instructions:It is recommended that triglyceride levels jared-assessed every two days fentaNYL 1500 MCG per 30 ML Injectable Solution;Provider Administration Instructions: SOUND ALIKE/LOOK ALIKE DRUG (SAME SUBLIMAZE) Quantity:1 Start:07-Aug-2021 Status:Discontinued Comments:Provider Administration Instructions: SOUND ALIKE/LOOK ALIKE DRUG (SAME SUBLIMAZE) VITAMIN E Start:06-Aug-2021 THERA M PLUS;1 EACH PO DAILY Start:06-Aug-2021 Comments:1 EACH PO DAILY atorvastatin 20 MG Oral Tabl et;20 MILLIGRAM PO BEDTIME Start:06-Aug-2021 Comments:20 MG PO BEDTIME amLODIPine 10 MG Oral Tablet ;10 MILLIGRAM PO DAILY Start:06-Aug-2021 Comments:10 MG PO DAILY aspirin 81 MG Chewable Table t;81 MILLIGRAM PO DAILY Start:06-Aug-2021 Comments:81 MG PO DAILY ascorbic acid 1000 MG Oral T ablet;1000 MILLIGRAM PO DAILY Start:06-Aug-2021 Comments:1000 MG PO DAILY hydroCHLOROthiazide 25 MG Or al Tablet;25 MILLIGRAM PO DAILY Start:06-Aug-2021 Comments:25 MG PO DAILY FLUoxetine 20 MG Oral Capsul e;20 MILLIGRAM PO DAILY Start:06-Aug-2021 Comments:20 MG PO DAILY 3 ML insulin glargine 100 UN T/ML Pen Injector;25 UNITS SUBCUTANEOUS BID Start:06-Aug-2021 Comments:25 UNITS SUBQ BID Social History Smoking Status Never smoked tobacco Recorded: 06-Aug-2021
--- OUTSIDE RECORDS SUMMARY | 2024-07-05 19:40 | XMS_ITS ---
Author Name Unknown Organization Unknown ALLERGIES AND ADVERSE REACTIONS No information ASSESSMENT No information CHIEF COMPLAINT No information MEDICATIONS No information OBJECTIVE DATA No information PHYSICAL EXAMINATION No information TREATMENT PLAN Planned Care Start Date Provider Encounter for Check-up [id number] [facility] PROBLEMS No information RESULTS No information REVIEW OF SYSTEMS No information SUBJECTIVE DATA No information VITAL SIGNS No information
--- OUTSIDE RECORDS SUMMARY | 2024-07-05 19:41 | XMS_ITS | Data Portability ---
Author Name Unknown Address [facility] [address] [place] [address] Phone [phone] Organization [facility] Ken Owens [facility] Tamy Olmedo [facility] Address [address] [facility] [address] [place] [address] Care Team Providers Care Tax Staff Accountant Name Role Phone LEFTY HODGE Primary Care Provider Unavailabl e Assessment Encounter Date Assessment Date Assessment LastModified by Organization Details LastModified Time 05/05/2024 05/05/2024 Since nosebleeds are recurring I had pt blow her nose. Inserted a cotton ball in each nostril that was soaked in mars synephrine. Nasal clamp applied. Cotton balls in place for 20 minutes then removed. No active bleeding [email or web address] Not available 05/06/2024 07:33:08 05/28/2024 05/28/2024 Overall patient says she feels fine right now. Her daughter reports they are here because she needs refills on the new medications she was started on at [facility]. Heart doctor appt 07/27/24. Not available 05/28/2024 14:34:54 Plan of Treatment Reminders Order Date Submit Date Provider Last Modified By Organization Details Last Modified Time Details Appointments OFFICE VISIT 2024 12:00P M ROBI RAMIREZ Not available Not available Not available Lab CMP, serum or plasma 2023 024 [facility], [address], [facility] [address], [place], [address], 10/02/2023 11:04:25 CBC 2023 024 DAY[facility]ATIANA [facility], [address] [facility] [address], [place], [address], 10/02/2023 10:55:44 HbA1c (hemoglob in A1c), blood 2023 [facility] ([facility]), [address] [facility], [place], [address], 10/02/2023 11:17:09 Referral None recorded. Procedures None recorded. Surgeries None recorded. Imaging None recorded. Medication Orders Farxiga 10 mg tablet 2023 [facility], [address] [facility], [place], [address], 05/28/2024 14:41:09 losartan 50 mg tablet 2023 [facility], [address] [facility], [place], [address], 05/28/2024 14:41:08 furosemid e 40 mg tablet 2023 [facility], [address] [facility], [place], [address], 05/28/2024 14:41:08 Patient TargetsNo targets recorded. Patient Instructions Encounter Date Encounter Id Patient Instructions Last Modified By Organization Details Last Modified Time 08/07/2023 [id number] a1c up; not checking sugars, eating sugar bp controlled encouraged to make better choices [email or web address] Not available 08/07/2023 10:15:27 09/04/2023 [id number] In the ER twice. She had been on prednisone and sugars extremely high. Daughter had adjusted lantus and then she bottomed out. Much better now that off prednisone. no history of smoking, but significant wheezing and cough for weeks; nebs helped in ER, but needs machine; will need for 99 months will bring medicine list when she comes back as several changes [email or web address] Not available 09/04/2023 09:53:36 10/02/2023 [id number] daughter didn't bring medicine list checking sugar more regularly, but not giving insulin as discussed before; she is feeling how much insulin she needs due for labs didn't order picker nebulizer machine [email or web address] Not available 10/02/2023 09:56:22 05/28/2024 [id number] Call or return for questions or concerns. Not available 05/28/2024 13:25:23 Reason for Referral None Reported. Results Created Date Observation Date Name Description Value Unit Range Abnormal Flag Note LastModifiedBy Organization Detail LastModifiedTime 10/02/19 24 10/02/2023 CBC WBC 7.6 x10 4.0-10 .5 Not Available [facility] [address], [place], [address], 10/02/2023 10:55:44 10/02/19 24 10/02/2023 CBC RBC 4.76 x10 3.50-5 .50 Not Available [facility] [address] [facility] [address], [place], [address], 10/02/2023 10:55:44 10/02/19 24 10/02/2023 CBC HGB 15.0 g/dL 12.0-1 6.0 Not Available [facility] [address] [facility] [address], [place], [address], 10/02/2023 10:55:44 10/02/19 24 10/02/2023 CBC HCT 44.0 % 37.0-4 7.0 Not Available [facility] [address] [facility] [address], [place], [address], 10/02/2023 10:55:44 10/02/19 24 10/02/2023 CBC MCV 92.4 fL 80.0-9 9.9 Not Available [facility] [address] [facility] [address], [place], [address], 10/02/2023 10:55:44 10/02/19 24 10/02/2023 CBC MCH 31.5 pg 27.0-3 2.0 Not Available [facility] [address] [facility], [place], [address], 10/02/2023 10:55:44 10/02/19 24 10/02/2023 CBC MCHC 34.1 g/dL 32.0-3 6.0 Not Available [facility] [address] [facility] [address], [place], [address], 10/02/2023 10:55:44 10/02/19 24 10/02/2023 CBC RDW 14.2 % 11.5-1 4.5 Not Available [facility] [address] [address], [place], [address], 10/02/2023 10:55:44 10/02/19 24 10/02/2023 CBC plt 256.9 x10 140.0- 451.0 Not Available [facility] [address] [address], [place], [address], 10/02/2023 10:55:44 10/02/19 24 10/02/2023 CBC lymphocytes % 17.2 % 20.0-5 0.0 low Not Available [facility] [address] [facility], [place], [address], 10/02/2023 10:55:44 10/02/19 24 10/02/2023 CBC granulcytes % 63.9 % 30.0-7 0.0 Not Available [facility] [address] [address], [place], [address], 10/02/2023 10:55:44 10/02/19 24 10/02/2023 CBC monocytes % 12.1 % 2.0-10 .0 high Not Available [facility] [address] [facility] [address] [facility], [place], [address], 10/02/2023 10:55:44 10/02/19 24 10/02/2023 CBC granulcytes# 4.9 x10 Not Neela ilable [facility] [address] [facility] [address], [place], [address], 10/02/2023 10:55:44 10/02/19 24 10/02/2023 CBC lymphocytes # 1.3 x10 Not Available [facility] [address] [facility] [address], [place], [address], 10/02/2023 10:55:44 10/02/19 24 10/02/2023 CBC monocytes # 0.9 x10 Not Avai lable [facility] [address] [facility] [address], [place], [address], 10/02/2023 10:55:44 10/02/19 24 10/02/2023 CMP (FEMA LE) glucose 110.0 mg/dL 60.0-9 9.0 high Not Available [facility] [address] [facility] [address], [place], [address], 10/02/2023 11:04:25 10/02/19 24 10/02/2023 CMP (FEMA LE) BUN (blood urea nitrogen) 23.0 mg/dL 10.0-2 6.0 Not Available [facility] [address] [facility] [address], [place], [address], 10/02/2023 11:04:25 10/02/19 24 10/02/2023 CMP (FEMA LE) creatinine (serum) 1.5 mg/dL 0.4-1. 5 high Not Available [facility] [address] [facility] [address], [place], [address], 10/02/2023 11:04:25 10/02/19 24 10/02/2023 CMP (FEMA LE) BUN/creatini ne ratio 15.23 ratio Not Available [facility] [address] [facility], [place], [address], 10/02/2023 11:04:25 10/02/19 24 10/02/2023 CMP (FEMA LE) eGFR calculated 36.1 Not Available [facility] [address] [facility] [address], [place], [address], 10/02/2023 11:04:25 10/02/19 24 10/02/2023 CMP (FEMA LE) total protein 7.7 g/dL 6.0-8. 5 Not Available [facility] [address] [facility] [address], [place], [address], 10/02/2023 11:04:25 10/02/19 24 10/02/2023 CMP (FEMA LE) total bilirubin 1.3 mg/dL 0.2-1. 3 Not Available [facility] [address] [facility] [address], [place], [address], 10/02/2023 11:04:25 10/02/19 24 10/02/2023 CMP (FEMA LE) albumin 4.1 g/dL 3.5-5. 5 Not Available [facility] [address] [facility] [address], [place], [address], 10/02/2023 11:04:25 10/02/19 24 10/02/2023 CMP (FEMA LE) globulin 3.6 calc Not Available [facility] [address] [facility] [address], [place], [address], 10/02/2023 11:04:25 10/02/19 24 10/02/2023 CMP (FEMA LE) AST (SGOT) 29.0 U/L 0.0-46 .0 Not Available [facility] [address] [facility] [address], [place], [address], 10/02/2023 11:04:25 10/02/19 24 10/02/2023 CMP (FEMA LE) altv (SGPT) 18.0 U/L 13.0-6 9.0 normal Not Available [facility] [address] [facility], [place], [address], 10/02/2023 11:04:25 10/02/19 24 10/02/2023 CMP (FEMA LE) A/G ratio 1.1 ratio Not Available [facility] [address] [facility] [address], [place], [address], 10/02/2023 11:04:25 10/02/19 24 10/02/2023 CMP (FEMA LE) ALP phos 87.0 U/L 30.0-1 40.0 normal Not Available [facility] [address] [facility] [address], [place], [address], 10/02/2023 11:04:25 10/02/19 24 10/02/2023 CMP (FEMA LE) calcium 9.9 mg/dL 8.4-10 .5 Not Available [facility] [address] [facility] [address], [place], [address], 10/02/2023 11:04:25 10/02/19 24 10/02/2023 CMP (FEMA LE) sodium 143.0 mmol/ L 136.0- 145.0 Not Available [facility] [address] [facility] [address], [place], [address], 10/02/2023 11:04:25 10/02/19 24 10/02/2023 CMP (FEMA LE) potassium 4.2 mmol/ L 3.5-5. 1 Not Available [facility] [address] [facility] [address], [place], [address], 10/02/2023 11:04:25 10/02/19 24 10/02/2023 CMP (FEMA LE) chloride 106.0 mmol/ L 98.0-1 10.0 normal Not Available [facility] [address] [facility] [address], [place], [address], 10/02/2023 11:04:25 10/02/19 24 10/02/2023 CMP (FEMA LE) C02 31.0 mmol/ L 22.0-3 1.0 Not Available [facility] [address] [facility] [address], [place], [address], 10/02/2023 11:04:25 10/02/19 24 10/02/2023 CMP (FEMA LE) anion gap 6.0 calc Not Available [facility] [address] [facility] [address], [place], [address], 10/02/2023 11:04:25 10/02/19 24 10/02/2023 CMP (FEMA LE) osmolality 299.2 calc Not Available [facility] [address] [facility] [address], [place], [address], 10/02/2023 11:04:25 10/02/19 24 10/02/2023 HbA1c (hemo globi n A1c), blood HbA1c 7.8 Not Available [facility] ([facility]) [address] [place], [address], 10/02/2023 09:54:41 Result Notes None recorded. Problems Name Problem SNOMED Code Status Onset Date Resolution Date Notes Provider Name and Address Organization Details Recorded Time Diabetes mellitus 32580953 Active 2022 DU[facility] simeon [facility] 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 4 12:58:22 Hypertensiv e disorder 48810539 Active 2022 [facility] 4 12:58:14 Ru type IIa hyperlipopr oteinemia 513410618 [facility]22 [facility] 4 12:57:49 Chronic kidney disease due to type 2 diabetes mellitus 845280274017 Active 2022 [facility] 4 12:57:22 Anxiety state 240214391 Active 2022 [facility] 4 12:56:22 Type 2 diabetes mellitus without complicatio n 804485910 Active 2022 [facility] 4 12:58:32 Essential hypertensio n 55005530 Active 2022 [facility] 4 12:57:39 Chronic obstructive pulmonary disease 16394189 Active 2023 DUKE ROSADO [facility] 4 12:57:26 Hyperlipide luis 15714171 Active 2023 [facility] 4 12:58:03 Congestive heart failure 07791317 Active 2023 [facility] 4 13:03:07 Problem Notes None recorded. Procedures Surgical History Date Name Laterality Status Provider Name and Address Organization Details Recorded Time 05/20/2024 plain X-ray of chest completed [facility] 05/28/2024 12:59:50 CT of chest completed [facility] ROSADO [facility] 05/28/2024 13:02:22 Imaging Results None recorded. Procedure Notes None recorded. Medical Equipment None Reported. Allergies No known drug allergies Medications Name Sig Start Date Stop Date Status Note LastModified by Organization Details LastModified Time losartan 50 mg tablet Take 1 tablet every day by oral route for 90 days. active Not Available Not Available No t Available furosemid e 40 mg tablet Take 1 tablet every day by oral route for 90 days. active Not Available Not Available No t Available prednison e 10 mg tablet daily 07/03 completed copd; 0; Recorded 08/22/19 23 8:22AM by Henny Bradshaw RN, Office Visit; Not Available Not Available Not Available atorvasta tin 20 mg tablet TAKE 1 TABLET AT BEDTIME active Not Available Not Available No t Available ipratropi um 0.5 mg-albute rol 3 mg (2.5 mg base)/3 mL nebulizat ion soln 05/28 completed Not Available Not Available Not Available azithromy samra 250 mg tablet TAKE 1 TABLET BY MOUTH ONCE DAILY FOR 4 DAYS 05/28 completed Not Available Not Available Not Available hydrocodo ne 5 mg-acetam inophen 325 mg tablet active Not Available Not Available Not Available prednison e 20 mg tablet TAKE 1 TABLET BY MOUTH TWICE DAILY FOR 5 DAYS 05/05 completed Not Available Not Available Not Available Lantus U-100 Insulin 100 unit/mL subcutane ous solution Inject 25 units twice a day by subcutan eous route. 05/28 completed Not Available Not Available Not Available Zyrtec 10 mg tablet daily 05/28 completed 0; Recorded 08/22/19 23 8:22AM by Henny Bradshaw RN, Office Visit; Not Available Not Available Not Available clopidogr el 75 mg tablet TAKE 1 TABLET BY MOUTH ONCE DAILY active Not Available Not Available No t Available amlodipin e 10 mg tablet TAKE 1 TABLET EVERY DAY 05/28 completed Not Available Not Available Not Available pantopraz ole 40 mg tablet,de layed release 05/28 completed Not Available Not Available Not Available losartan 25 mg tablet TAKE 1 TABLET EVERY DAY 05/28 completed Not Available Not Available Not Available budesonid e 0.5 mg/2 mL suspensio n for nebulizat ion active Not Available Not Available Not Available Tylenol 325 mg tablet every six hours, as needed 05/28 completed 0; Recorded 08/22/19 8:22AM by Henny Bradshaw RN, Office Visit; Not Available Not Available Not Available hydrochlo rothiazid e 25 mg tablet TAKE 1 TABLET EVERY DAY 05/28 completed Not Available Not Available Not Available furosemid e 20 mg tablet TAKE 1 TABLET BY MOUTH ONCE DAILY 05/28 completed Not Available Not Available Not Available albuterol sulfate HFA 90 mcg/actua tion aerosol inhaler 05/28 completed Not Available Not Available Not Available cefdinir 300 mg capsule TAKE 1 CAPSULE BY MOUTH TWICE DAILY FOR 7 DAYS 05/28 completed Not Available Not Available Not Available fluoxetin e 20 mg capsule TAKE 1 CAPSULE EVERY DAY active Not Available Not Available No t Available amoxicill in 875 mg-potass ium clavulana te 125 mg tablet TAKE 1 TABLET BY MOUTH TWICE DAILY FOR 5 DAYS 07/03 completed Not Available Not Available Not Available acarbose 25 mg tablet active Not Available Not Available Not Available Novolog FlexPen U-100 Insulin aspart 100 unit/mL (3 mL) subcutane ous INJECT SUBCUTAN EOUSLY 3 TIMES DAILY AFTER MEALS, BASED ON SLIDING SCALE PROVIDED . MAX 42 UNITS/24 HOURS. 05/28 completed Not Available Not Available Not Available atorvasta tin at bedtime 07/03 completed DOC AM/sd; 16258; Recorded 08/06/19 10:14AM by Henny Bradshaw RN (Authori favian through Lefty Hodge DO), Ju on/Tessa dum; Mail Order Quantity : 90 Tablet; Refill Quantity : 0; Not Available Not Available Not Available Klonopin two times daily 08/07 completed dose decrease ; Recorded 12/19/19 8:18AM by Henny Bradshaw RN, Office Visit; Refill Quantity : 60; Tablet; Not Available Not Available Not Available fluoxetin e daily 08/07 completed 91823; Recorded 08/06/19 10:14AM by Henny Bradshaw RN (Authori favian through Lefty Hodge DO), Annotgabino on/Adden dum; Mail Order Quantity : 90 Capsule; Refill Quantity : 0; Not Available Not Available Not Available omeprazol e daily 05/28 completed 0; Recorded 08/22/19 8:22AM by Henny Bradshaw RN, Office Visit; Not Available Not Available Not Available Euthyrox daily 08/07 completed 0; Recorded 08/22/19 8:22AM by Henny Bradshaw RN, Office Visit; Not Available Not Available Not Available albuterol sulfate every six hours, as needed 09/04 completed 0; Recorded 08/22/19 8:22AM by Henny Bradshaw RN, Office Visit; Not Available Not Available Not Available hydrochlo rothiazid e daily 07/03 completed 05560; Recorded 08/06/19 10:14AM by Henny Bradshaw RN (Authori favian through Lefty Hodge DO), Annotati on/Adden dum; Mail Order Quantity : 90 Tablet; Refill Quantity : 0; Not Available Not Available Not Available Robaxin every eight hours, as needed 07/03 completed for spasm or pain; 0; Recorded 08/22/19 8:22AM by Henny Bradshaw RN, Office Visit; Not Available Not Available Not Available Potassium Chloride ER two times daily 05/28 completed 0; Recorded 08/22/19 8:22AM by Henny Bradshaw RN, Office Visit; Not Available Not Available Not Available Lantus Solostar U-100 Insulin 100 unit/mL (3 mL) subcutane ous pen INJECT 25 UNITS TWICE A DAY UNDER THE SKIN active Not Available Not Available No t Available amlodipin e besylate (bulk) daily 07/03 completed cs/smf; 91744; Recorded 08/06/19 10:14AM by Henny Bradshaw RN (Authori favian through Lefty Hodge DO), Annotati on/Adden dum; Mail Order Quantity : 90 Tablet; Refill Quantity : 0; Not Available Not Available Not Available Farxiga 10 mg tablet Take 1 tablet every day by oral route in the morning for 90 days. active Not Available Not Available No t Available Trelegy Ellipta 100 mcg-62.5 mcg-25 mcg powder for inhalatio n daily 05/28 completed 0; Recorded 08/22/19 8:22AM by Henny Bradshaw RN, Office Visit; Not Available Not Available Not Available losartan potassium (bulk) daily 07/03 completed 94211; Recorded 08/06/19 10:15AM by Henny Bradshaw RN (Authori teodorad through Lefty Hodge DO), Annotati on/Adden dum; Mail Order Quantity : 90 Tablet; Refill Quantity : 30; Tablet; Not Available Not Available Not Available Vitals Date Recorded Body height Body mass index (BMI) Body weight Respiratory rate Heart rate Oxygen saturation Oxygen saturation in Arterial blood by Pulse oximetry Systolic blood pressure Diastolic blood pressure Provider Name and Address Organization Details Last Updated DateTime 4 154.94 cm 37.4 kg/m2 71980.2 9 g 22 /min 81 /min 96 % 96 % 146 mm[Hg] 62 mm[Hg] [facility] 4 09:45:18 Date Recorded Body height Body mass index (BMI) Body weight Respiratory rate Heart rate Oxygen saturation Oxygen saturation in Arterial blood by Pulse oximetry Systolic blood pressure Diastolic blood pressure Provider Name and Address Organization Details Last Updated DateTime 4 154.94 cm 38.7 kg/m2 39997.4 4 g 18 /min 77 /min 90 % 90 % 138 mm[Hg] 74 mm[Hg] [facility] 4 09:39:01 Date Recorded Body height Body mass index (BMI) Body weight Respiratory rate Heart rate Oxygen saturation Oxygen saturation in Arterial blood by Pulse oximetry Systolic blood pressure Diastolic blood pressure Provider Name and Address Organization Details Last Updated DateTime 4 154.94 cm 38 kg/m2 32977.0 7 g 20 /min 82 /min 92 % 92 % 134 mm[Hg] 62 mm[Hg] [facility] 4 09:41:03 Date Recorded Body height Body mass index (BMI) Body weight Body temperature Oxygen saturation Oxygen saturation in Arterial blood by Pulse oximetry Heart rate Systolic blood pressure Diastolic blood pressure Provider Name and Address Organization Details Last Updated DateTime 4 154.94 cm 34 kg/m2 12928.6 3 g 98.1 [degF] 94 % 94 % 85 /min 130 mm[Hg] 64 mm[Hg] Whit Schilling [facility] 4 18:25:03 Date Recorded Body height Body mass index (BMI) Body weight Heart rate Respiratory rate Systolic blood pressure Diastolic blood pressure Provider Name and Address Organization Details Last Updated DateTime 4 154.94 cm 37.8 kg/m2 54452.4 7 g 90 /min 20 /min 120 mm[Hg] 72 mm[Hg] [facility] ALONZO [facility] 4 13:10:31 Date Recorded Oxygen saturation Oxygen saturation in Arterial blood by Pulse oximetry Inhaled oxygen flow rate Provider Name and Address Organization Details Last Updated DateTime 05/28/2024 99 % 99 % 2 L/min ANGELICA ANN, [address], [address], [facility] 05/28/2024 13:27:05 Social History Question Answer Notes LastModified by [employer] Details LastModified Time Tobacco Smoking Status Never Smoker SEYMOUR simeon, [facility] 12/26/2022 10:00:02 Are You Blind Or Do You Have Difficulty Seeing? No [email or web address] Information not available 12/26/2022 Are You Deaf Or Do You Have Serious Difficulty Hearing? No [email or web address] Information not available 12/26/2022 Have You Had Direct Contact, Or Contact During Intimacy, With Monkeypox Rash, Scabs, Or Body Fluids From A Person With Monkeypox? No [email or web address] Information not available 12/26/2022 Have You Recently Traveled Abroad? No [email or web address] Information not available 12/26/2022 Sex: Unknown Functional Status Question Answer Note LastModified by [employer] Details LastModified Time Do you have difficulty walking or climbing stairs? No Information not available 12/26/2022 Are you able to walk? YESWOREST [email or web address] Information not available 12/26/2022 Do you have difficulty doing errands alone? No Information not available 12/26/2022 Are you able to care for yourself? Yes [email or web address] Information not available 12/26/2022 Do you have difficulty dressing or bathing? No [email or web address] Information not available 12/26/2022 Mental Status Question Answer Note LastModified by Organization D etails LastModified Time Do you have difficulty concentrating, remembering or making decisions? No Information no t available 12/26/2022 Family History Nothing Reported. Medical History No medical history recorded. Gynecological HistoryNo gynecological history recorded. Obstetrics History GPAL:G 0 P 0 0 0 0 Immunizations Vaccine Type Date Status Note Provider Nam e and Address Organization Details Recorded Time Influenza, split virus, trivalent, preservative 6 completed Not Available [facility] 02/09/2023 02:47:12 pneumococcal polysaccharide PPV23 6 completed Not Available [facility] 02/09/2023 02:47:12 Influenza, split virus, trivalent, preservative 9 completed Not Available [facility] 02/09/2023 02:47:12 Pneumococcal conjugate PCV 13 9 completed Not Available [facility] 02/09/2023 02:47:12 Influenza, split virus, trivalent, preservative 8 completed Not Available [facility] 02/09/2023 02:47:12 Influenza, split virus, trivalent, preservative 7 completed Not Available [facility] 02/09/2023 02:47:12 Past Encounters Encounter ID Performer Location Encounter Start Date Encounter Closed Date Diagnosis/Indication Diagnosis SNOMED-CT Code Diagnosis ICD10 Code [id number] Lefty Hodge DO [facility] ([facility]) [address] [place] [address] 12/26/2022 09:45:44 12/26/2022 20:43:59 Diabetes mellitus 18583278 E11.65 Community acquired pneumonia 488902560 J18.9 Pain of le ft hip joint 9992144403 34090 M25.091 [id number] Lefty Hodge DO [facility] ([facility]) [address] [place] [address] 03/27/2023 09:34:39 03/27/2023 11:58:42 Type 2 diabetes mellitus without complication 530337999 E11.9 Essential hypertension 21967901 I10 Diabetes mellitus 988259 09 E11.65 [id number] Lefty Hodge DO [facility] ([facility]) [address] [place], [place] [address] 07/03/2023 10:57:02 07/03/2023 11:42:54 Type 2 diabetes mellitus without complication 720941830 E11.9 CVA - cere brovascular accident due to cerebral artery occlusion 754132312 I63.50 [id number] Lefty Hodge DO [facility] ([facility]) [address] [place] [address] 08/07/2023 09:34:11 08/07/2023 11:51:54 Type 2 diabetes mellitus without complication 461495032 E11.9 Chronic ki dney disease due to type 2 diabetes mellitus 7378721788 08 E11.22 Essential hypertension 73556321 I10 Hypertensive disorder 38 584363 I10 [id number] Lefty Hodge DO [facility] ([facility]) [address] [place] [address] 5 09/04/2023 09:26:59 09/04/2023 09:57:26 Chronic obstructive pulmonary disease 95595062 J44.9 Chronic ki dney disease due to type 2 diabetes mellitus 7771800243 08 E11.22 Anxiety state 700256369 F41.9 Hyperlipidemia 03263133 E78.00 [id number] Lefty Hodge DO [facility] ([facility]) [address] [place] [address] 5 10/02/2023 09:28:31 10/02/2023 09:56:57 Type 2 diabetes mellitus without complication 718459696 E11.9 [id number] ROBI TORREZ [facility] ([facility]) [address] [place] [address] 5 05/05/2024 18:15:45 05/05/2024 18:58:59 Anterior epistaxis 633555167 R04.0 [id number] ROBI RAMIREZ [facility] ([facility]) [address] [place] [address] 05/28/2024 12:28:27 05/28/2024 13:37:58 Congestive heart failure 44289491 I50.9 Essential hypertension 81297366 I10 Chronic ki dney disease due to type 2 diabetes mellitus 1134800214 08 E11.22 N18.32 Dementia 59182990 F03.90 Type 2 alejandro betes mellitus 93469856 Z79.4 E11.65 Health Concerns Section Related Observation LastModified by Organization Detai ls LastModified Time None Recorded Concern Status LastModified by Organization Details LastModified Time None Recorded Advance Directives Directive None Recorded Payers Encounter Date Sequence Insurance Name Policy Number Policy Love Covered Member ID Love Member ID Guarantor Name 08/07/2023 1 [employer] (MEDICARE REPLACEMENT/ ADVANTAGE - PPO) Gianna Mora [id number] Gianna Mora 09/04/2023 1 [employer] (MEDICARE REPLACEMENT/ ADVANTAGE - PPO) Gianna Mora [id number] Gianna Mora 10/02/2023 1 [employer] (MEDICARE REPLACEMENT/ ADVANTAGE - PPO) Gianna Mora [id number] Gianna Mora 05/05/2024 1 [employer] (MEDICARE REPLACEMENT/ ADVANTAGE - PPO) Gianna Mora [id number] Gianna Mora 05/28/2024 1 [employer] (MEDICARE REPLACEMENT/ ADVANTAGE - PPO) Gianna Mora [id number] Gianna Mora Notes Date Note Type Note Provider Name and Address Organization Details Recorded Time 08/07/2023 text/html DiabetesReported bypatient.Duration:chr onic Control:usually well controlled Compliance:compliant with medications; compliant with follow-up visits; compliant with diet Lefty Hodge DO [address] [place], [address], [facility] 08/07/2023 10:17:14 09/04/2023 text/html DiabetesReported bypatient.Duration:chr onic Control:usually well controlled Compliance:compliant with medications; compliant with follow-up visits; compliant with diet Lefty Hodge DO [address] [place] [address], [phone], [facility], [place]. 09/04/2023 09:54:08 10/02/2023 text/html DiabetesReported bypatient.Duration:chr onic Control:usually well controlled Compliance:compliant with medications; compliant with follow-up visits; compliant with diet Lefty Hodge [address], [address], [facility], LSheylaC. 10/02/2023 09:56:36 05/05/2024 text/html walk in ptPt has a nose bleed that started a 1 am today. Her daughter took her to the ER. During the ER visit pt did not have any bleeding so no interventions performed. When patient arrived home the bleeding started again. Daughter states the bleeding continues to recur. Pt states it's out of the left nostril but thinks it's starting in the right side. Denies weakness, nausea, vomiting. Takes Plavix. Hx of nosebleeds but not very frequently or this bad. Pt wears oxygen at night via [place]. No recent illness or nasal trauma. ANN PENA [address], [address], [facility], LStephLStephC. 05/06/2024 07:34:33 05/28/2024 text/html DiabetesReported bypatient.Duration:chr onic Control:usually well controlled Compliance:compliant with medications; compliant with follow-up visits; compliant with dietHypertension F/UReported bypatient.Medications: taking medications as directed; no side effects from medication Lifestyle:limits sodium intake Associated Symptoms:no chest pain; no shortness of breath ANGELICA ANN [address], [address], [facility], LStephLStephC. 05/28/2024 14:41:38 OBGyn Episode No OBEpisode recorded.
--- OUTSIDE RECORDS SUMMARY | 2024-07-05 19:41 | XMS_ITS | Continuity of Care Document ---
Author Name Unknown Address [facility] [address] [place] [address] Phone [phone] Organization [place] [facility], [facility] ([facility]) Address [address] [place] [address] Care Team Providers Care Receiving Dock Checker Name Role Phone LEFTY JAVIER Primary Care Provider Unavailabl e Assessment Encounter Date Assessment Date Assessment LastModified by Organization Details LastModified Time 05/28/2024 05/28/2024 Overall patient says she feels fine right now. Her daughter reports they are here because she needs refills on the new medications she was started on at [facility]. Heart doctor appt 07/27/24. Not available 05/28/2024 14:34:54 Plan of Treatment Reminders Order Date Submit Date Provider Last Modified By Organization Details Last Modified Time Details Appointments OFFICE VISIT 2024 12:00P ROBI GARCIA Not available Not available Not available Lab None recorded. Referral None recorded. Procedures None recorded. Surgeries None recorded. Imaging None recorded. Medication Orders Farxiga 10 mg tablet 2023 [facility], [address], [place], [address], 05/28/2024 14:41:09 losartan 50 mg tablet 2023 [facility], [address], [place], [address], 05/28/2024 14:41:08 furosemid e 40 mg tablet 2023 [facility], [address], [place], [address], 05/28/2024 14:41:08 Patient TargetsNo targets recorded. Patient Instructions Encounter Date Encounter Id Patient Instructions Last Modified By Organization Details Last Modified Time 05/28/2024 [id number] Call or return for questions or concerns. Not available 05/28/2024 13:25:23 Reason for Referral None Reported. Problems Name Problem SNOMED Code Status Onset Date Resolution Date Notes Provider Name and Address Organization Details Recorded Time Diabetes mellitus 66537577 Active 2022 [facility] 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 4 12:58:22 Hypertensiv e disorder 33351137 Active 2022 [facility] 4 12:58:14 Ru type IIa hyperlipopr oteinemia 950921166 Active 2022 [facility] 4 12:57:49 Chronic kidney disease due to type 2 diabetes mellitus 622025448970 Active 2022 [facility] 4 12:57:22 Anxiety state 122331937 Active 2022 [facility] 4 12:56:22 Type 2 diabetes mellitus without complicatio n 449231094 Active 2022 [facility] 4 12:58:32 Essential hypertensio n 55650369 Active 2022 [facility] 4 12:57:39 Chronic obstructive pulmonary disease 07395038 Active 2023 [facility] 4 12:57:26 Hyperlipide luis 73004084 Active 2023 [facility] 4 12:58:03 Congestive heart failure 22185676 Active 2023 [facility] 4 13:03:07 Problem Notes None recorded. Procedures Surgical History Date Name Laterality Status Provider Name and Address Organization Details Recorded Time 05/20/2024 plain X-ray of chest completed [facility], LStephLStephCSteph 05/28/2024 12:59:50 CT of chest completed [facility] 05/28/2024 13:02:22 Imaging Results None recorded. Procedure [...] 0; Recorded 08/22/19 23 8:22AM by Henny Bradshaw, RN, Office Visit; Not Available Not Available [...] as needed 05/28 completed 0; Recorded 08/22/19 23 8:22AM [...] tin at bedtime 07/03 completed DOC AM/sd; 34765; Recorded 08/06/19 10:14AM by Henny Bradshaw RN (Authori favian through Lefty Javier DO), Annotati on/Adden dum; Mail Order Quantity : 90 Tablet; Refill Quantity : 0; Not Available Not Available Not Available Klonopin two times daily 08/07 completed dose decrease ; Recorded 12/19/19 8:18AM by Henny Bradshaw RN, Office Visit; Refill Quantity : 60; Tablet; Not Available Not Available Not Available fluoxetin e daily 08/07 completed 04623; Recorded 08/06/19 10:14AM by Henny Bradshaw RN (Authori favian through Lefty Javier DO), Annotati on/Adden dum; Mail Order Quantity : 90 Capsule; Refill Quantity : 0; Not Available Not Available Not Available omeprazol e daily 05/28 completed 0; Recorded 08/22/19 8:22AM by Henny Bradshaw RN, Office Visit; Not Available Not Available Not Available Euthyrox daily 08/07 completed 0; Recorded 08/22/19 23 8:22AM by Henny Bradshaw RN, Office Visit; Not Available Not Available Not Available albuterol sulfate every six hours, as needed 09/04 completed 0; Recorded 08/22/19 23 8:22AM by Henny Bradshaw RN, Office Visit; Not Available Not Available Not Available hydrochlo rothiazid e daily 07/03 completed 56862; Recorded 08/06/19 10:14AM by Henny Bradshaw RN (Authori favian through Lefty Javier DO), Annotati on/Adden dum; Mail Order Quantity [...] e besylate (bulk) daily 07/03 completed cs/smf; 52070; Recorded 08/06/19 10:14AM by Henny Bradshaw RN (Authori teodorad through Lefty Javier DO), Annotati on/Adden dum; Mail Order Quantity [...] Available losartan potassium (bulk) daily 07/03 completed 68256; Recorded 08/06/19 10:15AM by Henny Bradshaw RN (Authori teodorad through Lefty Javier DO), Annotati on/Adden dum; Mail Order Quantity : 90 Tablet; Refill Quantity : 30; Tablet; Not Available Not Available Not Available Vitals Date Recorded Body height Body mass index (BMI) Body weight Heart rate Respiratory rate Systolic blood pressure Diastolic blood pressure Provider Name and Address Organization Details Last Updated DateTime 4 154.94 cm 37.8 kg/m2 99909.4 7 g 90 /min 20 /min 120 mm[Hg] 72 mm[Hg] [facility], [facility] 4 13:10:31 Date Recorded Oxygen saturation Oxygen saturation in Arterial blood by Pulse oximetry Inhaled oxygen flow rate Provider Name and Address Organization Details Last Updated DateTime 05/28/2024 99 % 99 % 2 L/min ANGELICA ANN, [facility] [address] [place], [address], [facility] 05/28/2024 13:27:05 Social History Question Answer Notes LastModified by Organizat ion Details LastModified Time Tobacco Smoking Status Never Smoker SEYMOUR BRADSHAW [place], [facility] 12/26/2022 10:00:02 Are You Blind Or Do You Have Difficulty Seeing? No [email or web address] Information not available 12/26/2022 Are You Deaf Or Do You Have Serious Difficulty Hearing? No [email or web address] Information not available 12/26/2022 Have You Had Direct Contact, Or Contact During Intimacy, With Monkeypox Rash, Scabs, Or Body Fluids From A Person With Monkeypox? No Information not available 12/26/2022 Have You Recently Traveled Abroad? No [email or web address] Information not available 12/26/2022 Sex: Unknown Functional Status Question Answer Note LastModified by [employer] Details LastModified Time Do you have difficulty walking or climbing stairs? No [email or web address] Information not available 12/26/2022 Are you able to walk? YESWOREST [email or web address] Information not available 12/26/2022 Do you have difficulty doing errands alone? No [email or web address] Information not available 12/26/2022 Are you able to care for yourself? Yes Information not available 12/26/2022 Do you have difficulty dressing or bathing? No [email or web address] Information not available 12/26/2022 Mental Status Question Answer Note LastModified by Organization D etails LastModified Time Do you have difficulty concentrating, remembering or making decisions? No [email or web address] Information no t available 12/26/2022 Family History Nothing Reported. Medical History No medical history recorded. Gynecological HistoryNo gynecological history recorded. Obstetrics History GPAL:G 0 P 0 0 0 0 Immunizations Vaccine Type Date Status Note Provider Nam e and Address Organization Details Recorded Time Influenza, split virus, trivalent, preservative 6 completed Not Available [facility] 02/09/2023 02:47:12 pneumococcal polysaccharide PPV23 6 completed Not Available [facility] 02/09/2023 02:47:12 Influenza, split virus, trivalent, preservative 9 completed Not Available [facility] 02/09/2023 02:47:12 Pneumococcal conjugate PCV 13 9 completed Not Available [facility] 02/09/2023 02:47:12 Influenza, split virus, trivalent, preservative 8 completed Not Available [facility] 02/09/2023 02:47:12 Influenza, split virus, trivalent, preservative 7 completed Not Available [facility] 02/09/2023 02:47:12 Past Encounters Encounter ID Performer Location Encounter Start Date Encounter Closed Date Diagnosis/Indication Diagnosis SNOMED-CT Code Diagnosis ICD10 Code [id number] ANN PENA [facility] ([facility]) [address] [place] [address] 05/05/2024 18:15:45 05/05/2024 18:58:59 Anterior epistaxis 214655701 R04.0 [id number] ANGELICA ANN [facility] ([facility]) [address] [place] [address] 05/28/2024 12:28:27 05/28/2024 13:37:58 Congestive heart failure 43425240 I50.9 Essential hypertension 13351777 I10 Chronic ki dney disease due to type 2 diabetes mellitus 0422979899 08 E11.22 N18.32 Dementia 14102835 F03.90 Type 2 alejandro betes mellitus 36436430 Z79.4 E11.65 Health Concerns Section Related Observation LastModified by Organization Detai ls LastModified Time None Recorded Concern Status LastModified by Organization Details LastModified Time None Recorded Payers Encounter Date Sequence Insurance Name Policy Number Policy Love Covered Member ID Love Member ID Guarantor Name 05/28/2024 1 [employer] (MEDICARE REPLACEMENT/ ADVANTAGE - PPO) Gianna Mora [id number] Gianna Mora Notes Date Note Type Note Provider Name and Address Organization Details Recorded Time 05/28/2024 text/html DiabetesReported bypatient.Duration:chr onic Control:usually well controlled Compliance:compliant with medications; compliant with follow-up visits; compliant with dietHypertension F/UReported bypatient.Medications: taking medications as directed; no side effects from medication Lifestyle:limits sodium intake Associated Symptoms:no chest pain; no shortness of breath ANGELICA ANN, [address], [address], [facility] 05/28/2024 14:41:38 OBGyn Episode No OBEpisode recorded.
--- OUTSIDE RECORDS SUMMARY | 2024-07-05 19:42 | XMS_ITS | Continuity of Care Document ---
Author Name Unknown Address [place] [address] [place] [address] Phone [phone] Organization [facility] Tamy Olmedo, [facility] ([facility]) Address [address] [place] [address] Care Team Providers Care Sales Associate Fishing Name Role Phone LEFTY JAVIER Primary Care [...] active bleeding [email or web address] Not available 05/06/2024 07:33:08 Plan of Treatment Reminders Order Date Submit Date Provider Last Modified By Organization Details Last Modified Time Details Appointments OFFICE VISIT 2024 12:00P M NIA RAMIREZP Not available Not available Not available Lab None recorded . Referral None recorded . Procedures None recorded . Surgeries None recorded . Imaging None recorded . Medication Orders None recorded . Patient TargetsNo targets recorded. Patient InstructionsNo instructions recorded. Reason for Referral None Reported. 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 4 12:58:14 Ru type IIa hyperlipopr oteinemia 145122836 Active 2022 [facility] 4 12:57:49 Chronic kidney disease due to type 2 diabetes mellitus 193303742899 Active 2022 [facility] 4 12:57:22 Anxiety state 386182876 [facility] 4 12:56:22 Type 2 diabetes mellitus without complicatio n 715479991 Active 2022 [facility] 4 12:58:32 Essential hypertensio n 63287478 [facility] 4 12:57:39 Chronic obstructive pulmonary disease 67593908 [facility] 4 12:57:26 Hyperlipide luis 83121503 Active 2023 [facility] 4 12:58:03 Congestive heart failure 91879739 Active 2023 [facility] 4 13:03:07 Problem Notes None recorded. Procedures Surgical History Date Name Laterality Status Provider Name and Address Organization Details Recorded Time 05/20/2024 plain X-ray of chest completed [facility] ROSAD[facility] 05/28/2024 12:59:50 CT of chest completed [facility] ROSAD[facility] 05/28/2024 13:02:22 Imaging Results None [...] tin at bedtime 07/03 completed DOC AM/sd; 67619; Recorded 08/06/19 10:14AM by Henny Bradshaw RN [...] Not Available fluoxetin e daily 08/07 completed 69353; Recorded 08/06/19 10:14AM by Henny Bradshaw RN [...] Available hydrochlo rothiazid e daily 07/03 completed 84456; Recorded 08/06/19 10:14AM by Henny Bradshwa RN (Authori favian through Lefty Javier DO), Ju on/Add dum; Mail Order Quantity : 90 Tablet; [...] e besylate (bulk) daily 07/03 completed cs/smf; 08533; Recorded 08/06/19 10:14AM by Henny Bradshaw RN [...] Available losartan potassium (bulk) daily 07/03 completed 09770; Recorded 08/06/19 10:15AM by Henny Bradshaw RN (Authori zed through Lefty Javier DO), Annotati on/Adden dum; [...] Updated DateTime 4 154.94 cm 34 kg/m2 67738.6 3 g 98.1 [degF] 94 % 94 % 85 /min 130 mm[Hg] 64 mm[Hg] [facility] Sch[facility] 18:25:03 Social History Question Answer Notes LastModified by [employer] Details LastModified Time Tobacco Smoking Status [facility] 12/26/2022 10:00:02 Are You Blind Or Do You Have Difficulty Seeing? No [email or web address] Information not available 12/26/2022 Are You Deaf Or Do You Have Serious Difficulty Hearing? No [email or web address] Information not available 12/26/2022 Have You Had Direct Contact, Or Contact During Intimacy, With Monkeypox Rash, Scabs, Or Body Fluids From A Person With Monkeypox? No [email or web address] Information not available 12/26/2022 Have You Recently Traveled Abroad? No [email or web address] Information not available 12/26/2022 Sex: Unknown Functional Status Question Answer Note LastModified by [employer] Details LastModified Time Do you have difficulty walking or climbing stairs? No [email or web address] Information not available 12/26/2022 Are you able to walk? YESWOREST [email or web address] Information not available 12/26/2022 Do you have difficulty doing errands alone? No [email or web address] Information not available 12/26/2022 Are you able to care for yourself? Yes [email or web address] Information not available 12/26/2022 Do you have difficulty dressing or bathing? No [email or web address] Information not available 12/26/2022 Mental Status Question Answer Note LastModified by Organization D etails LastModified Time Do you have difficulty concentrating, remembering or making decisions? No [email or web address] Information no t available 12/26/2022 Family History Nothing Reported. Medical History No medical history recorded. Gynecological HistoryNo gynecological history recorded. Obstetrics History GPAL:G 0 P 0 0 0 0 Immunizations Vaccine Type Date Status Note Provider Nam e and Address Organization Details Recorded Time Influenza, split virus, trivalent, preservative 6 completed Not Available [facility] 02/09/2023 02:47:12 pneumococcal polysaccharide PPV23 6 completed Not Available [facility] 02/09/2023 02:47:12 Influenza, split virus, trivalent, preservative 9 completed Not Available [facility] 02/09/2023 02:47:12 Pneumococcal conjugate PCV 13 9 completed Not Available [facility] 02/09/2023 02:47:12 Influenza, split virus, trivalent, preservative 8 completed Not Available [facility] 02/09/2023 02:47:12 Influenza, split virus, trivalent, preservative 7 completed Not Available [facility] 02/09/2023 02:47:12 Past Encounters Encounter ID Performer Location Encounter Start Date Encounter Closed Date Diagnosis/Indication Diagnosis SNOMED-CT Code Diagnosis ICD10 Code [id number] ROBI TORREZ [facility] ([facility]) [address] [place] [address] 05/05/2024 18:15:45 05/05/2024 18:58:59 Anterior epistaxis 894141247 R04.0 Health Concerns Section Related Observation LastModified by Organization Detai ls LastModified Time None Recorded Concern Status LastModified by Organization Details LastModified Time None Recorded Payers Encounter Date Sequence Insurance Name Policy Number Policy Love Covered Member ID Love Member ID Guarantor Name 05/05/2024 1 [employer] (MEDICARE REPLACEMENT/ ADVANTAGE - PPO) Gianna Mora [id number] Gianna Mora Notes Date Note Type Note Provider Name and Address Organization Details Recorded Time 05/05/2024 text/html walk in ptPt has a [...] No recent illness or nasal trauma. ANN PENA, [address], [address], [facility], [facility] 05/06/2024 07:34:33 OBGyn Episode No OBEpisode recorded.
[2024-07-05 20:42] LABS: Glucose Point of Care 167 mg/dL (70-110)
--- NOTE | 2024-07-05 20:48 | P.PN_ITS ---
Subjective 2 Subjective: She was having vertigo nystagmus with getting up today with assistance to use the restroom. Currently feeling somewhat better. Vitals/I&O/Wt Last Vital Signs Temp 97.9 F 07/05/24 19:49 Pulse 78 07/05/24 19:49 Resp 18 07/05/24 19:49 BP 136/67 07/05/24 19:49 Pulse Ox 97 07/05/24 19:49 O2 Del Method Nasal Cannula 07/05/24 19:49 O2 Flow Rate 2 07/05/24 19:49 07/05/24 07/05/24 07/05/24 06:59 14:59 22:59 Intake Total 120 / 120 656 / 656 222 / 878 Balance 120 / 120 656 / 656 222 / 878 Weight last 48 hrs Weight 74.707 kg Weight 75.886 kg Weight 81.647 kg Physical Exam 2 Const: COMMON NORMALS: patient oriented x3 and alert GENERAL APPEARANCE: c ooperative ORIENTATION/CONSCIOUSNESS: Yes awake HENMT: COMMON NORMALS: oropharynx normal Neck/C-Spine: COMMON NORMALS: no JVD Resp: COMMON NORMALS: normal respiratory effort and clear to auscultation bilaterally AUSCULTATION: clear to auscultation bilaterally Cardio: COMMON NORMALS: no JVD, regular rhythm, S1 normal heart sound present, S2 normal heart sound present and No murmurs present (Cardio) RHYTHM: regular rhythm HEART SOUNDS: S1 normal heart sound present and S2 normal heart sound present GI: COMMON NORMALS: Normal to inspection, nondistended, normoactive bowel sounds present, Soft to palpation and non-tender PALPATION: Yes Soft to palpation Extremity: COMMON NORMALS: no joint enlargement and no pedal edema Neuro: COMMON NORMALS: patient oriented x3 and moves all extremities S ENSORIUM/ORIENTATION: Yes alert OTHER: She is awake, responsive. She is tracking horizontally. Mild facial droop on the left. Mild slowness difficulty with FNF on the left, no issues on the right. Visual lizarraga full to confrontation. No visual neglect. Sensation symmetrical. No sensory neglect. No upper or lower extremity drift. Skin: COMMON NORMALS: no rashes or lesions noted GENERAL SKIN EXAM: no rashes or lesions noted Data 07/05/24 06:30 07/05/24 04:38 A&P Assessment and plan (1) CVA (cerebral vascular accident): (2) COPD (chronic obstructive pulmonary disease): (3) Diabetes: (4) Congestive heart failure: Qualifiers: Heart failure type: systolic Heart failure chronicity: acute on chronic Qualified Code(s): I50.23 - Acute on chronic systolic (congestive) heart failure (5) CKD (chronic kidney disease): Plan CVA: Pending MRI this morning. Pending echocardiogram.Was experiencing vertigo and nystagmus when trying to get up. Reviewed vitals, CBC, CMP, UA. Reviewed head MRI. No evidence of acute ischemia. Possible BPPV. PT assessment is requested. Consider Ulises-Hallpike, possibly Jazmin maneuver. She denies any otic complants. If Ulises-Hallpike negative consider also vestibular neuritis. Does have prior chronic infarcts. Continue optimization of cardiovascular risk factors. Discussed with her A1c noted up to 8. Continue to optimize blood glucose. Reviewed POC glucose. Continue insulin. Monitor blood pressures, optimize hypertension. Type 2 diabetes mellitus, low-dose sliding scale: Resume Lantus at 10u. Change diet to consistent carbohydrate. Attestations 2 Medical Necessity Statement*: Continue hospitalization for additional assessment of vertigo, nystagmus, difficulty with ambulation and a lady with multiple prior strokes, pending PT assessment, post discharge planning. Diagnoses CVA (cerebral vascular accident) I63.9 COPD (chronic obstructive pulmonary disease) J44.9 Diabetes E11.9 Acute on chronic systolic congestive heart failure I50.23 Heart failure type: systolic Heart failure chronicity: acute on chronic CKD (chronic kidney disease) N18.9
[2024-07-05 23:19] LABS: Glucose Point of Care 58 mg/dL (70-110)
[2024-07-05] MEDS: dextrose 10% 125 ML 750 ML IV (23:22)
[2024-07-05 23:47] LABS: Glucose Point of Care 125 mg/dL (70-110)
--- NOTE | 2024-07-05 23:49 | USCV_ITS ---
Gianna Mora Age: 73 Gender: F : 1950 Exam Date: 07/05/2024 16:12 Ordering Phys: Dennis Oglesby MD Technologist: John Kelly [place]am [place] [facility] [place] Indication: cva BP: 146 / 75 HR: 70 Rhythm: Sinus Technical Quality: Adequate MEASUREMENTS (Male / Female) Normal Values 2D ECHO LV Diastolic Diameter PLAX 6.1 cm 4.2 - 5.9 / 3.9 - 5.3 cm IVS Diastolic Thickness 0.8 cm 0.6 - 1.0 / 0.6 - 0.9 cm IVS Systolic Thickness 1.2 cm LVPW Diastolic Thickness 1.3 cm 0.6 - 1.0 / 0.6 - 0.9 cm LVPW Systolic Thickness 2.5 cm LVOT Diameter 2.0 cm LV Ejection Fraction 2D Teich 60.1 % LV Ejection Fraction MOD 4C 36.7 % LV Ejection Fraction MOD 2C 44.9 % LV Ejection Fraction 2C AL 46.2 % LA Diameter 3.9 cm RA Systolic Volume 4C AL 31.9 ml RA Systolic Volume 4C MOD 31.8 ml LA Sys Volume AL 47.5 cm cubed LA Sys Volume Index AL 26.1 cm cubed/m squared Aorta at Sinotubular Diameter 2.1 cm IVC Diameter 1.1 cm M-MODE LA Ao Ratio MM 1.5 AV Cusp Separation MM 1.7 cm DOPPLER AV Peak Velocity 134.0 cm/s LVOT Peak Velocity 79.0 cm/s AV Area Cont Eq vti 2.3 cm squared AV Area Cont Eq pk 1.9 cm squared MV Peak Velocity 345.0 cm/s MV Area PHT 3.5 cm squared Mitral E to A Ratio 0.8 TR Peak Velocity 411.0 cm/s TR Peak Gradient 67.6 mmHg TR Mean Velocity 271.0 cm/s TR Mean Gradient 34.8 mmHg TR Velocity Time Integral 116.3 cm PV Peak Velocity 119.0 cm/s RV Ejection Time 0.3 s FINDINGS Left Ventricle Left ventricle is dilated. LV systolic function is moderately reduced with EF of 35-40%. Moderate global hypokinesis. Grade 1 diastolic dysfunction Right Ventricle Normal in size and function Right Atrium Normal in size Left Atrium Normal in size Mitral Valve Structurally normal mitral valve. Mild mitral regurgitation. Aortic Valve Structurally normal aortic valve. No significant stenosis . Mild aortic regurgitation. Tricuspid Valve Mild tricuspid regurgitation. Insufficient TR jet to calculate RVSP Pulmonic Valve Mild pulmonic regurgitation. Pericardium Normal Aorta Normal in size IVC Appears to be normal CONCLUSIONS LV systolic function is moderately reduced with EF of 35-40% Grade 1 diastolic dysfunction Mild mitral regurgitation. Mild aortic regurgitation. Mild tricuspid regurgitation. Mild pulmonic regurgitation. Compared to prior echocardiogram from 03/2024, LV systolic function appears to have decreased slightly Ryley Cuellar MD (Electronically Signed) Final Date: 06 July 2024 17:12 S
[2024-07-06] VITALS (11 sets, daily range): BP systolic 140–173; BP diastolic 67–84; PULSE 66–77; RESP 13–20; TEMP 36.4–36.5; O2SAT 98–100
[2024-07-06 06:48] LABS: Glucose Point of Care 194 mg/dL (70-110)
[2024-07-06] MEDS: insulin lispro 100 unit/1 mL SUBCUT ×4 (07:57→21:16)
[2024-07-06] MEDS: clopidogrel 75 mg Tablet PO (07:58)
[2024-07-06] MEDS: losartan 50 mg Tablet PO (07:58)
[2024-07-06] MEDS: aspirin 81 mg EC Tablet PO (07:58)
[2024-07-06] MEDS: atorvastatin 40 mg Tablet 80 MG PO (07:58)
[2024-07-06] MEDS: FUROsemide 40 mg Tablet PO (07:58)
[2024-07-06] MEDS: insulin glargine 100 units/1 mL 10 UNIT SUBCUT (09:25)
--- NOTE | 2024-07-06 09:52 | PC.CHAP ---
Pastoral Care Encounter/Spiritual Assessment Type of Contact [] Declined dental office receptionist visit [] Patient/Family/Request visit [] Outpatient visit [] Follow-up visit [] Physician referral [] Code/Alert [x] Routine visit [] Staff referral [] Actively dying [x] Patient sleeping [] Family support [] [] Out of room [] Palliative care [] [] Receiving care in room [] Pre-surgical visit [] Trauma [] Long length of stay [] ICU visit [] Other: Relational/Emotional Strength [] Patient feels connected with others/family/visitors/staff [] Distress [] Loneliness/isolation [] Abandonment Spirituality of Patient [] Person of Haley [] Attends Restorationism of their Haley [] Believes in Prayer [] Reads Bible or Mandaen materials [] There are Spiritual issues to be addressed Golf Stud 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 Interventions [x] Prayer [] Active listening [] Non-anxious presence [] Spiritual/emotional support [] Crisis/trauma care [] Spiritual counseling [] Bereavement support [] Provided bereavement packet [] Provided Bible/devotional materials [] Provided toy/stuffed animal, coloring book to patient or family member [] Provided Communion [] Anointing/Ramah [] Salvation [] Completed spiritual assessment [] Other: Impact on Illness or Injury [] Angry [] Fearful [] Anxious [] Often cries [] Exhaustion [] Unable to work [] Unable to attend jew [] Unable to walk/stand [] Unable to read [] Unable to drive [] Unable to eat/drink [] Unable to sleep [] Unable to be with family [] Patient intubated [] Other: Summary Time spent with patient
[2024-07-06 11:14] LABS: Glucose Point of Care 219 mg/dL (70-110)
--- NOTE | 2024-07-06 14:37 | P.PN_ITS ---
Subjective 2 Subjective: Patient was seen this morning, she is sitting up to the side of the bed, enjoying breakfast, denies any fevers, no chills, no cough she does report weakness, unsteadiness upon ambulating, does report intermittent dizziness, especially with ambulating, Vitals/I&O/Wt Last Vital Signs Temp 97.6 F 07/06/24 11:49 Pulse 77 07/06/24 11:49 Resp 17 07/06/24 11:49 BP 164/74 07/06/24 11:49 Pulse Ox 99 07/06/24 11:49 O2 Del Method Nasal Cannula 07/06/24 11:49 O2 Flow Rate 2 07/06/24 08:00 07/05/24 07/06/24 07/06/24 22:59 06:59 14:59 Intake Total 222 / 878 515 / 1393 240 / 240 Output Total 200 / 200 Balance 222 / 878 515 / 1393 40 / 40 Weight last 48 hrs Weight 76.793 kg Weight 74.707 kg Weight 75.886 kg Weight 81.647 kg Physical Exam 2 Const: COMMON NORMALS: no acute distress and patient oriented x3 Neck/C-Spine: COMMON NORMALS: no JVD Resp: COMMON NORMALS: normal respiratory effort, No retractions, No use of accessory muscles and clear to auscultation bilaterally AUSCULTATION: clear to auscultation bilaterally Cardio: COMMON NORMALS: no JVD, regular rate, regular rhythm, S1 normal heart sound present and S2 normal heart sound present RATE: regular rate RHYTHM: regular rhythm HEART SOUNDS: S1 normal heart sound present and S2 normal heart sound present GI: COMMON NORMALS: Normal to inspection, nondistended, normoactive bowel sounds present and non-tender Extremity: COMMON NORMALS: no pedal edema Neuro: COMMON NORMALS: patient oriented x3 Psych: COMMON NORMALS: mental status grossly normal Data 07/05/24 06:30 07/05/24 04:38 A&P Assessment and plan (1) CVA (cerebral vascular accident): (2) COPD (chronic obstructive pulmonary disease): (3) Diabetes: (4) Congestive heart failure: Qualifiers: Heart failure type: systolic Heart failure chronicity: acute on chronic Qualified Code(s): I50.23 - Acute on chronic systolic (congestive) heart failure (5) CKD (chronic kidney disease): Plan CVA: -Concern for posterior circulation stroke -FINDINGS: Brain: No acute infarct. No hemorrhage. No edema. Old infarcts noted in the left occipital, temporal, and right parietal lobes as well as the left cerebellar hemisphere. Moderate diffuse cerebral atrophy and FLAIR T2 hyperintense signal abnormality within the periventricular white matter tracts consistent with chronic small vessel ischemic disease. Cerebral ventricles: Normal. No ventriculomegaly. Bones: Unremarkable. Paranasal sinuses: Normal as visualized. No acute sinusitis. Mastoid air cells: Normal as visualized. No mastoid effusion. Orbital cavities: Unremarkable. Soft tissues: Unremarkable. plan: -Given multiple areas of involvement, will need event monitor -Continue aspirin, statin, Plavix -Blood pressure control Could be component of benign positional vertigo, monitor Type 2 diabetes mellitus, low-dose sliding scale: Resume Lantus at 10u. Change diet to consistent carbohydrate. Attestations 2 Medical Necessity Statement*: Patient requires hospitalization for CVA, requiring rehab, Diagnoses CVA (cerebral vascular accident) I63.9 COPD (chronic obstructive pulmonary disease) J44.9 Diabetes E11.9 Acute on chronic systolic congestive heart failure I50.23 Heart failure type: systolic Heart failure chronicity: acute on chronic CKD (chronic kidney disease) N18.9
[2024-07-06] MEDS: amlodipine 5 mg Tablet PO (14:56)
[2024-07-06 16:38] LABS: Glucose Point of Care 204 mg/dL (70-110)
[2024-07-06] MEDS: fluoxetine 20 mg Capsule PO (18:33)
[2024-07-06 20:34] LABS: Glucose Point of Care 204 mg/dL (70-110)
[2024-07-06] MEDS: pantoprazole 40 mg SDV IVP (23:29)
[2024-07-06] MEDS: enoxaparin 40 mg/0.4 mL Syringe SUBCUT (23:30)
[2024-07-07] VITALS (11 sets, daily range): BP systolic 145–165; BP diastolic 68–86; PULSE 70–84; RESP 14–100; TEMP 36.4–36.9; O2SAT 94–100
[2024-07-07 06:22] LABS: Glucose Point of Care 167 mg/dL (70-110)
[2024-07-07] MEDS: insulin lispro 100 unit/1 mL SUBCUT ×3 (07:59→17:45)
[2024-07-07] MEDS: insulin glargine 100 units/1 mL 10 UNIT SUBCUT (08:00)
[2024-07-07] MEDS: losartan 50 mg Tablet PO (08:00)
[2024-07-07] MEDS: clopidogrel 75 mg Tablet PO (08:00)
[2024-07-07] MEDS: amlodipine 5 mg Tablet PO (08:01)
[2024-07-07] MEDS: atorvastatin 40 mg Tablet 80 MG PO (08:01)
[2024-07-07] MEDS: FUROsemide 40 mg Tablet PO (08:01)
[2024-07-07] MEDS: aspirin 81 mg EC Tablet PO (08:01)
--- NOTE | 2024-07-07 10:16 | PC.CHAP ---
Pastoral Care Encounter/Spiritual Assessment Type of Contact [] Declined bus cleaner visit [] Patient/Family/Request visit [] Outpatient visit [] Follow-up visit [] Physician referral [] Code/Alert [x] Routine visit [] Staff referral [] Actively dying [] Patient sleeping [] Family support [] [] Out of room [] Palliative care [] [] Receiving care in room [] Pre-surgical visit [] Trauma [] Long length of stay [] ICU visit [] Other: Relational/Emotional Strength [x] Patient feels connected with others/family/visitors/staff [x] Distress [] Loneliness/isolation [] Abandonment Spirituality of Patient [x] Person of Haley [] Attends Voodoo of their Haley [x] Believes in Prayer [] Reads Bible or Uatsdin materials [] There are Spiritual issues to be addressed Machine Installer Interventions [x] Prayer [x] Active listening [x] Non-anxious presence [x] Spiritual/emotional support [] Crisis/trauma care [] Spiritual counseling [] Bereavement support [] Provided bereavement packet [] Provided Bible/devotional materials [] Provided toy/stuffed animal, coloring book to patient or family member [] Provided Communion [] Anointing/[place] [] Salvation [x] Completed spiritual assessment [] Other: Impact on Illness or Injury [] Angry [] Fearful [] Anxious [] Often cries [] Exhaustion [] Unable to work [] Unable to attend scientology [] Unable to walk/stand [] Unable to read [] Unable to drive [] Unable to eat/drink [] Unable to sleep [] Unable to be with family [] Patient intubated [] Other: Summary Time spent with patient 5 min
[2024-07-07 11:19] LABS: Glucose Point of Care 147 mg/dL (70-110)
--- NOTE | 2024-07-07 15:08 | P.PN_ITS ---
Subjective 2 Subjective: Patient was seen this morning, she has no complaints this morning, no fevers, no chills, no cough, reports more generalized weakness, no focal weakness does report dizziness upon ambulating but it is improved compared to admission Vitals/I&O/Wt Last Vital Signs Temp 98.1 F 07/07/24 12:51 Pulse 75 07/07/24 12:51 Resp 16 07/07/24 12:51 BP 159/83 07/07/24 12:51 Pulse Ox 100 07/07/24 11:50 O2 Del Method Nasal Cannula 07/07/24 11:50 O2 Flow Rate 1 07/07/24 11:50 07/07/24 07/07/24 07/07/24 06:59 14:59 22:59 Intake Total 0 / 1120 120 / 120 Balance 0 / 920 120 / 120 Weight last 48 hrs Weight 77.7 kg Weight 76.793 kg Physical Exam 2 Const: COMMON NORMALS: no acute distress and patient oriented x3 Neck/C-Spine: COMMON NORMALS: no JVD Resp: COMMON NORMALS: normal respiratory effort, No retractions, No use of accessory muscles and clear to auscultation bilaterally AUSCULTATION: clear to auscultation bilaterally Cardio: COMMON NORMALS: no JVD, regular rate, regular rhythm, S1 normal heart sound present and S2 normal heart sound present RATE: regular rate RHYTHM: regular rhythm HEART SOUNDS: S1 normal heart sound present and S2 normal heart sound present GI: COMMON NORMALS: Normal to inspection, nondistended, normoactive bowel sounds present and non-tender Extremity: COMMON NORMALS: no pedal edema Neuro: COMMON NORMALS: patient oriented x3 Psych: COMMON NORMALS: mental status grossly normal Data 07/05/24 06:30 07/05/24 04:38 A&P Assessment and plan (1) CVA (cerebral vascular accident): (2) COPD (chronic obstructive pulmonary disease): (3) Diabetes: (4) Congestive heart failure: Qualifiers: Heart failure type: systolic Heart failure chronicity: acute on chronic Qualified Code(s): I50.23 - Acute on chronic systolic (congestive) heart failure (5) CKD (chronic kidney disease): Plan CVA: -Concern for posterior circulation stroke -FINDINGS: Brain: No acute infarct. No hemorrhage. No edema. Old infarcts noted in the left occipital, temporal, and right parietal lobes as well as the left cerebellar hemisphere. Moderate diffuse cerebral atrophy and FLAIR T2 hyperintense signal abnormality within the periventricular white matter tracts consistent with chronic small vessel ischemic disease. Cerebral ventricles: Normal. No ventriculomegaly. Bones: Unremarkable. Paranasal sinuses: Normal as visualized. No acute sinusitis. Mastoid air cells: Normal as visualized. No mastoid effusion. Orbital cavities: Unremarkable. Soft tissues: Unremarkable. plan: -Given multiple areas of involvement, will need event monitor -Continue aspirin, statin, Plavix -Blood pressure control Hypertension, Could be component of benign positional vertigo, monitor Type 2 diabetes mellitus, low-dose sliding scale: Resume Lantus at 10u. Change diet to consistent carbohydrate. Attestations 2 Medical Necessity Statement*: Patient requires hospitalization for concerns for posterior circulation stroke, dizziness Coding Level of Care Code Acute Code for Chg Fwd Diagnoses CVA (cerebral vascular accident) I63.9 COPD (chronic obstructive pulmonary disease) J44.9 Diabetes E11.9 Acute on chronic systolic congestive heart failure I50.23 Heart failure type: systolic Heart failure chronicity: acute on chronic CKD (chronic kidney disease) N18.9
[2024-07-07] MEDS: fluoxetine 20 mg Capsule PO (16:55)
[2024-07-07 17:10] LABS: Glucose Point of Care 245 mg/dL (70-110)
[2024-07-07] MEDS: acetaminophen 325 mg Tablet 650 MG PO (19:47)
[2024-07-07 20:49] LABS: Glucose Point of Care 139 mg/dL (70-110)
[2024-07-07] MEDS: enoxaparin 40 mg/0.4 mL Syringe SUBCUT (23:26)
[2024-07-07] MEDS: pantoprazole 40 mg SDV IVP (23:26)
[2024-07-08] VITALS (10 sets, daily range): BP systolic 122–150; BP diastolic 61–77; PULSE 7–91; RESP 15–18; TEMP 36.4–36.9; O2SAT 97–100
[2024-07-08 06:23] LABS: Glucose Point of Care 218 mg/dL (70-110)
[2024-07-08] MEDS: aspirin 81 mg EC Tablet PO (07:46)
[2024-07-08] MEDS: amlodipine 5 mg Tablet PO (07:46)
[2024-07-08] MEDS: atorvastatin 40 mg Tablet 80 MG PO (07:46)
[2024-07-08] MEDS: losartan 50 mg Tablet PO (07:46)
[2024-07-08] MEDS: FUROsemide 40 mg Tablet PO (07:47)
[2024-07-08] MEDS: clopidogrel 75 mg Tablet PO (07:47)
[2024-07-08] MEDS: insulin lispro 100 unit/1 mL SUBCUT ×4 (07:48→21:30)
[2024-07-08] MEDS: insulin glargine 100 units/1 mL 10 UNIT SUBCUT (07:49)
[2024-07-08 11:41] LABS: Glucose Point of Care 307 mg/dL (70-110)
--- NOTE | 2024-07-08 12:10 | PC.SOCIAL ---
IMM updated IMM dated and initialed, copy given to patient and copy placed in chart.
--- NOTE | 2024-07-08 15:31 | P.PN_ITS ---
Subjective 2 Subjective: Patient was seen this morning, she is alert oriented x 3, following all commands, denies any significant plaints, no focal weakness, continues to have episodes of dizziness upon ambulating, motivated to go to [facility] facility Vitals/I&O/Wt Last Vital Signs Temp 98.5 F 07/08/24 15:18 Pulse 77 07/08/24 15:18 Resp 16 07/08/24 15:18 BP 122/61 07/08/24 15:18 Pulse Ox 98 07/08/24 15:18 O2 Del Method Nasal Cannula 07/08/24 15:18 O2 Flow Rate 2 07/08/24 08:45 07/08/24 07/08/24 07/08/24 06:59 14:59 22:59 Intake Total 960 / 960 Balance 960 / 960 Weight last 48 hrs Weight 78.16 kg Weight 77.7 kg Physical Exam 2 Const: COMMON NORMALS: no acute distress and patient oriented x3 Resp: COMMON NORMALS: normal respiratory effort, No retractions, No use of accessory muscles and clear to auscultation bilaterally AUSCULTATION: clear to auscultation bilaterally Cardio: COMMON NORMALS: regular rate, regular rhythm, S1 normal heart sound present and S2 normal heart sound present RATE: regular rate RHYTHM: r egular rhythm HEART SOUNDS: S1 normal heart sound present and S2 normal heart sound present GI: COMMON NORMALS: Normal to inspection, nondistended, normoactive bowel sounds present and non-tender Extremity: COMMON NORMALS: no pedal edema Neuro: COMMON NORMALS: patient oriented x3, CN's II-XII intact bilaterally, moves all extremities and no focal motor deficits Psych: COMMON NORMALS: mental status grossly normal Data 07/05/24 06:30 07/05/24 04:38 A&P Assessment and plan (1) CVA (cerebral vascular accident): (2) COPD (chronic obstructive pulmonary disease): (3) Diabetes: (4) Congestive heart failure: Qualifiers: Heart failure type: systolic Heart failure chronicity: acute on chronic Qualified Code(s): I50.23 - Acute on chronic systolic (congestive) heart failure (5) CKD (chronic kidney disease): Plan CVA: -Concern for posterior circulation stroke -FINDINGS: Brain: No acute infarct. No hemorrhage. No edema. Old infarcts noted in the left occipital, temporal, and right parietal lobes as well as the left cerebellar hemisphere. Moderate diffuse cerebral atrophy and FLAIR T2 hyperintense signal abnormality within the periventricular white matter tracts consistent with chronic small vessel ischemic disease. Cerebral ventricles: Normal. No ventriculomegaly. Bones: Unremarkable. Paranasal sinuses: Normal as visualized. No acute sinusitis. Mastoid air cells: Normal as visualized. No mastoid effusion. Orbital cavities: Unremarkable. Soft tissues: Unremarkable. plan: -Given multiple areas of involvement, will need event monitor -Continue aspirin, statin, Plavix -Blood pressure control Hypertension, Could be component of benign positional vertigo, monitor Type 2 diabetes mellitus, low-dose sliding scale: Resume Lantus at 10u. Change diet to consistent carbohydrate. Attestations 2 Medical Necessity Statement*: Patient requires hospitalization for concerns for CVA, concern for posterior circulation stroke, requiring placement to [facility] facility Diagnoses CVA (cerebral vascular accident) I63.9 COPD (chronic obstructive pulmonary disease) J44.9 Diabetes E11.9 Acute on chronic systolic congestive heart failure I50.23 Heart failure type: systolic Heart failure chronicity: acute on chronic CKD (chronic kidney disease) N18.9
[2024-07-08 16:34] LABS: Glucose Point of Care 164 mg/dL (70-110)
[2024-07-08] MEDS: fluoxetine 20 mg Capsule PO (17:22)
[2024-07-08 20:45] LABS: Glucose Point of Care 223 mg/dL (70-110)
[2024-07-08] MEDS: enoxaparin 40 mg/0.4 mL Syringe SUBCUT (23:31)
[2024-07-08] MEDS: pantoprazole 40 mg SDV IVP (23:32)
[2024-07-09] VITALS (8 sets, daily range): BP systolic 121–165; BP diastolic 71–87; PULSE 68–87; RESP 15–17; TEMP 36.5–37; O2SAT 96–100
[2024-07-09 04:35] LABS: Basophils # 0.1 10^3/uL (0.0-0.1); Basophils % 0.8 %; Eosinophils # 0.3 10^3/uL (0.0-0.8); Eosinophils % 3.8 %; Hematocrit 44.9 % (36-47); Lymphocytes # 1.6 10^3/uL (0.8-4.8); Lymphocytes % 20.1 %; Mean Corpuscular HGB Conc 29.6 g/dL (30-55); Mean Corpuscular Hemoglobin 29.4 pg (27-33); Mean Corpuscular Volume 99.1 fl (85-98); Mean Platelet Volume 10.6 fL (7.4-10.4); Monocytes # 1.1 10^3/uL (0.2-0.9); Monocytes % 14.2 %; Neutrophils # 4.85 10^3/uL (1.8-7.7); Neutrophils % 60.6 %; Nucleated Red Blood Cells % 0 %; Platelet Count 182 10^3/cmm (157-399); Red Blood Count 4.53 10^6/uL (3.85-5.65); Red Cell Distribution Width 13.3 % (12.1-15.1); White Blood Count 7.98 10^3/uL (3.29-11.43)
[2024-07-09 05:02] LABS: Blood Urea Nitrogen 29 mg/dL (8-23); Calcium 9.4 mg/dL (8.5-10.5); Carbon Dioxide 28 mmol/L (22-29); Chloride 99 mmol/L (98-107); Creatinine Clr Calc Pharmacy 40.6912; Glucose 275 mg/dL (65-115); Osmolality Calculated 296 mOsm/kg (285-295); Sodium 135 mmol/L (136-145)
[2024-07-09 05:04] LABS: Anion Gap 12.2 (5-19); Potassium 4.2 mmol/L (3.5-5.1)
[2024-07-09 06:21] LABS: Glucose Point of Care 200 mg/dL (70-110)
[2024-07-09] MEDS: insulin lispro 100 unit/1 mL SUBCUT ×3 (09:31→18:27)
[2024-07-09] MEDS: clopidogrel 75 mg Tablet PO (09:32)
[2024-07-09] MEDS: amlodipine 5 mg Tablet PO (09:32)
[2024-07-09] MEDS: losartan 50 mg Tablet PO (09:32)
[2024-07-09] MEDS: FUROsemide 40 mg Tablet PO (09:32)
[2024-07-09] MEDS: atorvastatin 40 mg Tablet 80 MG PO (09:32)
[2024-07-09] MEDS: aspirin 81 mg EC Tablet PO (09:32)
[2024-07-09] MEDS: insulin glargine 100 units/1 mL 10 UNIT SUBCUT (09:40)
[2024-07-09 11:40] LABS: Glucose Point of Care 195 mg/dL (70-110)
--- NOTE | 2024-07-09 17:24 | P.PN_ITS ---
Subjective 2 Subjective: Patient seen this morning, she has no complaints she is a bit frustrated about being here in the hospital for this many days, we discussed her dizziness, she tells me that is on and off but has improved we discussed the possibility of labyrinthitis, inner ear disease we will have her follow-up with ENT as outpatient Vitals/I&O/Wt Last Vital Signs Temp 98.6 F 07/09/24 15:31 Pulse 79 07/09/24 15:31 Resp 16 07/09/24 15:31 BP 150/71 07/09/24 15:31 Pulse Ox 100 07/09/24 15:31 O2 Del Method Nasal Cannula 07/09/24 15:31 O2 Flow Rate 2 07/09/24 08:00 07/09/24 07/09/24 07/09/24 06:59 14:59 22:59 Intake Total 240 / 2120 680 / 680 Output Total 300 / 500 Balance -60 / 1620 680 / 680 Weight last 48 hrs Weight 78.29 kg Weight 78.16 kg Physical Exam 2 Const: COMMON NORMALS: no acute distress and patient oriented x3 Resp: COMMON NORMALS: normal respiratory effort, No retractions, No use of accessory muscles and clear to auscultation bilaterally AUSCULTATION: clear to auscultation bilaterally Cardio: COMMON NORMALS: regular rate, regular rhythm, S1 normal heart sound present and S2 normal heart sound present RATE: regular rate RHYTHM: r egular rhythm HEART SOUNDS: S1 normal heart sound present and S2 normal heart sound present GI: COMMON NORMALS: Normal to inspection, nondistended, normoactive bowel sounds present and non-tender Extremity: COMMON NORMALS: no pedal edema Neuro: COMMON NORMALS: patient oriented x3 Psych: COMMON NORMALS: mental status grossly normal Data 07/09/24 04:28 07/09/24 04:28 A&P Assessment and plan (1) CVA (cerebral vascular accident): (2) COPD (chronic obstructive pulmonary disease): (3) Diabetes: (4) Congestive heart failure: Qualifiers: Heart failure type: systolic Heart failure chronicity: acute on chronic Qualified Code(s): I50.23 - Acute on chronic systolic (congestive) heart failure (5) CKD (chronic kidney disease): Plan CVA: -Concern for posterior circulation stroke -FINDINGS: Brain: No acute infarct. No hemorrhage. No edema. Old infarcts noted in the left occipital, temporal, and right parietal lobes as well as the left cerebellar hemisphere. Moderate diffuse cerebral atrophy and FLAIR T2 hyperintense signal abnormality within the periventricular white matter tracts consistent with chronic small vessel ischemic disease. Cerebral ventricles: Normal. No ventriculomegaly. Bones: Unremarkable. Paranasal sinuses: Normal as visualized. No acute sinusitis. Mastoid air cells: Normal as visualized. No mastoid effusion. Orbital cavities: Unremarkable. Soft tissues: Unremarkable. plan: -Given multiple areas of involvement, will need event monitor -Continue aspirin, statin, Plavix -Blood pressure control Hypertension, Could be component of benign positional vertigo, monitor Type 2 diabetes mellitus, low-dose sliding scale: Resume Lantus at 10u. Change diet to consistent carbohydrate. Attestations 2 Medical Necessity Statement*: Patient requires hospitalization for CVA Diagnoses CVA (cerebral vascular accident) I63.9 COPD (chronic obstructive pulmonary disease) J44.9 Diabetes E11.9 Acute on chronic systolic congestive heart failure I50.23 Heart failure type: systolic Heart failure chronicity: acute on chronic CKD (chronic kidney disease) N18.9
[2024-07-09 17:51] LABS: Glucose Point of Care 224 mg/dL (70-110)
[2024-07-09] MEDS: fluoxetine 20 mg Capsule PO (18:27)
[2024-07-09 21:07] LABS: Glucose Point of Care 106 mg/dL (70-110)
[2024-07-09] MEDS: enoxaparin 40 mg/0.4 mL Syringe SUBCUT (23:36)
[2024-07-09] MEDS: pantoprazole 40 mg SDV IVP (23:36)
[2024-07-10] VITALS: BP 121/67; PULSE 76; RESP 18; TEMP 37; O2SAT 100
[2024-07-10 04:00] VITALS: BP 148/73; PULSE 78; RESP 17; TEMP 37; O2SAT 94
[2024-07-10 05:29] LABS: Basophils # 0.1 10^3/uL (0.0-0.1); Basophils % 0.8 %; Eosinophils # 0.3 10^3/uL (0.0-0.8); Eosinophils % 3.2 %; Hematocrit 44.2 % (36-47); Lymphocytes % 22.3 %; Mean Corpuscular HGB Conc 31.4 g/dL (30-55); Mean Corpuscular Hemoglobin 29.1 pg (27-33); Mean Corpuscular Volume 92.7 fl (85-98); Mean Platelet Volume 11.4 fL (7.4-10.4); Monocytes % 11.7 %; Neutrophils # 5.37 10^3/uL (1.8-7.7); Neutrophils % 61.4 %; Nucleated Red Blood Cells % 0 %; Platelet Count 228 10^3/cmm (157-399); Red Blood Count 4.77 10^6/uL (3.85-5.65); Red Cell Distribution Width 13.2 % (12.1-15.1); White Blood Count 8.74 10^3/uL (3.29-11.43)
[2024-07-10 05:49] VITALS: PULSE 67
[2024-07-10 05:51] LABS: Anion Gap 9.9 (5-19); Blood Urea Nitrogen 24 mg/dL (8-23); Calcium 9.9 mg/dL (8.5-10.5); Carbon Dioxide 34 mmol/L (22-29); Chloride 98 mmol/L (98-107); Creatinine Clr Calc Pharmacy 40.7634; Glucose 165 mg/dL (65-115); Osmolality Calculated 294 mOsm/kg (285-295); Potassium 3.9 mmol/L (3.5-5.1); Sodium 138 mmol/L (136-145)
[2024-07-10 06:08] LABS: Glucose Point of Care 156 mg/dL (70-110)
[2024-07-10 07:15] VITALS: BP 170/69; PULSE 69; RESP 17; TEMP 36.6; O2SAT 100
[2024-07-10] MEDS: insulin lispro 100 unit/1 mL SUBCUT ×2 (08:39→11:49)
[2024-07-10 08:40] VITALS: BP 170/69
[2024-07-10] MEDS: clopidogrel 75 mg Tablet PO (08:40)
[2024-07-10] MEDS: aspirin 81 mg EC Tablet PO (08:40)
[2024-07-10] MEDS: FUROsemide 40 mg Tablet PO (08:40)
[2024-07-10] MEDS: atorvastatin 40 mg Tablet 80 MG PO (08:40)
[2024-07-10] MEDS: amlodipine 5 mg Tablet PO (08:40)
[2024-07-10] MEDS: losartan 50 mg Tablet PO (08:40)
--- NOTE | 2024-07-10 09:11 | PC.SOCIAL ---
IMM Update Pg. 2 of IMM updated and reviewed with patient, who verbalized understanding. Copy provided.
[2024-07-10] MEDS: insulin glargine 100 units/1 mL 10 UNIT SUBCUT (09:14)
--- NOTE | 2024-07-10 10:17 | P.DS_ITS ---
Discharge Providers Date of Admission: 07/04/24 22:34 Date of Discharge: July 10, 2024 Attending Provider at Admission: Dennis Oglesby MD Attending Provider at Discharge: Dennis Oglesby MD Primary Care Provider: Lefty Hodge DO Diagnoses at Discharge Discharge Diagnosis (1) CVA (cerebral vascular accident): Status: Acute (2) COPD (chronic obstructive pulmonary disease): Status: Acute (3) Diabetes: Status: Acute (4) Congestive heart failure: Status: Acute Qualifiers: Heart failure type: systolic Heart failure chronicity: acute on chronic Qualified Code(s): I50.23 - Acute on chronic systolic (congestive) heart failure Permanent problem details: Mixed diastolic and systolic (5) CKD (chronic kidney disease): Status: Chronic Permanent problem details: Baseline creatinine 1.2-1.4 Reason for Visit Reason for Visit: dizzy weakness slurring words Hospital Course Hospital Course Gianna Mora is a 73 year old female with a past medical history of type 2 diabetes mellitus, COPD, history of CVA, who presents to [facility] due to slurring of her words, left facial droop, unsteadiness on her feet, dizziness, word finding difficulty, falls. Currently patient is alert to person, to place, not to time she follows commands with daughter at the bedside who helps in the history taking. About 2 weeks ago patient had an episode of suddenly feeling dizzy, unsteady on her feet, with a left facial droop, slurring of words, word finding difficulty, so she was brought here to [facility] for evaluation, there was concern for stroke, she eventually went home. Since being at home she has had 2 falls continues to have dizziness, unsteadiness on her feet, about 2 weeks ago she was able to ambulate with a walker now she is not able to ambulate due to dizziness and weakness. She can still feed herself, no changes in her mentation, does have slurring her words word finding difficulty. According to daughter over the last 2 weeks she is declining, no other focal weakness reported, no dysuria, hematuria, no cough, no fevers. Currently her NIH stroke scale is 2, she is out of the tPA window, CTA head and neck 06/21 no large vessel occlusion, ct head no acute findings Patient was admitted to [facility] for cute CVA, concern for posterior circulation stroke headt ct Brain: No midline shift. Cisterns are noneffaced. Moderate and mild, wedge-shaped, low-attenuation lesions spanning [place] and white matter of left posterior temporal and occipital lobes, right posterior parietal or anterior superior occipital lobe, and left posterior inferior cerebellum are unchanged, suggesting chronic infarcts. A few, < 2.3 cm, low attenuation lesions with similar density as CSF at right > left lentiform nuclei and anterior limbs of internal capsules and right ridley radiata are unchanged, suggesting chronic, lacunar infarcts. Moderate, ill-defined, low attenuation areas at bilateral periventricular white matter suggest microvascular ischemic changes. No abnormal high attenuation lesions within brain parenchyma. No intracranial hemorrhage. No definite evidence of acute infarcts. However, diffusion MRI is more sensitive. No extra-axial fluid collections. < 8 mm, dural calcification overlying left frontal convexity is unchanged. Cerebral ventricles: Ventricles along with sulci are mild-moderately enlarged, reflecting volume loss. Callosal angle at level of posterior commissure measures 119 degrees. Moderate, asymmetric dilatation of temporal and occipital horns and atrium of left lateral ventricle suggest ex vacuo dilatation. Paranasal sinuses: Visualized sinuses are clear. Mastoid air cells: Visualized mastoid air cells are well aerated. Orbital cavities: There are bilateral intraocular lens implants. Bones: Unremarkable. No acute fractures. Soft tissues: Grossly unremarkable. Vasculature: Right petrous carotid artery is mildly calcified. Bilateral cavernous and ophthalmic carotid arteries are moderate-severely calcified. Bilateral vertebral arteries are moderate-severely calcified. CT/CT head wo con* [id number] IMPRESSION: 1. Mild-moderate cerebral volume loss. Unchanged, moderate and mild, chronic infarcts at left posterior temporal and occipital lobes, right posterior parietal or anterior superior occipital lobe, and left posterior inferior cerebellum. Unchanged, chronic, lacunar infarcts at right > left lentiform nuclei and anterior limbs of internal capsules and right ridley radiata. Moderate hypodensities at bilateral periventricular white matter, suggesting microvascular ischemic changes. No definite acute infarcts. 2. Atherosclerosis. FINDINGS: Brain: No acute infarct. No hemorrhage. No edema. Old infarcts noted in the left occipital, temporal, and right parietal lobes as well as the left cerebellar hemisphere. Moderate diffuse cerebral atrophy and FLAIR T2 hyperintense signal abnormality within the periventricular white matter tracts consistent with chronic small vessel ischemic disease. Cerebral ventricles: Normal. No ventriculomegaly. Bones: Unremarkable. Paranasal sinuses: Normal as visualized. No acute sinusitis. Mastoid air cells: Normal as visualized. No mastoid effusion. Orbital cavities: Unremarkable. Soft tissues: Unremarkable. echo MR/MR head wo con* [id number] IMPRESSION: No acute ischemia. CONCLUSIONS LV systolic function is moderately reduced with EF of 35-40% Grade 1 diastolic dysfunction Mild mitral regurgitation. Mild aortic regurgitation. Mild tricuspid regurgitation. Mild pulmonic regurgitation. Compared to prior echocardiogram from 03/2024, LV systolic function appears to have decreased slightly -Patient was monitored as inpatient -Received permissive hypertension -Telemetry monitoring -No significant focal weakness, her left facial droop was intermittent -She had persistent dizziness upon ambulation, cerebellar symptoms upon ambulation, received PT OT -[facility] -continue aspirin, Plavix, statin on discharge -Given that patient has had recurrent CVA-like symptoms and her CT MRI showed multiple vascular territories involved, would recommend for her to discharge on event monitor to evaluate for possible embolic phenomenon -Follow-up with cardiology in 30 days follow-up with neurology in 2 weeks -If any recurrent strokelike symptoms please go to the emergency room -Some of patient's symptoms might be from benign positional vertigo versus labyrinthitis, will have her follow-up with ENT -Echocardiogram shows EF of 35 to 40% no chest pain complaints, follow-up cardiology as outpatient Physical Exam Const: COMMON NORMALS: no acute distress and patient oriented x3 Resp: COMMON NORMALS: normal respiratory effort, No retractions, No use of accessory muscles and clear to auscultation bilaterally AUSCULTATION: clear to auscultation bilaterally Cardio: COMMON NORMALS: regular rate, regular rhythm, S1 normal heart sound present and S2 normal heart sound present RATE: regular rate RHYTHM: regular rhythm HEART SOUNDS: S1 normal heart sound present and S2 normal heart sound present GI: COMMON NORMALS: Normal to inspection, nondistended, normoactive bowel sounds present and non-tender Extremity: COMMON NORMALS: no pedal edema Neuro: COMMON NORMALS: patient oriented x3, CN's II-XII intact bilaterally and moves all extremities Psych: COMMON NORMALS: mental status grossly normal Discharge Data Studies Completed and Pending Completed Studies During Hospitalization Category Date Time Status CT head wo con* [id number] Stat Cat Scan 07/04/24 19:07 Completed XR chest 1V portable [id number] Stat Exams 07/04/24 19:07 Completed MR head wo con* [id number] Routine MRI 07/05/24 09:30 Completed CV. echo complete* [id number] Routine Ultrasound 07/05/24 23:49 Completed Pending at discharge Category Date Time Status Basic Metabolic Panel AM LABS Lab 07/11/24 04:00 Ordered Complete Blood Count w/Auto AM LABS Lab 07/11/24 04:00 Ordered SARS Covid-2 Antigen Routine Lab 07/10/24 10:07 Uncollected Radiology Impressions Chest X-Ray 07/04/24 19:07 IMPRESSION: 1. Clear lungs. 2. Stable, upper limit of normal sized heart. atherosclerosis. Head CT 07/04/24 19:07 IMPRESSION: 1. Mild-moderate cerebral volume loss. Unchanged, moderate and mild, chronic infarcts at left posterior temporal and occipital lobes, right posterior parietal or anterior superior occipital lobe, and left posterior inferior cerebellum. Unchanged, chronic, lacunar infarcts at right > left lentiform nuclei and anterior limbs of internal capsules and right ridley radiata. Moderate hypodensities at bilateral periventricular white matter, suggesting microvascular ischemic changes. No definite acute infarcts. 2. Atherosclerosis. Head MRI 07/05/24 09:30 IMPRESSION: No acute ischemia. Laboratory Results WBC 8.74 10^3/uL (3.29-11.43) 07/10/24 04:17 Corrected WBC Cancelled 07/05/24 04:38 RBC 4.77 10^6/uL (3.85-5.65) 07/10/24 04:17 Hgb 13.90 g/dL (11.27-16.99) 07/10/24 04:17 Hct 44.2 % (36-47) 07/10/24 04:17 MCV 92.7 fl (85-98) D 07/10/24 04:17 MCH 29.1 pg (27-33) 07/10/24 04:17 MCHC 31.4 g/dL (30-55) D 07/10/24 04:17 RDW 13.2 % (12.1-15.1) 07/10/24 04:17 Plt Count 228 10^3/cmm (157-399) 07/10/24 04:17 MPV 11.4 fL (7.4-10.4) H 07/10/24 04:17 Gran % Cancelled 07/05/24 04:38 Neut % (Auto) 61.4 % 07/10/24 04:17 Lymph % (Auto) 22.3 % 07/10/24 04:17 Atkinson % (Auto) 11.7 % 07/10/24 04:17 Eos % (Auto) 3.2 % 07/10/24 04:17 Baso % (Auto) 0.8 % 07/10/24 04:17 Neut # (Auto) 5.37 10^3/uL (1.8-7.7) 07/10/24 04:17 Lymph # (Auto) 2.0 10^3/uL (0.8-4.8) 07/10/24 04:17 Atkinson # (Auto) 1.0 10^3/uL (0.2-0.9) H 07/10/24 04:17 Eos # (Auto) 0.3 10^3/uL (0.0-0.8) 07/10/24 04:17 Baso # (Auto) 0.1 10^3/uL (0.0-0.1) 07/10/24 04:17 Absolute Gran (auto) Cancelled 07/05/24 04:38 Nucleated RBC % (auto) 0 % 07/10/24 04:17 Nucleated RBCs # 0.0 /100WBC 07/10/24 04:17 PT 13.70 SECONDS (12.1-14.9) 07/04/24 19:53 INR 1.02 (0.8-1.2) 07/04/24 19:53 APTT 24.2 SECONDS (23.9-36.7) 07/04/24 19:53 Sodium 138 mmol/L (136-145) 07/10/24 04:17 Potassium 3.9 mmol/L (3.5-5.1) 07/10/24 04:17 Chloride 98 mmol/L (98-107) 07/10/24 04:17 Carbon Dioxide 34 mmol/L (22-29) H 07/10/24 04:17 Anion Gap 9.9 (5-19) 07/10/24 04:17 BUN 24 mg/dL (8-23) H 07/10/24 04:17 Creatinine 1.2 mg/dL (0.5-0.9) H 07/10/24 04:17 GFR Calculation Not Reportable 07/10/24 04:17 Glucose 165 mg/dL (65-115) H 07/10/24 04:17 POC Glucose 156 mg/dL (70-110) H 07/10/24 06:01 Estimat Average Glucose 183 07/04/24 19:53 Hemoglobin A1c 8.0 % (4.0-6.0) H 07/04/24 19:53 Calculated Osmolality 294 mOsm/kg (285-295) 07/10/24 04:17 Lactic Acid 1.3 mmol/L (0.5-2.2) 07/04/24 19:53 Calcium 9.9 mg/dL (8.5-10.5) 07/10/24 04:17 Total Bilirubin 0.9 mg/dL (0.15-1.2) 07/05/24 04:38 AST 30 U/L (0-32) 07/05/24 04:38 ALT 23 U/L (0-33) 07/05/24 04:38 Alkaline Phosphatase 77 U/L (35-105) 07/05/24 04:38 Creatine Kinase 44 U/L (26-192) 07/04/24 19:53 C-Reactive Protein 3.0 mg/L (0.0-4.9) 07/04/24 19:53 Total Protein 6.0 g/dL (6.6-8.7) L 07/05/24 04:38 Albumin 3.4 g/dL (3.5-5.2) L 07/05/24 04:38 Globulin 2.6 g/dL (1.3-4.6) 07/05/24 04:38 Triglycerides 89 mg/dL (0-150) 07/04/24 19:53 Cholesterol 100 mg/dL (0-200) 07/04/24 19:53 LDL Cholesterol, Calc 26 mg/dL (50-129) L 07/04/24 19:53 HDL Cholesterol 56 mg/dL (60-100) L 07/04/24 19:53 LDL/HDL Ratio 0.46 RATIO (0.00-3.22) 07/04/24 19:53 Cholesterol/HDL Ratio 1.79 mg/dL (0.0-4.40) 07/04/24 19:53 TSH 1.31 uIU/mL (0.27-4.20) 07/04/24 19:53 Urine Color Yellow (Yellow) 07/04/24 21: Urine Appearance Clear (CLEAR) 07/04/24 21: Urine pH 5.5 (5-7) 07/04/24 21: Ur Specific [place] 1.026 (1.005-1.030) 07/04/24 21: Urine Protein Trace (Negative) A 07/04/24 21: Urine Glucose (UA) 3+ (Normal) H 07/04/24 21: Urine Ketones Negative (Negative) 07/04/24 21: Urine Blood Negative (Negative) 07/04/24 21: Urine Nitrate Negative (Negative) 07/04/24 21: Urine Bilirubin Negative (Negative) 07/04/24 21: Urine Urobilinogen 1.0 mg/dL (Negative) 07/04/24 21: Ur Leukocyte Esterase Negative (Negative) 07/04/24 21: Urine RBC 0-2 /hpf (0-2) 07/04/24 21: Urine WBC 0-5 /hpf (0-5) 07/04/24 21: Ur Squamous Epith Cells 0-5 /hpf (0-5) 07/04/24 21: Amorphous Sediment Not Reportable 07/04/24 21: Urine Bacteria None seen /hpf (NONE) 07/04/24 21: Hyaline Casts 0.40 /lpf 07/04/24 21:28 Vitals Last Vital Signs Temp 97.9 F 07/10/24 07:15 Pulse 69 07/10/24 07:15 Resp 17 07/10/24 07:15 BP 170/69 07/10/24 08:40 Pulse Ox 100 07/10/24 07:15 O2 Del Method Nasal Cannula 07/10/24 07:36 O2 Flow Rate 2 07/10/24 07:36 Discharge Plan Discharge Patient Disposition: Home Condition: Good Prescriptions: New amlodipine 5 mg Tablet 5 mg PO DAILY 30 Days Qty: 30 0RF Continued clopidogrel 75 mg tablet 75 mg PO DAILY Qty: 30 5RF (DME) Left unlar gutter FAST FORM See Rx Instructions .Route .MEDSUPPLY Qty: 1 0RF Rx Instructions: As directed fluoxetine 20 mg capsule 20 mg PO QPM ascorbic acid (vitamin C) [Vitamin C] 1,000 mg Tablet 1,000 mg PO DAILY vitamin E 268 mg (400 unit) Capsule 268 mg PO DAILY Centrum Adult 50 Plus 80 mcg Tablet,Chewable 1 tab PO DAILY insulin aspart U-100 [Novolog FlexPen U-100 Insulin] 100 unit/mL (3 mL) insulin pen See Rx Instructions .ROUTE .COMPLEX Qty: 15 0RF Rx Instructions: Take per sliding scale as needed. BS 141-180 2u,181-220 4u, 221-260 6u, 261- 300 8u, 301-350 10u, 351-400 12u, >400 14u losartan 50 mg Tablet 50 mg PO DAILY Qty: 30 0RF furosemide [Lasix] 40 mg tablet 40 mg PO DAILY Qty: 30 0RF dapagliflozin propanediol [Farxiga] 10 mg tablet 10 mg PO QAM Qty: 30 0RF hydrocodone-acetaminophen 5-325 mg tablet 1 tab PO Q6H PRN (Reason: pain) Qty: 10 0RF atorvastatin 80 mg tablet 80 mg PO DAILY Qty: 30 0RF meclizine 12.5 mg Tablet 12.5 mg PO TID PRN (Reason: Dizziness) aspirin 81 mg Tablet,Delayed Release (Dr/Ec) 81 mg PO DAILY Hold Instructions: Doctor's Order Changed insulin glargine [Lantus Solostar U-100 Insulin] 100 unit/mL (3 mL) insulin pen 10 unit SUBCUT QAM 30 Days Qty: 3 0RF Discharge Orders: Discharge Order (Routine); Ordered 07/10/24 Ordered By: Dennis Oglesby Other Ambulatory Orders: MCT/Event Monitor 30 Days (Routine) Timeframe: 1 Day Facility: [facility] - Location: Radiology Ordered By: Dennis Oglesby Referrals: Geronimo May MD [Physician] - 2 weeks Ryley Cuellar M.D [Physician] - 1 month Lefty Hodge DO [Primary Care Provider] - Discharge Diet: Cardiac Discharge Activity: Resume usual activity Patient Instructions: Opioid Safety Activity Restrictions/Additional Instructions: - If any recurrent strokelike symptoms please call 911 Discharge Attestations Time Spent in Discharge Care*: greater than 30 min Status at Discharge: Cognitive status at discharge: cognitively intact , Behavioral status at discharge: cooperative , Quality Metrics Clinical Quality Measures [ Cerebrovascular Accident { Contraindication to Antithrombotic: None; antithrombotic prescribed; Contraindication to Anticoagulation: Overlap treatment not indicated; Contraindication to Statin: None; Statin prescribed;}] Coding Level of Care Code 18134 Total time (in minutes) for Discharge: 45 Diagnoses CVA (cerebral vascular accident) I63.9 COPD (chronic obstructive pulmonary disease) J44.9 Diabetes E11.9 Acute on chronic systolic congestive heart failure I50.23 Heart failure type: systolic Heart failure chronicity: acute on chronic CKD (chronic kidney disease) N18.9
[2024-07-10 10:51] LABS: Glucose Point of Care 219 mg/dL (70-110)
[2024-07-10 11:04] VITALS: BP 149/76; PULSE 74; RESP 16; TEMP 37.1; O2SAT 100
[2024-07-10 11:26] LABS: SARS Covid-2 Antigen Negative (Negative)
== END 2024-07-10 12:55 | disposition skilled nursing facility (03) | DRG 64 ==
LOC: ER 21:25 → MEDSURG 07-05 00:45
PROVIDERS: Internal Medicine; Admitting Provider Family Medicine; Emergency Provider Emergency Medicine; PCP Internal Medicine; Visit Provider Family Medicine
DX: I63.89 Other cerebral infarction (principal); I50.43 Acute on chronic combined systolic (congestive) and diastolic (congestive) heart failure; I13.0 Hypertensive heart and chronic kidney disease with heart failure and stage 1 through stage 4 chronic kidney disease, or unspecified chronic kidney disease; R29.810 Facial weakness; R47.81 Slurred speech; R29.702 NIHSS score 2; R42 Dizziness and giddiness; R47.01 Aphasia; J44.9 Chronic obstructive pulmonary disease, unspecified; E11.22 Type 2 diabetes mellitus with diabetic chronic kidney disease; N18.9 Chronic kidney disease, unspecified; G47.33 Obstructive sleep apnea (adult) (pediatric); Z79.82 Long term (current) use of aspirin; Z79.02 Long term (current) use of antithrombotics/antiplatelets; Z79.4 Long term (current) use of insulin
CPT/HCPCS: 36415; 36416; 70450; 70551; 71045; 80048; 80053; 80061; 81001; 82550; 82962; 83036; 83605; 84443; 85025; 85610; 85730; 86140; 87426; 93005; 93306; 94664; 96372; 97110; 97116; 97161; 97166; 97530; 97535; 99285; J1650; J1815; J2470; J7799

== ENCOUNTER → 2024-07-20 13:38 | Outpatient (BNVA) | payer MEDICARE, MEDICAID, SELFPAY | PROVIDERS: PCP Internal Medicine; Visit Provider Psychiatry & Neurology Neurology | DX: I63.9 Cerebral infarction, unspecified (principal); I67.2 Cerebral atherosclerosis | CPT/HCPCS: 99212 ==

== ENCOUNTER → 2024-07-27 15:19 | Outpatient (BNVA) | payer MEDICARE, MEDICAID, SELFPAY | PROVIDERS: PCP Internal Medicine; Visit Provider Internal Medicine Cardiovascular Disease | DX: I13.0 Hypertensive heart and chronic kidney disease with heart failure and stage 1 through stage 4 chronic kidney disease, or unspecified chronic kidney disease (principal); N18.9 Chronic kidney disease, unspecified; I50.23 Acute on chronic systolic (congestive) heart failure; J44.9 Chronic obstructive pulmonary disease, unspecified; Z86.73 Personal history of transient ischemic attack (TIA), and cerebral infarction without residual deficits; L23.1 Allergic contact dermatitis due to adhesives | CPT/HCPCS: 99214 ==

== ENCOUNTER → 2024-07-30 15:28 | Outpatient (BNVA) | payer MEDICARE, MEDICAID, SELFPAY | PROVIDERS: PCP Internal Medicine; Visit Provider Physician Assistant | DX: S62.617D Displaced fracture of proximal phalanx of left little finger, subsequent encounter for fracture with routine healing; X58.XXXD Exposure to other specified factors, subsequent encounter | CPT/HCPCS: 73130; 99213 ==

== ENCOUNTER 2024-07-31 15:54 | Observation (INO) | payer MEDICARE, MEDICAID, SELFPAY ==
[2024-07-31] VITALS (8 sets, daily range): BP systolic 136–172; BP diastolic 68–98; PULSE 74–83; RESP 16–18; TEMP 37–37.3; O2SAT 96–100; BMI 31.1
--- NOTE | 2024-07-31 16:11 | CTR_ITS ---
PROCEDURE INFORMATION: Exam: CT Pelvis Without Contrast, Skeleton Exam date and time: 07/31/2024 4:48 PM Age: 73 years old Clinical indication: Injury or trauma; Fall; Blunt trauma (contusions or hematomas); Left; Hip; Additional info: Traumatic left pelvic pain TECHNIQUE: Imaging protocol: Computed tomography of the pelvis without contrast. Exam focused on the skeleton. Radiation optimization: All CT scans at this facility use at least one of these dose optimization techniques: automated exposure control; mA and/or kV adjustment per patient size (includes targeted exams where dose is matched to clinical indication); or iterative reconstruction. COMPARISON: CT abdomen pelvis w con* [id number] 08/05/2021 3:17 PM RADIATION DOSE METRICS: Total DLP (mGy-cm): 407.94 FINDINGS: Bones/joints: Cortical irregularity of the left pubic body suspicious for a subtle nondisplaced fracture (image 47 of series 7). No evidence of fracture or subluxation of either hip. No significant joint effusion. Sacrum and coccyx are intact. Soft tissues: Mild soft tissue edema in the region of the space of [place]. No fluid collection or hematoma. Prior hysterectomy noted. Mild diffuse bladder wall thickening/haziness. CT/CT pelvis wo con [id number] IMPRESSION: 1. Suspected subtle nondisplaced hairline fracture of the left pubic body. MRI may be helpful for further detail if clinically warranted. Pelvic ring and both hips are otherwise intact. 2. Possible cystitis.
--- NOTE | 2024-07-31 16:11 | CTR_ITS ---
PROCEDURE INFORMATION: Exam: CT Head Without Contrast Exam date and time: 07/31/2024 4:44 PM Age: 73 years old Clinical indication: Injury or trauma; Fall; Blunt trauma (contusions or hematomas); Additional info: Fall, head injury TECHNIQUE: Imaging protocol: Computed tomography of the head without contrast. Radiation optimization: All CT scans at this facility use at least one of these dose optimization techniques: automated exposure control; mA and/or kV adjustment per patient size (includes targeted exams where dose is matched to clinical indication); or iterative reconstruction. COMPARISON: MR head wo con* [id number] 07/05/2024 1:16 PM RADIATION DOSE METRICS: Total DLP (mGy-cm): 1061.38 FINDINGS: Brain: No hemorrhage. No edema. Moderate diffuse cerebral atrophy and sequela of chronic small vessel ischemic disease. Old infarcts noted in the deep white matter tracts of the frontal lobes, basal ganglia, left cerebellar hemisphere, and a region of the left parietal/temporal lobes. No mass effect. Cerebral ventricles: No ventriculomegaly. Paranasal sinuses: Visualized sinuses are unremarkable. No fluid levels. Mastoid air cells: Visualized mastoid air cells are well aerated. Bones: Unremarkable. No acute fracture. Soft tissues: Unremarkable. CT/CT head wo con* [id number] IMPRESSION: No acute intracranial abnormality.
--- NOTE | 2024-07-31 16:12 | XRR_ITS ---
PROCEDURE INFORMATION: Exam: XR Chest Exam date and time: 07/31/2024 4:28 PM Age: 73 years old Clinical indication: Other: Weakness TECHNIQUE: Imaging protocol: Radiologic exam of the chest. Views: 1 view. COMPARISON: CR (CHEST, ) 07/04/2024 7:18 PM FINDINGS: Lungs: No focal consolidation. Device projects over the left hemithorax. Pleural spaces: No evidence of pneumothorax. No evidence of pleural effusion. Heart/Mediastinum: Cardiomediastinal silhouette is within normal limits. Bones/joints: No evidence of acute osseous abnormality. ORIF of the proximal left humerus. XR/XR chest 1V portable [id number] IMPRESSION: 1. No acute cardiopulmonary abnormality.
--- NOTE | 2024-07-31 16:19 | ED_ITS ---
HPI - Extremity Problem 2 General: Chief complaint: Extremity Injury, Lower Stated complaint: fall, left hip pain Time Seen by Provider: 07/31/24 16:08 History of Present Illness: 73-year-old female with a history of con gestive heart failure, obstructive sleep apnea, coronary artery disease, COPD, diabetes, obesity, chronic kidney disease and hypertension who presents to the emergency room after having a syncopal episode and falling and hitting her head. She is also complaining of some left hip pain. She is able to move her leg without pain. She has pain in posterior pelvic region. On the left side. She has a small abrasion on the top of her head. No nausea or vomiting. She currently has a 30-day monitor on secondary to her chronic congestive heart failure she says. Related Data Home Medications Medication Instructions Recorded Confirmed ascorbic acid (vitamin C) 1,000 mg 1,000 mg PO DAILY 08/05/21 07/31/24 tablet (Vitamin C) fluoxetine 20 mg capsule 20 mg PO QPM 08/05/21 07/31/24 aspirin 81 mg tablet,delayed 81 mg PO DAILY 08/10/23 07/31/24 release multivitamin with minerals-folic 1 tab PO DAILY 08/14/23 07/31/24 acid 80 mcg chewable tablet (Centrum Adult 50 Plus) vitamin E 268 mg (400 unit) capsule 268 mg PO DAILY 08/14/23 07/31/24 meclizine 12.5 mg tablet 12.5 mg PO TID PRN Dizziness 07/05/24 07/31/24 insulin glargine 100 unit/mL (3 30 unit SUBCUT QAM 07/31/24 07/31/24 mL) subcutaneous pen (Lantus Solostar U-100 Insulin) Previous Rx's Medication Instructions Recorded insulin aspart U-100 100 unit/mL See Rx Instructions .Route 08/16/23 (3 mL) subcutaneous pen (Novolog .COMPLEX #15 mL FlexPen U-100 Insulin aspart) clopidogrel 75 mg tablet 75 mg PO DAILY #30 tabs 05/18/24 dapagliflozin propanediol 10 mg 10 mg PO QAM #30 tabs 05/21/24 tablet (Farxiga) furosemide 40 mg tablet (Lasix) 40 mg PO DAILY #30 tabs 05/21/24 hydrocodone 5 mg-acetaminophen 325 1 tab PO Q6H PRN pain #10 tabs 06/06/24 mg tablet Left unlar gutter FAST FORM #1 ea 06/18/24 atorvastatin 80 mg tablet 80 mg PO DAILY #30 tabs 06/21/24 sacubitril 24 mg-valsartan 26 mg 1 tab PO BID #180 tabs 07/27/24 tablet (Entresto) Allergies Allergy/AdvReac Type Severity Reaction Status Date / Time adhesive tape Allergy ALGY-Bliste Verified 07/30/24 15:46 r Review of Systems 2 Narrative: Constitutional symptoms: Negative except as documented in HPI. Skin symptoms: Negative except as documented in HPI. Eye symptoms: Negative except as documented in HPI. ENMT symptoms: Negative except as documented in HPI. Respiratory symptoms: Negative except as documented in HPI. Cardiovascular symptoms: Negative except as documented in HPI. Gastrointestinal symptoms: Negative except as documented in HPI. Genitourinary symptoms: Negative except as documented in HPI. Musculoskeletal symptoms: Negative except as documented in HPI. Neurologic symptoms: Negative except as documented in HPI. Psychiatric symptoms: Negative except as documented in HPI. Endocrine symptoms: Negative except as documented in HPI. PFSH ED 2 PFSH: Medical History (Updated 07/31/24 @ 20:28 by Shade Lund MD) Congestive heart failure Mixed diastolic and systolic RONAL (obstructive sleep apnea) Atherosclerotic cerebrovascular disease Acute exacerbation of chronic obstructive airways disease Community acquired pneumonia Acute respiratory failure with hypoxia Diabetes COPD (chronic obstructive pulmonary disease) Tracheobronchomalacia CT chest 08/07 INGA positive Cerebellar stroke CKD (chronic kidney disease) Baseline creatinine 1.2-1.4 Osteoarthritis of left hip Hypertension Surgical History History of cholecystectomy H/O: hysterectomy Family History Other Acute respiratory failure with hypoxia Social History Smoking and tobacco/nicotine status: never used tobacco/nicotine Alcohol intake: never Substance/Drug Use: never Physical Exam 2 Narrative: EXAM NARRATIVE: General: Alert, no acute distress. Skin: Warm, dry. Head: Normocephalic, atraumatic. Neck: Supple, trachea midline. Eye: Extraocular movements are intact. Ears, nose, mouth and throat: mucosa moist. Cardiovascular: Regular, Normal peripheral perfusion. Respiratory: Lungs are clear to auscultation, respirations are non-labored, breath sounds are equal, Symmetrical chest wall expansion. Gastrointestinal: Soft, Nontender, Non distended Musculoskeletal: Normal ROM, no deformity. Neurological: Alert and oriented, No focal neurological deficit observed. Psychiatric: Cooperative, appropriate mood & affect. Course 2 Vital Signs: Vital signs: Vital Signs Temperature 98.6 F 07/31/24 21:14 Pulse Rate 74 07/31/24 21:14 Respiratory Rate 17 07/31/24 21:14 Blood Pressure 149/98 07/31/24 21:14 Pulse Oximetry 98 07/31/24 21:14 Oxygen Delivery Me thod Nasal Cannula 07/31/24 21:14 Oxygen Flow Rate 2 07/31/24 21:14 MDM - Extremity (Nontraumatic) Medical Decision Making CT head: No acute intracranial process. no intracranial hemorrhage, no evidence of infarct. no evidence of acute fracture.This was reviewed and interpreted by myself the ER physician. CT of the pelvis: Suspected subtle nondisplaced hairline fracture of the left pubic body. This was reviewed and interpreted by myself the emergency room physician. I also reviewed the radiology report. Consultation: I spoke with Dr. Herrera who is on-call for orthopedics. With the patient's social situation and her debility and inability to walk he agrees that admission and then possible readmission to a long-term is likely appropriate. If needed he will consult in the hospital. Lab review: No leukocytosis. No anemia. No new renal failure. Troponin is at baseline. proBNP is 3000. Known heart failure. Lab work was reviewed and interpreted by myself the ER physician. Chest x-ray: No acute process. No infiltrate. No pneumothorax. This was reviewed and interpreted by myself the emergency room physician. I also reviewed the radiology report. Consultation: I spoke with Dr. weber who is functional analyst for the hospitalist service who agrees to admission. Assessment and plan: Pelvic fracture Fall -I discussed the patient with the hospitalist on-call who is admitting the patient. - Discussed findings and plan with patient. Answered any questions. - All laboratory values were reviewed and interpreted personally by myself, the ER physician - All imaging was reviewed and interpreted personally by myself, the ER physician. - Evaluation and treatment of this problem were appropriate in the emergency setting Lab Data 07/31/24 16:36 07/31/24 16:[address] 07/31/24 16:11 IMPRESSION: No acute intracranial abnormality. Pelvis CT 07/31/24 16:11 IMPRESSION: 1. Suspected subtle nondisplaced hairline fracture of the left pubic body. MRI may be helpful for further detail if clinically warranted. Pelvic ring and both hips are otherwise intact. 2. Possible cystitis. Chest X-Ray 07/31/24 16:12 IMPRESSION: 1. No acute cardiopulmonary abnormality. Laboratory Results WBC 10.16 10^3/uL (3.29-11.43) 07/31/24 16:36 RBC 4.67 10^6/uL (3.85-5.65) 07/31/24 16:36 Hgb 13.90 g/dL (11.27-16.99) 07/31/24 16:36 Hct 42.9 % (36-47) 07/31/24 16:36 MCV 91.9 fl (85-98) 07/31/24 16:36 MCH 29.8 pg (27-33) 07/31/24 16:36 MCHC 32.4 g/dL (30-55) 07/31/24 16:36 RDW 13.6 % (12.1-15.1) 07/31/24 16:36 Plt Count 200 10^3/cmm (157-399) 07/31/24 16:36 MPV 10.2 fL (7.4-10.4) 07/31/24 16:36 Neut % (Auto) 75.9 % 07/31/24 16:36 Lymph % (Auto) 9.4 % 07/31/24 16:36 [place] % (Auto) 10.7 % 07/31/24 16:36 Eos % (Auto) 3.1 % 07/31/24 16:36 Baso % (Auto) 0.5 % 07/31/24 16:36 Neut # (Auto) 7.70 10^3/uL (1.8-7.7) 07/31/24 16:36 Lymph # (Auto) 1.0 10^3/uL (0.8-4.8) 07/31/24 16:36 [place] # (Auto) 1.1 10^3/uL (0.2-0.9) H 07/31/24 16:36 Eos # (Auto) 0.3 10^3/uL (0.0-0.8) 07/31/24 16:36 Baso # (Auto) 0.1 10^3/uL (0.0-0.1) 07/31/24 16:36 Nucleated RBC % (auto) 0 % 07/31/24 16:36 Nucleated RBCs # 0.0 /100WBC 07/31/24 16:36 Sodium 139 mmol/L (136-145) 07/31/24 16:36 Potassium 4.0 mmol/L (3.5-5.1) 07/31/24 16:36 Chloride 99 mmol/L (98-107) 07/31/24 16:36 Carbon Dioxide 33 mmol/L (22-29) H 07/31/24 16:36 Anion Gap 11.0 (5-19) 07/31/24 16:36 BUN 20 mg/dL (8-23) 07/31/24 16:36 Creatinine 1.1 mg/dL (0.5-0.9) H 07/31/24 16:36 GFR Calculation Not Reportable 07/31/24 16:36 Glucose 210 mg/dL (65-115) H 07/31/24 16:36 Calculated Osmolality 297 mOsm/kg (285-295) H 07/31/24 16:36 Lactic Acid 1.1 mmol/L (0.5-2.2) 07/31/24 16:36 Calcium 9.8 mg/dL (8.5-10.5) 07/31/24 16:36 Total Bilirubin 1.6 mg/dL (0.15-1.2) H 07/31/24 16:36 AST 21 U/L (0-32) 07/31/24 16:36 ALT 27 U/L (0-33) 07/31/24 16:36 Alkaline Phosphatase 83 U/L (35-105) 07/31/24 16:36 Troponin T Baseline 20 ng/L (0-10) H 07/31/24 16:36 NT-Pro-B Natriuret Pep 3178 pg/mL (0-125) H 07/31/24 16:36 Total Protein 6.3 g/dL (6.6-8.7) L 07/31/24 16:36 Albumin 3.5 g/dL (3.5-5.2) 07/31/24 16:36 Globulin 2.8 g/dL (1.3-4.6) 07/31/24 16:36 All radiology interpretation(s) finalized by discharge Discharge Plan Discharge Patient Disposition: Admitted As Inpatient Admit Provider: Harmony Urena Clinical Impression: Closed pelvic fracture, Head injury, Multiple falls Condition: Stable Coding Level of Care Code ED Power Saw Operator for Minerva Ocampo
--- NOTE | 2024-07-31 16:25 | ECG_ITS ---
[facility] Test Date: 2024-07-31 Pat Name: Gianna Mora Department: Room: Gender: Female Enamel Applier: : 1950 Requested By: Elizabeth Bustos Order Number: [id number] Reading MD: JESSEE LINDA Measurements Intervals [place] Rate: 82 P: 52 [place]: 157 QRS: -7 QRSD: 122 T: 70 QT: 408 QTc: 478 Interpretive Statements SINUS RHYTHM INFERIOR MYOCARDIAL INFARCTION , OF INDETERMINATE AGE [40+ ms Q WAVE AND/OR ST/T ABNORMALITY IN II/aVF] PROBABLE ANTEROLATERAL MYOCARDIAL INFARCTION , OF INDETERMINATE AGE [35 ms Q WAVE IN I/aVL/V3-V6] Compared to ECG 07/04/2024 17:21:40 No significant changes Electronically Signed On 07-31-2024 23:19:39 JUVENILE DETENTION OFFICER by JESSEE LINDA [id number]
[2024-07-31 16:57] LABS: Basophils # 0.1 10^3/uL (0.0-0.1); Basophils % 0.5 %; Eosinophils # 0.3 10^3/uL (0.0-0.8); Eosinophils % 3.1 %; Hematocrit 42.9 % (36-47); Lymphocytes % 9.4 %; Mean Corpuscular HGB Conc 32.4 g/dL (30-55); Mean Corpuscular Hemoglobin 29.8 pg (27-33); Mean Corpuscular Volume 91.9 fl (85-98); Mean Platelet Volume 10.2 fL (7.4-10.4); Monocytes # 1.1 10^3/uL (0.2-0.9); Monocytes % 10.7 %; Neutrophils % 75.9 %; Nucleated Red Blood Cells % 0 %; Platelet Count 200 10^3/cmm (157-399); Red Blood Count 4.67 10^6/uL (3.85-5.65); Red Cell Distribution Width 13.6 % (12.1-15.1); White Blood Count 10.16 10^3/uL (3.29-11.43)
[2024-07-31 17:16] LABS: Lactic Sepsis W/Reflex 1.1 mmol/L (0.5-2.2)
--- NOTE | 2024-07-31 17:32 | ECG_ITS ---
[employer] Test Date: 2024-07-31 Pat Name: Gianna Mora Department: Room: Gender: Female Web Design Instructor: : 1950 Requested By: Elizabeth Bustos Order Number: [id number] Reading MD: JESSEE LINDA Measurements Intervals [place] Rate: 80 P: 55 FL: 149 QRS: -2 QRSD: 113 T: 41 QT: 410 QTc: 473 Interpretive Statements SINUS RHYTHM INFERIOR MYOCARDIAL INFARCTION , OF INDETERMINATE AGE [40+ ms Q WAVE AND/OR ST/T ABNORMALITY IN II/aVF] ANTEROLATERAL MYOCARDIAL INFARCTION , OF INDETERMINATE AGE [40+ ms Q WAVE IN I/aVL/V3-V6] Compared to ECG 07/31/2024 16:25:18 No significant changes Electronically Signed On 07-31-2024 23:31:30 DISC INSPECTOR by JESSEE LINDA [email or web address]
[2024-07-31 17:34] LABS: Alanine Aminotransferase 27 U/L (0-33); Albumin Level 3.5 g/dL (3.5-5.2); Alkaline Phosphatase 83 U/L (35-105); Aspartate Amino Transferase 21 U/L (0-32); Blood Urea Nitrogen 20 mg/dL (8-23); Calcium 9.8 mg/dL (8.5-10.5); Carbon Dioxide 33 mmol/L (22-29); Chloride 99 mmol/L (98-107); Creatinine Clr Calc Pharmacy 43.4078; Globulin 2.8 g/dL (1.3-4.6); Glucose 210 mg/dL (65-115); NT Pro B Type Natriuretic Pept 3178 pg/mL (0-125); Osmolality Calculated 297 mOsm/kg (285-295); Sodium 139 mmol/L (136-145); Total Bilirubin 1.6 mg/dL (0.15-1.2); Total Protein 6.3 g/dL (6.6-8.7)
[2024-07-31 18:14] LABS: Troponin(5th) Baseline 20 ng/L (0-10)
[2024-07-31 18:48] LABS: Bilirubin Urine Negative (Negative); Blood Urine Negative (Negative); Glucose Urine UA 3+ (Normal); Ketones Urine Negative (Negative); Leukocyte Esterase Urine Negative (Negative); Nitrate Urine Negative (Negative); Protein Urine Negative (Negative); Specific Gravity, Urine 1.023 (1.005-1.030); Urine Appearance Clear (CLEAR); Urine Color Yellow (Yellow)
[2024-07-31 18:51] LABS: Bacteria Urine None Seen /hpf; RBC Urine 0-2 /hpf (0-2); Squamous Epithelial Cell Urine 0-5 /hpf (0-5); WBC Urine 0-5 /hpf (0-5)
--- NOTE | 2024-07-31 19:27 | P.HP_ITS ---
Providers/Chief Complaint 2 Admitting Physician: Harmony Urena MD Primary Care Provider: Lefty Hodge DO Chief Complaint: fall, left hip pain History of Present Illness Gianna Mora is a 73 year old female with a past medical history significant for hyperlipidemia, type 2 diabetes mellitus on insulin, COPD, stroke, congestive heart failure, sleep apnea, osteoarthritis, and multiple other comorbidities who presents to the emergency department with mechanical fall with associated pelvic pain. Patient reports she was walking to the bathroom whenever she fell. She cannot recall whether or not she passed out. She states she is having significant left sided pelvic and hip pain. Also endorses a small abrasion on her forehead. States that she tried to get up and ambulate after falling but was unable to due to pain. She denies any sensation loss in lower extremity. Denies fevers, chills, nausea or emesis. Family is bedside and supportive. They report that she just got out of rehab about a week ago. They noticed that she has been weak and has multiple falls recently. In the emergency department, imaging showed nondisplaced fracture of the left pubic body. Orthopedic surgery consulted recommending observation with likely nonoperative management. Review of Systems 2 Narrative: A complete review of systems was obtained and is negative except as stated in HPI. Medications/Allergies Home Medications Medication Instructions Recorded Confirmed Last Taken Type ascorbic acid (vitamin C) 1,000 mg 1,000 mg PO DAILY 08/05/21 07/30/24 07/04/24 History tablet (Vitamin C) fluoxetine 20 mg capsule 20 mg PO QPM 08/05/21 07/30/24 07/03/24 History aspirin 81 mg tablet,delayed 81 mg PO DAILY 08/10/23 07/30/24 07/04/24 History release multivitamin with minerals-folic 1 tab PO DAILY 08/14/23 07/30/24 07/04/24 History acid 80 mcg chewable tablet (Centrum Adult 50 Plus) vitamin E 268 mg (400 unit) capsule 268 mg PO DAILY 08/14/23 07/30/24 07/04/24 History insulin aspart U-100 100 unit/mL See Rx Instructions .Route 08/16/23 07/30/24 07/04/24 Rx (3 mL) subcutaneous pen (Novolog .COMPLEX #15 mL FlexPen U-100 Insulin aspart) clopidogrel 75 mg tablet 75 mg PO DAILY #30 tabs 05/18/24 07/30/24 07/04/24 Rx dapagliflozin propanediol 10 mg 10 mg PO QAM #30 tabs 05/21/24 07/30/24 07/04/24 Rx tablet (Farxiga) furosemide 40 mg tablet (Lasix) 40 mg PO DAILY #30 tabs 05/21/24 07/30/24 07/04/24 Rx hydrocodone 5 mg-acetaminophen 325 1 tab PO Q6H PRN pain #10 tabs 06/06/24 07/30/24 Unknown Rx mg tablet Left unlar gutter FAST FORM #1 ea 06/18/24 07/30/24 07/04/24 Rx atorvastatin 80 mg tablet 80 mg PO DAILY #30 tabs 06/21/24 07/30/24 07/04/24 Rx meclizine 12.5 mg tablet 12.5 mg PO TID PRN Dizziness 07/05/24 07/30/24 07/04/24 History insulin glargine 100 unit/mL (3 10 unit (0.1 mL) SUBCUT QAM 30 07/10/24 07/30/24 07/04/24 Rx mL) subcutaneous pen (Lantus days #3 mL Solostar U-100 Insulin) sacubitril 24 mg-valsartan 26 mg 1 tab PO BID #180 tabs 07/27/24 07/30/24 Unknown Rx tablet (Entresto) Allergies Allergy/AdvReac Type Severity Reaction Status Date / Time adhesive tape Allergy ALGY-Bliste Verified 07/30/24 15:46 r PFSH Acute 2 PFSH: Medical History (Updated 07/31/24 @ 20:28 by Shade Lund MD) Congestive heart failure Mixed diastolic and systolic RONAL (obstructive sleep apnea) Atherosclerotic cerebrovascular disease Acute exacerbation of chronic obstructive airways disease Community acquired pneumonia Acute respiratory failure with hypoxia Diabetes COPD (chronic obstructive pulmonary disease) Tracheobronchomalacia CT chest 08/07 INGA positive Cerebellar stroke CKD (chronic kidney disease) Baseline creatinine 1.2-1.4 Osteoarthritis of left hip Hypertension Surgical History History of cholecystectomy H/O: hysterectomy Family History Other Acute respiratory failure with hypoxia Social History Smoking and tobacco/nicotine status: never used tobacco/nicotine Alcohol intake: never Substance/Drug Use: never Vitals/I&O/Wt Last Vital Signs Temp 99.1 F 07/31/24 16:01 Pulse 79 07/31/24 18:22 Resp 16 07/31/24 18:22 BP 172/69 07/31/24 18:22 Pulse Ox 99 07/31/24 18:22 O2 Del Method Nasal Cannula 07/31/24 18:22 O2 Flow Rate 2 07/31/24 18:22 Weight last 48 hrs Weight 74.843 kg Physical Exam 2 Narrative: General: Patient is awake and alert. Head: Small abrasion present. EOM intact. Neck: No JVD. Cardiovascular: RRR. No gallops. No murmurs. No peripheral edema. Lungs: Clear to auscultation, no use of accessory muscles, no crackles or wheezes. Skin: No jaundice. No rashes. Abdomen: Normal bowel sounds, abdomen soft and nontender. Genito Urinary: Genital exam not performed since complaints not related. Rectal: Rectal exam not performed since no symptoms indicated blood loss. Extremities: No cyanosis or clubbing. Musculoskeletal: No swollen or erythematous joints. Neurological: Moves all 4 extremities. No myoclonus. Data 07/31/24 16:36 07/31/24 16:36 Micro: Microbiology 07/31/24 16:41 Blood Culture - Preliminary Blood SPECIMEN COLLECTED 07/31/24 16:36 Blood Culture - Preliminary Blood SPECIMEN COLLECTED A&P Assessment and plan (1) Pelvic fracture: Plan for bedrest initially until orthopedic surgery evaluates Will need physical occupational therapy evaluations Multimodal pain control Start bowel regiment Supportive care (2) Multiple falls: Head CT negative for acute intercranial findings Telemetry monitoring to evaluate for occult arrhythmia Fall precautions Therapy evaluation Patient will likely need postacute care Case management consult (3) CVA (cerebral vascular accident): Patient currently wearing 30-day heart monitor, likely evaluating for occult A- fib Patient was discharged from hospital 07/10 to rehab after being admitted for stroke, she returned home approximately a week ago Continue antiplatelet and statin (4) Diabetes: Continue home Lantus at reduced home dose Sliding-scale insulin correction Avoid hypoglycemia (5) Congestive heart failure: Heart failure with reduced ejection fraction of 35 to 40%, chronic without exacerbation Continue Entresto Continue Lasix Daily assessment of volume Qualifiers: Heart failure type: systolic Heart failure chronicity: acute on chronic Qualified Code(s): I50.23 - Acute on chronic systolic (congestive) heart failure (6) COPD (chronic obstructive pulmonary disease): Without exacerbation Breathing treatments as needed (7) CKD (chronic kidney disease): Renal function at recent baseline Renally dose medications Plan DVT prophylaxis: Lovenox CODE STATUS: Full code Attestations 2 Medical Necessity Statement*: Patient presents with pelvic pain secondary to mechanical fall, found to have pelvic fracture with expected hospitalization not to cross 2 midnights for therapy evaluation, pain control and supportive care. Coding Level of Care Code Acute Code for [facility] Diagnoses Pelvic fracture S32.9XXA Multiple falls R29.6 CVA (cerebral vascular accident) I63.9 Diabetes E11.9 Acute on chronic systolic congestive heart failure I50.23 Heart failure type: systolic Heart failure chronicity: acute on chronic COPD (chronic obstructive pulmonary disease) J44.9 CKD (chronic kidney disease) N18.9
[2024-07-31 19:36] LABS: Troponin 5 2HR 19.67 ng/L (0-10)
[2024-07-31 19:37] LABS: Troponin 5 2HR Delta -0.33 ABS# (0-10)
--- NOTE | 2024-07-31 19:39 | PC.NURSE ---
report called to Maru on med surg. ID and allergy band on. pt in gown. pt aware of admit.
[2024-07-31 21:12] LABS: Glucose Point of Care 159 mg/dL (70-110)
[2024-07-31] MEDS: sennosides 8.6 mg Tablet 17.2 MG PO (21:46)
[2024-07-31] MEDS: enoxaparin 40 mg/0.4 mL Syringe SUBCUT (21:46)
[2024-07-31] MEDS: acetaminophen 325 mg Tablet 1000 MG PO (21:46)
[2024-07-31] MEDS: insulin lispro 100 unit/1 mL SUBCUT (21:47)
--- NOTE | 2024-07-31 22:12 | ECG_ITS ---
[facility] Test Date: 2024-08-01 Pat Name: Gianna Mora Department: Room: 275 Gender: Female Gas Or Water Meter Installer: : 1950 Requested By: Elizabeth Bustos Order Number: [id number] Reading MD: JESSEE LINDA Measurements Intervals [place] Rate: 67 P: 37 OR: 185 QRS: -8 QRSD: 136 T: 70 QT: 444 QTc: 469 Interpretive Statements SINUS RHYTHM INTRAVENTRICULAR CONDUCTION DELAY [130+ ms QRS DURATION] INFERIOR MYOCARDIAL INFARCTION , OF INDETERMINATE AGE [40+ ms Q WAVE AND/OR ST/T ABNORMALITY IN II/aVF] ANTEROLATERAL MYOCARDIAL INFARCTION , OF INDETERMINATE AGE [40+ ms Q WAVE IN I/aVL/V3-V6] Compared to ECG 07/31/2024 17:32:38 Intraventricular conduction delay now present Myocardial infarct finding still present Electronically Signed On 08-03-2024 23:22:23 GLUE MACHINE OPERATOR by JESSEE LINDA [email or web address]
[2024-07-31 23:44] LABS: Troponin 5 6HR 20.97 ng/L (0-10); Troponin 5 6HR Delta 0.97 ng/L (0-12)
[2024-08-01] VITALS (8 sets, daily range): BP systolic 121–163; BP diastolic 67–84; PULSE 64–75; RESP 14–16; TEMP 36.4–36.9; O2SAT 97–99
[2024-08-01] MEDS: acetaminophen 500 mg Tablet 1000 MG PO ×3 (04:10→20:19)
[2024-08-01 06:36] LABS: Glucose Point of Care 106 mg/dL (70-110)
--- NOTE | 2024-08-01 09:02 | XRR_ITS ---
PROCEDURE INFORMATION: Exam: XR Pelvis Exam date and time: 08/01/2024 3:34 PM Age: 73 years old Clinical indication: Injury or trauma; Fall; Blunt trauma (contusions or hematomas); Left; Pelvic region; Additional info: Left pubic rami FX post ambulation, post ambulation ap pelvis, inlet and outlet TECHNIQUE: Imaging protocol: Radiologic exam of the pelvis. Views: 1 or 2 view. COMPARISON: CR (PELVIS, ) 08/01/2024 1:04 PM FINDINGS: Bones/joints: There are mild degenerative changes of the hip joints. Nondisplaced fracture of the left pubic bone. There are moderate degenerative changes of the sacroiliac joints. Soft tissues: Unremarkable. Vasculature: There are numerous benign phleboliths in the pelvis. XR/XR pelvis min 3V [id number] IMPRESSION: Stable alignment of the nondisplaced fracture of the left pubic bone.
--- NOTE | 2024-08-01 09:04 | P.CONIM_ITS ---
Providers/Reason For Consult 2 Consulting Physician/Specialty*: Mahendra Herrera DO/orthopedic surgery Reason for Consult*: Left superior pubic rami fracture Requesting Physician: Dr. Schmitt Attending Physician: Harmony Urena MD Primary Care Provider: Lefty Hodge DO History of Present Illness History of Present Illness Gianna Mora is a 73 year old female who sustained mechanical fall with associated pelvic pain. Patient was found Emergency Department to have a left pubic body fracture. Patient had just gotten out of rehab roughly a week ago. At this point in time she is admitted by hospitalist for pain control and likely possible placement into a rehab facility and orthopedics was consulted for evaluation and treatment recommendations. Patient denies any fevers or chills or any loss sensation to the left lower extremity. Review of Systems 2 General: Reports: 10 or more systems reviewed and unremarkable except in HPI and below Medications/Allergies Home Medications Medication Instructions Recorded Confirmed Last Taken Type ascorbic acid (vitamin C) 1,000 mg 1,000 mg PO DAILY 08/05/21 07/31/24 07/04/24 History tablet (Vitamin C) fluoxetine 20 mg capsule 20 mg PO QPM 08/05/21 07/31/24 07/03/24 History aspirin 81 mg tablet,delayed 81 mg PO DAILY 08/10/23 07/31/24 07/04/24 History release multivitamin with minerals-folic 1 tab PO DAILY 08/14/23 07/31/24 07/04/24 History acid 80 mcg chewable tablet (Centrum Adult 50 Plus) vitamin E 268 mg (400 unit) capsule 268 mg PO DAILY 08/14/23 07/31/24 07/04/24 History insulin aspart U-100 100 unit/mL See Rx Instructions .Route 08/16/23 07/31/24 07/04/24 Rx (3 mL) subcutaneous pen (Novolog .COMPLEX #15 mL FlexPen U-100 Insulin aspart) clopidogrel 75 mg tablet 75 mg PO DAILY #30 tabs 05/18/24 07/31/24 07/04/24 Rx dapagliflozin propanediol 10 mg 10 mg PO QAM #30 tabs 05/21/24 07/31/24 07/04/24 Rx tablet (Farxiga) furosemide 40 mg tablet (Lasix) 40 mg PO DAILY #30 tabs 11/02/0407/31/24 07/04/24 Rx hydrocodone 5 mg-acetaminophen 325 1 tab PO Q6H PRN pain #10 tabs 06/06/24 07/31/24 Unknown Rx mg tablet Left unlar gutter FAST FORM #1 ea 06/18/24 07/31/24 07/04/24 Rx atorvastatin 80 mg tablet 80 mg PO DAILY #30 tabs 06/21/24 07/31/24 07/04/24 Rx meclizine 12.5 mg tablet 12.5 mg PO TID PRN Dizziness 07/05/24 07/31/24 07/04/24 History sacubitril 24 mg-valsartan 26 mg 1 tab PO BID #180 tabs 07/27/24 07/31/24 Unknown Rx tablet (Entresto) insulin glargine 100 unit/mL (3 30 unit SUBCUT QAM 07/31/24 07/31/24 Unknown History mL) subcutaneous pen (Lantus Solostar U-100 Insulin) Allergies Allergy/AdvReac Type Severity Reaction Status Date / Time adhesive tape Allergy ALGY-Bliste Verified 07/30/24 15:46 r Current Medications Generic Name Dose Route Start Last Admin Trade Name Freq PRN Reason Stop Dose Admin Acetaminophen 1,000 mg 08/01/24 04:00 08/01/24 04:10 Acetaminophen 500 Mg Tablet PO 1,000 mg Q8H LORENA Administration Enoxaparin Sodium 40 mg 07/31/24 21:00 07/31/24 21:46 Enoxaparin 40 Mg/0.4 Ml Syringe SUBCUT 40 mg Q24H LORENA Administration Insulin Human Lispro 0 unit 07/31/24 21:00 08/01/24 08:08 Insulin Lispro 100 Unit/1 Ml SUBCUT Not Given WM&BEDTIME LORENA Protocol Senna 17.2 mg 07/31/24 21:00 07/31/24 21:46 Sennosides 8.6 Mg Tablet PO 17.2 mg BEDTIME LORENA Administration PFSH Acute 2 PFSH: Medical History (Updated 08/01/24 @ 12:49 by Harmony Urena MD) Congestive heart failure Mixed diastolic and systolic RONAL (obstructive sleep apnea) Atherosclerotic cerebrovascular disease Acute exacerbation of chronic obstructive airways disease Community acquired pneumonia Acute respiratory failure with hypoxia Diabetes COPD (chronic obstructive pulmonary disease) Tracheobronchomalacia CT chest 08/07 INGA positive Cerebellar stroke CKD (chronic kidney disease) Osteoarthritis of left hip Hypertension Surgical History History of cholecystectomy H/O: hysterectomy Family History Other Acute respiratory failure with hypoxia Social History Smoking and tobacco/nicotine status: never used tobacco/nicotine Alcohol intake: never Substance/Drug Use: never Vitals/I&O/Wt Last Vital Signs Temp 98.3 F 08/01/24 08:00 Pulse 73 08/01/24 08:00 Resp 15 08/01/24 08:00 BP 135/84 08/01/24 08:00 Pulse Ox 98 08/01/24 08:00 O2 Del Method Nasal Cannula 08/01/24 08:00 O2 Flow Rate 2 08/01/24 04:00 07/31/24 08/01/24 08/01/24 22:59 06:59 14:59 Intake Total 338 / 338 Output Total 125 / 125 Balance -125 / -125 338 / 338 Weight last 48 hrs Weight 166 lb 8 oz Weight 160 lb 7 oz Weight 165 lb Physical Exam 2 Narrative: Examination of the left lower extremity demonstrates patient has tenderness palpation over the left pubic rami. Patient has tenderness focalized in this area. She is able to tolerate logroll examination she is able to perform a Stinchfield's examination with no pain or discomfort. No tenderness palpation about the left hip over the proximal femur or the greater trochanter. Patient is able to wiggle toes plantarflex and dorsiflex ankle sensations intact light touch distally. Distal pulses are palpable compartments are soft compressible. Stable pelvic compression test but tenderness to palpation over the pubic rami. Negative logroll examination to the left hip. Secondary survey examination is unremarkable for any acute pathology. Patient able to actively range the bilateral upper extremity joints and has no tenderness to palpation over the bilateral upper extremity joints or deformities. Patient has no tenderness along the spine. Secondary survey examination of the right lower extremity demonstrates no tenderness palpation of the right hip femur knee or foot and ankle patient able to tolerate logroll examination, logroll negative negative Stinchfield's, able to plantarflex and dorsiflex ankle sensation tact light touch distally. Urinary Catheter Management: [place]: Cath Placed During This Visit: yes Reason for Continuing Indwelling Catheter: Perioperative Use in Selected Surgeries Urinary Catheter Date of Insertion: 07/31/24 Urinary Catheter Time of Insertion: 21:55 Data 07/31/24 16:36 08/02/24 04:49 Micro: Microbiology 07/31/24 16:41 Blood Culture - Preliminary Blood SPECIMEN COLLECTED 07/31/24 16:36 Blood Culture - Preliminary Blood SPECIMEN COLLECTED Other CT: Radiologist's impression: Ordering Provider/Ordering MD: Elizabeth Schmitt MD Date of Service: 07/31/24 Procedure(s): CT pelvis wo con 12046 Accession Number(s): [id number] Report Number: [id number] PROCEDURE INFORMATION: Exam: CT Pelvis Without Contrast, Skeleton Exam date and time: 07/31/2024 4:48 PM Age: 73 years old Clinical indication: Injury or trauma; Fall; Blunt trauma (contusions or hematomas); Left; Hip; Additional info: Traumatic left pelvic pain TECHNIQUE: Imaging protocol: Computed tomography of the pelvis without contrast. Exam focused on the skeleton. Radiation optimization: All CT scans at this facility use at least one of these dose optimization techniques: automated exposure control; mA and/or kV adjustment per patient size (includes targeted exams where dose is matched to clinical indication); or iterative reconstruction. COMPARISON: CT abdomen pelvis w con* [id number] 08/05/2021 3:17 PM RADIATION DOSE METRICS: Total DLP (mGy-cm): 407.94 FINDINGS: Bones/joints: Cortical irregularity of the left pubic body suspicious for a subtle nondisplaced fracture (image 47 of series 7). No evidence of fracture or subluxation of either hip. No significant joint effusion. Sacrum and coccyx are intact. Soft tissues: Mild soft tissue edema in the region of the space of Retzius. No fluid collection or hematoma. Prior hysterectomy noted. Mild diffuse bladder wall thickening/haziness. CT/CT pelvis wo con [id number] IMPRESSION: 1. Suspected subtle nondisplaced hairline fracture of the left pubic body. MRI may be helpful for further detail if clinically warranted. Pelvic ring and both hips are otherwise intact. 2. Possible cystitis. Ordering Provider/Ordering MD: Mahendra Herrera Date of Service: 08/01/24 Procedure(s): XR pelvis min 3V 77405 Accession Number(s): [id number] Report Number: [id number] PROCEDURE INFORMATION: Exam: XR Pelvis Exam date and time: 08/01/2024 1:04 PM Age: 73 years old Clinical indication: Pelvic pain; Patient HX: Pelvic rami FX; Ap, inlet, outlet pre physical therapy TECHNIQUE: Imaging protocol: Radiologic exam of the pelvis. Views: 1 or 2 view. COMPARISON: CT pelvis [facility] [id number] 07/31/2024 4:48 PM FINDINGS: Bones/joints: There are mild degenerative changes of the hip joints. There are mild degenerative changes of the sacroiliac joints. Previously described left pubic bone fracture is in near anatomic alignment. Soft tissues: Unremarkable. Gastrointestinal tract: Above average fecal loading in the colon. Vasculature: There are numerous benign phleboliths in the pelvis. Vascular calcifications. XR/XR pelvis min 3V 91320 IMPRESSION: Nondisplaced left pubic bone fracture with anatomic alignment. A&P Assessment and plan (1) Closed pelvic fracture: Plan Weight-bear as tolerated left lower extremity PT/OT Recommend calcium and vitamin D supplementation for bone health and healing Pain control Utilize walker for ambulation CT scan reviewed Hospitalist on board as primary Preambulation x-rays reviewed stable left pubic rami fracture no evidence of pelvic instability or an unstable pelvic injury, the posterior structures are stable on CT scan DVT prophylaxis per primary this point in time would recommend possibly Lovenox while in the hospital can discharge on aspirin 325 twice daily for 35 days upon discharge Orthopedics will continue to follow Orthopedics will follow tomorrow after patient is worked with therapy and done post ambulation and will obtain post ambulation x-rays of the pelvis just to confirm stable pelvic ring injury at this point in time plan will likely be to discharge with plan for nonoperative treatment at this point in time his fracture is stable patient understands agrees with current plan. All questions answered. Hospitalist updated on plan today. Coding Level of Care Code Acute Code for Chg Fwd Diagnoses Closed pelvic fracture S32.9XXA Time Spent (min) 45
[2024-08-01] MEDS: clopidogrel 75 mg Tablet PO (09:40)
[2024-08-01] MEDS: polyethylene glycol 3350 Pkt 17 gm PO (09:40)
[2024-08-01] MEDS: aspirin 81 mg EC Tablet PO (09:40)
[2024-08-01] MEDS: FUROsemide 40 mg Tablet PO (09:40)
[2024-08-01] MEDS: sacubitril/valsartan 24-26 mg Tablet 1 EACH PO ×2 (09:40→17:26)
[2024-08-01] MEDS: flu vacc pf 24-25 (6 mos+) SYRINGE 45 MCG IM (09:41)
[2024-08-01] MEDS: pneumococcal (23 valent) SDV 0.5 mL IM (09:43)
--- NOTE | 2024-08-01 11:08 | PC.CHAP ---
Pastoral Care Encounter/Spiritual Assessment Type of Contact [] Declined house officer visit [] Patient/Family/Request visit [] Outpatient visit [] Follow-up visit [] Physician referral [] Code/Alert [] Routine visit [] Staff referral [] Actively dying [X] Patient sleeping [] Family support [] [] Out of room [] Palliative care [] [] Receiving care in room [] Pre-surgical visit [] Trauma [] Long length of stay [] ICU visit [] Other: Relational/Emotional Strength [] Patient feels connected with others/family/visitors/staff [] Distress [] Loneliness/isolation [] Abandonment Spirituality of Patient [] Person of Haley [] Attends Baptist of their [place] [] Believes in Prayer [] Reads Bible or Anabaptist materials [] There are Spiritual issues to be addressed Supervisor Type Disk Quality Control Interventions [] Prayer [] Active listening [] Non-anxious presence [] Spiritual/emotional support [] Crisis/trauma care [] Spiritual counseling [] Bereavement support [] Provided bereavement packet [] Provided Bible/devotional materials [] Provided toy/stuffed animal, coloring book to patient or family member [] Provided Communion [] Anointing/[place] [] Salvation [] Completed spiritual assessment [] Other: Impact on Illness or Injury [] Angry [] Fearful [] Anxious [] Often cries [] Exhaustion [] Unable to work [] Unable to attend roman catholic [] Unable to walk/stand [] Unable to read [] Unable to drive [] Unable to eat/drink [] Unable to sleep [] Unable to be with family [] Patient intubated [] Other: Summary Time spent with patient
[2024-08-01 11:59] LABS: Glucose Point of Care 176 mg/dL (70-110)
[2024-08-01] MEDS: insulin lispro 100 unit/1 mL SUBCUT ×3 (12:26→21:14)
--- NOTE | 2024-08-01 12:42 | PM.PN ---
Subjective Subjective: No acute events overnight. Patient seen at the bedside, she has improvement in pain today. Vitals/I&O/Wt Last Vital Signs Temp 98.4 F 08/01/24 12:00 Pulse 65 08/01/24 12:00 Resp 14 08/01/24 12:00 BP 162/67 08/01/24 12:00 Pulse Ox 99 08/01/24 12:00 O2 Del Method Nasal Cannula 08/01/24 12:00 O2 Flow Rate 2 08/01/24 12:00 07/31/24 08/01/24 08/01/24 22:59 06:59 14:59 Intake Total 698 / 698 Output Total 125 / 125 Balance -125 / -125 698 / 698 Weight last 48 hrs Weight 75.523 kg Weight 72.773 kg Weight 74.843 kg Physical Exam Const: COMMON NORMALS: no acute distress, patient oriented x3 and alert HENMT: COMMON NORMALS: normocephalic, atraumatic, external ears normal, Normal external nose present, moist oral mucous membranes and oropharynx normal HEAD & SCALP: normocephalic and atraumatic NOSE: Normal external nose present EXTERNAL EAR: Yes external ears normal Eye: COMMON NORMALS: Equal, round and reactive pupils present, EOMs intact bilaterally, conjunctivae normal and no scleral icterus CONJUNCTIVA: Yes conjunctivae normal PUPIL: Yes Equal, round and reactive pupils present Neck/C-Spine: COMMON NORMALS: full ROM, no lymphadenopathy and no JVD Chest: COMMONS NORMALS: normal inspection of the chest Resp: COMMON NORMALS: normal respiratory effort and clear to auscultation bilaterally AUSCULTATION: clear to auscultation bilaterally OTHER: No wheezes or crcakles Cardio: COMMON NORMALS: no JVD, regular rate, regular rhythm, S1 normal heart sound present and S2 normal heart sound present RATE: regular rate RHYTHM: regular rhythm HEART SOUNDS: S1 normal heart sound present and S2 normal heart sound present GI: COMMON NORMALS: Normal to inspection, nondistended, normoactive bowel sounds present, Soft to palpation and non-tender PALPATION: Yes Soft to palpation Extremity: COMMON NORMALS: normal to inspection and no pedal edema Neuro: COMMON NORMALS: patient oriented x3 SENSORIUM/ORIENTATION: Yes alert OTHER: No gross focal deficits Urinary Catheter Management: [place]: Cath Placed During This Visit: yes Reason for Continuing Indwelling Catheter: Perioperative Use in Selected Surgeries Urinary Catheter Date of Insertion: 07/31/24 Urinary Catheter Time of Insertion: 21:55 Data 07/31/24 16:36 07/31/24 16:36 Micro: Microbiology 07/31/24 16:41 Blood Culture - Preliminary Blood SPECIMEN COLLECTED 07/31/24 16:36 Blood Culture - Preliminary Blood SPECIMEN COLLECTED A&P Assessment and plan (1) Pelvic fracture: -Pelvis CT showed nondisplaced hairline fracture of the left pubic body -Orthopedic surgery following , post ambulation pelvis x-ray ordered -Physical occupational therapy evaluation -Continue pain control, supportive care (2) Multiple falls: Head CT negative for acute intercranial findings Telemetry monitoring to evaluate for occult arrhythmia Fall precautions Therapy evaluation Patient will likely need postacute care Case management consult (3) CVA (cerebral vascular accident): -Patient currently wearing 30-day heart monitor, likely evaluating for occult A-fib -Patient was discharged from hospital 07/10 to rehab after being admitted for stroke, she returned home approximately a week ago -Continue antiplatelet and statin (4) Diabetes: -Continue home Lantus at reduced home dose -Sliding-scale insulin correction (5) Congestive heart failure: #Heart failure with reduced ejection fraction of 35 to 40%, chronic without exacerbation -Continue Entresto -Continue Lasix -Daily assessment of volume Qualifiers: Heart failure type: systolic Heart failure chronicity: acute on chronic Qualified Code(s): I50.23 - Acute on chronic systolic (congestive) heart failure (6) COPD (chronic obstructive pulmonary disease): -Patient does not have acute exacerbation -Breathing treatments as needed (7) CKD (chronic kidney disease): -Renal function at recent baseline -Renally dose medications Plan DVT prophylaxis: Lovenox CODE STATUS: Full code Attestations Medical Necessity Statement*: Patient to continue inpatient care for further evaluation of pelvic fracture Coding Level of Care Code Acute Code for [facility] Fwd Diagnoses Pelvic fracture S32.9XXA Multiple falls R29.6 CVA (cerebral vascular accident) I63.9 Diabetes E11.9 Acute on chronic systolic congestive heart failure I50.23 Heart failure type: systolic Heart failure chronicity: acute on chronic COPD (chronic obstructive pulmonary disease) J44.9 CKD (chronic kidney disease) N18.9
[2024-08-01 16:55] LABS: Glucose Point of Care 153 mg/dL (70-110)
[2024-08-01] MEDS: fluoxetine 20 mg Capsule PO (17:26)
[2024-08-01] MEDS: enoxaparin 40 mg/0.4 mL Syringe SUBCUT (20:19)
[2024-08-01] MEDS: atorvastatin 40 mg Tablet 80 MG PO (20:19)
[2024-08-01] MEDS: sennosides 8.6 mg Tablet 17.2 MG PO (20:19)
[2024-08-01 21:01] LABS: Glucose Point of Care 205 mg/dL (70-110)
[2024-08-02] VITALS (7 sets, daily range): BP systolic 106–153; BP diastolic 57–92; PULSE 72–86; RESP 12–17; TEMP 36.4–36.8; O2SAT 96–100
[2024-08-02] MEDS: insulin glargine 100 units/1 mL 24 UNIT SUBCUT (05:56)
[2024-08-02 06:00] LABS: Glucose Point of Care 125 mg/dL (70-110)
[2024-08-02 06:05] LABS: Anion Gap 12.9 (5-19); Blood Urea Nitrogen 22 mg/dL (8-23); Calcium 9.7 mg/dL (8.5-10.5); Carbon Dioxide 29 mmol/L (22-29); Chloride 99 mmol/L (98-107); Creatinine Clr Calc Pharmacy 43.7017; Glucose 118 mg/dL (65-115); Phosphorus 3.5 mg/dL (2.5-4.5); Potassium 3.9 mmol/L (3.5-5.1); Sodium 137 mmol/L (136-145)
[2024-08-02 06:44] LABS: Glucose Point of Care 131 mg/dL (70-110)
[2024-08-02] MEDS: clopidogrel 75 mg Tablet PO (09:54)
[2024-08-02] MEDS: sacubitril/valsartan 24-26 mg Tablet 1 EACH PO ×2 (09:54→17:52)
[2024-08-02] MEDS: FUROsemide 40 mg Tablet PO (09:54)
[2024-08-02] MEDS: aspirin 81 mg EC Tablet PO (09:54)
--- NOTE | 2024-08-02 11:13 | P.PN_ITS ---
Subjective 2 Subjective: Reports no complaints at this time. Says that pain is well controlled currently. Eating and drinking well. Medications: Reviewed: Yes Vitals/I&O/Wt Last Vital Signs Temp 97.9 F 08/02/24 08:00 Pulse 86 08/02/24 08:00 Resp 17 08/02/24 08:00 BP 125/92 08/02/24 08:00 Pulse Ox 97 08/02/24 08:00 O2 Del Method Nasal Cannula 08/02/24 08:00 O2 Flow Rate 2 08/02/24 08:00 08/01/24 08/02/24 08/02/24 22:59 06:59 14:59 Intake Total 240 / 938 360 / 360 Output Total 950 / 950 850 / 1800 Balance -710 / -12 -850 / -862 360 / 360 Weight last 48 hrs Weight 167 lb 3 oz Weight 166 lb 8 oz Weight 160 lb 7 oz Weight 165 lb Physical Exam 2 Narrative: General: Cooperative patient in no apparent distress. Well developed. HEENT: Normocephalic, Atraumatic. External ears normal. Nasal passages patent without drainage. MMM. Heart: RRR. Resp: LCTA. No respiratory distress, no use of accessory muscles. Abd: Soft, non-tender. Non-distended. Extremities: No edema. Skin: No rash or lesions on exposed areas. Neuro: No focal motor or sensory loss. Urinary Catheter Management: [place]: Cath Placed During This Visit: yes Reason for Continuing Indwelling Catheter: Acute Urinary Retention or Obstruction Urinary Catheter Date of Insertion: 07/31/24 Urinary Catheter Time of Insertion: 21:55 Data 07/31/24 16:36 08/02/24 04:49 Micro: Microbiology 07/31/24 16:41 Blood Culture - Preliminary Blood NEGATIVE TO DATE 07/31/24 16:36 Blood Culture - Preliminary Blood NEGATIVE TO DATE A&P Assessment and plan (1) Pelvic fracture: (2) Multiple falls: (3) CVA (cerebral vascular accident): (4) Diabetes: (5) Congestive heart failure: Qualifiers: Heart failure chronicity: acute on chronic Heart failure type: systolic Qualified Code(s): I50.23 - Acute on chronic systolic (congestive) heart failure (6) COPD (chronic obstructive pulmonary disease): (7) CKD (chronic kidney disease): Plan 73 y/o F admitted for acute pelvic fracture after falling. Continue inpatient monitoring. Ortho consulted and appreciate rec's. Continue PT/OT for gait, transfer training. Continue pain control, supportive care. Cr at 1.1 which appears baseline. Will recheck and monitor for now. H/O heart failure with reduced EF. Continue lasix and Entresto. Accuchecks, SSI for diabetes management while inpatient. Currently has 30 day heart monitor on for evalution of intermittent a-fib. Case management consult needed for discharge planning. Code Status: Full IVF: None DVT PPx: Lovenox GI PPx: None ABx: None Diet: CC Discharge plan: TBD. Case management consulted. Attestations 2 Medical Necessity Statement*: Patient to continue inpatient care for further evaluation of pelvic fracture, orthopedic evaluation, pain control. Coding Level of Care Code Acute Code for [facility] Diagnoses Pelvic fracture S32.9XXA Multiple falls R29.6 CVA (cerebral vascular accident) I63.9 Diabetes E11.9 Acute on chronic systolic congestive heart failure I50.23 Heart failure chronicity: acute on chronic Heart failure type: systolic COPD (chronic obstructive pulmonary disease) J44.9 CKD (chronic kidney disease) N18.9
[2024-08-02 11:43] LABS: Glucose Point of Care 258 mg/dL (70-110)
[2024-08-02] MEDS: acetaminophen 500 mg Tablet 1000 MG PO (11:52)
[2024-08-02] MEDS: insulin lispro 100 unit/1 mL SUBCUT ×3 (11:52→21:03)
--- NOTE | 2024-08-02 12:55 | P.PN_ITS ---
Subjective 2 Subjective: Patient seen and evaluated today she is worked well with therapy and she is obtained post ambulation x-rays and stable left pubic rami fracture maintaining nondisplaced alignment. Spoke with daughter October to update on plan. Vitals/I&O/Wt Last Vital Signs Temp 98.0 F 08/02/24 12:00 Pulse 73 08/02/24 12:00 Resp 12 08/02/24 12:00 BP 125/64 08/02/24 12:00 Pulse Ox 99 08/02/24 12:00 O2 Del Method Nasal Cannula 08/02/24 12:00 O2 Flow Rate 2 08/02/24 08:00 08/01/24 08/02/24 08/02/24 22:59 06:59 14:59 Intake Total 240 / 938 360 / 360 Output Total 950 / 950 850 / 1800 Balance -710 / -12 -850 / -862 360 / 360 Weight last 48 hrs Weight 167 lb 3 oz Weight 166 lb 8 oz Weight 160 lb 7 oz Weight 165 lb Physical Exam 2 Narrative: Examination of the left hip today demonstrates tenderness palpation over the pubic rami negative logroll examination, no tenderness to palpation left hip able to plantarflex and dorsiflex ankle sensation tact light touch distally. Left lower extremity warm well-perfused. Urinary Catheter Management: [place]: Cath Placed During This Visit: yes Reason for Continuing Indwelling Catheter: Perioperative Use in Selected Surgeries Urinary Catheter Date of Insertion: 07/31/24 Urinary Catheter Time of Insertion: 21:55 Data 07/31/24 16:36 08/02/24 04:49 Micro: Microbiology 07/31/24 16:41 Blood Culture - Preliminary Blood NEGATIVE TO DATE 07/31/24 16:36 Blood Culture - Preliminary Blood NEGATIVE TO DATE Xray Ortho: Radiologist's impression: Ordering Provider/Ordering MD: Mahendra Herrera Date of Service: 08/01/24 Procedure(s): XR pelvis min 3V 30920 Accession Number(s): [id number] Report Number: [id number] PROCEDURE INFORMATION: Exam: XR Pelvis Exam date and time: 08/01/2024 3:34 PM Age: 73 years old Clinical indication: Injury or trauma; Fall; Blunt trauma (contusions or hematomas); Left; Pelvic region; Additional info: Left pubic rami FX post ambulation, post ambulation ap pelvis, inlet and outlet TECHNIQUE: Imaging protocol: Radiologic exam of the pelvis. Views: 1 or 2 view. COMPARISON: CR (PELVIS, ) 08/01/2024 1:04 PM FINDINGS: Bones/joints: There are mild degenerative changes of the hip joints. Nondisplaced fracture of the left pubic bone. There are moderate degenerative changes of the sacroiliac joints. Soft tissues: Unremarkable. Vasculature: There are numerous benign phleboliths in the pelvis. XR/XR pelvis min 3V 07840 IMPRESSION: Stable alignment of the nondisplaced fracture of the left pubic bone. A&P Assessment and plan (1) Closed pelvic fracture: Plan Weight-bear as tolerated left lower extremity PT/OT Recommend calcium and vitamin D supplementation for bone health and healing Pain control Utilize walker for ambulation CT scan reviewed Hospitalist on board as primary Preambulation x-rays reviewed stable left pubic rami fracture no evidence of pelvic instability or an unstable pelvic injury, the posterior structures are stable on CT scan DVT prophylaxis per primary this point in time would recommend possibly Lovenox while in the hospital can discharge on aspirin 325 twice daily for 35 days upon discharge Post ambulation x-rays demonstrate stable left pubic rami fracture At this point time recommend continued nonoperative treatment Case management on board for discharge planning likely rehab facility Orthopedic surgery team will sign off patient at this time probably peripherally if there is any questions pertaining patient's care for free to contact orthopedics on-call. Appropriate discharge structure will be in patient's chart. At this point time we will defer to primary team for post discharge DVT prophylaxis at home as well as pain control we will follow-up with the Ortho pediatric office in 2 weeks upon discharge. Patient and daughter who I called and spoke with today understand agree with current plan. All questions answered. Attestations 2 Medical Necessity Statement*: Ongoing care for left pubic rami fracture Coding Level of Care Code Acute Code for [facility] Fwd Diagnoses Closed pelvic fracture S32.9XXA Time Spent (min) 15
[2024-08-02 16:39] LABS: Glucose Point of Care 212 mg/dL (70-110)
[2024-08-02] MEDS: fluoxetine 20 mg Capsule PO (17:52)
[2024-08-02 20:54] LABS: Glucose Point of Care 235 mg/dL (70-110)
[2024-08-02] MEDS: enoxaparin 40 mg/0.4 mL Syringe SUBCUT (21:03)
[2024-08-02] MEDS: sennosides 8.6 mg Tablet 17.2 MG PO (21:03)
[2024-08-02] MEDS: atorvastatin 40 mg Tablet 80 MG PO (21:03)
[2024-08-03 04:00] VITALS: BP 138/67; PULSE 78; RESP 13; TEMP 36.6; O2SAT 99
[2024-08-03] MEDS: insulin glargine 100 units/1 mL 24 UNIT SUBCUT (06:23)
[2024-08-03 06:27] LABS: Glucose Point of Care 163 mg/dL (70-110)
[2024-08-03 07:29] VITALS: BP 126/77; PULSE 80; RESP 18; TEMP 36.8; O2SAT 97
[2024-08-03 08:52] LABS: Basophils # 0.1 10^3/uL (0.0-0.1); Basophils % 0.6 %; Eosinophils # 0.2 10^3/uL (0.0-0.8); Eosinophils % 1.9 %; Hematocrit 42.8 % (36-47); Lymphocytes # 1.4 10^3/uL (0.8-4.8); Lymphocytes % 15.1 %; Mean Corpuscular HGB Conc 31.8 g/dL (30-55); Mean Corpuscular Hemoglobin 29.9 pg (27-33); Mean Corpuscular Volume 94.1 fl (85-98); Mean Platelet Volume 10.1 fL (7.4-10.4); Monocytes # 0.8 10^3/uL (0.2-0.9); Monocytes % 8.5 %; Neutrophils # 6.98 10^3/uL (1.8-7.7); Neutrophils % 73.5 %; Nucleated Red Blood Cells % 0 %; Platelet Count 217 10^3/cmm (157-399); Red Blood Count 4.55 10^6/uL (3.85-5.65); Red Cell Distribution Width 13.7 % (12.1-15.1)
[2024-08-03] MEDS: insulin lispro 100 unit/1 mL SUBCUT ×3 (09:02→17:50)
[2024-08-03] MEDS: sacubitril/valsartan 24-26 mg Tablet 1 EACH PO ×2 (09:03→17:51)
[2024-08-03] MEDS: aspirin 81 mg EC Tablet PO (09:04)
[2024-08-03] MEDS: clopidogrel 75 mg Tablet PO (09:04)
[2024-08-03] MEDS: FUROsemide 40 mg Tablet PO (09:05)
[2024-08-03 09:12] LABS: Alanine Aminotransferase 18 U/L (0-33); Albumin Level 3.1 g/dL (3.5-5.2); Alkaline Phosphatase 77 U/L (35-105); Anion Gap 11.7 (5-19); Aspartate Amino Transferase 15 U/L (0-32); Blood Urea Nitrogen 25 mg/dL (8-23); Calcium 9.5 mg/dL (8.5-10.5); Carbon Dioxide 29 mmol/L (22-29); Chloride 101 mmol/L (98-107); Creatinine Clr Calc Pharmacy 48.4136; Glucose 227 mg/dL (65-115); Osmolality Calculated 296 mOsm/kg (285-295); Potassium 4.7 mmol/L (3.5-5.1); Sodium 137 mmol/L (136-145); Total Protein 6.1 g/dL (6.6-8.7)
--- NOTE | 2024-08-03 09:20 | PC.CHAP ---
Pastoral Care Encounter/Spiritual Assessment Type of Contact [] Declined meeting facilitator visit [] Patient/Family/Request visit [] Outpatient visit [] Follow-up visit [] Physician referral [] Code/Alert [x] Routine visit [] Staff referral [] Actively dying [] Patient sleeping [x] Family support [] [] Out of room [] Palliative care [] [] Receiving care in room [] Pre-surgical visit [] Trauma [] Long length of stay [] ICU visit [] Other: Relational/Emotional Strength [] Patient feels connected with others/family/visitors/staff [] Distress [] Loneliness/isolation [] Abandonment Spirituality of Patient [x] Person of Haley [] Attends Yarsani of their Haley [x] Believes in Prayer [] Reads Bible or Evangelical materials [] There are Spiritual issues to be addressed 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 Interventions [x] Prayer [x] Active listening [] Non-anxious presence [] Spiritual/emotional support [] Crisis/trauma care [] Spiritual counseling [] Bereavement support [] Provided bereavement packet [x] Provided Bible/devotional materials [] Provided toy/stuffed animal, coloring book to patient or family member [] Provided Communion [] Anointing/[place]meet [] Salvation [x] Completed spiritual assessment [] Other: Impact on Illness or Injury [] Angry [] Fearful [] Anxious [] Often cries [] Exhaustion [] Unable to work [] Unable to attend taoist [] Unable to walk/stand [] Unable to read [] Unable to drive [] Unable to eat/drink [] Unable to sleep [] Unable to be with family [] Patient intubated [] Other: Summary Time spent with patient 5 min
[2024-08-03 12:00] VITALS: BP 107/64; PULSE 88; RESP 17; TEMP 36.8; O2SAT 97
[2024-08-03 12:15] LABS: Glucose Point of Care 230 mg/dL (70-110)
[2024-08-03] MEDS: acetaminophen 500 mg Tablet 1000 MG PO ×2 (12:23→21:07)
[2024-08-03 16:00] VITALS: BP 126/54; PULSE 84; RESP 17; TEMP 37.1; O2SAT 96
--- NOTE | 2024-08-03 16:07 | P.PN_ITS ---
Subjective 2 Subjective: No acute events overnight. Hospital course, labs appreciated. Sleeping on examination. Wakes up to verbal stimulus. Worked with physical therapy. States feeling fine. Pain controlled. Medications: Reviewed: Yes Vitals/I&O/Wt Last Vital Signs Temp 98.3 F 08/03/24 12:00 Pulse 88 08/03/24 12:00 Resp 17 08/03/24 12:00 BP 107/64 08/03/24 12:00 Pulse Ox 97 08/03/24 12:00 O2 Del Method Nasal Cannula 08/03/24 12:00 O2 Flow Rate 3 08/03/24 08:00 08/03/24 08/03/24 08/03/24 06:59 14:59 22:59 Intake Total 480 / 480 Output Total 200 / 675 Balance -200 / 405 480 / 480 Weight last 48 hrs Weight 76.884 kg Weight 75.835 kg Physical Exam 2 Narrative: General: Cooperative patient in no apparent distress. Well developed. HEENT: Normocephalic, Atraumatic. External ears normal. Nasal passages patent without drainage. MMM. Heart: RRR. Resp: LCTA. No respiratory distress, no use of accessory muscles. Abd: Soft, non-tender. Non-distended. Extremities: No edema. Skin: No rash or lesions on exposed areas. Neuro: No focal motor or sensory loss. Urinary Catheter Management: [place]: Cath Placed During This Visit: yes Reason for Continuing Indwelling Catheter: Acute Urinary Retention or Obstruction Urinary Catheter Date of Insertion: 07/31/24 Urinary Catheter Time of Insertion: 21:55 Data 08/03/24 08:34 08/03/24 08:34 A&P Assessment and plan (1) Pelvic fracture: Conservative treatment. Appreciate orthopedic recommendation. Physical therapy. Pain control with oxycodone IR 5 mg every 4 hours as needed. (2) Multiple falls: (3) CVA (cerebral vascular accident): (4) Diabetes: (5) Congestive heart failure: No exacerbation. Continue with home dose of Entresto, Lasix as needed. Qualifiers: Heart failure type: systolic Heart failure chronicity: acute on chronic Qualified Code(s): I50.23 - Acute on chronic systolic (congestive) heart failure (6) COPD (chronic obstructive pulmonary disease): No exacerbation. Next oxen supplementation keeping saturation over 90%. (7) CKD (chronic kidney disease): Plan Discharge plan: Discussed in detail with the patient. Discussed about possible need to stop SNF for rehabitation. She is agreeable. Case management alerted. Code Status: Full IVF: None DVT PPx: Lovenox GI PPx: Famotidine ABx: None Diet: CC Discharge plan: Attestations 2 Medical Necessity Statement*: Requires further hospitalization for management of pelvic fracture requiring conservative treatment while safe discharge planning is sought Diagnoses Pelvic fracture S32.9XXA Multiple falls R29.6 CVA (cerebral vascular accident) I63.9 Diabetes E11.9 Acute on chronic systolic congestive heart failure I50.23 Heart failure type: systolic Heart failure chronicity: acute on chronic COPD (chronic obstructive pulmonary disease) J44.9 CKD (chronic kidney disease) N18.9
[2024-08-03 16:49] LABS: Glucose Point of Care 278 mg/dL (70-110)
[2024-08-03] MEDS: fluoxetine 20 mg Capsule PO (17:50)
[2024-08-03 19:41] VITALS: BP 104/69; PULSE 79; RESP 17; TEMP 36.8; O2SAT 97
[2024-08-03 20:31] LABS: Glucose Point of Care 137 mg/dL (70-110)
[2024-08-03] MEDS: sennosides 8.6 mg Tablet 17.2 MG PO (21:07)
[2024-08-03] MEDS: enoxaparin 40 mg/0.4 mL Syringe SUBCUT (21:07)
[2024-08-03] MEDS: atorvastatin 40 mg Tablet 80 MG PO (21:07)
[2024-08-03 23:23] VITALS: BP 137/92; PULSE 71; RESP 16; TEMP 36.7; O2SAT 98
[2024-08-04] VITALS (14 sets, daily range): BP systolic 115–168; BP diastolic 60–87; PULSE 66–80; RESP 16–17; TEMP 36.4–37.1; O2SAT 95–100
[2024-08-04] MEDS: acetaminophen 500 mg Tablet 1000 MG PO ×3 (04:58→21:39)
[2024-08-04 06:25] LABS: Glucose Point of Care 162 mg/dL (70-110)
[2024-08-04] MEDS: insulin glargine 100 units/1 mL 24 UNIT SUBCUT (06:44)
--- NOTE | 2024-08-04 07:38 | CT_ITS ---
WS: [id number] CT HEAD NONCONTRAST HISTORY: facial droop TECHNIQUE: Contiguous axial imaging performed through the brain. Bone and soft tissue windows. Sagitt al and coronal reformats reviewed. All CT scans at [facility] use at least one of these dose optimization techniques: automated exposure control; mA and/or kV adjustment per patient size (includ es targeted exams where dose is matched to clinical indication); or iterative reconstruction. DLP: 1048.39 mGy COMPARISON: 07/31/2024 No acute intracranial hemorrhage, midline shift or mass effect. Moderate diffuse atrophy with multiple chronic prior infarcts with encephalomalacia. Prior LEFT occip ital lobe infarct with encephalomalacia. Prior infarcts and advanced prior ischemic disease in the fr ontal lobes and parietal lobes. Numerous prior lacunar infarcts in the basal ganglia. No interval herberth nge. Short segment of increased density between the anterior interhemispheric falx has been present o n prior studies. Ventricles: Normal size with no hydrocephalus. No inferior displacement of the cerebellar tonsils. Paranasal sinuses: As visualized are clear. Mastoid air cells: Well pneumatized. Calvarium and scalp: Skull is intact with no soft tissue edema or swelling. CT/CT head thrombolytic 32180 IMPRESSION: 1. No acute intracranial hemorrhage or edema. 2. Advanced small vessel disease, numerous basal ganglia lacunar infarcts at [facility] bilateral parenchymal infarcts are stable. Notified Denys Haney MD at 08/04/2024 7:52 AM.
--- NOTE | 2024-08-04 07:43 | PC.NURSE ---
This nurse walked into the patient's room and saw that the patient had a pretty significant new left facial drooping. Patient was assessed for weakness in all extremities. Patient was alert and oriented X4. Stroke alert was called per protocol. Patient was taken to CT scan.
[2024-08-04 07:51] LABS: Glucose Point of Care 164 mg/dL (70-110)
[2024-08-04 08:21] LABS: Basophils # 0.1 10^3/uL (0.0-0.1); Basophils % 0.9 %; Eosinophils # 0.4 10^3/uL (0.0-0.8); Eosinophils % 5.4 %; Lymphocytes # 1.4 10^3/uL (0.8-4.8); Lymphocytes % 20.3 %; Mean Corpuscular HGB Conc 31.4 g/dL (30-55); Mean Corpuscular Hemoglobin 29.3 pg (27-33); Mean Corpuscular Volume 93.4 fl (85-98); Mean Platelet Volume 10.2 fL (7.4-10.4); Monocytes # 0.8 10^3/uL (0.2-0.9); Monocytes % 11.2 %; Neutrophils # 4.19 10^3/uL (1.8-7.7); Neutrophils % 61.5 %; Nucleated Red Blood Cells % 0 %; Platelet Count 238 10^3/cmm (157-399); Red Blood Count 4.71 10^6/uL (3.85-5.65); Red Cell Distribution Width 13.8 % (12.1-15.1); White Blood Count 6.81 10^3/uL (3.29-11.43)
--- NOTE | 2024-08-04 08:27 | CT_ITS ---
WS: [id number] CT ANGIOGRAM CEREBRAL AND CAROTID ARTERIES HISTORY: stroke, left facial droop TECHNIQUE: CT angiogram is performed of the carotid and cerebral arteries. During arterial injection imaging is obtained from the skull vertex to the aortic arch in 1.25 mm imaging. Coronal and sagittal reformats are submitted. Additional multi planar reformats of the carotid and cerebral arteries are submitted, MIP imaging also reviewed. NASCET criteria utilized. All CT scans at [facility] us e at least one of these dose optimization techniques: automated exposure control; mA and/or kV adjust ment per patient size (includes targeted exams where dose is matched to clinical indication); or iter ative reconstruction. CONTRAST: Omnipaque 350; 100 mL IV. DLP: 394.73 mGy.cm COMPARISON: CT head 08/04/2024, prior CT angiogram 06/21/2024 Carotid Angiogram: Right carotid: Common carotid artery: Arises normally from the innominate artery. No significant plaque or stenosis. Internal carotid artery: Near circumferential calcified plaque at the bifurcation. Mild intimal thick ening. Stenosis less than 50%. External carotid artery: Patent. Left carotid: Common carotid artery: Bovine arch. Internal carotid artery: Mild plaque at the bifurcation. Stenosis less than 50%. External carotid artery: Patent. Right vertebral artery: No stenosis or occlusion. Mild calcified plaque in the distal vertebral arter y. Left vertebral artery: Dominant and intact with mild plaque. Subclavian arteries: Mild scattered plaque, no stenosis. Upper thorax: Emphysematous changes at the lung apices. Mild atherosclerosis at the aortic arch. Thyroid gland: Normal. Osseous structures: Unremarkable. CEREBRAL ANGIOGRAM: Intracranial vertebral arteries: Dominant LEFT vertebral artery. Both vertebral arteries are patent. Small amount of calcified plaque at the foramen magnum within each vertebral artery. Basilar artery: No significant stenosis or occlusion. No aneurysm. Intracranial Internal carotid arteries: Heavy dense calcified plaque with stenoses greater than 50%. Greater stenosis on the RIGHT. Plaque extends supraclinoid. 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 This was previously described and noted on 06/16/2023 on 06/21/2024. Bet ter opacification of the LEFT middle cerebral artery. Anterior cerebral arteries and ACOM: Normal. Posterior cerebral arteries and PCOM's: Small caliber LEFT P1 and P2 segments. No interval change. RI GHT posterior cerebral arteries normal. Dural venous sinuses are normally enhancing. CT/CT angio headneck* [id number] IMPRESSION: 1. No high-grade cervical carotid artery stenosis. Stenosis less than 50%, sta ble. 2. 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 3. Very dense heavily calcified plaque in the intracranial carotid arteries to the cavernous sinuses and supraclinoid. High-grade stenosis, RIGHT greater yoan n LEFT. 4. Chronic small caliber LEFT P1 and P2 segments. 5. No acute arterial thrombus. CT angiogram head and neck similar to 06/21/2024 .
[2024-08-04 08:30] LABS: Alanine Aminotransferase 17 U/L (0-33); Albumin Level 3.2 g/dL (3.5-5.2); Alkaline Phosphatase 78 U/L (35-105); Anion Gap 11.4 (5-19); Aspartate Amino Transferase 16 U/L (0-32); Blood Urea Nitrogen 23 mg/dL (8-23); Calcium 9.5 mg/dL (8.5-10.5); Carbon Dioxide 31 mmol/L (22-29); Chloride 102 mmol/L (98-107); Creatinine Clr Calc Pharmacy 47.3494; Glucose 178 mg/dL (65-115); Osmolality Calculated 298 mOsm/kg (285-295); Potassium 4.4 mmol/L (3.5-5.1); Sodium 140 mmol/L (136-145); Total Bilirubin 0.8 mg/dL (0.15-1.2); Total Protein 6.2 g/dL (6.6-8.7)
[2024-08-04 08:35] LABS: INR 0.97 (0.8-1.2)
[2024-08-04] MEDS: iohexol 350 mg/mL 500 mL Btl (per mL) IV (09:01)
[2024-08-04] MEDS: insulin lispro 100 unit/1 mL SUBCUT ×4 (09:15→21:39)
[2024-08-04] MEDS: clopidogrel 75 mg Tablet PO (09:15)
[2024-08-04] MEDS: aspirin 325 mg Tablet PO (09:15)
[2024-08-04] MEDS: polyethylene glycol 3350 Pkt 17 gm PO (09:16)
[2024-08-04 11:27] LABS: Glucose Point of Care 214 mg/dL (70-110)
--- NOTE | 2024-08-04 14:48 | P.PN_ITS ---
Subjective 2 Subjective: No acute events overnight. Today morning code stroke was called as patient was found to have a left-sided facial droop. Patient denies any acute complaints. Denies any nausea vomiting, headache, dizziness. Appreciate hemodynamics. On examination patient sitting up in bed able to have complete conversation without slurred speech with minimal left-sided facial droop, able to move all her limbs Medications: Reviewed: Yes Vitals/I&O/Wt Last Vital Signs Temp 98.2 F 08/04/24 12:00 Pulse 79 08/04/24 14:00 Resp 17 08/04/24 12:00 BP 131/87 08/04/24 12:00 Pulse Ox 100 08/04/24 12:00 O2 Del Method Nasal Cannula 08/04/24 12:00 O2 Flow Rate 2 08/04/24 04:00 08/03/24 08/04/24 08/04/24 22:59 06:59 14:59 Intake Total 880 / 1360 500 / 1860 360 / 360 Output Total 250 / 250 250 / 500 Balance 630 / 1110 250 / 1360 360 / 360 Weight last 48 hrs Weight 73.618 kg Weight 76.884 kg Physical Exam 2 Narrative: General: Cooperative patient in no apparent distress. Well developed. HEENT: Normocephalic, Atraumatic. External ears normal. Nasal passages patent without drainage. MMM. Heart: RRR. Resp: LCTA. No respiratory distress, no use of accessory muscles. Abd: Soft, non-tender. Non-distended. Extremities: No edema. Skin: No rash or lesions on exposed areas. Neuro: Minimal left-sided facial droop, pupils bilaterally equal and reactive, upper limb 4/5 bilaterally, lower limb bilaterally 3/5. Reduced in lower limb because of pelvic fracture Urinary Catheter Management: [place]: Cath Placed During This Visit: yes Reason for Continuing Indwelling Catheter: Acute Urinary Retention or Obstruction Urinary Catheter Date of Insertion: 07/31/24 Urinary Catheter Time of Insertion: 21:55 Data 08/04/24 08:05 08/04/24 08:05 A&P Assessment and plan (1) Stroke-like symptoms: History of stroke in the past. Had strokelike symptoms with left-sided facial droop today. CT head negative for acute abnormality. CTA head and neck she has bilateral carotid artery stenosis. Discussed in detail with neurology. Patient not a candidate for TNKase. PT/OT/speech evaluation will advance diet accordingly. Permissible hypertension. Hold off on antihypertensive for now. Continue with aspirin, Plavix, statin. (2) Pelvic fracture: Conservative treatment. Appreciate orthopedic recommendation. Physical therapy. Pain control with oxycodone IR 5 mg every 4 hours as needed. (3) Multiple falls: (4) CVA (cerebral vascular accident): (5) Diabetes: (6) Congestive heart failure: No exacerbation. Holding off on antihypertensive for now. Will restart Entresto next 24 hours. Qualifiers: Heart failure type: systolic Heart failure chronicity: acute on chronic Qualified Code(s): I50.23 - Acute on chronic systolic (congestive) heart failure (7) COPD (chronic obstructive pulmonary disease): No exacerbation. Next oxen supplementation keeping saturation over 90%. (8) CKD (chronic kidney disease): Plan Discharge plan: Discussed in detail with the patient. Discussed about possible need to stop SNF for rehabitation. She is agreeable. Case management alerted. Code Status: Full IVF: None DVT PPx: Lovenox GI PPx: Famotidine ABx: None Diet: CC Discharge plan: Attestations 2 Medical Necessity Statement*: Requires further hospitalization for management of strokelike symptoms in a patient with history of CVA, or recently admitted for pelvic fracture while safe discharge planning is sought. Diagnoses Stroke-like symptoms R29.90 Pelvic fracture S32.9XXA Multiple falls R29.6 CVA (cerebral vascular accident) I63.9 Diabetes E11.9 Acute on chronic systolic congestive heart failure I50.23 Heart failure type: systolic Heart failure chronicity: acute on chronic COPD (chronic obstructive pulmonary disease) J44.9 CKD (chronic kidney disease) N18.9
[2024-08-04 16:54] LABS: Glucose Point of Care 219 mg/dL (70-110)
[2024-08-04] MEDS: fluoxetine 20 mg Capsule PO (17:39)
[2024-08-04 20:18] LABS: Glucose Point of Care 261 mg/dL (70-110)
[2024-08-04] MEDS: enoxaparin 40 mg/0.4 mL Syringe SUBCUT (21:38)
[2024-08-04] MEDS: sennosides 8.6 mg Tablet 17.2 MG PO (21:39)
[2024-08-04] MEDS: atorvastatin 40 mg Tablet 80 MG PO (21:39)
[2024-08-05 03:00] VITALS: BP 130/89; PULSE 76; RESP 15; TEMP 36.4; O2SAT 98
[2024-08-05 05:34] LABS: Glucose Point of Care 97 mg/dL (70-110)
[2024-08-05] MEDS: acetaminophen 500 mg Tablet 1000 MG PO ×2 (05:35→12:05)
[2024-08-05 06:17] VITALS: PULSE 80
[2024-08-05 07:00] VITALS: BP 142/74; PULSE 71; RESP 17; TEMP 36.7; O2SAT 99
[2024-08-05 08:09] VITALS: PULSE 73; O2SAT 98
[2024-08-05] MEDS: aspirin 81 mg EC Tablet PO (08:57)
[2024-08-05] MEDS: polyethylene glycol 3350 Pkt 17 gm PO (08:57)
[2024-08-05] MEDS: clopidogrel 75 mg Tablet PO (08:57)
--- NOTE | 2024-08-05 10:41 | PM.DCS ---
Discharge Providers Date of Admission: 07/31/24 18:07 Date of Discharge: August 05, 2024 Attending Provider at Admission: Harmony Urena MD Attending Provider at Discharge: Jacinto Edwards MD Consults: Orthopedic: Dr. Herrera Neurology: Dr. Bell Primary Care Provider: Lefty Hodge DO Diagnoses at Discharge Discharge Diagnosis (1) Stroke-like symptoms: Status: Acute (2) Pelvic fracture: Status: Acute (3) Multiple falls: Status: Acute (4) CVA (cerebral vascular accident): Status: Acute (5) Diabetes: Status: Acute (6) Congestive heart failure: Status: Acute Qualifiers: Heart failure chronicity: acute on chronic Heart failure type: systolic Qualified Code(s): I50.23 - Acute on chronic systolic (congestive) heart failure Permanent problem details: Mixed diastolic and systolic (7) COPD (chronic obstructive pulmonary disease): Status: Acute (8) CKD (chronic kidney disease): Status: Chronic Reason for Visit Reason for Visit: fall, left hip pain Brief History: History as per HPI: Gianna Mora is a 73 year old female with a past medical history significant for hyperlipidemia, type 2 diabetes mellitus on insulin, COPD, stroke, congestive heart failure, sleep apnea, osteoarthritis, and multiple other comorbidities who presents to the emergency department with mechanical fall with associated pelvic pain. Patient reports she was walking to the bathroom whenever she fell. She cannot recall whether or not she passed out. She states she is having significant left sided pelvic and hip pain. Also endorses a small abrasion on her forehead. States that she tried to get up and ambulate after falling but was unable to due to pain. She denies any sensation loss in lower extremity. Denies fevers, chills, nausea or emesis. Family is bedside and supportive. They report that she just got out of rehab about a week ago. They noticed that she has been weak and has multiple falls recently. In the emergency department, imaging showed nondisplaced fracture of the left pubic body. Orthopedic surgery consulted recommending observation with likely nonoperative management. Hospital Course Hospital Course Patient was admitted to rehab for further evaluation and management of pelvic fracture. Orthopedic was consulted who recommended conservative treatment with physical therapy and pain control. Patient was working well with physical therapy. Safe discharge plan were discussed in detail with the patient and she wanted to be transition to SNF. While awaiting SNF patient had an episode of strokelike symptoms with left-sided facial droop. Neurology was consulted who recommended to continue her home dose of dual antiplatelet therapy and statins. CTA head and neck was concerning for bilateral carotid artery stenosis. She will continue to work well with PT OT and speech therapy. She has been discharged in hemodynamically stable condition with advised to follow-up with her PCP within next 1 week, vascular surgeon as an outpatient and orthopedic team on set appointment. Physical Exam Narrative: General: Cooperative patient in no apparent distress. Well developed. HEENT: Normocephalic, Atraumatic. External ears normal. Nasal passages patent without drainage. MMM. Heart: RRR. Resp: LCTA. No respiratory distress, no use of accessory muscles. Abd: Soft, non-tender. Non-distended. Extremities: No edema. Skin: No rash or lesions on exposed areas. Neuro: Minimal left-sided facial droop, pupils bilaterally equal and reactive, upper limb 4/5 bilaterally, lower limb bilaterally 3/5. Reduced in lower limb because of pelvic fracture Urinary Catheter Management: [place]: Cath Placed During This Visit: yes Reason for Continuing Indwelling Catheter: Other Urinary Catheter Date of Insertion: 07/31/24 Urinary Catheter Time of Insertion: 21:55 Discharge Data Studies Completed and Pending Completed Studies During Hospitalization Category Date Time Status CT head thrombolytic [id number] Stat Cat Scan 08/04/24 07:[address] head wo con* [id number] Stat Cat Scan 07/31/24 16:[address] pelvis wo con [id number] Stat Cat Scan 07/31/24 16:11 Completed CTA head neck [CT angio headneck* [id number]] Routine Cat Scan 08/04/24 08:27 Completed XR chest 1V portable [id number] Stat Exams 07/31/24 16:12 Completed XR pelvis min 3V [id number] Routine Exams 08/01/24 09:02 Completed XR pelvis min 3V [id number] Routine Exams 08/01/24 09:02 Completed Pending at discharge Category Date Time Status Blood Culture Stat Lab 07/31/24 16:41 Results Radiology Impressions Pelvis CT 07/31/24 16:11 IMPRESSION: 1. Suspected subtle nondisplaced hairline fracture of the left pubic body. MRI may be helpful for further detail if clinically warranted. Pelvic ring and both hips are otherwise intact. 2. Possible cystitis. Chest X-Ray 07/31/24 16:12 IMPRESSION: 1. No acute cardiopulmonary abnormality. Pelvis X-Ray 08/01/24 09:02 IMPRESSION: Stable alignment of the nondisplaced fracture of the left pubic bone. Head CT 08/04/24 07:38 IMPRESSION: 1. No acute intracranial hemorrhage or edema. 2. Advanced small vessel disease, numerous basal ganglia lacunar infarcts at multiple bilateral parenchymal infarcts are stable. Notified Denys Haney MD at 08/04/2024 7:52 AM. Head/Neck CTA 08/04/24 08:27 IMPRESSION: 1. No high-grade cervical carotid artery stenosis. Stenosis less than 50%, stable. 2. 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 3. Very dense heavily calcified plaque in the intracranial carotid arteries to the cavernous sinuses and supraclinoid. High-grade stenosis, RIGHT greater than LEFT. 4. Chronic small caliber LEFT P1 and P2 segments. 5. No acute arterial thrombus. CT angiogram head and neck similar to 06/21/2024. Laboratory Results WBC 6.81 10^3/uL (3.29-11.43) 08/04/24 08:05 RBC 4.71 10^6/uL (3.85-5.65) 08/04/24 08:05 Hgb 13.80 g/dL (11.27-16.99) 08/04/24 08:05 Hct 44.0 % (36-47) 08/04/24 08:05 MCV 93.4 fl (85-98) 08/04/24 08:05 MCH 29.3 pg (27-33) 08/04/24 08:05 MCHC 31.4 g/dL (30-55) 08/04/24 08:05 RDW 13.8 % (12.1-15.1) 08/04/24 08:05 Plt Count 238 10^3/cmm (157-399) 08/04/24 08:05 MPV 10.2 fL (7.4-10.4) 08/04/24 08:05 Neut % (Auto) 61.5 % 08/04/24 08:05 Lymph % (Auto) 20.3 % 08/04/24 08:05 Glenn % (Auto) 11.2 % 08/04/24 08:05 Eos % (Auto) 5.4 % 08/04/24 08:05 Baso % (Auto) 0.9 % 08/04/24 08:05 Neut # (Auto) 4.19 10^3/uL (1.8-7.7) 08/04/24 08:05 Lymph # (Auto) 1.4 10^3/uL (0.8-4.8) 08/04/24 08:05 Glenn # (Auto) 0.8 10^3/uL (0.2-0.9) 08/04/24 08:05 Eos # (Auto) 0.4 10^3/uL (0.0-0.8) 08/04/24 08:05 Baso # (Auto) 0.1 10^3/uL (0.0-0.1) 08/04/24 08:05 Nucleated RBC % (auto) 0 % 08/04/24 08:05 Nucleated RBCs # 0.0 /100WBC 08/04/24 08:05 PT 13.50 SECONDS (12.1-14.9) 08/04/24 08:05 INR 0.97 (0.8-1.2) 08/04/24 08:05 Sodium 140 mmol/L (136-145) 08/04/24 08:05 Potassium 4.4 mmol/L (3.5-5.1) 08/04/24 08:05 Chloride 102 mmol/L (98-107) 08/04/24 08:05 Carbon Dioxide 31 mmol/L (22-29) H 08/04/24 08:05 Anion Gap 11.4 (5-19) 08/04/24 08:05 BUN 23 mg/dL (8-23) 08/04/24 08:05 Creatinine 1.0 mg/dL (0.5-0.9) H 08/04/24 08:05 GFR Calculation Not Reportable 08/04/24 08:05 Glucose 178 mg/dL (65-115) H 08/04/24 08:05 POC Glucose 97 mg/dL (70-110) 08/05/24 05:31 Calculated Osmolality 298 mOsm/kg (285-295) H 08/04/24 08:05 Lactic Acid 1.1 mmol/L (0.5-2.2) 07/31/24 16:36 Calcium 9.5 mg/dL (8.5-10.5) 08/04/24 08:05 Phosphorus 3.5 mg/dL (2.5-4.5) 08/02/24 04:49 Total Bilirubin 0.8 mg/dL (0.15-1.2) 08/04/24 08:05 AST 16 U/L (0-32) 08/04/24 08:05 ALT 17 U/L (0-33) 08/04/24 08:05 Alkaline Phosphatase 78 U/L (35-105) 08/04/24 08:05 Troponin T Baseline 20 ng/L (0-10) H 07/31/24 16:36 Troponin T 120 Minute 19.67 ng/L (0-10) H 07/31/24 18:42 Delta Troponin T -0.33 ABS# (0-10) L 07/31/24 18:42 Troponin T Hi Sens 6Hr 20.97 ng/L (0-10) H 07/31/24 22:39 Troponin T Hi Sens 6Hr Delta 0.97 ng/L (0-12) 07/31/24 22:39 NT-Pro-B Natriuret Pep 3178 pg/mL (0-125) H 07/31/24 16:36 Total Protein 6.2 g/dL (6.6-8.7) L 08/04/24 08:05 Albumin 3.2 g/dL (3.5-5.2) L 08/04/24 08:05 Globulin 3.0 g/dL (1.3-4.6) 08/04/24 08:05 Urine Color Yellow (Yellow) 07/31/24 18:30 Urine Appearance Clear (CLEAR) 07/31/24 18:30 Urine pH 7.0 (5-7) 07/31/24 18:30 Ur Specific [place] 1.023 (1.005-1.030) 07/31/24 18:30 Urine Protein Negative (Negative) 07/31/24 18:30 Urine Glucose (UA) 3+ (Normal) H 07/31/24 18:30 Urine Ketones Negative (Negative) 07/31/24 18:30 Urine Blood Negative (Negative) 07/31/24 18:30 Urine Nitrate Negative (Negative) 07/31/24 18:30 Urine Bilirubin Negative (Negative) 07/31/24 18:30 Urine Urobilinogen 1.0 mg/dL (Negative) 07/31/24 18:30 Ur Leukocyte Esterase Negative (Negative) 07/31/24 18:30 Urine RBC 0-2 /hpf (0-2) 07/31/24 18:30 Urine WBC 0-5 /hpf (0-5) 07/31/24 18:30 Ur Squamous Epith Cells 0-5 /hpf (0-5) 07/31/24 18:30 Amorphous Sediment Not Reportable 07/31/24 18:30 Urine Bacteria None seen /hpf (NONE) 07/31/24 18:30 Hyaline Casts 0.40 /lpf 07/31/24 18:30 Vitals Last Vital Signs Temp 98.1 F 08/05/24 07:00 Pulse 73 08/05/24 08:09 Resp 17 08/05/24 07:00 BP 142/74 08/05/24 07:00 Pulse Ox 98 08/05/24 08:09 O2 Del Method Nasal Cannula 08/05/24 08:09 O2 Flow Rate 2 08/05/24 08:09 Discharge Plan Discharge Patient Disposition: Xfer SNF Condition: Stable Prescriptions: New calcium carbonate-vitamin D3 [Calcium 600 + D(3)] 600 mg-10 mcg (400 unit) tablet 1 tab PO DAILY 30 Days Qty: 30 0RF Continued clopidogrel 75 mg tablet 75 mg PO DAILY Qty: 30 5RF sacubitril-valsartan [Entresto] 24-26 mg tablet 1 tab PO BID Qty: 180 3RF (DME) Left unlar gutter FAST FORM See Rx Instructions .Route .MEDSUPPLY Qty: 1 0RF Rx Instructions: As directed fluoxetine 20 mg capsule 20 mg PO QPM ascorbic acid (vitamin C) [Vitamin C] 1,000 mg Tablet 1,000 mg PO DAILY vitamin E 268 mg (400 unit) Capsule 268 mg PO DAILY Centrum Adult 50 Plus 80 mcg Tablet,Chewable 1 tab PO DAILY insulin aspart U-100 [Novolog FlexPen U-100 Insulin] 100 unit/mL (3 mL) insulin pen See Rx Instructions .ROUTE .COMPLEX Qty: 15 0RF Rx Instructions: Take per sliding scale as needed. BS 141-180 2u,181-220 4u, 221-260 6u, 261-300 8u, 301-350 10u, 351-400 12u, >400 14u furosemide [Lasix] 40 mg tablet 40 mg PO DAILY Qty: 30 0RF dapagliflozin propanediol [Farxiga] 10 mg tablet 10 mg PO QAM Qty: 30 0RF hydrocodone-acetaminophen 5-325 mg tablet 1 tab PO Q6H PRN (Reason: pain) Qty: 10 0RF atorvastatin 80 mg tablet 80 mg PO DAILY Qty: 30 0RF meclizine 12.5 mg Tablet 12.5 mg PO TID PRN (Reason: Dizziness) insulin glargine [Lantus Solostar U-100 Insulin] 100 unit/mL (3 mL) insulin pen 30 unit SUBCUT QAM aspirin 81 mg Tablet,Delayed Release (Dr/Ec) 81 mg PO DAILY Hold Instructions: Doctor's Order Discharge Orders: Discharge Order (Routine); Ordered 08/05/24 Ordered By: Jacinto Edwards Referrals: [facility] [Outside] Mahendra Herrera DO [Physician] - 08/19/24 10:45 am () Lefty Hodge DO [Primary Care Provider] - Discharge Diet: Advance as tolerated Discharge Activity: Limit activity as instructed, Use walker/crutches as instructed and As per PT/OT instructions Patient Instructions: Pelvic Fracture (GEN), Stroke (GEN), Opioid Safety, Stroke Stoplight Activity Restrictions/Additional Instructions: Orthopedic discharge instructions: Weight-bear as tolerate left lower extremity Utilize walker or cane or crutch as needed for pain control while ambulating PT/OT Supplement with calcium vitamin D for bone health and healing Take blood thinner medication as prescribed for DVT prophylaxis per primary Take pain medication as prescribed per primary Follow-up in orthopedic office in 2 weeks upon discharge Contact orthopedic office for any questions or concerns Discharge Attestations Time Spent in Discharge Care*: greater than 30 min Specific Discharge Activities: educating patient, discussing with pcp/other providers, discussing with showcase maker/social workers/dc planners, documenting/other paperwork and evaluating patient/reviewing data Status at Discharge: Cognitive status at discharge: cognitively intact, Behavioral status at discharge: cooperative, Functional status at discharge: uses cane/walker, Overall status at discharge: patient is progressing back to baseline Quality Metrics Clinical Quality Measures [ No reported AMI, CVA or VTE this stay] Coding Level of Care Code 15586 Total time (in minutes) for Discharge: 60 Diagnoses Stroke-like symptoms R29.90 Pelvic fracture S32.9XXA Multiple falls R29.6 CVA (cerebral vascular accident) I63.9 Diabetes E11.9 Acute on chronic systolic congestive heart failure I50.23 Heart failure chronicity: acute on chronic Heart failure type: systolic COPD (chronic obstructive pulmonary disease) J44.9 CKD (chronic kidney disease) N18.9
[2024-08-05 10:42] LABS: Glucose Point of Care 339 mg/dL (70-110)
[2024-08-05 11:00] VITALS: BP 154/69; PULSE 72; RESP 18; TEMP 37.2; O2SAT 98
--- NOTE | 2024-08-05 11:50 | PC.NURSE ---
developmental education instructor observed, SN Kiki remove pt's urinary flores catheter. Pt tolerated well.
--- NOTE | 2024-08-05 11:51 | PC.SOCIAL ---
IMM Update Pg. 2 of IMM updated. Copy provided at bedside.
[2024-08-05 11:57] VITALS: BP 142/74; PULSE 71; RESP 17; TEMP 36.7; O2SAT 99
[2024-08-05 12:00] LABS: SARS Covid-2 Antigen negative (Negative)
[2024-08-05] MEDS: insulin lispro 100 unit/1 mL SUBCUT (12:04)
--- NOTE | 2024-08-06 08:27 | PM.SAN ---
Stroke Alert Activation ED Arrival Date: 08/04/24 Last Known Normal/at Baseline: < 1 hour ago Stroke Alert Data/Treatment Other Information: A stroke alert was called on the floor at around 7:30 in the morning. I was not on-call but was aware that is very difficult for [facility] to interact with hospitalist and since I was in town and on my way to the hospital I answered the call and talked with the nurse who reported that Dr. Orourke was already in the room evaluating the patient. Dr. Orourke indicated that the patient was experiencing some left-sided numbness and weakness but that she did not have any speech deficit, and her weakness was minimal. I pulled up her discharge summary from 07/10/2024 and noted that she was having similar symptoms during that hospitalization and had an NIH stroke scale score of 2 at that time. She already had a CTA showing no large vessel occlusion. She was seen by Dr. Geronimo May on 07/20/2024 with similar symptoms of intermittent left-sided weakness. It was my impression that the patient was not a candidate for TNK. Dr. Haney manage the patient until Dr. Ocasio arrived and I talked with Dr. Ocasio and again gave my opinion that there was no role for thrombolytic therapy in the care of this patient. Her NIH stroke scale score was not high enough to justify workup for thrombectomy. I did not see the patient and therefore did not initially place a stroke note but I am placing this in retrospect to explain the logic of my decision making and my interactions with the patient's chart, Dr. Orourke and Dr. Ocasio. I also spoke with the nurse who was going off shift to saw the patient at last known well which was less than an hour from the time of the stroke call. Critical Care Time Critical Care Time: less than 30 mins Coding Level of Care Code Acute Code for Minerva Ocampo
== END 2024-08-05 12:57 | disposition skilled nursing facility (03) ==
LOC: ER 16:31 → MEDSURG 19:17
PROVIDERS: Family Medicine; Internal Medicine; Admitting Provider Student in an Organized Health Care Education/Training Program; Emergency Provider Emergency Medicine; PCP Internal Medicine; Visit Provider Student in an Organized Health Care Education/Training Program
DX: R29.90 Unspecified symptoms and signs involving the nervous system (principal); S32.9XXA Fracture of unspecified parts of lumbosacral spine and pelvis, initial encounter for closed fracture; W19.XXXA Unspecified fall, initial encounter; I63.9 Cerebral infarction, unspecified; I50.23 Acute on chronic systolic (congestive) heart failure; J44.9 Chronic obstructive pulmonary disease, unspecified; E11.22 Type 2 diabetes mellitus with diabetic chronic kidney disease; N18.9 Chronic kidney disease, unspecified; E78.5 Hyperlipidemia, unspecified; Z79.4 Long term (current) use of insulin; E66.9 Obesity, unspecified; Z68.30 Body mass index [BMI] 30.0-30.9, adult; I25.10 Atherosclerotic heart disease of native coronary artery without angina pectoris; G47.33 Obstructive sleep apnea (adult) (pediatric)
CPT/HCPCS: 36415; 36416; 51702; 70450; 70496; 70498; 71045; 72190; 72192; 80053; 80069; 81001; 82962; 83605; 83880; 84484; 85025; 85610; 87040; 87426; 90471; 90686; 90732; 92523; 92526; 92610; 93005; 96372; 97110; 97116; 97163; 97166; 97530; 97535; 99285; G0378; J1650; J1815

== ENCOUNTER 2024-08-08 22:44 | Emergency (ER) | payer MEDICARE, MEDICAID, SELFPAY ==
[2024-08-08 22:47] VITALS: BP 152/100; PULSE 78; RESP 18; TEMP 36.6; O2SAT 97; BMI 37.8
[2024-08-08 22:52] VITALS: PULSE 78
--- NOTE | 2024-08-08 23:06 | CTR_ITS ---
PROCEDURE INFORMATION: Exam: CT Head Without Contrast Exam date and time: 08/08/2024 11:27 PM Age: 73 years old Clinical indication: Injury or trauma; Blunt trauma (contusions or hematomas); Patient HX: EMS arrival for fall at home with headstrike. Contusion to left orbit with left frontal hematoma with lac. Anticoagulated. ; Additional info: Fall head injury TECHNIQUE: Imaging protocol: Computed tomography of the head without contrast. Radiation optimization: All CT scans at this facility use at least one of these dose optimization techniques: automated exposure control; mA and/or kV adjustment per patient size (includes targeted exams where dose is matched to clinical indication); or iterative reconstruction. COMPARISON: CT angio headneck* [id number] 08/04/2024 8:54 AM RADIATION DOSE METRICS: Total DLP (mGy-cm): 855.95 FINDINGS: Brain: No focal hemorrhage or midline shift is identified. The ventricles and parenchyma show moderate atrophy and chronic bicerebral white matter ischemic change. Scattered small and prominent old strokes again seen. No change from 4 days ago. Cerebral ventricles: No ventriculomegaly or evidence of hydrocephalus. Paranasal sinuses: A few areas of mild sinus mucosal thickening. Mastoid air cells: Visualized mastoid air cells are well aerated. Bones: No displaced skull fracture is noted. Soft tissues: Left forehead swelling. Vasculature: Diffuse vascular calcifications are present. CT/CT head wo con* [id number] IMPRESSION: 1. No hemorrhage or significant change from 4 days ago. 2. New left forehead swelling. 3. Multiple chronic/incidental findings above.
--- NOTE | 2024-08-08 23:06 | CTR_ITS ---
PROCEDURE INFORMATION: Exam: CT Pelvis Without Contrast, Skeleton Exam date and time: 08/08/2024 11:30 PM Age: 73 years old Clinical indication: Injury or trauma; Blunt trauma (contusions or hematomas); Right; Patient HX: EMS arrival from home for fall. C/O RT hip pain. Recent history of subtle left pubic fracture from prior fall. ; Additional info: Fall R hip pain TECHNIQUE: Imaging protocol: Computed tomography of the pelvis without contrast. Exam focused on the skeleton. Radiation optimization: All CT scans at this facility use at least one of these dose optimization techniques: automated exposure control; mA and/or kV adjustment per patient size (includes targeted exams where dose is matched to clinical indication); or iterative reconstruction. COMPARISON: CT pelvis wo con [id number] 07/31/2024 4:48 PM RADIATION DOSE METRICS: Total DLP (mGy-cm): 397.57 FINDINGS: Vasculature: Calcific plaque involves the abdominal aorta and iliac arteries. Reproductive: Postsurgical changes from remote hysterectomy. Bones/joints: The bone density is decreased. The previously seen cortical irregularity involving the left pubic symphysis is similar in appearance when compared to reference study. No nasrin fracture line appreciated. No bony callus formation at this time. No new fracture identified. Degenerative changes involve the visualized lower lumbar spine, sacroiliac joints and pubic symphysis. Soft tissues: Unremarkable. CT/CT bony pelvis [id number] IMPRESSION: The previously seen subtle cortical irregularity involving the left pubic symphysis is similar in appearance when compared to reference study . No new fracture identified.
--- NOTE | 2024-08-08 23:06 | ECG_ITS ---
[employer] Test Date: 2024-08-09 Pat Name: Gianna Mora Department: Room: Gender: Female Collar Feller: : 1950 Requested By: Benedicto Laguerre Order Number: [id number] Reading MD: Measurements Intervals [place] Rate: 78 P: 55 [place]: 160 QRS: -5 QRSD: 114 T: 65 QT: 423 QTc: 484 Interpretive Statements SINUS RHYTHM INFERIOR MYOCARDIAL INFARCTION , OF INDETERMINATE AGE [40+ ms Q WAVE AND/OR ST/T ABNORMALITY IN II/aVF] PROBABLE ANTEROLATERAL MYOCARDIAL INFARCTION , OF INDETERMINATE AGE [35 ms Q WAVE IN I/aVL/V3-V6] No previous ECG available for comparison [email or web address]
--- NOTE | 2024-08-08 23:23 | ED_ITS ---
HPI - Fall 2 General: Chief Complaint: Fall Stated Complaint: FALL Time Seen by Provider: 08/08/24 22:54 History of Present Illness: 73-year-old female whose had a stroke in the past and frequent falls. She has been recently admitted a couple of times, and was released to the half-way recently. She fell in the half-way, while coming back from the bathroom she says. She remembers falling, but does not remember what happened afterwards and believes she may have gotten knocked out by the fall. She has pain over her left eye, with some bleeding, and pain to the back of her head she also complains of some right shoulder pain as well as right sided hip pain. Related Data Home Medications Medication Instructions Recorded Confirmed ascorbic acid (vitamin C) 1,000 mg 1,000 mg PO DAILY 08/05/21 07/31/24 tablet (Vitamin C) fluoxetine 20 mg capsule 20 mg PO QPM 08/05/21 07/31/24 aspirin 81 mg tablet,delayed 81 mg PO DAILY 08/10/23 07/31/24 release multivitamin with minerals-folic 1 tab PO DAILY 08/14/23 07/31/24 acid 80 mcg chewable tablet (Centrum Adult 50 Plus) vitamin E 268 mg (400 unit) capsule 268 mg PO DAILY 08/14/23 07/31/24 meclizine 12.5 mg tablet 12.5 mg PO TID PRN Dizziness 07/05/24 07/31/24 insulin glargine 100 unit/mL (3 30 unit SUBCUT QAM 07/31/24 07/31/24 mL) subcutaneous pen (Lantus Solostar U-100 Insulin) Previous Rx's Medication Instructions Recorded insulin aspart U-100 100 unit/mL See Rx Instructions .Route 08/16/23 (3 mL) subcutaneous pen (Novolog .COMPLEX #15 mL FlexPen U-100 Insulin aspart) clopidogrel 75 mg tablet 75 mg PO DAILY #30 tabs 05/18/24 dapagliflozin propanediol 10 mg 10 mg PO QAM #30 tabs 05/21/24 tablet (Farxiga) furosemide 40 mg tablet (Lasix) 40 mg PO DAILY #30 tabs 05/21/24 hydrocodone 5 mg-acetaminophen 325 1 tab PO Q6H PRN pain #10 tabs 06/06/24 mg tablet Left unlar gutter FAST FORM #1 ea 06/18/24 atorvastatin 80 mg tablet 80 mg PO DAILY #30 tabs 06/21/24 sacubitril 24 mg-valsartan 26 mg 1 tab PO BID #180 tabs 07/27/24 tablet (Entresto) calcium 600 mg (as 1 tab PO DAILY Bone health and 08/02/24 carbonate)-vitamin D3 10 mcg (400 healing 30 days #30 tabs unit) tablet (Calcium 600 + D(3)) Allergies Allergy/AdvReac Type Severity Reaction Status Date / Time adhesive tape Allergy ALGY-Joseiste Verified 07/30/24 15:46 r PFSH ED 2 PFSH: Medical History (Updated 08/09/24 @ 01:32 by Benedicto Ayers DO) Congestive heart failure Mixed diastolic and systolic RONAL (obstructive sleep apnea) Atherosclerotic cerebrovascular disease Acute exacerbation of chronic obstructive airways disease Community acquired pneumonia Acute respiratory failure with hypoxia Diabetes COPD (chronic obstructive pulmonary disease) Tracheobronchomalacia CT chest 08/07 INGA positive Cerebellar stroke CKD (chronic kidney disease) Osteoarthritis of left hip Hypertension Surgical History History of cholecystectomy H/O: hysterectomy Family History Other Acute respiratory failure with hypoxia Social History Smoking and tobacco/nicotine status: never used tobacco/nicotine Alcohol intake: never Substance/Drug Use: never Physical Exam 2 Const: COMMON NORMALS: no acute distress GENERAL APPEARANCE: cooperative and frail appearing; not ill appearing HENMT: COMMON NORMALS: normocephalic, atraumatic and Normal external nose present HEAD & SCALP: normocephalic and atraumatic FACE & SINUS: normal facial exam and face symmetric NOSE: Normal external nose present Eye: COMMON NORMALS: Equal, round and reactive pupils present and EOMs intact bilaterally PUPIL: Yes Equal, round and reactive pupils present Neck/C-Spine: GENERAL: Yes trachea midline Chest: CHEST: Yes Symmetrical chest wall rise Resp: COMMON NORMALS: normal respiratory effort, No retractions, No use of accessory muscles and clear to auscultation bilaterally AUSCULTATION: clear to auscultation bilaterally Cardio: COMMON NORMALS: regular rate and regular rhythm RATE: regular rate RHYTHM: regular rhythm GI: COMMON NORMALS: Normal to inspection, nondistended, normoactive bowel sounds present Extremity: COMMON NORMALS: no pedal edema Neuro: FRANCISCO COMA SCALE: document GCS findings Francisco coma scale eye opening: Spontaneous Francisco coma scale verbal response: Orientated Francisco coma scale motor response: Obey commands Pelham coma scale total score: 15 S ENSORY EXAM: Yes extremities (intact) Psych: COMMON NORMALS: speech normal SPEECH: Yes normal speech Skin: COMMON NORMALS: no rashes or lesions noted GENERAL SKIN EXAM: no rashes or lesions noted Procedures Laceration Laceration 1: Site: face Side (If applicable): left Size (cm): 3 Description: irregular Depth: simple, single layer Local Anesthetic: lidocaine 1% Amount of anesthesia used (mL): 5 Pre-repair: wound explored, irrigated extensively and deep structures intact Skin layer closed with: other Course 2 Vital Signs: Vital signs: Vital Signs Temperature 98 F 08/08/24 22:47 Pulse Rate 81 08/09/24 01:50 Respiratory Rate 18 08/09/24 01:50 Blood Pressure 159/72 08/09/24 01:50 Pulse Oximetry 98 08/09/24 01:50 MDM - Fall Medical Decision Making Range of motion is intact to her right shoulder. There is no deformity or bruising in this area. CT of the bony pelvis does not reveal any new fracture. Does show stable appearance of the previously known left pubic symphysis. Her creatinine is 1.2. White blood cell count is 10. Her hemoglobin is 13. Head CT is nonacute. Laceration is repaired. She has an abrasion to her occipital skull. Sodium is 134 creatinine is 1.2. CBC is normal. She had a brief episode of confusion during her ER stay, in which she could not say her daughter's name. This seemed to recover quickly, and is likely to be related to posttraumatic/concussive symptoms. She stable for discharge. She will return for worsening symptoms. Lab Data 08/08/24 22:53 08/08/24 22:[address] 08/08/24 23:06 IMPRESSION: 1. No hemorrhage or significant change from 4 days ago. 2. New left forehead swelling. 3. Multiple chronic/incidental findings above. Pelvis CT 08/08/24 23:06 IMPRESSION: The previously seen subtle cortical irregularity involving the left pubic symphysis is similar in appearance when compared to reference study . No new fracture identified. Laboratory Results WBC 10.30 10^3/uL (3.29-11.43) 08/08/24 22:53 RBC 4.46 10^6/uL (3.85-5.65) 08/08/24 22:53 Hgb 13.20 g/dL (11.27-16.99) 08/08/24:53 Hct 41.1 % (36-47) 08/08/24 22:53 MCV 92.2 fl (85-98) 08/08/24 22:53 MCH 29.6 pg (27-33) 08/08/24: MCHC 32.1 g/dL (30-55) 08/08/24: RDW 13.7 % (12.1-15.1) 08/08/24:53 Plt Count 287 10^3/cmm (157-399) 08/08/24:53 MPV 10.7 fL (7.4-10.4) H 08/08/24 22:53 Neut % (Auto) 66.4 % 08/08/24 22:53 Lymph % (Auto) 19.3 % 08/08/24 22:53 [place] % (Auto) 11.5 % 08/08/24 22:53 Eos % (Auto) 1.6 % 08/08/24:53 Baso % (Auto) 0.4 % 08/08/24:53 Neut # (Auto) 6.85 10^3/uL (1.8-7.7) 08/08/24:53 Lymph # (Auto) 2.0 10^3/uL (0.8-4.8) 08/08/24 22:53 [place] # (Auto) 1.2 10^3/uL (0.2-0.9) H 08/08/24 22:53 Eos # (Auto) 0.2 10^3/uL (0.0-0.8) 08/08/24 22:53 Baso # (Auto) 0.0 10^3/uL (0.0-0.1) 08/08/24:53 Nucleated RBC % (auto) 0 % 01/25/25 22:53 Nucleated RBCs # 0.0 /100WBC 08/08/24 22:53 Sodium 134 mmol/L (136-145) L 08/08/24 22:53 Potassium 4.1 mmol/L (3.5-5.1) 08/08/24 22:53 Chloride 91 mmol/L (98-107) L 08/08/24 22:53 Carbon Dioxide 33 mmol/L (22-29) H 08/08/24 22:53 Anion Gap 14.1 (5-19) 08/08/24 22:53 BUN 23 mg/dL (8-23) 08/08/24 22:53 Creatinine 1.2 mg/dL (0.5-0.9) H 08/08/24 22:53 GFR Calculation Not Reportable 08/08/24 22:53 Glucose 210 mg/dL (65-115) H 08/08/24 22:53 Calculated Osmolality 288 mOsm/kg (285-295) 08/08/24 22:53 Calcium 10.2 mg/dL (8.5-10.5) 08/08/24 22:53 Total Bilirubin 0.9 mg/dL (0.15-1.2) 08/08/24 22:53 AST 22 U/L (0-32) 08/08/24 22:53 ALT 22 U/L (0-33) 08/08/24 22:53 Alkaline Phosphatase 142 U/L (35-105) H 08/08/24 22:53 Total Protein 6.9 g/dL (6.6-8.7) 08/08/24 22:53 Albumin 3.6 g/dL (3.5-5.2) 08/08/24 22:53 Globulin 3.3 g/dL (1.3-4.6) 08/08/24 22:53 All radiology interpretation(s) finalized by discharge Discharge Plan Discharge Patient Disposition: Home Clinical Impression: Concussion, Facial laceration, Contusion of hip, right Condition: Stable Prescriptions: No Action clopidogrel 75 mg tablet 75 mg PO DAILY Qty: 30 5RF sacubitril-valsartan [Entresto] 24-26 mg tablet 1 tab PO BID Qty: 180 3RF (DME) Left unlar gutter FAST FORM See Rx Instructions .Route .MEDSUPPLY Qty: 1 0RF Rx Instructions: As directed fluoxetine 20 mg capsule 20 mg PO QPM ascorbic acid (vitamin C) [Vitamin C] 1,000 mg Tablet 1,000 mg PO DAILY vitamin E 268 mg (400 unit) Capsule 268 mg PO DAILY Centrum Adult 50 Plus 80 mcg Tablet,Chewable 1 tab PO DAILY insulin aspart U-100 [Novolog FlexPen U-100 Insulin] 100 unit/mL (3 mL) insulin pen See Rx Instructions .ROUTE .COMPLEX Qty: 15 0RF Rx Instructions: Take per sliding scale as needed. BS 141-180 2u,181-220 4u, 221-260 6u, 261- 300 8u, 301-350 10u, 351-400 12u, >400 14u furosemide [Lasix] 40 mg tablet 40 mg PO DAILY Qty: 30 0RF dapagliflozin propanediol [Farxiga] 10 mg tablet 10 mg PO QAM Qty: 30 0RF hydrocodone-acetaminophen 5-325 mg tablet 1 tab PO Q6H PRN (Reason: pain) Qty: 10 0RF atorvastatin 80 mg tablet 80 mg PO DAILY Qty: 30 0RF meclizine 12.5 mg Tablet 12.5 mg PO TID PRN (Reason: Dizziness) insulin glargine [Lantus Solostar U-100 Insulin] 100 unit/mL (3 mL) insulin pen 30 unit SUBCUT QAM calcium carbonate-vitamin D3 [Calcium 600 + D(3)] 600 mg-10 mcg (400 unit) tablet 1 tab PO DAILY 30 Days Qty: 30 0RF aspirin 81 mg Tablet,Delayed Release (Dr/Ec) 81 mg PO DAILY Hold Instructions: Doctor's Order Discharge Orders: Discharge ED (Routine); Ordered 08/09/24 Ordered By: Benedicto Ayers Referrals: Lefty Hodge DO [Primary Care Provider] - 4-7 days Patient Instructions: Concussion (ED), Hip Contusion (ED), Facial Laceration (ED), Opioid Safety, Pain Management Activity Restrictions/Additional Instructions: Return for any problems. Coding Level of Care Code ED Human Services Case Manager for Minerva Ocampo
[2024-08-08 23:30] VITALS: PULSE 76
[2024-08-08 23:33] VITALS: BP 171/67
[2024-08-08 23:36] LABS: Basophils % 0.4 %; Eosinophils # 0.2 10^3/uL (0.0-0.8); Eosinophils % 1.6 %; Hematocrit 41.1 % (36-47); Lymphocytes % 19.3 %; Mean Corpuscular HGB Conc 32.1 g/dL (30-55); Mean Corpuscular Hemoglobin 29.6 pg (27-33); Mean Corpuscular Volume 92.2 fl (85-98); Mean Platelet Volume 10.7 fL (7.4-10.4); Monocytes # 1.2 10^3/uL (0.2-0.9); Monocytes % 11.5 %; Neutrophils # 6.85 10^3/uL (1.8-7.7); Neutrophils % 66.4 %; Nucleated Red Blood Cells % 0 %; Platelet Count 287 10^3/cmm (157-399); Red Blood Count 4.46 10^6/uL (3.85-5.65); Red Cell Distribution Width 13.7 % (12.1-15.1)
[2024-08-08 23:45] VITALS: BP 144/85; O2SAT 100
[2024-08-08 23:48] LABS: Alanine Aminotransferase 22 U/L (0-33); Albumin Level 3.6 g/dL (3.5-5.2); Alkaline Phosphatase 142 U/L (35-105); Anion Gap 14.1 (5-19); Aspartate Amino Transferase 22 U/L (0-32); Blood Urea Nitrogen 23 mg/dL (8-23); Calcium 10.2 mg/dL (8.5-10.5); Carbon Dioxide 33 mmol/L (22-29); Chloride 91 mmol/L (98-107); Globulin 3.3 g/dL (1.3-4.6); Glucose 210 mg/dL (65-115); Osmolality Calculated 288 mOsm/kg (285-295); Potassium 4.1 mmol/L (3.5-5.1); Sodium 134 mmol/L (136-145); Total Bilirubin 0.9 mg/dL (0.15-1.2); Total Protein 6.9 g/dL (6.6-8.7)
[2024-08-09] VITALS (17 sets, daily range): BP systolic 144–159; BP diastolic 70–85; PULSE 76–81; RESP 18; O2SAT 98–100
--- NOTE | 2024-08-09 00:32 | PC.NURSE ---
1220: Patient's daughter states that patient now cannot remember her daughters name. Patient's daughter states this has never happened before. Dr. Ayers notified who assessed patient at bedside. No new orders at this time. Patient now able to remember her daughters name.
[2024-08-09] MEDS: lidocaine 1% 10 ML INJ INJECTION (00:40)
== END 2024-08-09 02:09 | disposition home or self-care (01) ==
PROVIDERS: Emergency Provider Emergency Medicine; PCP Internal Medicine
DX: S01.81XA Laceration without foreign body of other part of head, initial encounter (principal); S06.0XAA Concussion with loss of consciousness status unknown, initial encounter; S70.01XA Contusion of right hip, initial encounter; Z79.02 Long term (current) use of antithrombotics/antiplatelets; Z79.4 Long term (current) use of insulin; W19.XXXA Unspecified fall, initial encounter; E11.22 Type 2 diabetes mellitus with diabetic chronic kidney disease; I12.9 Hypertensive chronic kidney disease with stage 1 through stage 4 chronic kidney disease, or unspecified chronic kidney disease; N18.9 Chronic kidney disease, unspecified; J44.9 Chronic obstructive pulmonary disease, unspecified
CPT/HCPCS: 70450; 72192; 80053; 85025; 93005; 99284

== ENCOUNTER → 2024-08-17 14:21 | Outpatient (BNVA) | payer MEDICARE, MEDICAID, SELFPAY | PROVIDERS: PCP Internal Medicine; Visit Provider Internal Medicine | DX: I50.23 Acute on chronic systolic (congestive) heart failure (principal) | CPT/HCPCS: 99213 ==

== ENCOUNTER 2024-09-09 07:32 | Emergency (ER) | payer MEDICARE, MEDICAID, SELFPAY ==
[2024-09-09 07:39] VITALS: BP 181/79; PULSE 86; RESP 18; TEMP 36.7; O2SAT 98; BMI 29.2
--- NOTE | 2024-09-09 07:46 | CT_ITS ---
WS: [id number] CT CERVICAL TRAUMA TECHNIQUE: Noncontrast CT of the cervical spine with coronal and sagittal reformatted images. CLINICAL INFORMATION: trauma COMPARISON: None. DLP: 1745.[address] scans at [facility] use at least one of these dose optimization techniques: automated exposure control; mA and/or kV adjustment per patient size (includes targeted exams where dose is matched to clinical indication); or iterative reconstruction. FINDINGS: Straightening of the normal cervical lordosis. Slight anterolisthesis C3 on C4. Mild cervical curve. Normal craniocervical junction. Normal C1-C2 articulation. Dens is normal in appearance. Normal occipital condyles. No high-grade spinal canal narrowing. Normal C1 ring. No evidence of acute fracture or dislocation. Normal prevertebral soft tissues. CT/CT cervical spin wo con* [id number] IMPRESSION: No evidence of acute fracture or dislocation.
--- NOTE | 2024-09-09 07:47 | CT_ITS ---
WS: [id number] CT HEAD TECHNIQUE: Noncontrast CT of the head obtained from the skullbase to the vertex. CLINICAL INFORMATION: trauma COMPARISON: 08/08/2024 DLP: 1745.[address] scans at [facility] use at least one of these dose optimization techniques: automated exposure control; mA and/or kV adjustment per patient size (includes targeted exams where dose is matched to clinical indication); or iterative reconstruction. FINDINGS: No evidence of intracranial hemorrhage or mass effect. Ventricular system and basal cisterns are patent. Moderate small vessel changes with moderate parenchymal volume loss. No extra-axial fluid collections. No evidence of mass or mass effect. Chronic infarcts in the bilateral basal ganglia. Chronic LEFT cerebellar infarct. Chronic infarcts involving the bilateral ridley radiata. Chronic infarcts LEFT temporal lobe and LEFT parasagittal occipital lobe with encephalomalacia. Vascular calcification. Nasal bone fractures. Fluid and blood products in the RIGHT ethmoid air cells and RIGHT maxillary sinus. CT/CT head wo con* [id number] IMPRESSION: 1. No evidence of intracranial hemorrhage or mass effect. 2. Moderate small vessel changes with moderate parenchymal volume loss. 3. Chronic infarcts described above. 4. Nasal bone fractures.
--- NOTE | 2024-09-09 08:00 | CT_ITS ---
WS: [id number] CT FACIAL BONES TECHNIQUE: Noncontrast facial bones with coronal and sagittal reformatted images. CLINICAL INFORMATION: trauma COMPARISON: None. DLP: 1745.[address] scans at [facility] use at least one of these dose optimization techniques: automated exposure control; mA and/or kV adjustment per patient size (includes targeted exams where dose is matched to clinical indication); or iterative reconstruction. FINDINGS: Fluid and blood products in the RIGHT ethmoid air cells and RIGHT maxillary sinus. Slightly displaced bilateral nasal bone and anterior nasal tip fractures. Small amount of fluid in the RIGHT sphenoid sinus. Normal pterygoid plates. Normal zygoma. Normal lateral orbits. Inferior orbits appear intact. Lamina papyracea appears intact. No evidence of mandibular fracture or dislocation. CT/CT facial bones wo con* [id number] IMPRESSION: 1. Bilateral anterior nasal bone and nasal tuft fractures. 2. No orbital fractures. 3. Fluid and blood products within the ethmoid air cells, maxillary sinus and sphenoid sinus.
--- NOTE | 2024-09-09 08:00 | XRR_ITS ---
PROCEDURE INFORMATION: Exam: XR Right Tibia and Fibula Exam date and time: 09/09/2024 8:33 AM Age: 74 years old Clinical indication: Injury or trauma; Fall; Blunt trauma; Lower leg; Right TECHNIQUE: Imaging protocol: Radiologic exam of the right tibia and fibula. Views: 2 views. COMPARISON: US ROR venous duplex LE RT 08/23/2021 9:14 AM FINDINGS: Bones/joints: No fracture. calcaneal bony spurring. Soft tissues: There is soft tissue swelling involving the anterior briones area. XR/XR tibia fibula RT 2V [id number] IMPRESSION: 1. There is soft tissue swelling involving the anterior briones area. 2. Calcaneal bony spurring. 3. No fracture
[2024-09-09 08:15] LABS: Basophils # 0.1 10^3/uL (0.0-0.1); Eosinophils # 0.3 10^3/uL (0.0-0.8); Eosinophils % 3.5 %; Lymphocytes # 1.2 10^3/uL (0.8-4.8); Lymphocytes % 15.6 %; Mean Corpuscular HGB Conc 31.2 g/dL (30-55); Mean Corpuscular Hemoglobin 29.8 pg (27-33); Mean Corpuscular Volume 95.6 fl (85-98); Mean Platelet Volume 9.5 fL (7.4-10.4); Monocytes # 0.8 10^3/uL (0.2-0.9); Monocytes % 9.7 %; Neutrophils # 5.53 10^3/uL (1.8-7.7); Neutrophils % 69.7 %; Nucleated Red Blood Cells % 0 %; Platelet Count 243 10^3/cmm (157-399); Red Blood Count 4.29 10^6/uL (3.85-5.65); Red Cell Distribution Width 14.2 % (12.1-15.1); White Blood Count 7.94 10^3/uL (3.29-11.43)
[2024-09-09 08:18] LABS: Add Urine Microscopic? NO
[2024-09-09 08:21] VITALS: BP 161/78; PULSE 81; O2SAT 98
--- NOTE | 2024-09-09 08:30 | W.ED.FALL ---
HPI - Fall General: Chief Complaint: Fall Stated Complaint: fall Time Seen by Provider: 09/09/24 07:46 History of Present Illness: 74-year-old female ground-level mechanical fall and she stumbled in her home fell forward and hit her nose. There is no loss consciousness she also struck her right anterior tibia as she fell. She does large area of swelling there she was able to stand and ambulate after that she denies chest pain she denies loss consciousness denies nausea or vomiting. Associated symptoms-after fall: Denies abdominal pain, chest pain or neck pain Related Data Home Medications ?Medication ?Instructions ?Recorded ?Confirmed ascorbic acid (vitamin C) 1,000 mg 1,000 mg PO DAILY 08/05/21 09/09/24 tablet (Vitamin C) fluoxetine 20 mg capsule 20 mg PO QPM 08/05/21 09/09/24 aspirin 81 mg tablet,delayed 81 mg PO DAILY 08/10/23 09/09/24 release multivitamin with minerals-folic 1 tab PO DAILY 08/14/23 09/09/24 acid 80 mcg chewable tablet (Centrum Adult 50 Plus) vitamin E 268 mg (400 unit) capsule 268 mg PO DAILY 08/14/23 09/09/24 meclizine 12.5 mg tablet 12.5 mg PO TID PRN Dizziness 07/05/24 09/09/24 insulin glargine 100 unit/mL (3 30 unit SUBCUT QAM 07/31/24 09/09/24 mL) subcutaneous pen (Lantus Solostar U-100 Insulin) Previous Rx's ?Medication ?Instructions ?Recorded insulin aspart U-100 100 unit/mL See Rx Instructions .Route 08/16/23 (3 mL) subcutaneous pen (Novolog .COMPLEX #15 mL FlexPen U-100 Insulin aspart) clopidogrel 75 mg tablet 75 mg PO DAILY #30 tabs 05/18/24 dapagliflozin propanediol 10 mg 10 mg PO QAM #30 tabs 05/21/24 tablet (Farxiga) furosemide 40 mg tablet (Lasix) 40 mg PO DAILY #30 tabs 05/21/24 hydrocodone 5 mg-acetaminophen 325 1 tab PO Q6H PRN pain #10 tabs 06/06/24 mg tablet Left unlar gutter FAST FORM #1 ea 06/18/24 atorvastatin 80 mg tablet 80 mg PO DAILY #30 tabs 06/21/24 sacubitril 24 mg-valsartan 26 mg 1 tab PO BID #180 tabs 07/27/24 tablet (Entresto) amoxicillin 500 mg-potassium 1 tab PO TID #21 tabs 09/09/24 clavulanate 125 mg tablet (Augmentin) Allergies Allergy/AdvReac Type Severity Reaction Status Date / Time adhesive tape Allergy ALGY-Bliste Verified 08/17/24 14:27 r Review of Systems Const: Denies: fever(s) or chills Card: Denies: chest pain Resp: Denies: dyspnea GI: Denies: abdominal pain : Denies: dysuria, urinary frequency or urinary urgency Musc: Reports: extremity pain and extremity swelling; Denies: neck pain or back pain Skin/Breast: Denies: rash PFSH ED PFSH: Medical History Congestive heart failure Mixed diastolic and systolic RONAL (obstructive sleep apnea) Atherosclerotic cerebrovascular disease Acute exacerbation of chronic obstructive airways disease Community acquired pneumonia Acute respiratory failure with hypoxia Diabetes COPD (chronic obstructive pulmonary disease) Tracheobronchomalacia CT chest 08/07 INGA positive Cerebellar stroke CKD (chronic kidney disease) Osteoarthritis of left hip Hypertension Surgical History History of cholecystectomy H/O: hysterectomy Family History Other Acute respiratory failure with hypoxia Social History Smoking and tobacco/nicotine status: never used tobacco/nicotine Alcohol intake: never Substance/Drug Use: never Physical Exam Const: GENERAL APPEARANCE: cooperative and comfortable ORIENTATION/CONSCIOUSNESS: Yes awake, Yes oriented to person, Yes oriented to place and Yes oriented to time HENMT: COMMON NORMALS: normocephalic, atraumatic and hearing grossly normal bilaterally HEAD & SCALP: normocephalic and atraumatic Resp: COMMON NORMALS: normal respiratory effort, No retractions, No use of accessory muscles and clear to auscultation bilaterally AUSCULTATION: clear to auscultation bilaterally Cardio: COMMON NORMALS: regular rate, regular rhythm and No murmurs present (Cardio) RATE: regular rate RHYTHM: regular rhythm GI: COMMON NORMALS: Soft to palpation and No hepatosplenomegaly present AUSCULTATION: Yes normoactive bowel sounds PALPATION: Yes Soft to palpation, No Tenderness to palpation present (GI), No Guarding due to palpation present (GI) and Yes No hepatosplenomegaly present Extremity: OTHER: Ecchymotic area on the right anterior tibia midshaft. No deformity. Able to internally externally rotate both hips without difficulty no pain at either knee or ankle on either side range of motion without discomfort. Neurovascularly intact in the lower and upper extremities. Neuro: SENSORIUM/ORIENTATION: Yes oriented to person, Yes oriented to place and Yes oriented to time Skin: COMMON NORMALS: no rashes or lesions noted GENERAL SKIN EXAM: no rashes or lesions noted Course Vital Signs: Vital signs: Vital Signs Temperature 98.0 F 09/09/24 07:39 Pulse Rate 72 09/09/24 10:13 Respiratory Rate 18 09/09/24 07:39 Blood Pressure 136/75 09/09/24 10:13 Pulse Oximetry 97 09/09/24 10:13 Oxygen Delivery Me thod Room Air 09/09/24 07:39 MDM - Fall Medical Decision Making Closed nasal bone fracture no other injuries noted on the CT scan. Patient does have a hematoma on anterior tibia on the right but there is no fracture. No sign of sinus fracture but there is comment on the CT facial bones about blood and fluid in the sinuses we will put her on a short course of Augmentin. Refer to ENT for the nasal bone fracture. Follow-up with primary care. Return if she has further problems. Lab Data 09/09/24 08:08 09/09/24 08:08 Radiology Impressions Cervical Spine CT 09/09/24 07:46 IMPRESSION: No evidence of acute fracture or dislocation. Head CT 09/09/24 07:47 IMPRESSION: 1. No evidence of intracranial hemorrhage or mass effect. 2. Moderate small vessel changes with moderate parenchymal volume loss. 3. Chronic infarcts described above. 4. Nasal bone fractures. Face CT 09/09/24 08:00 IMPRESSION: 1. Bilateral anterior nasal bone and nasal tuft fractures. 2. No orbital fractures. 3. Fluid and blood products within the ethmoid air cells, maxillary sinus and sphenoid sinus. Tibia/Fibula X-Ray 09/09/24 08:00 IMPRESSION: 1. There is soft tissue swelling involving the anterior briones area. 2. Calcaneal bony spurring. 3. No fracture Laboratory Results WBC 7.94 10^3/uL (3.29-11.43) 09/09/24 08:08 RBC 4.29 10^6/uL (3.85-5.65) 09/09/24 08:08 Hgb 12.80 g/dL (11.27-16.99) 09/09/24 08:08 Hct 41.0 % (36-47) 09/09/24 08:08 MCV 95.6 fl (85-98) 09/09/24 08:08 MCH 29.8 pg (27-33) 09/09/24 08:08 MCHC 31.2 g/dL (30-55) 09/09/24 08:08 RDW 14.2 % (12.1-15.1) 09/09/24 08:08 Plt Count 243 10^3/cmm (157-399) 09/09/24 08:08 MPV 9.5 fL (7.4-10.4) 09/09/24 08:08 Neut % (Auto) 69.7 % 09/09/24 08:08 Lymph % (Auto) 15.6 % 09/09/24 08:08 [place] % (Auto) 9.7 % 09/09/24 08:08 Eos % (Auto) 3.5 % 09/09/24 08:08 Baso % (Auto) 1.0 % 09/09/24 08:08 Neut # (Auto) 5.53 10^3/uL (1.8-7.7) 09/09/24 08:08 Lymph # (Auto) 1.2 10^3/uL (0.8-4.8) 09/09/24 08:08 [place] # (Auto) 0.8 10^3/uL (0.2-0.9) 09/09/24 08:08 Eos # (Auto) 0.3 10^3/uL (0.0-0.8) 09/09/24 08:08 Baso # (Auto) 0.1 10^3/uL (0.0-0.1) 09/09/24 08:08 Nucleated RBC % (auto) 0 % 09/09/24 08:08 Nucleated RBCs # 0.0 /100WBC 09/09/24 08:08 Sodium 139 mmol/L (136-145) 09/09/24 08:08 Potassium 4.0 mmol/L (3.5-5.1) 09/09/24 08:08 Chloride 101 mmol/L (98-107) 09/09/24 08:08 Carbon Dioxide 27 mmol/L (22-29) 09/09/24 08:08 Anion Gap 15.0 (5-19) 09/09/24 08:08 BUN 24 mg/dL (8-23) H 09/09/24 08:08 Creatinine 1.1 mg/dL (0.5-0.9) H 09/09/24 08:08 GFR Calculation Not Reportable 09/09/24 08:08 Glucose 260 mg/dL (65-115) H 09/09/24 08:08 Calculated Osmolality 301 mOsm/kg (285-295) H 09/09/24 08:08 Calcium 9.3 mg/dL (8.5-10.5) 09/09/24 08:08 Total Bilirubin 1.1 mg/dL (0.15-1.2) 09/09/24 08:08 AST 22 U/L (0-32) 09/09/24 08:08 ALT 21 U/L (0-33) 09/09/24 08:08 Alkaline Phosphatase 138 U/L (35-105) H 09/09/24 08:08 Total Protein 7.0 g/dL (6.6-8.7) 09/09/24 08:08 Albumin 3.5 g/dL (3.5-5.2) 09/09/24 08:08 Globulin 3.5 g/dL (1.3-4.6) 09/09/24 08:08 Urine Color Yellow (Yellow) 09/09/24 08:14 Urine Appearance Clear (CLEAR) 09/09/24 08:14 Urine pH 6.5 (5-7) 09/09/24 08:14 Ur Specific [place] 1.014 (1.005-1.030) 09/09/24 08:14 Urine Protein Negative (Negative) 09/09/24 08:14 Urine Glucose (UA) 3+ (Normal) H 09/09/24 08:14 Urine Ketones Negative (Negative) 09/09/24 08:14 Urine Blood Negative (Negative) 09/09/24 08:14 Urine Nitrate Negative (Negative) 09/09/24 08:14 Urine Bilirubin Negative (Negative) 09/09/24 08:14 Urine Urobilinogen 0.2 mg/dL (Negative) 09/09/24 08:14 Ur Leukocyte Esterase Negative (Negative) 09/09/24 08:14 Amorphous Sediment Not Reportable 09/09/24 08:14 All radiology interpretation(s) finalized by discharge Discharge Plan Discharge Patient Disposition: Home Clinical Impression: Fall, Fracture closed, nasal bone Condition: Stable Prescriptions: New amoxicillin-pot clavulanate [Augmentin] 500-125 mg tablet 1 tab PO TID Qty: 21 0RF No Action clopidogrel 75 mg tablet 75 mg PO DAILY Qty: 30 5RF sacubitril-valsartan [Entresto] 24-26 mg tablet 1 tab PO BID Qty: 180 3RF (DME) Left unlar gutter FAST FORM See Rx Instructions .Route .MEDSUPPLY Qty: 1 0RF Rx Instructions: As directed fluoxetine 20 mg capsule 20 mg PO QPM ascorbic acid (vitamin C) [Vitamin C] 1,000 mg Tablet 1,000 mg PO DAILY vitamin E 268 mg (400 unit) Capsule 268 mg PO DAILY Centrum Adult 50 Plus 80 mcg Tablet,Chewable 1 tab PO DAILY insulin aspart U-100 [Novolog FlexPen U-100 Insulin] 100 unit/mL (3 mL) insulin pen See Rx Instructions .ROUTE .COMPLEX Qty: 15 0RF Rx Instructions: Take per sliding scale as needed. BS 141-180 2u,181-220 4u, 221-260 6u, 261-300 8u, 301-350 10u, 351-400 12u, >400 14u furosemide [Lasix] 40 mg tablet 40 mg PO DAILY Qty: 30 0RF dapagliflozin propanediol [Farxiga] 10 mg tablet 10 mg PO QAM Qty: 30 0RF hydrocodone-acetaminophen 5-325 mg tablet 1 tab PO Q6H PRN (Reason: pain) Qty: 10 0RF atorvastatin 80 mg tablet 80 mg PO DAILY Qty: 30 0RF meclizine 12.5 mg Tablet 12.5 mg PO TID PRN (Reason: Dizziness) insulin glargine [Lantus Solostar U-100 Insulin] 100 unit/mL (3 mL) insulin pen 30 unit SUBCUT QAM aspirin 81 mg Tablet,Delayed Release (Dr/Ec) 81 mg PO DAILY Discharge Orders: Discharge ED (Routine); Ordered 09/09/24 Ordered By: Chandan Alvarado Referrals: Tessa Jhaveri FNP [Primary Care Provider] - Discharge Diet: Usual diet Discharge Activity: Increase activity as tolerated Patient Instructions: Opioid Safety, Pain Management Activity Restrictions/Additional Instructions: [facility] you [facility] for your healthcare needs today. It is very important that you follow up as instructed or that you return to the Emergency Department should you have concerns or if your condition changes or worsens in any way. You are seen in the emergency room after a fall. X-ray of your leg as well as a CT of your head and neck and facial bones did not show any major injuries. She did have a minimally displaced nasal bone fracture will recommend that you follow-up with ENT regarding this. There was some blood noted in some of your sinuses but no sinus or facial fractures. We do recommend that he take a brief course of Augmentin to prevent sinus infection. Follow-up with your primary care doctor as needed. Print Language: Romanian Coding Level of Care Code ED Coordinate Measuring Machine Operator for Minerva Ocampo
[2024-09-09 08:47] LABS: Alanine Aminotransferase 21 U/L (0-33); Albumin Level 3.5 g/dL (3.5-5.2); Alkaline Phosphatase 138 U/L (35-105); Aspartate Amino Transferase 22 U/L (0-32); Blood Urea Nitrogen 24 mg/dL (8-23); Calcium 9.3 mg/dL (8.5-10.5); Carbon Dioxide 27 mmol/L (22-29); Chloride 101 mmol/L (98-107); Creatinine Clr Calc Pharmacy 43.1238; Globulin 3.5 g/dL (1.3-4.6); Glucose 260 mg/dL (65-115); Osmolality Calculated 301 mOsm/kg (285-295); Sodium 139 mmol/L (136-145); Total Bilirubin 1.1 mg/dL (0.15-1.2)
[2024-09-09 09:02] LABS: Bilirubin Urine Negative (Negative); Blood Urine Negative (Negative); Glucose Urine UA 3+ (Normal); Ketones Urine Negative (Negative); Leukocyte Esterase Urine Negative (Negative); Nitrate Urine Negative (Negative); Protein Urine Negative (Negative); Specific Gravity, Urine 1.014 (1.005-1.030); Urine Appearance Clear (CLEAR); Urine Color Yellow (Yellow); Urobilinogen Urine 0.2 mg/dL (Negative); pH Urine 6.5 (5-7)
[2024-09-09 09:10] LABS: Add Urine Culture? No
[2024-09-09 09:11] LABS: Charge for UA Resulting for Rev
[2024-09-09 10:13] VITALS: BP 136/75; PULSE 72; O2SAT 97
--- NOTE | 2024-09-11 10:02 | DCPLANNER ---
faxed referral packet to romy franco
== END 2024-09-09 10:14 | disposition home or self-care (01) ==
PROVIDERS: Emergency Provider Family Medicine; PCP Nurse Practitioner Family
DX: S02.2XXA Fracture of nasal bones, initial encounter for closed fracture (principal); Z79.02 Long term (current) use of antithrombotics/antiplatelets; Z79.4 Long term (current) use of insulin; Z79.82 Long term (current) use of aspirin; I25.10 Atherosclerotic heart disease of native coronary artery without angina pectoris; J44.9 Chronic obstructive pulmonary disease, unspecified; E11.22 Type 2 diabetes mellitus with diabetic chronic kidney disease; I13.0 Hypertensive heart and chronic kidney disease with heart failure and stage 1 through stage 4 chronic kidney disease, or unspecified chronic kidney disease; N18.9 Chronic kidney disease, unspecified; I50.9 Heart failure, unspecified; W19.XXXA Unspecified fall, initial encounter
CPT/HCPCS: 36415; 70450; 70486; 72125; 73590; 80053; 81003; 85025; 99284

== ENCOUNTER 2024-10-05 14:44 | Outpatient (CLI) | payer MEDICARE, MEDICAID, SELFPAY ==
--- NOTE | 2024-10-05 14:46 | MM_ITS ---
WS: [id number] BILATERAL 3D TOMOSYNTHESIS DIGITAL SCREENING MAMMOGRAPHY WITH CAD CLINICAL INFORMATION: SCREENING HISTORY: Screening mammogram. No current complaints. COMPARISON: Only RIGHT breast was performed in 2020. Comparison 2019 TECHNIQUE: Bilateral CC and MLO views. FINDINGS: Scattered fibroglandular densities bilaterally. No suspicious focal mass, asymmetry, calcifications, or architectural distortion. No evidence of malignancy. Vascular calcifications. Dystrophic calcifications RIGHT breast. New area of suspicious heterogeneous clustered calcifications upper outer LEFT breast. Increased parenchymal density. Recommend further evaluation with magnification views. Calcifications are new since 2020. Increasing parenchymal density in this area as well. Recommend ultrasound in conjunction with the magnification views. MM/MM [facility] tomosynthesis [id number] IMPRESSION: DENSITY: There are scattered areas of fibroglandular density. BI-RADS: 0 - Incomplete: Need additional imaging evaluation. FOLLOW UP: Need Additional Imaging Recommend spot magnification views of the new heterogeneous clustered calcifica tions upper outer LEFT breast In addition increasing parenchymal tissue associated with the calcifications in this area. Recommend ultrasound of this area also
== END 2024-10-05 14:45 | disposition home or self-care (01) ==
PROVIDERS: PCP Nurse Practitioner Family; Visit Provider Nurse Practitioner Family
DX: Z12.31 Encounter for screening mammogram for malignant neoplasm of breast (principal); R92.323 Mammographic fibroglandular density, bilateral breasts; R92.1 Mammographic calcification found on diagnostic imaging of breast; N63.21 Unspecified lump in the left breast, upper outer quadrant
CPT/HCPCS: 77063; 77067

== ENCOUNTER 2024-11-12 12:51 | Outpatient (CLI) | payer MEDICARE, SELFPAY ==
--- NOTE | 2024-11-12 12:56 | MM_ITS ---
WS: [id number] LEFT 3D TOMOSYNTHESIS DIGITAL MAMMOGRAPHY WITH CAD CLINICAL INFORMATION: ABNORMAL MAMMO HISTORY: Additional views COMPARISON: 10/05/2024 TECHNIQUE: 3 views of the left breast were obtained. FINDINGS: Scattered fibroglandular densities of the left breast. Vascular calcification. Nodular density upper outer LEFT breast is stable in appearance with associated coarse calcifications. Ultrasound is pending. ULTRASOUND BREAST LEFT TECHNIQUE: Ultrasound left breast focused area of concern. CLINICAL INFORMATION: ABNORMAL MAMMO FINDINGS: Ultrasound LEFT breast upper outer quadrant. Incidental cyst at the 1 o'clock position. In addition there is a heterogeneous nodule with calcifications measuring 6 x 8 x 7 mm at the 2 o'clock position. This is taller than wide. Recommend further evaluation with ultrasound-guided biopsy. MM/MM diag LT tomosynthesis [id number] IMPRESSION: DENSITY: There are scattered areas of fibroglandular density. BI-RADS: 4 - Suspicious Finding - Biopsy Should Be Considered. FOLLOW UP: US Guided Biopsy Recommended Recommend ultrasound-guided biopsy of the above described nodule new since 2019
== END 2024-11-12 12:52 | disposition home or self-care (01) ==
PROVIDERS: PCP Nurse Practitioner Family; Visit Provider Nurse Practitioner Family
DX: R92.8 Other abnormal and inconclusive findings on diagnostic imaging of breast (principal); R92.321 Mammographic fibroglandular density, right breast; R92.1 Mammographic calcification found on diagnostic imaging of breast; N60.02 Solitary cyst of left breast; N63.21 Unspecified lump in the left breast, upper outer quadrant
CPT/HCPCS: 76642; 77061; G0279

== ENCOUNTER → 2024-11-30 12:55 | Outpatient (BNVA) | payer MEDICARE, SELFPAY | PROVIDERS: PCP Nurse Practitioner Family; Visit Provider Nurse Practitioner Family | DX: I13.0 Hypertensive heart and chronic kidney disease with heart failure and stage 1 through stage 4 chronic kidney disease, or unspecified chronic kidney disease (principal); N18.30 Chronic kidney disease, stage 3 unspecified; I50.23 Acute on chronic systolic (congestive) heart failure; E78.2 Mixed hyperlipidemia; J44.9 Chronic obstructive pulmonary disease, unspecified; Z86.73 Personal history of transient ischemic attack (TIA), and cerebral infarction without residual deficits; Z79.4 Long term (current) use of insulin | CPT/HCPCS: 99214 ==

== ENCOUNTER 2024-12-09 12:34 | Outpatient (CLI) | payer MEDICARE, SELFPAY ==
--- NOTE | 2024-12-09 12:47 | US_ITS ---
WS: [id number] ULTRASOUND-GUIDED LEFT BREAST BIOPSY CLINICAL INFORMATION: left breast biopsy FINDINGS: The procedure including risks, benefits, and complications were discussed with the patient who agreed to proceed. Using sterile technique patient was prepped and draped in the usual sterile fashion. After 1% lidocaine utilizing real-time ultrasound guidance 5 14-gauge cores were obtained of the LEFT breast lesion at the 2 o'clock position. Subsequently a titanium clip was placed in the biopsy cavity. No immediate complications. US/[place] [id number] IMPRESSION: 1. Uncomplicated ultrasound-guided LEFT breast biopsy. 2. The pathology demonstrates fat necrosis with dystrophic calcifications. Fib rosis and lymphohistiocytic inflammation. No atypia or malignancy 3. Recommend return to annual screening mammography. DENSITY: There are scattered areas of fibroglandular density. BI-RADS: 2- Benign FOLLOW UP: 1 Year Follow-up
== END 2024-12-09 12:35 | disposition home or self-care (01) ==
PROVIDERS: PCP Nurse Practitioner Family; Visit Provider Nurse Practitioner Family
DX: R92.8 Other abnormal and inconclusive findings on diagnostic imaging of breast (principal); N63.21 Unspecified lump in the left breast, upper outer quadrant; N64.1 Fat necrosis of breast; R92.1 Mammographic calcification found on diagnostic imaging of breast; N60.32 Fibrosclerosis of left breast
CPT/HCPCS: 19083; 88305; 88342

== ENCOUNTER → 2025-02-01 13:36 | Outpatient (BNVA) | payer MEDICARE, SELFPAY | PROVIDERS: PCP Nurse Practitioner Family; Visit Provider Psychiatry & Neurology Neurology | DX: I67.2 Cerebral atherosclerosis (principal); R29.6 Repeated falls; E61.1 Iron deficiency; I63.9 Cerebral infarction, unspecified | CPT/HCPCS: 36415; 80076; 83540; 85025; 99212 ==

== ENCOUNTER → 2025-03-02 14:17 | Outpatient (BNVA) | payer MEDICARE, SELFPAY | PROVIDERS: PCP Nurse Practitioner Family; Visit Provider Internal Medicine Cardiovascular Disease | DX: I50.43 Acute on chronic combined systolic (congestive) and diastolic (congestive) heart failure (principal); J44.9 Chronic obstructive pulmonary disease, unspecified; Z99.81 Dependence on supplemental oxygen; Z86.73 Personal history of transient ischemic attack (TIA), and cerebral infarction without residual deficits; Z79.02 Long term (current) use of antithrombotics/antiplatelets; Z79.82 Long term (current) use of aspirin | CPT/HCPCS: 99214 ==